=== PATIENT | male | born 1945 | race Caucasian/White ===

== ENCOUNTER 2018-11-05 23:05 | Inpatient (IN) | payer MEDICARE, OTHER ==
[~2018-11-05] VITALS: Ht 180.3 cm; Wt 89.4 kg
[2018-11-06] VITALS (14 sets, daily range): BP systolic 103–175; BP diastolic 38–91
[2018-11-06] MEDS ORDERED: ASPIRIN CHEWABLE 81 MG TABLET. PO ONE (03:30)
[2018-11-06] MEDS: IV NORMAL SALINE 1000ML BAG 1,000 ML IV SCH ×3 (04:13→21:59)
[2018-11-06] MEDS ORDERED: CRESTOR5 MG PO (04:55)
[2018-11-06] MEDS ORDERED: PANT40TA77 PO (04:55)
[2018-11-06] MEDS ORDERED: GABA-585 PO (04:55)
[2018-11-06] MEDS ORDERED: HYDR25SU18 RC (04:55)
[2018-11-06] MEDS ORDERED: CHOL100013 PO (04:55)
[2018-11-06] MEDS ORDERED: DOCU100C28 PO (04:55)
[2018-11-06] MEDS ORDERED: POLY17PO29 PO (04:55)
[2018-11-06] MEDS ORDERED: LOSA100T14 PO (04:55)
--- NOTE | 2018-11-06 05:28 | NUR ---
Pt. admitted to ICU room 112 from [place] ED, arrived to unit on [place] via EMS. Upon arrival pt. is alert to self only. NIH stroke scale completed, score increased from most recent assessment at [place], with changes due to weakness in all four extremities. Dr. Olvera paged and returned call, updated on pt. condition, orders received. Dr. Paul consulted tonight per orders, updated on ED course and current pt. condition including weakness, expressive aphasia, and general confusion order for ASA, and MRI in AM received. Noted that pt's Na was 125, informed Dr. Olvera, orders received. ~0200 pt. became impulsive, attempting to get up from bed multiple times requiring frequent reorientation while awake. Pt. sleeping, within sight of RN at this time, will re-evaluate need for sitter during day shift.
[2018-11-06 07:53] LABS: CALCIUM 8.6 mg/dL (8.5-10.1); CREATININE 1.3 mg/dL (0.7-1.3); GFR 53.8; POTASSIUM 4.1 mmol/L (3.5-5.1)
--- NOTE | 2018-11-06 09:36 | PDOC1 ---
History and Physical Date of Admission Date of Admission DATE: 11/06/18 TIME: 09:35 Identification/Chief Complaint Chief Complaint mental status change Source Source: Chart review, Patient History of Present Illness History of Present Illness Mr. Morales, 73-year-old male went to the ER at [facility] via EMS with concern for stroke. The patient was feeling and acting normally earlier in the day, sudden change at 7:30pm last night, blank stare, not talking for a time, then vonfused. unable to to move well, and that has imrpoved markedly, but he is still not oriented to baseline. His is here and assists with history, she reprots he is much improved this AM. he could not walk last night, and would like to try to do so this AM Patient has a history of TIAs and possibly a previous CVA. No recent surgery. Past Medical History Cardiovascular: HTN, Valve insufficiency Pulmonary: No pertinent hx CENTRAL NERVOUS SYSTEM: CVA GI: Other (GI bleed) Past Surgical History Past Surgical History: No pertinent history Social History Smoke: No ALCOHOL: none Current Medications Current Medications Current Medications Aspirin (Children'S Aspirin) 81 mg 1X ONCE PO Last administered on 11/06/18at 04:12; Start 11/06/18 at 03:30; Stop 11/06/18 at 03:32; Status DC Sodium Chloride 1,000 ml @ 100 mls/hr Q10H IV Last administered on 11/06/18at 04:13; Start 11/06/18 at 04:30 Active Scripts Active Reported Losartan Potassium 100 Mg Tablet 100 Mg PO DAILY Crestor (Rosuvastatin Calcium) 5 Mg Tablet 1 Tab PO QODAY Miralax (Polyethylene Glycol 3350) 17 Gm Powd.pack 1 Packet PO DAILY PRN Pantoprazole Sodium (Pantoprazole Sodium) 40 Mg Tablet.dr 40 Mg PO DAILYAC Anusol-Hc (Hydrocortisone Acetate) 25 Mg Supp.rect 1 Supp RC DAILY PRN Gabapentin (Gabapentin) 100 Mg Capsule 100 Mg PO TID Docusate Sodium 100 Mg Capsule 1 Cap PO DAILY PRN Vitamin D (Cholecalciferol (Vitamin D3)) 1,000 Unit Capsule 1 Cap PO BID Allergies Allergies: Coded Allergies: lisinopril (Verified Allergy, Severe, 11/06/18) Angioedema Penicillins (Verified Allergy, Intermediate, Rash, 11/06/18) atorvastatin (Verified Allergy, Intermediate, 11/06/18) Muscle pain rosuvastatin (Verified Allergy, Intermediate, 11/06/18) Muscle pain - tolerates three times weekly dosing ROS General: YES: Appetite; No: Chills, Night Sweats, Fatigue, Malaise, Other PSYCHOLOGICAL ROS: YES: Sleep disturbances; No: Anxiety, Behavioral Disorder, Concentration difficultie, Decreased libido, Depression, Disorientation, Hallucinations, Hostility, Irritablity, Memory difficulties, Mood Swings, Obsessive thoughts, Other Eyes: No Blurry vision, No Decreased vision, No Double vision, No Dry eyes, No Excessive tearing, No Eye Pain, No Itchy Eyes, No Loss of vision, No Photophobia, No Scotomata, No Uses contacts, No Uses glasses, No Other HEENT: No: Heacaches, Visual Changes, Hearing change, Nasal congestion, Nasal discharge, Oral lesions, Sinus pain, Sore Throat, Epistaxis, Sneezing, Snoring, Tinnitus, Vertigo, Vocal changes, Other Respiratory: No: Cough, Hemoptysis, Orthopnea, Pleuritic Pain, Shortness of breath, SOB with excertion, Sputum Changes, Stridor, Tachypnea, Wheezing, Other Cardiovascular: No Chest Pain, No Palpitations, No Orthopnea, No Paroxysmal Noc. Dyspnea, No Edema, No Lt Headedness, No Other Gastrointestinal: Yes Other (weight loss); No Nausea, No Vomiting, No Abdominal Pain, No Diarrhea, No Constipation, No Melena, No Hematochezia Genitourinary: No Dysuria, No Frequency, No Incontinence, No Hematuria, No Retention, No Discharge, No Urgency, No Pain, No Flank Pain, No Other, No , No , No , No , No , No , No Musculoskeletal: Yes Joint Stiffness; No Gait Disturbance, No Joint Pain, No Joint Swelling, No Muscle Pain, No Muscular Weakness, No Pain In:, No Swelling In:, No Other Neurological: No Behavorial Changes, No Bowel/Bladder ControlChng, No Confusion, No Dizziness, No Gait Disturbance, No Headaches, No Impaired Coord/balance, No Memory Loss, No Numbness/Tingling, No Seizures, No Speech Problems, No Tremors, No Visual Changes, No Weakness, No Other Skin: No Dry Skin, No Eczema, No Hair Changes, No Lumps, No Mole Changes, No Mottling, No Nail Changes, No Pruritus, No Rash, No Skin Lesion Changes, No Other, No Acne Physical Exam Physical Exam NIH 4 General: Alert, Cooperative, No acute distress, Other (oriented 3/4) HEENT: Atraumatic, PERRLA Lungs: Clear to auscultation Heart: murmurs (3/6 MAKENZIE) Abdomen: Normal bowel sounds, Soft Extremities: No edema Skin: No rashes, No breakdown, No significant lesion Neuro: Normal tone, Sensation intact Vitals Vitals Vital Signs Date Time Temp Pulse Resp B/P (MAP) Pulse Ox O2 Delivery O2 Flow Rate FiO2 11/06/18 08:00 Room Air 11/06/18 07:00 98.3 54 159/91 (113) 98 98.3 11/06/18 06:00 22 Labs Labs Laboratory Tests Test 11/06/18 07:20 Sodium Level 133 mmol/L (136-145) Potassium Level 4.1 mmol/L (3.5-5.1) Chloride Level 99 mmol/L (98-107) Carbon Dioxide Level 24 mmol/L (21-32) Anion Gap 10 (6-14) Blood Urea Nitrogen 17 mg/dL (8-26) Creatinine 1.3 mg/dL (0.7-1.3) Estimated GFR (Cockcroft-Gault) 53.8 Glucose Level 114 mg/dL (70-99) Calcium Level 8.6 mg/dL (8.5-10.1) Laboratory Tests Test 11/06/18 07:20 Sodium Level 133 mmol/L (136-145) Potassium Level 4.1 mmol/L (3.5-5.1) Chloride Level 99 mmol/L (98-107) Carbon Dioxide Level 24 mmol/L (21-32) Anion Gap 10 (6-14) Blood Urea Nitrogen 17 mg/dL (8-26) Creatinine 1.3 mg/dL (0.7-1.3) Estimated GFR (Cockcroft-Gault) 53.8 Glucose Level 114 mg/dL (70-99) Calcium Level 8.6 mg/dL (8.5-10.1) VTE Prophylaxis Ordered VTE Prophylaxis Devices: Yes VTE Pharmacological Prophylaxi: No Assessment/Plan Assessment/Plan acute CVA symptoms on prior CVA CVA syndrome, confusion, acute encephalopathy hx of recent GI bleed, admitted at carotid stenosis Known mitral valve insufficiency, repair planned at [facility], [facility] weakness and debility DIANE CABELLO MD Nov 06, 2018 09:36
[2018-11-06] MEDS ORDERED: HYDROCORTISONE ACETATE 25 MG SUPP.RECT PR PRN (10:30)
--- NOTE | 2018-11-06 10:44 | NUR ---
Patient downgraded this am. report called and NIHSS discussed with 6S RN. Patient has MRI ordered for later today. Dr. Felton consulted for car. stenosis. RN to review NIHSS at bedside with change of report.
--- NOTE | 2018-11-06 10:58 | NUR ---
Patient transferred to [address] [place] [address] at 1045 via bed accompanied by family members, report received from Abbe SMITH of ICU at 1009. Patient is alert, oriented x2, denies pain; call light placed within reach.
--- NOTE | 2018-11-06 11:42 | PDOC ---
Provider Note Provider Note Vascular Surgery Consult dictated 73 year old male with severe left internal carotid artery stenosis >75% per CTA of the neck at [facility] (I reviewed images and agree with scan finding s). He has a long history of memory issues however had a new episode of aphasia and weakness in the legs. CT of the head was negative for a stroke. With the severe stenosis of the left ICA he will benefit from left carotid endarterectomy to help prevent future strokes. Will consult cardiology for clearance since he is suppose to undergo upcoming heart valve surgery. He has been started on daily aspirin, was not taking at home because of recent GI bleed. Neurology has been consulted. AMBERLY ZAPIEN MD Nov 06, 2018 11:42
[2018-11-06] MEDS ORDERED: MELA3TAB2 PO (12:40)
--- NOTE | 2018-11-06 12:42 | RAD ---
Indication: CVA. Altered mental status TECHNIQUE: Noncontrast MRI of the brain. COMPARISON: None FINDINGS: Significant motion artifact on some sequences limiting optimal evaluation. No pathologic extra-axial or intra-axial fluid collection. Mild diffuse atrophy with ex vacuo dilation of the ventricles. There is no abnormal restricted diffusion to suggest acute ischemic process. Mild high intensity T2/flair signal is seen adjacent to the ventricles. No large paranasal sinus or mastoid effusions. The ventricles are within normal limits. The expected major flow voids are maintained. IMPRESSION: Significant motion artifact on multiple sequences limiting optimal evaluation. 1. No imaging evidence of acute ischemic infarct. 2. High intensity T2/vascular in the periventricular white matter, nonspecific and may be secondary to chronic microvascular ischemic disease. 3. Mild to moderate atrophy. Electronically signed by: Domingo Cole DO (11/06/2018 12:39 PM) [facility]
--- NOTE | 2018-11-06 13:01 | CONS ---
DATE OF CONSULTATION: 11/06/2018 CHIEF COMPLAINT: Carotid arterial disease. HISTORY OF PRESENT ILLNESS: The patient is a 73-year-old male who presented to the Emergency Department at [facility] after having stroke-like symptoms. His family reports that at approximately 7:30 p.m. yesterday evening, he suddenly had a blank stare and was not able to speak or communicate. His asked him multiple questions and was not able to get him to speak. She reports that at least one of his arms had good strength. She cannot remember if it was both of his arms that were moving. She did try to get him up into the car, but he had weakness in his legs. She then called the ambulance and they went to the hospital. At the outside facility, he underwent a CT scan of the head, which showed no acute stroke. CT angiogram of the head and neck at the outside facility showed severe greater than 75% stenosis of the left internal carotid artery and less than 50% stenosis of the right internal carotid artery. I was able to pull these films with the radiologist here and we reviewed the CT angiogram and we did confirm that the left internal carotid artery is greater than 75% stenotic. He has been here in the hospital and started on a baby aspirin. He does report a history of heart valve disease and is supposed to undergo upcoming heart valve surgery. This has not yet been done because he was recently hospitalized at [facility] with a GI bleed. At home, he was not taking any form of anticoagulation including no aspirin because of the recent GI bleed. Prior to the GI bleed, he did take an aspirin daily. The patient is able to answer a few simple questions; however, he does get confused with his answers. Most of his history is from his who is at the bedside. REVIEW OF SYSTEMS: A 10-point review of systems was performed, which was otherwise negative besides what is mentioned in the history of present illness. PAST MEDICAL HISTORY: Includes: 1. Hypertension. 2. Coronary artery disease. 3. Heart valve disease. 4. History of recent gastrointestinal bleed. 5. Hyperlipidemia. 6. Carotid arterial disease. PAST SURGICAL HISTORY: Includes coronary artery bypass graft. ALLERGIES: INCLUDE PENICILLIN, ATORVASTATIN, LISINOPRIL AND OTHER STATIN MEDICATIONS. SOCIAL HISTORY: He does not smoke or drink alcohol. FAMILY HISTORY: Significant for high blood pressure. MEDICATIONS: Please see his full MAR. He has been started on a baby aspirin here in the hospital daily. PHYSICAL EXAMINATION: GENERAL: The patient is awake and alert, currently in no apparent distress. VITAL SIGNS: He has a blood pressure of 159/91, pulse of 54. He is 98% on room air and he is afebrile. NECK: Supple with no surgical scars or swelling. His bilateral upper extremities are warm without edema. HEART: Regular rate and rhythm with a murmur. LUNGS: Have bilateral breath sounds to auscultation. ABDOMEN: Soft, nondistended and nontender. EXTREMITIES: His bilateral lower extremities are warm without edema. NEUROLOGIC: He is awake and alert. He has difficulty answering questions appropriately, but is able to speak. He is moving all 4 extremities with good strength. IMPRESSION: 1. Severe greater than 75% stenosis of the left internal carotid artery by CT angiogram done at [facility], which I reviewed the images from, this may be symptomatic with a transient ischemic attack with his recent symptoms of aphasia. 2. Mitral valve disease, which he is supposed to undergo heart surgery for in the near future. 3. Recent gastrointestinal bleed. PLAN: The patient has severe greater than 75% stenosis of the left internal carotid artery. His right internal carotid artery has less than 50% stenosis. His left internal carotid artery does have severe stenosis and he would benefit from carotid endarterectomy to help prevent future strokes. This left carotid also may be symptomatic with his recent episode of aphasia. He does have a long history of memory issues and confusion; however, this episode was unique and different from previous episodes of confusion. Neurology will evaluate him here in the hospital. CT scan of the head showed no acute stroke. I did discuss performing a left carotid endarterectomy, the risks and benefits of the surgery with the family and the patient. He has been started on a baby aspirin daily. We will consult Cardiology to evaluate his heart and clear him for carotid surgery prior to proceeding. AMBERLY ZAPIEN MD DR: ELISA/gordon JOB#: [id number] / [id number]
[2018-11-06] MEDS ORDERED: HALOPERIDOL LACTATE 5 MG/ML VIAL. IVP ONE (13:30)
[2018-11-06] MEDS: GABAPENTIN 100 MG CAPSULE. PO SCH ×3 (14:00→21:59)
--- NOTE | 2018-11-06 14:34 | NUR ---
At 1315, patient became agitated and more confused. Tried to reorient the patient, however he still wanted to leave his room. When asked why he was getting up, he replied that he's going home. The patient started yelling, called Dr. Ibarra, order received to have one to one observation, and one dose of Haldol. Neurology also came to the bedside to assess the patient. We'll continue to monitor.
[2018-11-06] MEDS: QUEtiapine 25 MG TABLET. PO SCH ×2 (15:00→21:59)
[2018-11-06] MEDS: PANTOPRAZOLE 40 MG TABLET.DR. PO SCH (15:00)
[2018-11-06] MEDS: LOSARTAN POTASSIUM 25 MG TABLET. PO SCH (15:00)
--- NOTE | 2018-11-06 17:55 | PDOC2 ---
NEUROLOGY CONSULT Date of Admission Date of Admission DATE: 11/06/18 TIME: 17:36 Reason for Consult Reason for Consult: IMPRESSION: Psychosis. Metabolic encephalopathy. Agitation. Restless. Confusion. Aggressiveness. Hyponatremia, Na 125. Left ICA stenosis, > 75%. GI bleeding x 2, 1 month within 6 months. Valvular insufficiency. Ventriculomegaly. Dementia features. No evidence of acute CVA this time. RECOMMENDATIONS/PLAN: ASA 81 mg daily or higher dose. Seroquel 12.5 mg to 25 mg bid. Treat medical diseases. Lab: see orders. EEG. Consulted VS. Brain MRI on was negative for acute CVA. HISTORY OF THE PRESENT ILLNESS: This is a 73-year-old male patient with above medical diseases was brought to the ER of [place] via EMS with concerns of a possible stroke. The patient was feeling and acting normally earlier in the day, but suddenly changed mentation at 7:30pm on 11/05/18. His stated noted some blank stares. He was said not able to move well, and his motor function improved markedly and shortly afterwar ds, but he is still not oriented to baseline. He was eventually transferred to [facility] for further evaluation and treatment. He had valvular problem but ASA was discontinued due to 2 GI bleedings within 6 months and latest on was about1 month ago. Past Medical History Cardiovascular: HTN, Valve insufficiency Pulmonary: No pertinent hx CENTRAL NERVOUS SYSTEM: CVA GI: Other (GI bleed) Past Surgical History No pertinent history Allergies Coded Allergies: lisinopril (Verified Allergy, Severe, 11/06/18) Angioedema Penicillins (Verified Allergy, Intermediate, Rash, 11/06/18) atorvastatin (Verified Allergy, Intermediate, 11/06/18) Muscle pain rosuvastatin (Verified Allergy, Intermediate, 11/06/18) Muscle pain - tolerates three times weekly dosing MEDICATIONS: Refer to MAR FAMILY HISTORY: Non contributory. SOCIAL HISTORY: Lives with his at home. Denies current smoking, drinking, and illicit drug use. REVIEW OF SYSTEMS: Constitutional: No malnutrition, weight loss, cachexia. Head: No traumatic brain or head injury. Skin: No edema, or rash. Ear: No infection. Eyes: No vision loss or color blindness. Nose: No bleeding or purulent discharges. Hearing: Hearing decrease. Neck: No injury. Cardiac: Valvular disease. HTN, HLD. Pulmonary: No COPD. GI: GI bleeding. Urinary/genital: UTI. Endocrinologic: No cousin face, craniofacial dysmorphism, polydactyly. Skeletomuscular: No muscular atrophy, deformity. Neurological: see HP. Psychiatric: Denies drug use/abuse. Otherwise, not [id number] review of systems. PHYSICAL EXAMINATION: General appearance is in subacute distress. HEENT: Normocephalic and nontraumatic. Eyes, nose, ears, and throat are unremarkable. Neck is supple. No lymphadenopathy. No crepitus. Cardiovascular: S1, S2, regular rate and rhythm. Pulmonary: Clear to auscultation bilaterally. Abdomen: Bowel sounds are positive. Extremities: No rash, lesions, or edema. No restriction of range of motion NEUROLOGICAL EXAMINATION: Awake. Agitated. Not oriented to time, place and person. PERRL. EOMI. CN: no focal findings. Muscle tone: within normal. Muscle strength: 5 DTR: 2 Plantar reflex: Flexor response bilaterally Gait: At baseline normal. Sensory exam: no abnormal findings. No cerebellar signs elicited. F-T-N test fine. Current Medications Current Medications Current Medications Aspirin (Children'S Aspirin) 81 mg 1X ONCE PO Last administered on 11/06/18at 04:12; Start 11/06/18 at 03:30; Stop 11/06/18 at 03:32; Status DC Sodium Chloride 1,000 ml @ 100 mls/hr Q10H IV Last administered on 11/06/18at 12:50; Start 11/06/18 at 04:30 Docusate Sodium (Colace) 100 mg DAILY PRN PO CONSTIPATION; Start 11/06/18 at 10:00 Gabapentin (Neurontin) 100 mg TID PO Last administered on 11/06/18at 15:00; Start 11/06/18 at 10:30 Pantoprazole Sodium (Protonix) 40 mg DAILYAC PO Last administered on 11/06/18at 15:00; Start 11/06/18 at 10:30 Hydrocortisone Acetate (Anucort-Hc) 25 mg PRN DAILY PRN VT RECTAL PAIN; Start 11/06/18 at 10:30 Polyethylene Glycol (miraLAX PACKET) 17 gm PRN DAILY PRN PO CONSTIPATION; Start 11/06/18 at 09:00 Non-Formulary Medication (Rosuvastatin Calcium (Crestor)) 1 tab QODAY PO ; Start 11/08/18 at 09:00; Status UNV Losartan Potassium (Cozaar) 25 mg DAILY PO Last administered on 11/06/18at 15:00; Start 11/06/18 at 10:30 Haloperidol Lactate (Haldol Inj) 2 mg 1X ONCE IVP Last administered on 11/06/18at 13:30; Start 11/06/18 at 13:30; Stop 11/06/18 at 13:31; Status DC Quetiapine Fumarate (SEROquel) 12.5 mg BID PO Last administered on 11/06/18at 15:00; Start 11/06/18 at 14:00 Lorazepam (Ativan Inj) 1 mg PRN Q4HRS PRN IV ANXIETY / AGITATION; Start 11/06/18 at 14:30 Active Scripts Active Reported Melatonin 3 Mg Tablet 1 Tab PO QHS Losartan Potassium 100 Mg Tablet 100 Mg PO DAILY Crestor (Rosuvastatin Calcium) 5 Mg Tablet 1 Tab PO QODAY Miralax (Polyethylene Glycol 3350) 17 Gm Powd.pack 1 Packet PO DAILY PRN Pantoprazole Sodium (Pantoprazole Sodium) 40 Mg Tablet.dr 40 Mg PO DAILYAC Anusol-Hc (Hydrocortisone Acetate) 25 Mg Supp.rect 1 Supp RC DAILY PRN Gabapentin (Gabapentin) 100 Mg Capsule 100 Mg PO TID Docusate Sodium 100 Mg Capsule 1 Cap PO DAILY PRN Vitamin D (Cholecalciferol (Vitamin D3)) 1,000 Unit Capsule 1 Cap PO BID Allergies Allergies: Allergies Coded Allergies Type Severity Reaction Last Updated Verified lisinopril Allergy Severe 11/06/18 Yes Penicillins Allergy Intermediate Rash 11/06/18 Yes atorvastatin Allergy Intermediate 11/06/18 Yes rosuvastatin Allergy Intermediate 11/06/18 Yes ROS Review of System The patient denies any associated fevers, chills, headache, ear pain, rhinorr hea, sore throat, stiff neck, productive cough, chest pain, shortness of breath, back or flank pain, abdominal pain, nausea, vomiting, diarrhea, constipation, dysuria, rash, numbness, weakness, tingling, incontinence, difficulty ambulating, or diaphoresis. Physical Exam Physical Exam General: Well developed, well nourished, no acute distress, well appearing HEENT: Pupils equally round and reactive to light, EOMI, no discharge, normal conjunctiva Neck: Supple, no nuchal rigidity, no JVD, trachea midline, no tenderness Cardiac: RRR, no murmurs, no gallops, no rubs Chest/Lungs: CTAB, no wheeze, no rhonchi, no crackles Abdomen: soft, non-distended, no guarding, no peritoneal signs, non-tender Back: No tenderness Extremities: no edema, pulses intact, non-tender,capillary refill <3 sec bilateral upper and lower extremities, Neuro: Alert and oriented x 4, no focal deficits, normal speech Vitals Vitals: Vital Signs Date Time Temp Pulse Resp B/P (MAP) Pulse Ox O2 Delivery O2 Flow Rate FiO2 11/06/18 15:10 97.9 71 18 173/55 (94) 94 Room Air 97.9 Labs Labs Laboratory Tests Test 11/06/18 07:20 Sodium Level 133 mmol/L (136-145) Potassium Level 4.1 mmol/L (3.5-5.1) Chloride Level 99 mmol/L (98-107) Carbon Dioxide Level 24 mmol/L (21-32) Anion Gap 10 (6-14) Blood Urea Nitrogen 17 mg/dL (8-26) Creatinine 1.3 mg/dL (0.7-1.3) Estimated GFR (Cockcroft-Gault) 53.8 Glucose Level 114 mg/dL (70-99) Calcium Level 8.6 mg/dL (8.5-10.1) Laboratory Tests Test 11/06/18 07:20 Sodium Level 133 mmol/L (136-145) Potassium Level 4.1 mmol/L (3.5-5.1) Chloride Level 99 mmol/L (98-107) Carbon Dioxide Level 24 mmol/L (21-32) Anion Gap 10 (6-14) Blood Urea Nitrogen 17 mg/dL (8-26) Creatinine 1.3 mg/dL (0.7-1.3) Estimated GFR (Cockcroft-Gault) 53.8 Glucose Level 114 mg/dL (70-99) Calcium Level 8.6 mg/dL (8.5-10.1) BECKY DESAI MD Nov 06, 2018 17:55
[2018-11-07] VITALS (7 sets, daily range): BP systolic 127–171; BP diastolic 39–58
[2018-11-07 04:27] LABS: BASO # 0.1 x10^3/uL (0.0-0.2); BASO % 1 % (0-3); EOS # 0.3 x10^3/uL (0.0-0.7); EOS % 4 % (0-3); HEMATOCRIT 29.8 % (39.0-53.0); LYMPH # 0.9 x10^3/uL (1.0-4.8); LYMPH % 14 % (24-48); MEAN CORPUSCULAR HEMOGLOBIN 31 pg (25-35); MEAN CORPUSCULAR HGB CONC 34 g/dL (31-37); MEAN CORPUSCULAR VOLUME 90 fL (79-100); MONO # 0.4 x10^3/uL (0.0-1.1); MONO % 7 % (0-9); NEUT # 4.5 x10^3/uL (1.8-7.7); NEUT % 74 % (31-73); PLATELET COUNT 110 x10^3/uL (140-400); WHITE BLOOD COUNT 6.1 x10^3/uL (4.0-11.0)
[2018-11-07 04:36] LABS: PROTHROMBIN TIME PATIENT 12.7 SEC (11.7-14.0)
[2018-11-07 04:47] LABS: CALCIUM 8.4 mg/dL (8.5-10.1); CREATININE 1.2 mg/dL (0.7-1.3); POTASSIUM 3.8 mmol/L (3.5-5.1)
[2018-11-07 04:49] LABS: CHOLESTEROL/HDL RATIO 3.5
[2018-11-07] MEDS: IV NORMAL SALINE 1000ML BAG 1,000 ML IV SCH (06:20)
[2018-11-07] MEDS: GABAPENTIN 100 MG CAPSULE. PO SCH ×3 (08:12→20:50)
[2018-11-07] MEDS: QUEtiapine 25 MG TABLET. PO SCH ×2 (08:12→20:50)
[2018-11-07] MEDS: PANTOPRAZOLE 40 MG TABLET.DR. PO SCH (08:12)
[2018-11-07] MEDS: LOSARTAN POTASSIUM 25 MG TABLET. PO SCH (08:14)
[2018-11-07] MEDS ORDERED: ONDANSETRON PF 4 MG/2 ML VIAL. IV PRN (09:45)
[2018-11-07] MEDS ORDERED: ACETAMINOPHEN 500 MG TABLET PO PRN (09:45)
--- NOTE | 2018-11-07 10:23 | PDOC ---
Provider Note Provider Note AF VSS awake and alert normal strength in the upper extremities, normal speech with some confusion neck supple A/P 73 year old male with severe left internal carotid artery stenosis >75% per CTA of the neck at [facility] (I reviewed images and agree with scan findings). - Recommend left carotid endarterectomy, will plan Thursday or Thursday this week if cleared by cardiology - consult cardiology for clearance since he is suppose to undergo upcoming heart valve surgery. - on daily aspirin, was not taking at home because of recent GI bleed. - neurology following MRI negative for stroke AMBERLY ZAPIEN MD Nov 07, 2018 10:23
[2018-11-07] MEDS: CHOLECALCIFEROL (VITAMIN D3) 1,000 UNIT TABLET PO SCH ×2 (12:33→20:50)
--- NOTE | 2018-11-07 13:05 | PDOC ---
PROGRESS NOTES Chief Complaint Chief Complaint 1. Severe greater than 75% stenosis of the left internal carotid artery by CT angiogram done at [facility], which I reviewed the images from, this may be symptomatic with a transient ischemic attack with his recent symptoms of aphasia. 2. Mitral valve disease, which he is supposed to undergo heart surgery for in the near future. 3. Recent gastrointestinal bleed 4. Psychosis. 5. Metabolic encephalopathy. 6. Dementia features. 7. No evidence of acute CVA this brittney History of Present Illness History of Present Illness transferred out of ICU 11/06/18 Vascular surgery planning in pt endarterectomy but needing cardiac clearance Lots of cardiac history including quadruple bypass, mitral valve issues planned for replacement in outside facility Patient seems calm, multiple family murmurs at bedside-seen on the sixth floor Getting records cardiac records from other places where he has been Plan: planNED for inpatient endarterectomy once cardiac cleared Getting records heart history from other facilities Called by RN, some swallow issues-we'll keep nothing by mouth [employer] eval tomorrow PT OT tomorrow Thursday Other notes reviewed including neuro and vascular surgery note SOME PROCALAMINE, low dose, while npo Vitals Vitals Vital Signs Date Time Temp Pulse Resp B/P (MAP) Pulse Ox O2 Delivery O2 Flow Rate FiO2 11/07/18 10:41 98.7 68 20 140/47 (78) 98 Room Air 98.7 Physical Exam General: Alert, Cooperative, No acute distress, Other (oriented 3/4) Heart: Regular rate Lungs: Other (diminished on the bases, ) Abdomen: Normal bowel sounds, Soft Extremities: No edema Skin: No rashes, No breakdown, No significant lesion Labs LABS Laboratory Tests Test 11/07/18 03:35 White Blood Count 6.1 x10^3/uL (4.0-11.0) Red Blood Count 3.30 x10^6/uL (4.30-5.70) Hemoglobin 10.0 g/dL (13.0-17.5) Hematocrit 29.8 % (39.0-53.0) Mean Corpuscular Volume 90 fL (79-100) Mean Corpuscular Hemoglobin 31 pg (25-35) Mean Corpuscular Hemoglobin Concent 34 g/dL (31-37) Red Cell Distribution Width 16.0 % (11.5-14.5) Platelet Count 110 x10^3/uL (140-400) Neutrophils (%) (Auto) 74 % (31-73) Lymphocytes (%) (Auto) 14 % (24-48) Monocytes (%) (Auto) 7 % (0-9) Eosinophils (%) (Auto) 4 % (0-3) Basophils (%) (Auto) 1 % (0-3) Neutrophils # (Auto) 4.5 x10^3/uL (1.8-7.7) Lymphocytes # (Auto) 0.9 x10^3/uL (1.0-4.8) Monocytes # (Auto) 0.4 x10^3/uL (0.0-1.1) Eosinophils # (Auto) 0.3 x10^3/uL (0.0-0.7) Basophils # (Auto) 0.1 x10^3/uL (0.0-0.2) Prothrombin Time 12.7 SEC (11.7-14.0) Prothromb Time International Ratio 1.0 (0.8-1.1) Sodium Level 135 mmol/L (136-145) Potassium Level 3.8 mmol/L (3.5-5.1) Chloride Level 103 mmol/L (98-107) Carbon Dioxide Level 24 mmol/L (21-32) Anion Gap 8 (6-14) Blood Urea Nitrogen 13 mg/dL (8-26) Creatinine 1.2 mg/dL (0.7-1.3) Estimated GFR (Cockcroft-Gault) 59.0 Glucose Level 96 mg/dL (70-99) Calcium Level 8.4 mg/dL (8.5-10.1) Triglycerides Level 181 mg/dL (0-150) Cholesterol Level 170 mg/dL (0-200) LDL Cholesterol, Calculated 85 mg/dL (0-100) VLDL Cholesterol, Calculated 36 mg/dL (0-40) Non-HDL Cholesterol Calculated 121 mg/dL (0-129) HDL Cholesterol 49 mg/dL (40-60) Cholesterol/HDL Ratio 3.5 Review of Systems Review of Systems A 14 point ROS was completed with the following noted as positive: Other systems reviewed and negative. \CONSTITUTIONAL: No fever or chills EYES: No recent changes SKIN: No rash or itching CARDIOVASCULAR: No chest pain, syncope, palpitations, or edema RESPIRATORY: No SOB or cough GASTROINTESTINAL: No nausea, vomiting or abdominal pain NEUROLOGICAL: No headaches or weakness ENDOCRINE: No cold or heat intolerance GENITOURINARY: No urgency or frequency of urination MUSCULOSKELETAL: No back pain or joint pain LYMPHATICS: No enlarged lymph nodes PSYCHIATRIC: No anxiety or depression Comment Review of Relevant I have reviewed the following items hamzah (where applicable) has been applied. Labs Laboratory Tests Test 11/06/18 01:00 11/06/18 07:20 11/07/18 03:35 Nasal Screen MRSA (PCR) Negative (Negative) Sodium Level 133 mmol/L (136-145) 135 mmol/L (136-145) Potassium Level 4.1 mmol/L (3.5-5.1) 3.8 mmol/L (3.5-5.1) Chloride Level 99 mmol/L (98-107) 103 mmol/L (98-107) Carbon Dioxide Level 24 mmol/L (21-32) 24 mmol/L (21-32) Anion Gap 10 (6-14) 8 (6-14) Blood Urea Nitrogen 17 mg/dL (8-26) 13 mg/dL (8-26) Creatinine 1.3 mg/dL (0.7-1.3) 1.2 mg/dL (0.7-1.3) Estimated GFR (Cockcroft-Gault) 53.8 59.0 Glucose Level 114 mg/dL (70-99) 96 mg/dL (70-99) Calcium Level 8.6 mg/dL (8.5-10.1) 8.4 mg/dL (8.5-10.1) White Blood Count 6.1 x10^3/uL (4.0-11.0) Red Blood Count 3.30 x10^6/uL (4.30-5.70) Hemoglobin 10.0 g/dL (13.0-17.5) Hematocrit 29.8 % (39.0-53.0) Mean Corpuscular Volume 90 fL (79-100) Mean Corpuscular Hemoglobin 31 pg (25-35) Mean Corpuscular Hemoglobin Concent 34 g/dL (31-37) Red Cell Distribution Width 16.0 % (11.5-14.5) Platelet Count 110 x10^3/uL (140-400) Neutrophils (%) (Auto) 74 % (31-73) Lymphocytes (%) (Auto) 14 % (24-48) Monocytes (%) (Auto) 7 % (0-9) Eosinophils (%) (Auto) 4 % (0-3) Basophils (%) (Auto) 1 % (0-3) Neutrophils # (Auto) 4.5 x10^3/uL (1.8-7.7) Lymphocytes # (Auto) 0.9 x10^3/uL (1.0-4.8) Monocytes # (Auto) 0.4 x10^3/uL (0.0-1.1) Eosinophils # (Auto) 0.3 x10^3/uL (0.0-0.7) Basophils # (Auto) 0.1 x10^3/uL (0.0-0.2) Prothrombin Time 12.7 SEC (11.7-14.0) Prothromb Time International Ratio 1.0 (0.8-1.1) Triglycerides Level 181 mg/dL (0-150) Cholesterol Level 170 mg/dL (0-200) LDL Cholesterol, Calculated 85 mg/dL (0-100) VLDL Cholesterol, Calculated 36 mg/dL (0-40) Non-HDL Cholesterol Calculated 121 mg/dL (0-129) HDL Cholesterol 49 mg/dL (40-60) Cholesterol/HDL Ratio 3.5 Laboratory Tests Test 11/07/18 03:35 White Blood Count 6.1 x10^3/uL (4.0-11.0) Red Blood Count 3.30 x10^6/uL (4.30-5.70) Hemoglobin 10.0 g/dL (13.0-17.5) Hematocrit 29.8 % (39.0-53.0) Mean Corpuscular Volume 90 fL (79-100) Mean Corpuscular Hemoglobin 31 pg (25-35) Mean Corpuscular Hemoglobin Concent 34 g/dL (31-37) Red Cell Distribution Width 16.0 % (11.5-14.5) Platelet Count 110 x10^3/uL (140-400) Neutrophils (%) (Auto) 74 % (31-73) Lymphocytes (%) (Auto) 14 % (24-48) Monocytes (%) (Auto) 7 % (0-9) Eosinophils (%) (Auto) 4 % (0-3) Basophils (%) (Auto) 1 % (0-3) Neutrophils # (Auto) 4.5 x10^3/uL (1.8-7.7) Lymphocytes # (Auto) 0.9 x10^3/uL (1.0-4.8) Monocytes # (Auto) 0.4 x10^3/uL (0.0-1.1) Eosinophils # (Auto) 0.3 x10^3/uL (0.0-0.7) Basophils # (Auto) 0.1 x10^3/uL (0.0-0.2) Prothrombin Time 12.7 SEC (11.7-14.0) Prothromb Time International Ratio 1.0 (0.8-1.1) Sodium Level 135 mmol/L (136-145) Potassium Level 3.8 mmol/L (3.5-5.1) Chloride Level 103 mmol/L (98-107) Carbon Dioxide Level 24 mmol/L (21-32) Anion Gap 8 (6-14) Blood Urea Nitrogen 13 mg/dL (8-26) Creatinine 1.2 mg/dL (0.7-1.3) Estimated GFR (Cockcroft-Gault) 59.0 Glucose Level 96 mg/dL (70-99) Calcium Level 8.4 mg/dL (8.5-10.1) Triglycerides Level 181 mg/dL (0-150) Cholesterol Level 170 mg/dL (0-200) LDL Cholesterol, Calculated 85 mg/dL (0-100) VLDL Cholesterol, Calculated 36 mg/dL (0-40) Non-HDL Cholesterol Calculated 121 mg/dL (0-129) HDL Cholesterol 49 mg/dL (40-60) Cholesterol/HDL Ratio 3.5 Medications Current Medications Aspirin (Children'S Aspirin) 81 mg 1X ONCE PO Last administered on 11/06/18at 04:12; Start 11/06/18 at 03:30; Stop 11/06/18 at 03:32; Status DC Sodium Chloride 1,000 ml @ 100 mls/hr Q10H IV Last administered on 11/07/18at 06:20; Start 11/06/18 at 04:30; Stop 11/07/18 at 09:35; Status DC Docusate Sodium (Colace) 100 mg DAILY PRN PO CONSTIPATION; Start 11/06/18 at 10:00 Gabapentin (Neurontin) 100 mg TID PO Last administered on 11/07/18 08:12; Start 11/06/18 at 10:30 Pantoprazole Sodium (Protonix) 40 mg DAILYAC PO Last administered on 11/07/18at 08:12; Start 11/06/18 at 10:30 Hydrocortisone Acetate (Anucort-Hc) 25 mg PRN DAILY PRN [place] RECTAL PAIN; Start 11/06/18 at 10:30 Polyethylene Glycol (miraLAX PACKET) 17 gm PRN DAILY PRN PO CONSTIPATION; Start 11/06/18 at 09:00 Non-Formulary Medication (Rosuvastatin Calcium (Crestor)) 1 tab QODAY PO ; Start 11/08/18 at 09:00; Status UNV Losartan Potassium (Cozaar) 25 mg DAILY PO Last administered on 11/07/18at 08:14; Start 11/06/18 at 10:30 Haloperidol Lactate (Haldol Inj) 2 mg 1X ONCE IVP Last administered on 11/06/18at 13:30; Start 11/06/18 at 13:30; Stop 11/06/18 at 13:31; Status DC Quetiapine Fumarate (SEROquel) 12.5 mg BID PO Last administered on 11/07/18 08:12; Start 11/06/18 at 14:00 Lorazepam (Ativan Inj) 1 mg PRN Q4HRS PRN IV ANXIETY / AGITATION, 1st CHOIC Last administered on 11/07/18at 03:44; Start 11/06/18 at 14:30 Haloperidol Lactate (Haldol Inj) 2.5 mg PRN Q6HRS PRN IVP AGITATION, 2nd CHOICE; Start 11/07/18 at 09:45 Acetaminophen (Tylenol) 500 mg PRN Q6HRS PRN PO HEADACHE / TEMP; Start 11/07/18 at 09:45 Hydralazine HCl (Apresoline Inj) 10 mg PRN Q4HRS PRN IVP ELEVATED BP, SEE COMMENTS; Start 11/07/18 at 09:45 Ondansetron HCl (Zofran) 4 mg PRN Q6HRS PRN IV NAUSEA/VOMITING; Start 11/07/18 at 09:45 Vitamin D (Vitamin D3) 1,000 unit BID PO Last administered on 11/07/18at 12:33; Start 11/07/18 at 10:00 Non-Formulary Medication (Melatonin ) 1 tab QHS PO ; Start 11/07/18 at 21:00; Status UNV Active Scripts Active Reported Melatonin 3 Mg Tablet 1 Tab PO QHS Losartan Potassium 100 Mg Tablet 100 Mg PO DAILY Crestor (Rosuvastatin Calcium) 5 Mg Tablet 1 Tab PO QODAY Miralax (Polyethylene Glycol 3350) 17 Gm Powd.pack 1 Packet PO DAILY PRN Pantoprazole Sodium (Pantoprazole Sodium) 40 Mg Tablet.dr 40 Mg PO DAILYAC Anusol-Hc (Hydrocortisone Acetate) 25 Mg Supp.rect 1 Supp RC DAILY PRN Gabapentin (Gabapentin) 100 Mg Capsule 100 Mg PO TID Docusate Sodium 100 Mg Capsule 1 Cap PO DAILY PRN Vitamin D (Cholecalciferol (Vitamin D3)) 1,000 Unit Capsule 1 Cap PO BID Vitals/I & O Vital Sign - Last 24 Hours 11/06/18 11/06/18 11/06/18 11/06/18 15:00 15:10 19:10 20:10 Temp 97.9 98.2 97.9 98.2 Pulse 56 71 59 Resp 18 18 B/P (MAP) 143/38 173/55 (94) 103/38 (59) Pulse Ox 94 98 O2 Delivery Room Air Room Air Room Air 11/06/18 11/07/18 11/07/18 11/07/18 23:08 03:27 07:45 08:00 Temp 98.1 97.7 98.7 98.1 97.7 98.7 Pulse 57 68 80 Resp 18 16 17 B/P (MAP) 111/43 (65) 171/52 (91) 144/49 (80) Pulse Ox 98 97 97 O2 Delivery Room Air Room Air Room Air Room Air 11/07/18 11/07/18 08:14 10:41 Temp 98.7 98.7 Pulse 80 68 Resp 20 B/P (MAP) 144/49 140/47 (78) Pulse Ox 98 O2 Delivery Room Air Intake and Output 11/06/18 11/06/18 11/07/18 14:59 22:59 06:59 Intake Total 0 ml Output Total 850 ml Balance -850 ml JOSE OCHOA MD Nov 07, 2018 13:05
[2018-11-07] MEDS ORDERED: AMINO AC 3%/ELECTROLYTE/GLYCER 1,000 ML IV SCH (14:00)
--- NOTE | 2018-11-07 16:09 | NUR ---
Patient is awake, no agitation noted, still on 1:1 observation. The patient's family are at the bedside. No new concerns at present.
--- NOTE | 2018-11-07 17:42 | PDOC2 ---
CONSULT Date of Consult Date of Consult DATE: 11/07/18 TIME: 17:32 Reason for Consult Reason for Consult: Preop evaluation with history of a bypass operation and mitral valve replacement Referring Physician Referring Physician: Dr. Ibarra Identification/Chief Complaint Chief Complaint Dizziness and lightheadedness. Source Source: Chart review, Patient History of Present Illness Reason for Visit: The patient is a pleasant 73-year-old male who was admitted initially to the [facility] emergency room and then transferred to [place] for a possible CVA s yndrome. Neurological evaluation is pending but the patient's symptoms have improved. He was seen by vascular surgery and has been found to have a significant left internal carotid stenosis. They are considering a left carotid endarterectomy. From a cardiac viewpoint the patient has a history of bypass surgery and a probable mitral valve replacement approximately 10 years ago. More recently he had a heart catheterization at approximately one month ago and no intervention was performed. He is also scheduled to undergo an evaluation for a possible repair of his mitral valve at the [facility] in the next several weeks. He is not scheduled at this time for any upcoming heart surgery. He has a history of hypertension as well as previous TIAs. At the present time he is resting comfortably in bed and denies any pain. Also of note he has had apparent recurrent GI bleeds and has been taken off aspirin and is on no anticoagulation. Past Medical History Cardiovascular: CAD, CHF, HTN, Valve insufficiency Pulmonary: No pertinent hx CENTRAL NERVOUS SYSTEM: CVA GI: Other (GI bleed) Past Surgical History Past Surgical History: CABG, Other (Probable mitral valve replacement) Family History Family History: Hypertension Social History No ALCOHOL: none Current Medications Current Medications Current Medications Aspirin (Children'S Aspirin) 81 mg 1X ONCE PO Last administered on 11/06/18at 04:12; Start 11/06/18 at 03:30; Stop 11/06/18 at 03:32; Status DC Sodium Chloride 1,000 ml @ 100 mls/hr Q10H IV Last administered on 11/07/18at 06:20; Start 11/06/18 at 04:30; Stop 11/07/18 at 09:35; Status DC Docusate Sodium (Colace) 100 mg DAILY PRN PO CONSTIPATION; Start 11/06/18 at 10:00 Gabapentin (Neurontin) 100 mg TID PO Last administered on 11/07/18at 14:24; S tart 11/06/18 at 10:30 Pantoprazole Sodium (Protonix) 40 mg DAILYAC PO Last administered on 11/07/18at 08:12; Start 11/06/18 at 10:30 Hydrocortisone Acetate (Anucort-Hc) 25 mg PRN DAILY PRN [place] RECTAL PAIN; Start 11/06/18 at 10:30 Polyethylene Glycol (miraLAX PACKET) 17 gm PRN DAILY PRN PO CONSTIPATION; Start 11/06/18 at 09:00 Non-Formulary Medication (Rosuvastatin Calcium (Crestor)) 0.5 tab TuThSa@2100 PO ; Start 11/09/18 at 21:00 Losartan Potassium (Cozaar) 25 mg DAILY PO Last administered on 11/07/18at 0 8:14; Start 11/06/18 at 10:30 Haloperidol Lactate (Haldol Inj) 2 mg 1X ONCE IVP Last administered on 11/06/18at 13:30; Start 11/06/18 at 13:30; Stop 11/06/18 at 13:31; Status DC Quetiapine Fumarate (SEROquel) 12.5 mg BID PO Last administered on 11/07/18at 08:12; Start 11/06/18 at 14:00 Lorazepam (Ativan Inj) 1 mg PRN Q4HRS PRN IV ANXIETY / AGITATION, 1st CHOIC Last administered on 11/07/18at 03:44; Start 11/06/18 at 14:30 Haloperidol Lactate (Haldol Inj) 2.5 mg PRN Q6HRS PRN IVP AGITATION, 2nd CHOICE; Start 11/07/18 at 09:45 Acetaminophen (Tylenol) 500 mg PRN Q6HRS PRN PO HEADACHE / TEMP; Start 11/07/18 at 09:45 Hydralazine HCl (Apresoline Inj) 10 mg PRN Q4HRS PRN IVP ELEVATED BP, SEE COMMENTS; Start 11/07/18 at 09:45 Ondansetron HCl (Zofran) 4 mg PRN Q6HRS PRN IV NAUSEA/VOMITING; Start 11/07/18 at 09:45 Vitamin D (Vitamin D3) 1,000 unit BID PO Last administered on 11/07/18at 12:33; Start 11/07/18 at 10:00 Non-Formulary Medication (Melatonin ) 1 tab QHS PO ; Start 11/07/18 at 21:00; Status UNV Amino Acids/ Glycerin/ Electrolytes 1,000 ml @ 80 mls/hr [id number] IV ; Start 11/07/18 at 14:00; Stop 11/07/18 at 14:00; Status DC Active Scripts Active Reported Melatonin 3 Mg Tablet 1 Tab PO QHS Losartan Potassium 100 Mg Tablet 100 Mg PO DAILY Crestor (Rosuvastatin Calcium) 5 Mg Tablet 1 Tab PO QODAY Miralax (Polyethylene Glycol 3350) 17 Gm Powd.pack 1 Packet PO DAILY PRN Pantoprazole Sodium (Pantoprazole Sodium) 40 Mg Tablet.dr 40 Mg PO DAILYAC Anusol-Hc (Hydrocortisone Acetate) 25 Mg Supp.rect 1 Supp RC DAILY PRN Gabapentin (Gabapentin) 100 Mg Capsule 100 Mg PO TID Docusate Sodium 100 Mg Capsule 1 Cap PO DAILY PRN Vitamin D (Cholecalciferol (Vitamin D3)) 1,000 Unit Capsule 1 Cap PO BID Allergies Allergies: Coded Allergies: lisinopril (Verified Allergy, Severe, 11/06/18) Angioedema Penicillins (Verified Allergy, Intermediate, Rash, 11/06/18) atorvastatin (Verified Allergy, Intermediate, 11/06/18) Muscle pain rosuvastatin (Verified Allergy, Intermediate, 11/06/18) Muscle pain - tolerates three times weekly dosing ROS General: YES: Fatigue Respiratory: YES: SOB with excertion Neurological: Yes Dizziness, Yes Weakness Physical Exam General: mild distress HEENT: Atraumatic Lungs: Other (mildly decreased breath sounds) Heart: Other (regular rhythm with a 2/6 systolic ejection murmur) Abdomen: Normal bowel sounds Vitals VITALS Vital Signs Date Time Temp Pulse Resp B/P (MAP) Pulse Ox O2 Delivery O2 Flow Rate FiO2 11/07/18 15:00 98.7 65 18 127/39 (68) 98 Room Air 98.7 Labs Labs Laboratory Tests Test 11/06/18 01:00 11/06/18 07:20 11/07/18 03:35 Nasal Screen MRSA (PCR) Negative (Negative) Sodium Level 133 mmol/L (136-145) 135 mmol/L (136-145) Potassium Level 4.1 mmol/L (3.5-5.1) 3.8 mmol/L (3.5-5.1) Chloride Level 99 mmol/L (98-107) 103 mmol/L (98-107) Carbon Dioxide Level 24 mmol/L (21-32) 24 mmol/L (21-32) Anion Gap 10 (6-14) 8 (6-14) Blood Urea Nitrogen 17 mg/dL (8-26) 13 mg/dL (8-26) Creatinine 1.3 mg/dL (0.7-1.3) 1.2 mg/dL (0.7-1.3) Estimated GFR (Cockcroft-Gault) 53.8 59.0 Glucose Level 114 mg/dL (70-99) 96 mg/dL (70-99) Calcium Level 8.6 mg/dL (8.5-10.1) 8.4 mg/dL (8.5-10.1) White Blood Count 6.1 x10^3/uL (4.0-11.0) Red Blood Count 3.30 x10^6/uL (4.30-5.70) Hemoglobin 10.0 g/dL (13.0-17.5) Hematocrit 29.8 % (39.0-53.0) Mean Corpuscular Volume 90 fL (79-100) Mean Corpuscular Hemoglobin 31 pg (25-35) Mean Corpuscular Hemoglobin Concent 34 g/dL (31-37) Red Cell Distribution Width 16.0 % (11.5-14.5) Platelet Count 110 x10^3/uL (140-400) Neutrophils (%) (Auto) 74 % (31-73) Lymphocytes (%) (Auto) 14 % (24-48) Monocytes (%) (Auto) 7 % (0-9) Eosinophils (%) (Auto) 4 % (0-3) Basophils (%) (Auto) 1 % (0-3) Neutrophils # (Auto) 4.5 x10^3/uL (1.8-7.7) Lymphocytes # (Auto) 0.9 x10^3/uL (1.0-4.8) Monocytes # (Auto) 0.4 x10^3/uL (0.0-1.1) Eosinophils # (Auto) 0.3 x10^3/uL (0.0-0.7) Basophils # (Auto) 0.1 x10^3/uL (0.0-0.2) Prothrombin Time 12.7 SEC (11.7-14.0) Prothromb Time International Ratio 1.0 (0.8-1.1) Triglycerides Level 181 mg/dL (0-150) Cholesterol Level 170 mg/dL (0-200) LDL Cholesterol, Calculated 85 mg/dL (0-100) VLDL Cholesterol, Calculated 36 mg/dL (0-40) Non-HDL Cholesterol Calculated 121 mg/dL (0-129) HDL Cholesterol 49 mg/dL (40-60) Cholesterol/HDL Ratio 3.5 Laboratory Tests Test 11/07/18 03:35 White Blood Count 6.1 x10^3/uL (4.0-11.0) Red Blood Count 3.30 x10^6/uL (4.30-5.70) Hemoglobin 10.0 g/dL (13.0-17.5) Hematocrit 29.8 % (39.0-53.0) Mean Corpuscular Volume 90 fL (79-100) Mean Corpuscular Hemoglobin 31 pg (25-35) Mean Corpuscular Hemoglobin Concent 34 g/dL (31-37) Red Cell Distribution Width 16.0 % (11.5-14.5) Platelet Count 110 x10^3/uL (140-400) Neutrophils (%) (Auto) 74 % (31-73) Lymphocytes (%) (Auto) 14 % (24-48) Monocytes (%) (Auto) 7 % (0-9) Eosinophils (%) (Auto) 4 % (0-3) Basophils (%) (Auto) 1 % (0-3) Neutrophils # (Auto) 4.5 x10^3/uL (1.8-7.7) Lymphocytes # (Auto) 0.9 x10^3/uL (1.0-4.8) Monocytes # (Auto) 0.4 x10^3/uL (0.0-1.1) Eosinophils # (Auto) 0.3 x10^3/uL (0.0-0.7) Basophils # (Auto) 0.1 x10^3/uL (0.0-0.2) Prothrombin Time 12.7 SEC (11.7-14.0) Prothromb Time International Ratio 1.0 (0.8-1.1) Sodium Level 135 mmol/L (136-145) Potassium Level 3.8 mmol/L (3.5-5.1) Chloride Level 103 mmol/L (98-107) Carbon Dioxide Level 24 mmol/L (21-32) Anion Gap 8 (6-14) Blood Urea Nitrogen 13 mg/dL (8-26) Creatinine 1.2 mg/dL (0.7-1.3) Estimated GFR (Cockcroft-Gault) 59.0 Glucose Level 96 mg/dL (70-99) Calcium Level 8.4 mg/dL (8.5-10.1) Triglycerides Level 181 mg/dL (0-150) Cholesterol Level 170 mg/dL (0-200) LDL Cholesterol, Calculated 85 mg/dL (0-100) VLDL Cholesterol, Calculated 36 mg/dL (0-40) Non-HDL Cholesterol Calculated 121 mg/dL (0-129) HDL Cholesterol 49 mg/dL (40-60) Cholesterol/HDL Ratio 3.5 Assessment/Plan Assessment/Plan 1. Significant left internal carotid artery stenosis in the setting of neurological symptoms. Patient is being evaluated by the vascular surgery for possible left carotid endarterectomy. There workup is continuing. Cardiac evaluation as below. 2. History of bypass surgery approximately 10 years ago. No reported chest pain. Heart catheterization at [facility] at approximately one month ago. We'll continue present medications and obtain old records. 3. History of probable mitral valve replacement 10 years ago. Patient has been of is being evaluated for possible procedure in his mitral valve again at the [facility] but this has not been scheduled. He is only in the evaluation process. Reports significant shortness of breath 3-5 months ago but his shortness of breath has largely resolved. At this time will attempt to obtain old records and check an echocardiogram here. 4. Hypertension. Patient's blood pressures under reasonable control. Will continue to monitor. 5. The patient has family reports episodes of recent GI bleeds. We'll monitor lab. We'll attempt to obtain old records. Thank you for allowing us to participate in the care of your patient. THANH CRUZ MD Nov 07, 2018 17:42
--- NOTE | 2018-11-07 18:28 | PDOC ---
PROGRESS NOTES Assessment Assessment Psychosis. Metabolic encephalopathy. Agitation. Restless. Confusion. Aggressiveness. Hyponatremia, Na 125. Left ICA stenosis, > 75%. GI bleeding x 2, 1 month within 6 months. Valvular insufficiency. Ventriculomegaly. Dementia features. No evidence of acute CVA this time. RECOMMENDATIONS/PLAN: Continue ASA 81 mg daily, plan to increase if OK with VS. Seroquel 12.5 mg to 25 mg bid. Treat medical diseases. EEG cancelled. Consulted VS. Discussed in detail with his and daughter at bedside on 11/07/18. Brain MRI on was negative for acute CVA. HISTORY OF THE PRESENT ILLNESS: This is a 73-year-old male patient with above medical diseases was brought to the ER of [facility] via EMS with concerns of a possible stroke. The patient was feeling and acting normally earlier in the day, but suddenly changed mentation at 7:30pm on 11/05/18. His stated noted some blank stares. He was said not able to move well, and his motor function improved markedly and shortly afterwards, but he is still not oriented to baseline. He was eventually transferred to [facility] for further evaluation and treatment. He had valvular problem but ASA was discontinued due to 2 GI bleedings within 6 months and latest on was about1 month ago. Past Medical History Cardiovascular: HTN, Valve insufficiency Pulmonary: No pertinent hx CENTRAL NERVOUS SYSTEM: CVA GI: Other (GI bleed) Past Surgical History No pertinent history Allergies Coded Allergies: lisinopril (Verified Allergy, Severe, 11/06/18) Angioedema Penicillins (Verified Allergy, Intermediate, Rash, 11/06/18) atorvastatin (Verified Allergy, Intermediate, 11/06/18) Muscle pain rosuvastatin (Verified Allergy, Intermediate, 11/06/18) Muscle pain - tolerates three times weekly dosing MEDICATIONS: Refer to [facility] FAMILY HISTORY: Non contributory. SOCIAL HISTORY: Lives with his at home. Denies current smoking, drinking, and illicit drug use. REVIEW OF SYSTEMS: Constitutional: No malnutrition, weight loss, cachexia. Head: No traumatic brain or head injury. Skin: No edema, or rash. Ear: No infection. Eyes: No vision loss or color blindness. Nose: No bleeding or purulent discharges. Hearing: Hearing decrease. Neck: No injury. Cardiac: Valvular disease. HTN, HLD. Pulmonary: No COPD. GI: GI bleeding. Urinary/genital: UTI. Endocrinologic: No cousin face, craniofacial dysmorphism, polydactyly. Skeletomuscular: No muscular atrophy, deformity. Neurological: see HP. Psychiatric: Denies drug use/abuse. Otherwise, not [id number] review of systems. PHYSICAL EXAMINATION: General appearance is in subacute distress. HEENT: Normocephalic and nontraumatic. Eyes, nose, ears, and throat are unremarkable. Neck is supple. No lymphadenopathy. No crepitus. Cardiovascular: S1, S2, regular rate and rhythm. Pulmonary: Clear to auscultation bilaterally. Abdomen: Bowel sounds are positive. Extremities: No rash, lesions, or edema. No restriction of range of motion NEUROLOGICAL EXAMINATION: Awake. Agitation improved on 11/07/18. Not oriented to time, place but knew his and daughter. PERRL. EOMI. CN: no focal findings. Muscle tone: within normal. Muscle strength: 5 DTR: 2 Plantar reflex: Flexor response bilaterally Gait: able to walk. Sensory exam: no abnormal findings. No cerebellar signs elicited. F-T-N test fine. Objective Objective Vital Signs Date Time Temp Pulse Resp B/P (MAP) Pulse Ox O2 Delivery O2 Flow Rate FiO2 11/07/18 15:00 98.7 65 18 127/39 (68) 98 Room Air 98.7 Intake and Output 11/07/18 07:00 Intake Total 0 ml Output Total 850 ml Balance -850 ml Intake Oral 0 ml Output Urine Total 850 ml # Voids 1 # Bowel Movements 1 Vitals Signs Vitals VS - Last 72 Hours, by Label Date Time Temp Pulse Resp B/P (MAP) Pulse Ox O2 Delivery O2 Flow Rate FiO2 11/07/18 15:00 98.7 65 18 127/39 (68) 98 Room Air 98.7 11/07/18 10:41 98.7 68 20 140/47 (78) 98 Room Air 98.7 11/07/18 08:14 80 144/49 11/07/18 08:00 Room Air 11/07/18 07:45 98.7 80 17 144/49 (80) 97 Room Air 98.7 11/07/18 03:27 97.7 68 16 171/52 (91) 97 Room Air 97.7 11/06/18 23:08 98.1 57 18 111/43 (65) 98 Room Air 98.1 11/06/18 20:10 Room Air 11/06/18 19:10 98.2 59 18 103/38 (59) 98 Room Air 98.2 11/06/18 15:10 97.9 71 18 173/55 (94) 94 Room Air 97.9 11/06/18 15:00 56 143/38 11/06/18 10:55 98.3 56 18 143/38 (73) 96 Room Air 98.3 11/06/18 08:00 Room Air 11/06/18 07:00 98.3 54 159/91 (113) 98 Room Air 98.3 Laboratory Laboratory Laboratory Tests Test 11/07/18 03:35 White Blood Count 6.1 x10^3/uL (4.0-11.0) Red Blood Count 3.30 x10^6/uL (4.30-5.70) Hemoglobin 10.0 g/dL (13.0-17.5) Hematocrit 29.8 % (39.0-53.0) Mean Corpuscular Volume 90 fL (79-100) Mean Corpuscular Hemoglobin 31 pg (25-35) Mean Corpuscular Hemoglobin Concent 34 g/dL (31-37) Red Cell Distribution Width 16.0 % (11.5-14.5) Platelet Count 110 x10^3/uL (140-400) Neutrophils (%) (Auto) 74 % (31-73) Lymphocytes (%) (Auto) 14 % (24-48) Monocytes (%) (Auto) 7 % (0-9) Eosinophils (%) (Auto) 4 % (0-3) Basophils (%) (Auto) 1 % (0-3) Neutrophils # (Auto) 4.5 x10^3/uL (1.8-7.7) Lymphocytes # (Auto) 0.9 x10^3/uL (1.0-4.8) Monocytes # (Auto) 0.4 x10^3/uL (0.0-1.1) Eosinophils # (Auto) 0.3 x10^3/uL (0.0-0.7) Basophils # (Auto) 0.1 x10^3/uL (0.0-0.2) Prothrombin Time 12.7 SEC (11.7-14.0) Prothromb Time International Ratio 1.0 (0.8-1.1) Sodium Level 135 mmol/L (136-145) Potassium Level 3.8 mmol/L (3.5-5.1) Chloride Level 103 mmol/L (98-107) Carbon Dioxide Level 24 mmol/L (21-32) Anion Gap 8 (6-14) Blood Urea Nitrogen 13 mg/dL (8-26) Creatinine 1.2 mg/dL (0.7-1.3) Estimated GFR (Cockcroft-Gault) 59.0 Glucose Level 96 mg/dL (70-99) Calcium Level 8.4 mg/dL (8.5-10.1) Triglycerides Level 181 mg/dL (0-150) Cholesterol Level 170 mg/dL (0-200) LDL Cholesterol, Calculated 85 mg/dL (0-100) VLDL Cholesterol, Calculated 36 mg/dL (0-40) Non-HDL Cholesterol Calculated 121 mg/dL (0-129) HDL Cholesterol 49 mg/dL (40-60) Cholesterol/HDL Ratio 3.5 Medication Medications Current Medications Acetaminophen (Tylenol) 500 mg PRN Q6HRS PRN PO HEADACHE / TEMP; Start 11/07/18 at 09:45 Amino Acids/ Glycerin/ Electrolytes 1,000 ml @ 80 mls/hr [id number] IV ; Start 11/07/18 at 14:00; Stop 11/07/18 at 14:00; Status DC Haloperidol Lactate (Haldol Inj) 2.5 mg PRN Q6HRS PRN IVP AGITATION, 2nd CHOICE; Start 11/07/18 at 09:45 Hydralazine HCl (Apresoline Inj) 10 mg PRN Q4HRS PRN IVP ELEVATED BP, SEE COMMENTS; Start 11/07/18 at 09:45 Non-Formulary Medication (Melatonin ) 1 tab QHS PO ; Start 11/07/18 at 21:00; Status UNV Non-Formulary Medication (Rosuvastatin Calcium (Crestor)) 0.5 tab TuThSa@2100 PO ; Start 11/09/18 at 21:00 Ondansetron HCl (Zofran) 4 mg PRN Q6HRS PRN IV NAUSEA/VOMITING; Start 11/07/18 at 09:45 Vitamin D (Vitamin D3) 1,000 unit BID PO Last administered on 11/07/18at 12:33; Start 11/07/18 at 10:00 Comment Review of Relevant I have reviewed the following items hamzah (where applicable) has been applied. BECKY DESAI MD Nov 07, 2018 18:28
[2018-11-07] MEDS ORDERED: NON FORMULARY ITEM (Melatonin 1 TAB) PO SCH (21:00)
[2018-11-08 03:00] VITALS: BP 158/48
[2018-11-08] MEDS: HALOPERIDOL LACTATE 5 MG/ML VIAL. IVP PRN (04:34)
[2018-11-08 07:00] VITALS: BP 184/59
--- NOTE | 2018-11-08 09:08 | PDOC ---
Provider Note Provider Note Vascular S: Patient without complaints. at bedside, feels patient is at his baseline, no new stroke or TIA like symptoms Awaiting Cardiac Clearance S: awake and alert VSS, afebrile HRR Non-labored respirations normal strength in the upper extremities, normal speech with some confusion neck supple A/P: 73 year old male with severe left internal carotid artery stenosis >75% per CTA of the neck at [facility] - Recommend left carotid endarterectomy, plan is for Tomorrow 11/09/[address] Felton. Discussed plan procedure with and patient. They agree to proceed. May need to obtain consent from . Orders placed. - Will need cardiac clearance prior to surgery tomorrow - Continue daily aspirin, monitor for GI bleed. UNA CRUM HEAD OF DIGITAL Nov 08, 2018 09:08
[2018-11-08] MEDS: PANTOPRAZOLE 40 MG TABLET.DR. PO SCH (09:33)
[2018-11-08] MEDS: CHOLECALCIFEROL (VITAMIN D3) 1,000 UNIT TABLET PO SCH ×2 (09:33→21:05)
[2018-11-08] MEDS: GABAPENTIN 100 MG CAPSULE. PO SCH ×3 (09:34→21:05)
[2018-11-08] MEDS: QUEtiapine 25 MG TABLET. PO SCH ×2 (09:34→21:05)
[2018-11-08] MEDS: LOSARTAN POTASSIUM 50 MG TABLET. PO SCH (09:37)
[2018-11-08 11:00] VITALS: BP 174/70
--- NOTE | 2018-11-08 11:30 | PDOC ---
PROGRESS NOTES Chief Complaint Chief Complaint 1. Severe greater than 75% stenosis of the left internal carotid artery by CT angiogram done at [facility], which I reviewed the images from, this may be symptomatic with a transient ischemic attack with his recent symptoms of aphasia. 2. Mitral valve disease, which he is supposed to undergo heart surgery for in the near future. 3. Recent gastrointestinal bleed 4. Psychosis. 5. Metabolic encephalopathy. 6. Dementia features. 7. No evidence of acute CVA this brittney 8. LABILE BP History of Present Illness History of Present Illness transferred out of ICU 11/06/18 Vascular surgery planning in pt endarterectomy but needing cardiac clearance Lots of cardiac history including quadruple bypass, mitral valve issues planned for replacement in outside facility Patient seems calm, multiple family murmurs at bedside-seen on the sixth floor Getting records cardiac records from other places where he has been Out having EEG Blood pressure 180s 170 systolic-looking at home meds he supposedly losartan 100 mg but only getting 25 mg here When I told the about my plans, she was worrisome as sounds like he was hypotensive in the ICU, Mentions of 40s diastolic Plan resume losartan 100 with withholding parameters Follow-up EEG Waiting for records from other hospitals for cardiac clearance prior to planned inpatient endarterectomy by vascular surgery Discussed with at bedside Vitals Vitals Vital Signs Date Time Temp Pulse Resp B/P (MAP) Pulse Ox O2 Delivery O2 Flow Rate FiO2 11/08/18 09:37 65 184/59 11/08/18 07:00 97.9 16 98 Room Air 97.9 Physical Exam General: Alert, Oriented X3, Cooperative, mild distress Heart: Regular rate, Other (regular rhythm with a 2/6 systolic ejection murmur) Lungs: Other (diminished on the bases, ) Abdomen: Normal bowel sounds Extremities: No edema Skin: No rashes, No breakdown, No significant lesion Review of Systems Review of Systems Out having EEG Assessment and Plan Assessmemt and Plan Problems Medical Problems: (1) Acute CVA (cerebrovascular accident) Status: Acute (2) Acute encephalopathy Status: Acute (3) Gastrointestinal bleed Status: Acute (4) Hypertension Status: Chronic (5) Mitral valve insufficiency Status: Acute Comment Review of Relevant I have reviewed the following items hamzah (where applicable) has been applied. Labs Laboratory Tests Test 11/07/18 03:35 White Blood Count 6.1 x10^3/uL (4.0-11.0) Red Blood Count 3.30 x10^6/uL (4.30-5.70) Hemoglobin 10.0 g/dL (13.0-17.5) Hematocrit 29.8 % (39.0-53.0) Mean Corpuscular Volume 90 fL (79-100) Mean Corpuscular Hemoglobin 31 pg (25-35) Mean Corpuscular Hemoglobin Concent 34 g/dL (31-37) Red Cell Distribution Width 16.0 % (11.5-14.5) Platelet Count 110 x10^3/uL (140-400) Neutrophils (%) (Auto) 74 % (31-73) Lymphocytes (%) (Auto) 14 % (24-48) Monocytes (%) (Auto) 7 % (0-9) Eosinophils (%) (Auto) 4 % (0-3) Basophils (%) (Auto) 1 % (0-3) Neutrophils # (Auto) 4.5 x10^3/uL (1.8-7.7) Lymphocytes # (Auto) 0.9 x10^3/uL (1.0-4.8) Monocytes # (Auto) 0.4 x10^3/uL (0.0-1.1) Eosinophils # (Auto) 0.3 x10^3/uL (0.0-0.7) Basophils # (Auto) 0.1 x10^3/uL (0.0-0.2) Prothrombin Time 12.7 SEC (11.7-14.0) Prothromb Time International Ratio 1.0 (0.8-1.1) Sodium Level 135 mmol/L (136-145) Potassium Level 3.8 mmol/L (3.5-5.1) Chloride Level 103 mmol/L (98-107) Carbon Dioxide Level 24 mmol/L (21-32) Anion Gap 8 (6-14) Blood Urea Nitrogen 13 mg/dL (8-26) Creatinine 1.2 mg/dL (0.7-1.3) Estimated GFR (Cockcroft-Gault) 59.0 Glucose Level 96 mg/dL (70-99) Calcium Level 8.4 mg/dL (8.5-10.1) Triglycerides Level 181 mg/dL (0-150) Cholesterol Level 170 mg/dL (0-200) LDL Cholesterol, Calculated 85 mg/dL (0-100) VLDL Cholesterol, Calculated 36 mg/dL (0-40) Non-HDL Cholesterol Calculated 121 mg/dL (0-129) HDL Cholesterol 49 mg/dL (40-60) Cholesterol/HDL Ratio 3.5 Medications Current Medications Aspirin (Children'S Aspirin) 81 mg 1X ONCE PO Last administered on 11/06/18at 04:12; Start 11/06/18 at 03:30; Stop 11/06/18 at 03:32; Status DC Sodium Chloride 1,000 ml @ 100 mls/hr Q10H IV Last administered on 11/07/18at 06:20; Start 11/06/18 at 04:30; Stop 11/07/18 at 09:35; Status DC Docusate Sodium (Colace) 100 mg DAILY PRN PO CONSTIPATION; Start 11/06/18 at 10:00 Gabapentin (Neurontin) 100 mg TID PO Last administered on 11/08/18at 09:34; Start 11/06/18 at 10:30 Pantoprazole Sodium (Protonix) 40 mg DAILYAC PO Last administered on 11/08/18at 09:33; Start 11/06/18 at 10:30 Hydrocortisone Acetate (Anucort-Hc) 25 mg PRN DAILY PRN RI RECTAL PAIN; Start 11/06/18 at 10:30 Polyethylene Glycol (miraLAX PACKET) 17 gm PRN DAILY PRN PO CONSTIPATION; Start 11/06/18 at 09:00 Non-Formulary Medication (Rosuvastatin Calcium (Crestor)) 0.5 tab TuThSa@2100 PO ; Start 11/09/18 at 21:00 Losartan Potassium (Cozaar) 25 mg DAILY PO Last administered on 11/07/18at 08:14; Start 11/06/18 at 10:30; Stop 11/08/18 at 07:58; Status DC Haloperidol Lactate (Haldol Inj) 2 mg 1X ONCE IVP Last administered on 11/06/18at 13:30; Start 11/06/18 at 13:30; Stop 11/06/18 at 13:31; Status DC Quetiapine Fumarate (SEROquel) 12.5 mg BID PO Last administered on 11/08/18at 09:34; Start 11/06/18 at 14:00 Lorazepam (Ativan Inj) 1 mg PRN Q4HRS PRN IV ANXIETY / AGITATION, 1st CHOIC Last administered on 11/08/18at 03:21; Start 11/06/18 at 14:30 Haloperidol Lactate (Haldol Inj) 2.5 mg PRN Q6HRS PRN IVP AGITATION, 2nd CHOICE Last administered on 11/08/18at 04:34; Start 11/07/18 at 09:45 Acetaminophen (Tylenol) 500 mg PRN Q6HRS PRN PO HEADACHE / TEMP; Start 11/07/18 at 09:45 Hydralazine HCl (Apresoline Inj) 10 mg PRN Q4HRS PRN IVP ELEVATED BP, SEE COMMENTS; Start 11/07/18 at 09:45 Ondansetron HCl (Zofran) 4 mg PRN Q6HRS PRN IV NAUSEA/VOMITING; Start 11/07/18 at 09:45 Vitamin D (Vitamin D3) 1,000 unit BID PO Last administered on 11/08/18at 09:33; Start 11/07/18 at 10:00 Non-Formulary Medication (Melatonin ) 1 tab QHS PO ; Start 11/07/18 at 21:00; Status UNV Amino Acids/ Glycerin/ Electrolytes 1,000 ml @ 80 mls/hr [id number] IV ; Start 11/07/18 at 14:00; Stop 11/07/18 at 14:00; Status DC Losartan Potassium (Cozaar) 100 mg DAILY PO Last administered on 11/08/18at 09:37; Start 11/08/18 at 09:00 Fentanyl Citrate (Fentanyl 2ml Vial) 25 mcg PRN Q5MIN PRN IV MILD PAIN 1-3; Start 11/09/18 at 07:00; Stop 11/10/18 at 06:59 Fentanyl Citrate (Fentanyl 2ml Vial) 50 mcg PRN Q5MIN PRN IV MODERATE TO SEVERE PAIN; Start 11/09/18 at 07:00; Stop 11/10/18 at 06:59 Morphine Sulfate (Morphine Sulfate) 1 mg PRN Q10MIN PRN IV SEVERE PAIN 7-10; Start 11/09/18 at 07:00; Stop 11/10/18 at 06:59 Ringer's Solution 1,000 ml @ 30 mls/hr Q24H IV ; Start 11/09/18 at 07:00; Stop 11/09/18 at 18:59 Lidocaine HCl (Xylocaine-Mpf 1% 2ml Vial) 2 ml PRN 1X PRN ID IV START; Start 11/09/18 at 07:00; Stop 11/10/18 at 06:59 Hydromorphone HCl (Dilaudid) 0.5 mg PRN Q10MIN PRN IV SEV PAIN, Second choice; Start 11/09/18 at 07:00; Stop 11/10/18 at 06:59 Prochlorperazine Edisylate (Compazine) 5 mg PACU PRN PRN IV NAUSEA, MRX1; Start 11/09/18 at 07:00; Stop 11/10/18 at 06:59 Vancomycin HCl 1 gm/Sodium Chloride 250 ml @ 250 mls/hr 1X ONCE IV ; Start 11/09/18 at 06:00; Stop 11/09/18 at 06:59 Heparin Sodium (Porcine) 5000 unit/Ringer's Solution 505 ml @ 505 mls/hr 1X ONCE IRR ; Start 11/09/18 at 06:00; Stop 11/09/18 at 06:59 Active Scripts Active Reported Melatonin 3 Mg Tablet 1 Tab PO QHS Losartan Potassium 100 Mg Tablet 100 Mg PO DAILY Crestor (Rosuvastatin Calcium) 5 Mg Tablet 1 Tab PO QODAY Miralax (Polyethylene Glycol 3350) 17 Gm Powd.pack 1 Packet PO DAILY PRN Pantoprazole Sodium (Pantoprazole Sodium) 40 Mg Tablet.dr 40 Mg PO DAILYAC Anusol-Hc (Hydrocortisone Acetate) 25 Mg Supp.rect 1 Supp RC DAILY PRN Gabapentin (Gabapentin) 100 Mg Capsule 100 Mg PO TID Docusate Sodium 100 Mg Capsule 1 Cap PO DAILY PRN Vitamin D (Cholecalciferol (Vitamin D3)) 1,000 Unit Capsule 1 Cap PO BID Vitals/I & O Vital Sign - Last 24 Hours 11/07/18 11/07/18 11/07/18 11/07/18 15:00 18:31 19:00 20:10 Temp 98.7 97.9 98.7 97.9 Pulse 65 70 67 Resp 18 18 B/P (MAP) 127/39 (68) 133/44 (73) 146/55 (85) Pulse Ox 98 99 O2 Delivery Room Air Room Air Room Air 11/07/18 11/08/18 11/08/18 11/08/18 23:00 03:00 07:00 09:37 Temp 98.2 97.6 97.9 98.2 97.6 97.9 Pulse 78 76 65 65 Resp 18 18 16 B/P (MAP) 171/58 (95) 158/48 (84) 184/59 (100) 184/59 Pulse Ox 98 96 98 O2 Delivery Room Air Room Air Room Air Intake and Output 11/07/18 11/07/18 11/08/18 15:00 23:00 07:00 Intake Total 200 ml 700 ml 400 ml Output Total 800 ml Balance 200 ml 700 ml -400 ml OJSE OCHOA MD Nov 08, 2018 11:30
--- NOTE | 2018-11-08 12:18 | NUR ---
SW reviewed pt's medical chart and evaluated for potential dc needs. Pt is a [facility] transfer and was admitted for cerebral infraction. Pt is on room air and PT/OT is recommending snf unit placement. Pt is currently ambulating 250' and has [employer] insurance. Due to ambulation distance and type of insurance. SNU placement/approval will be difficult. PT/OT's notes indicated their recommendations may change if pt continues to improve. SW will continue to follow and determine dc services.
--- NOTE | 2018-11-08 12:55 | PDOC ---
PROGRESS NOTES Assessment Problems Medical Problems: (1) Acute CVA (cerebrovascular accident) Status: Acute (2) Acute encephalopathy Status: Acute (3) Gastrointestinal bleed Status: Acute (4) Hypertension Status: Chronic (5) Mitral valve insufficiency Status: Acute Psychosis. Metabolic encephalopathy. Hyponatremia, Na 125. Left ICA stenosis, > 75%. Dementia No evidence of acute CVA Plan Continue ASA 81 mg daily, plan to increase Seroquel 12.5 mg to 25 mg bid. Treat medical diseases. EEG cancelled. Note vascular surgery plans for endarterectomy tomorrow Subjective No complaints Objective Vital Signs Date Time Temp Pulse Resp B/P (MAP) Pulse Ox O2 Delivery O2 Flow Rate FiO2 11/08/18 11:00 97.8 68 16 174/70 (104) 99 Room Air 97.8 Intake and Output 11/08/18 06:59 Intake Total 1300 ml Output Total 800 ml Balance 500 ml Intake Oral 1300 ml Output Urine Total 800 ml # Voids 4 PHYSICAL EXAM Sedated, knows his name PERRL. EOMI. CN: no focal findings. Muscle tone: normal. Muscle strength: 5/5 DTR: 2+ Plantar reflex: flexor Gait: not examined in bed. Sensory exam: no abnormal findings. No cerebellar signs elicited. Review of Relevant I have reviewed the following items hamzah (where applicable) has been applied. Labs Laboratory Tests Test 11/07/18 03:35 White Blood Count 6.1 x10^3/uL (4.0-11.0) Red Blood Count 3.30 x10^6/uL (4.30-5.70) Hemoglobin 10.0 g/dL (13.0-17.5) Hematocrit 29.8 % (39.0-53.0) Mean Corpuscular Volume 90 fL (79-100) Mean Corpuscular Hemoglobin 31 pg (25-35) Mean Corpuscular Hemoglobin Concent 34 g/dL (31-37) Red Cell Distribution Width 16.0 % (11.5-14.5) Platelet Count 110 x10^3/uL (140-400) Neutrophils (%) (Auto) 74 % (31-73) Lymphocytes (%) (Auto) 14 % (24-48) Monocytes (%) (Auto) 7 % (0-9) Eosinophils (%) (Auto) 4 % (0-3) Basophils (%) (Auto) 1 % (0-3) Neutrophils # (Auto) 4.5 x10^3/uL (1.8-7.7) Lymphocytes # (Auto) 0.9 x10^3/uL (1.0-4.8) Monocytes # (Auto) 0.4 x10^3/uL (0.0-1.1) Eosinophils # (Auto) 0.3 x10^3/uL (0.0-0.7) Basophils # (Auto) 0.1 x10^3/uL (0.0-0.2) Prothrombin Time 12.7 SEC (11.7-14.0) Prothromb Time International Ratio 1.0 (0.8-1.1) Sodium Level 135 mmol/L (136-145) Potassium Level 3.8 mmol/L (3.5-5.1) Chloride Level 103 mmol/L (98-107) Carbon Dioxide Level 24 mmol/L (21-32) Anion Gap 8 (6-14) Blood Urea Nitrogen 13 mg/dL (8-26) Creatinine 1.2 mg/dL (0.7-1.3) Estimated GFR (Cockcroft-Gault) 59.0 Glucose Level 96 mg/dL (70-99) Calcium Level 8.4 mg/dL (8.5-10.1) Triglycerides Level 181 mg/dL (0-150) Cholesterol Level 170 mg/dL (0-200) LDL Cholesterol, Calculated 85 mg/dL (0-100) VLDL Cholesterol, Calculated 36 mg/dL (0-40) Non-HDL Cholesterol Calculated 121 mg/dL (0-129) HDL Cholesterol 49 mg/dL (40-60) Cholesterol/HDL Ratio 3.5 Medications Current Medications Aspirin (Children'S Aspirin) 81 mg 1X ONCE PO Last administered on 11/06/18at 0 4:12; Start 11/06/18 at 03:30; Stop 11/06/18 at 03:32; Status DC Sodium Chloride 1,000 ml @ 100 mls/hr Q10H IV Last administered on 11/07/18at 06:20; Start 11/06/18 at 04:30; Stop 11/07/18 at 09:35; Status DC Docusate Sodium (Colace) 100 mg DAILY PRN PO CONSTIPATION; Start 11/06/18 at 10:00 Gabapentin (Neurontin) 100 mg TID PO Last administered on 11/08/18at 09:34; Start 11/06/18 at 10:30 Pantoprazole Sodium (Protonix) 40 mg DAILYAC PO Last administered on 11/08/18at 09:33; Start 11/06/18 at 10:30 Hydrocortisone Acetate (Anucort-Hc) 25 mg PRN DAILY PRN [place] RECTAL PAIN; Start 11/06/18 at 10:30 Polyethylene Glycol (miraLAX PACKET) 17 gm PRN DAILY PRN PO CONSTIPATION; Start 11/06/18 at 09:00 Non-Formulary Medication (Rosuvastatin Calcium (Crestor)) 0.5 tab TuThSa@2100 PO ; Start 11/09/18 at 21:00 Losartan Potassium (Cozaar) 25 mg DAILY PO Last administered on 11/07/18at 08:14; Start 11/06/18 at 10:30; Stop 11/08/18 at 07:58; Status DC Haloperidol Lactate (Haldol Inj) 2 mg 1X ONCE IVP Last administered on 11/06/18at 13:30; Start 11/06/18 at 13:30; Stop 11/06/18 at 13:31; Status DC Quetiapine Fumarate (SEROquel) 12.5 mg BID PO Last administered on 11/08/18at 09:34; Start 11/06/18 at 14:00 Lorazepam (Ativan Inj) 1 mg PRN Q4HRS PRN IV ANXIETY / AGITATION, 1st CHOIC Last administered on 11/08/18at 03:21; Start 11/06/18 at 14:30 Haloperidol Lactate (Haldol Inj) 2.5 mg PRN Q6HRS PRN IVP AGITATION, 2nd CHOICE Last administered on 11/08/18at 04:34; Start 11/07/18 at 09:45 Acetaminophen (Tylenol) 500 mg PRN Q6HRS PRN PO HEADACHE / TEMP; Start 11/07/18 at 09:45 Hydralazine HCl (Apresoline Inj) 10 mg PRN Q4HRS PRN IVP ELEVATED BP, SEE COMMENTS; Start 11/07/18 at 09:45 Ondansetron HCl (Zofran) 4 mg PRN Q6HRS PRN IV NAUSEA/VOMITING; Start 11/07/18 at 09:45 Vitamin D (Vitamin D3) 1,000 unit BID PO Last administered on 11/08/18at 09:33; Start 11/07/18 at 10:00 Non-Formulary Medication (Melatonin ) 1 tab QHS PO ; Start 11/07/18 at 21:00; Status UNV Amino Acids/ Glycerin/ Electrolytes 1,000 ml @ 80 mls/hr [id number] IV ; Start 11/07/18 at 14:00; Stop 11/07/18 at 14:00; Status DC Losartan Potassium (Cozaar) 100 mg DAILY PO Last administered on 11/08/18at 09:37; Start 11/08/18 at 09:00 Fentanyl Citrate (Fentanyl 2ml Vial) 25 mcg PRN Q5MIN PRN IV MILD PAIN 1-3; Start 11/09/18 at 07:00; Stop 11/10/18 at 06:59 Fentanyl Citrate (Fentanyl 2ml Vial) 50 mcg PRN Q5MIN PRN IV MODERATE TO SEVERE PAIN; Start 11/09/18 at 07:00; Stop 11/10/18 at 06:59 Morphine Sulfate (Morphine Sulfate) 1 mg PRN Q10MIN PRN IV SEVERE PAIN 7-10; Start 11/09/18 at 07:00; Stop 11/10/18 at 06:59 Ringer's Solution 1,000 ml @ 30 mls/hr Q24H IV ; Start 11/09/18 at 07:00; Stop 11/09/18 at 18:59 Lidocaine HCl (Xylocaine-Mpf 1% 2ml Vial) 2 ml PRN 1X PRN ID IV START; Start 11/09/18 at 07:00; Stop 11/10/18 at 06:59 Hydromorphone HCl (Dilaudid) 0.5 mg PRN Q10MIN PRN IV SEV PAIN, Second choice; Start 11/09/18 at 07:00; Stop 11/10/18 at 06:59 Prochlorperazine Edisylate (Compazine) 5 mg PACU PRN PRN IV NAUSEA, MRX1; Start 11/09/18 at 07:00; Stop 11/10/18 at 06:59 Vancomycin HCl 1 gm/Sodium Chloride 250 ml @ 250 mls/hr 1X ONCE IV ; Start 11/09/18 at 06:00; Stop 11/09/18 at 06:59 Heparin Sodium (Porcine) 5000 unit/Ringer's Solution 505 ml @ 505 mls/hr 1X ONCE IRR ; Start 11/09/18 at 06:00; Stop 11/09/18 at 06:59 Active Scripts Active Reported Melatonin 3 Mg Tablet 1 Tab PO QHS Losartan Potassium 100 Mg Tablet 100 Mg PO DAILY Crestor (Rosuvastatin Calcium) 5 Mg Tablet 1 Tab PO QODAY Miralax (Polyethylene Glycol 3350) 17 Gm Powd.pack 1 Packet PO DAILY PRN Pantoprazole Sodium (Pantoprazole Sodium) 40 Mg Tablet.dr 40 Mg PO DAILYAC Anusol-Hc (Hydrocortisone Acetate) 25 Mg Supp.rect 1 Supp RC DAILY PRN Gabapentin (Gabapentin) 100 Mg Capsule 100 Mg PO TID Docusate Sodium 100 Mg Capsule 1 Cap PO DAILY PRN Vitamin D (Cholecalciferol (Vitamin D3)) 1,000 Unit Capsule 1 Cap PO BID Vitals/I & O Vital Sign - Last 24 Hours 11/07/18 11/07/18 11/07/18 11/07/18 15:00 18:31 19:00 20:10 Temp 98.7 97.9 98.7 97.9 Pulse 65 70 67 Resp 18 18 B/P (MAP) 127/39 (68) 133/44 (73) 146/55 (85) Pulse Ox 98 99 O2 Delivery Room Air Room Air Room Air 11/07/18 11/08/18 11/08/18 11/08/18 23:00 03:00 07:00 08:00 Temp 98.2 97.6 97.9 98.2 97.6 97.9 Pulse 78 76 65 Resp 18 18 16 B/P (MAP) 171/58 (95) 158/48 (84) 184/59 (100) Pulse Ox 98 96 98 O2 Delivery Room Air Room Air Room Air Room Air 11/08/18 11/08/18 09:37 11:00 Temp 97.8 97.8 Pulse 65 68 Resp 16 B/P (MAP) 184/59 174/70 (104) Pulse Ox 99 O2 Delivery Room Air Intake and Output 11/07/18 11/07/18 11/08/18 14:59 22:59 06:59 Intake Total 200 ml 700 ml 400 ml Output Total 800 ml Balance 200 ml 700 ml -400 ml Images MRI of the brain. COMPARISON: None FINDINGS: Significant motion artifact on some sequences limiting optimal evaluation. No pathologic extra-axial or intra-axial fluid collection. Mild diffuse atrophy with ex vacuo dilation of the ventricles. There is no abnormal restricted diffusion to suggest acute ischemic process. Mild high intensity T2/flair signal is seen adjacent to the ventricles. No large paranasal sinus or mastoid effusions. The ventricles are within normal limits. The expected major flow voids are maintained. IMPRESSION: Significant motion artifact on multiple sequences limiting optimal evaluation. 1. No imaging evidence of acute ischemic infarct. 2. High intensity T2/vascular in the periventricular white matter, nonspecific and may be secondary to chronic microvascular ischemic disease. 3. Mild to moderate atrophy. CTA at [facility] 11/05: CTA head and CTA neck with contrast History: Change in mental status Technique: Axial images were obtained of the head without contrast and axial helical images were obtained of the head and neck after the intravenous administration of 75 mL of Isovue-370 IV contrast. Multiplanar reconstruction was performed on an independent work station including MIP imaging and 3D angiographic imaging. Comparison: none CTA head with and without contrast. Findings: Brain: There is moderate ventriculomegaly. There is no mass effect, extra-axial fluid collections or hydrocephalus. There is no gross bleed. Distal carotid arteries: There is calcified lesion khan of the intercavernous portion of the internal carotid arteries without significant stenosis. Vertebral basilar system normal Major cerebral arteries: normal Impression: No evidence of hemodynamically significant stenosis. end impression CTA neck with contrast: Findings: Aortic arch and origin of great vessels: normal Common carotid arteries: Right: normal Left: normal Carotid arteries: There is significant calcification the level of bulb bilaterally. There is greater than 75 percent stenosis of the origin of the left internal carotid artery. There is less than 50 percent stenosis of the origin the right internal carotid artery. Vertebral basilar system there is greater than 75 percent stenosis of the origin of the left vertebral artery. Impression: 1. Greater than 50 percent stenosis of the origin of the left internal carotid artery. 2. Greater than 75 percent stenosis of the origin of the left vertebral artery. DWIGHT SAENZ MD Nov 08, 2018 12:55
[2018-11-08] MEDS: hydrALAZINE 20 MG/ML VIAL. IVP PRN (13:49)
--- NOTE | 2018-11-08 14:59 | PDOC ---
CARDIO Progress Notes Date and Time Date of Service 11/08/18 Time of Evaluation 1410 Subjective Subjective: No Chest Pain, No shortness of breath, No Palpitations Vitals Vitals Vital Signs Date Time Temp Pulse Resp B/P (MAP) Pulse Ox O2 Delivery O2 Flow Rate FiO2 11/08/18 13:49 68 174/70 11/08/18 11:00 97.8 16 99 Room Air 97.8 Weight Weight [ ] Input and Output Intake and Output Intake and Output 11/08/18 06:59 Intake Total 1300 ml Output Total 800 ml Balance 500 ml Intake Oral 1300 ml Output Urine Total 800 ml # Voids 4 Physical Exam HEENT: Neck Supple W Full Motion Chest: Symmetric LUNGS: Clear to Auscultation Heart: S1S2, RRR, murmurs (3/6 MAKENZIE) Abdomen: Soft N/T Extremities: No Edema Neurology: confused Assessment Assessment 1. Significant left ICA stenosis; left CEA planned tomorrow 2. H/o CAD s/p CABG. Cath last month at [facility] without intervention. Echo pending to assess LV systolic function 3. Valvular disease; s/p possible mitral valve replacement 10 years ago. workup for possible intervention being conducted currently at the [facility] in [place]. Echo pending as above 4. Hypertension; controlled 5. H/o GI bleed 6. Dementia Recommendations Obtain cardiac records from the [facility] Further recs pending echo KATHERINE OLSEN APRN Nov 08, 2018 14:59
[2018-11-08 15:00] VITALS: BP 159/65
[2018-11-08] MEDS: ASPIRIN CHEWABLE 81 MG TABLET. PO SCH (15:37)
[2018-11-08] MEDS: DOCUSATE SODIUM 100 MG CAPSULE. PO PRN (15:38)
[2018-11-08] MEDS: POLYETHYLENE GLYCOL 3350 17 GM PACKET. PO PRN (15:38)
--- NOTE | 2018-11-08 16:02 | CARD ---
MR#: [id number] Date of Study: 11/08/2018 Ordering Physician: THANH SOMMER, Referring Physician: DANIEL GOMEZ, Tech: Ashley Allen APPROVED REPORT EXAM: Two-dimensional and M-mode echocardiogram with Doppler and color Doppler. Other Information Quality : GoodHR: 92bpm INDICATION Mitral Valve Disease 2D DIMENSIONS RVDd2.5 (2.9-3.5cm)Left Atrium(2D)3.7 (1.6-4.0cm) IVSd1.1 (0.7-1.1cm)Aortic Root(2D)3.1 (2.0-3.7cm) LVDd5.2 (3.9-5.9cm)LVOT Diameter2.0 (1.8-2.4cm) PWd1.1 (0.7-1.1cm)LVDs3.6 (2.5-4.0cm) FS (%) 30.6 %SV75.7 ml LVEF(%)57.6 (>50%) Aortic Valve AoV Peak Cuate.462.0cm/sAoV VTI91.2cm AO Peak GR.85.4mmHgLVOT Peak Cuate.150.1cm/s LVOT VTI 28.03cmAO Mean GR.46mmHg FRANCESCO (VMAX)0.19nn4GXL (VTI)0.94cm2 AI P 1/2 Ftkv000tc Mitral Valve MV E Zffdeuvm053.2cm/sMV DECEL [id number] MV A Tcersvmj993.9cm/sMV MWY70dt E/A Ratio0.9MVA (PHT)3.59cm2 TDI E/Lateral E'10.4E/Medial E'15.5 Pulmonary Valve PV Peak Xongbrez095.7cm/sPV Peak Grad.6mmHg Tricuspid Valve TR P. Qzwbfzsg643da/sRAP [id number] TR Peak Gr.10xwOiDPLS76icXo Pulmonary Vein S1 Svjtvgnn80.7cm/sD2 Pyagvxln74.9cm/s PVa [id number] LEFT VENTRICLE The left ventricle is normal size. There is borderline to mild concentric left ventricular hypertroph y. The left ventricular systolic function is normal and the ejection fraction is within normal range. The Ejection Fraction is 55-60%. There is normal LV segmental wall motion. Transmitral Doppler flow pattern is Grade I-abnormal relaxation pattern. RIGHT VENTRICLE The right ventricle is normal size. There is normal right ventricular wall thickness. The right ventr icular systolic function is normal. ATRIA The left atrium is borderline dilated. The right atrium size is normal. The interatrial septum is int act with no evidence for an atrial septal defect or patent foramen ovale as noted on 2-D or Doppler i maging. AORTIC VALVE The aortic valve is calcified and displays decreased opening. Doppler and Color Flow revealed moderat e aortic regurgitation. Calculated aortic valve maximum pressure gradient > 60 mmHg and mean pressure gradient >34 mmHg. Doppler and color-flow analysis and imaging reveals probable moderate aortic sten osis. MITRAL VALVE The anterior mitral valve leaflet appears redundant. There is no evidence of mitral valve prolapse. T here is no mitral valve stenosis. Doppler and Color-flow revealed mild mitral regurgitation. TRICUSPID VALVE The tricuspid valve is normal in structure and function. Doppler and Color Flow revealed trace tricus pid regurgitation with an estimated PAP of 34 mmHg. There is no tricuspid valve stenosis. PULMONIC VALVE The pulmonary valve is normal in structure and function. Doppler and Color Flow revealed trace pulmon ic valvular regurgitation. GREAT VESSELS The aortic root is normal in size. The IVC is normal in size and collapses >50% with inspiration. PERICARDIAL EFFUSION There is no evidence of significant pericardial effusion. Critical Notification Critical Value: No <Conclusion> The left ventricle is normal size. The left ventricular systolic function is normal and the ejection fraction is within normal range. The Ejection Fraction is 55-60%. There is borderline to mild concentric left ventricular hypertrophy. Calculated aortic valve maximum pressure gradient > 60 mmHg and mean pressure gradient >34 mmHg. Doppler and color-flow analysis and imaging reveals probable moderate aortic stenosis. Doppler and Color Flow revealed moderate aortic regurgitation. Doppler and Color-flow revealed mild mitral regurgitation. Doppler and Color Flow revealed trace tricuspid regurgitation with an estimated PAP of 34 mmHg. Difficult to image aortic valve. May consider JIGAR if clinically indicated. Signed by : Thanh Sommer MD Electronically Approved : 11/08/2018 16:02:29
--- NOTE | 2018-11-08 17:12 | EEG ---
DATE OF SERVICE: 11/08/2018 EEG NUMBER: [id number]. OBJECTIVE: The patient is a 73-year-old male with altered mental status. DESCRIPTION: This is a digital study. Electrodes are placed according to international 10-20 system. Bipolar and referential montages are available. Activation procedures typically include hyperventilation and intermittent photic stimulation. INTERPRETATION: The waking background consists of 8-9 Hz, 50-100 microvolt activity, symmetrically distributed over parietooccipital regions and reactive to eye opening. Hyperventilation and intermittent photic stimulation are noncontributory. Stage 1 sleep is achieved with normal electroencephalogram patterns. IMPRESSION: This electroencephalogram with the patient awake and asleep is within normal limits. There is no focal, paroxysmal, or epileptiform activity. Thank you for letting us help with the patient's care. DWIGHT SAENZ MD DR: AKIRA/gordon JOB#: [id number] / [id number] [facility] DANIEL HOLLINS MD
[2018-11-08 19:00] VITALS: BP 162/57
--- NOTE | 2018-11-08 19:39 | NUR ---
Received phone call from , vascular surgeon at [phone]. This nurse was instructed to cancel NPO order, the patient will not undergo surgery tomorrow; still awaiting cardio clearance.
[2018-11-08 23:00] VITALS: BP 154/60
[2018-11-09] VITALS (14 sets, daily range): BP systolic 126–175; BP diastolic 46–90
[2018-11-09 04:40] LABS: BASO % 1 % (0-3); EOS # 0.3 x10^3/uL (0.0-0.7); EOS % 6 % (0-3); HEMATOCRIT 29.8 % (39.0-53.0); HEMOGLOBIN 10.1 g/dL (13.0-17.5); LYMPH # 0.9 x10^3/uL (1.0-4.8); LYMPH % 15 % (24-48); MEAN CORPUSCULAR HEMOGLOBIN 30 pg (25-35); MEAN CORPUSCULAR HGB CONC 34 g/dL (31-37); MEAN CORPUSCULAR VOLUME 90 fL (79-100); MONO # 0.4 x10^3/uL (0.0-1.1); MONO % 7 % (0-9); NEUT % 71 % (31-73); PLATELET COUNT 115 x10^3/uL (140-400); RED BLOOD COUNT 3.32 x10^6/uL (4.30-5.70); RED CELL DISTRIBUTION WIDTH 15.6 % (11.5-14.5); WHITE BLOOD COUNT 5.6 x10^3/uL (4.0-11.0)
[2018-11-09 04:59] LABS: CALCIUM 8.6 mg/dL (8.5-10.1); CREATININE 1.3 mg/dL (0.7-1.3); GFR 53.8; POTASSIUM 3.7 mmol/L (3.5-5.1)
[2018-11-09] MEDS ORDERED: HEPARIN SODIUM 5,000 UNIT in IV RINGERS,LACTATED 500ML 500 ML IRR ONE (06:00)
[2018-11-09] MEDS ORDERED: VANCOMYCIN 1 GM in IV NORMAL SALINE 250ML 250 ML IV ONE (06:00)
[2018-11-09] MEDS ORDERED: PROCHLORPERAZINE 10 MG/2 ML VIAL. IV PRN ×2 (07:00→11:30)
[2018-11-09] MEDS ORDERED: HYDROmorphone 2 MG/ML VIAL IV PRN ×2 (07:00→11:30)
[2018-11-09] MEDS ORDERED: LIDOCAINE 1% PF 2 ML VIAL. ID PRN (07:00)
[2018-11-09] MEDS: IV RINGERS,LACTATED 1000ML 1,000 ML IV SCH ×2 (07:00→14:30)
[2018-11-09] MEDS ORDERED: fentaNYL PF VIAL 100 MCG/2 ML VIAL IV PRN ×4 (07:00→11:30)
[2018-11-09] MEDS ORDERED: MORPHINE SULFATE 2 MG/ML VIAL. IV PRN ×2 (07:00→11:30)
[2018-11-09] MEDS: CHOLECALCIFEROL (VITAMIN D3) 1,000 UNIT TABLET PO SCH ×2 (09:02→20:51)
[2018-11-09] MEDS: QUEtiapine 25 MG TABLET. PO SCH ×2 (09:03→20:51)
[2018-11-09] MEDS: PANTOPRAZOLE 40 MG TABLET.DR. PO SCH (09:03)
[2018-11-09] MEDS: GABAPENTIN 100 MG CAPSULE. PO SCH ×3 (09:03→20:51)
[2018-11-09] MEDS: ASPIRIN CHEWABLE 81 MG TABLET. PO SCH (09:04)
[2018-11-09] MEDS: LOSARTAN POTASSIUM 50 MG TABLET. PO SCH (09:04)
[2018-11-09] MEDS ORDERED: IV RINGERS,LACTATED 1000ML 1,000 ML IV SCH (11:19)
--- NOTE | 2018-11-09 12:28 | PDOC ---
PROGRESS NOTES Chief Complaint Chief Complaint 1. Severe greater than 75% stenosis of the left internal carotid artery by CT angiogram done at [facility], which I reviewed the images from, this may be symptomatic with a transient ischemic attack with his recent symptoms of aphasia. 2. Mitral valve disease, which he is supposed to undergo heart surgery for in the near future. 3. Recent gastrointestinal bleed 4. Psychosis. 5. Metabolic encephalopathy. 6. Dementia features. 7. No evidence of acute CVA this brittney 8. LABILE BP History of Present Illness History of Present Illness transferred out of ICU 11/06/18 Vascular surgery planning on in- pt endarterectomy but needing cardiac clearance Some cardiac Records available to us from other hosps, for JIGAR later as recommended by cardiology and has been nothing by mouth aware Did receive vancomycin �1 by [facility] surgery as initial thoughts of CEA but that is on hold because of JIGAR today Plan Social work on board-'s Recommended SNU But as per social work note might be a challenge, walks pretty good? and veterans insurance - will have PT re eval Family is agreeable to SNU JIGAR today Once cleared - CEA as in-house Has been nothing by mouth Full code ff up EEG - if done - MS is at baseline now Vitals Vitals Vital Signs Date Time Temp Pulse Resp B/P (MAP) Pulse Ox O2 Delivery O2 Flow Rate FiO2 11/09/18 11:00 97.6 62 18 126/51 (76) 97 Room Air 97.6 Physical Exam General: Alert, Oriented X3, Cooperative, mild distress Heart: Regular rate, Other (regular rhythm with a 2/6 systolic ejection murmur) Lungs: Other (diminished on the bases, ) Abdomen: Normal bowel sounds Extremities: No edema Skin: No rashes, No breakdown, No significant lesion Labs LABS Laboratory Tests Test 11/09/18 03:35 11/09/18 11:11 White Blood Count 5.6 x10^3/uL (4.0-11.0) Red Blood Count 3.32 x10^6/uL (4.30-5.70) Hemoglobin 10.1 g/dL (13.0-17.5) Hematocrit 29.8 % (39.0-53.0) Mean Corpuscular Volume 90 fL (79-100) Mean Corpuscular Hemoglobin 30 pg (25-35) Mean Corpuscular Hemoglobin Concent 34 g/dL (31-37) Red Cell Distribution Width 15.6 % (11.5-14.5) Platelet Count 115 x10^3/uL (140-400) Neutrophils (%) (Auto) 71 % (31-73) Lymphocytes (%) (Auto) 15 % (24-48) Monocytes (%) (Auto) 7 % (0-9) Eosinophils (%) (Auto) 6 % (0-3) Basophils (%) (Auto) 1 % (0-3) Neutrophils # (Auto) 4.0 x10^3/uL (1.8-7.7) Lymphocytes # (Auto) 0.9 x10^3/uL (1.0-4.8) Monocytes # (Auto) 0.4 x10^3/uL (0.0-1.1) Eosinophils # (Auto) 0.3 x10^3/uL (0.0-0.7) Basophils # (Auto) 0.0 x10^3/uL (0.0-0.2) Sodium Level 139 mmol/L (136-145) Potassium Level 3.7 mmol/L (3.5-5.1) Chloride Level 104 mmol/L (98-107) Carbon Dioxide Level 26 mmol/L (21-32) Anion Gap 9 (6-14) Blood Urea Nitrogen 15 mg/dL (8-26) Creatinine 1.3 mg/dL (0.7-1.3) Estimated GFR (Cockcroft-Gault) 53.8 Glucose Level 105 mg/dL (70-99) Calcium Level 8.6 mg/dL (8.5-10.1) Erythrocyte Sedimentation Rate 49 (0-15) Review of Systems Review of Systems A 14 point ROS was completed with the following noted as positive: Other systems reviewed and negative. \CONSTITUTIONAL: No fever or chills EYES: No recent changes SKIN: No rash or itching CARDIOVASCULAR: No chest pain, syncope, palpitations, or edema RESPIRATORY: No SOB or cough GASTROINTESTINAL: No nausea, vomiting or abdominal pain NEUROLOGICAL: No headaches or weakness ENDOCRINE: No cold or heat intolerance GENITOURINARY: No urgency or frequency of urination MUSCULOSKELETAL: No back pain or joint pain LYMPHATICS: No enlarged lymph nodes PSYCHIATRIC: No anxiety or depression Assessment and Plan Assessmemt and Plan Problems Medical Problems: (1) Acute CVA (cerebrovascular accident) Status: Acute (2) Acute encephalopathy Status: Acute (3) Gastrointestinal bleed Status: Acute (4) Hypertension Status: Chronic (5) Mitral valve insufficiency Status: Acute Comment Review of Relevant I have reviewed the following items hamzah (where applicable) has been applied. Labs Laboratory Tests Test 11/09/18 03:35 11/09/18 11:11 White Blood Count 5.6 x10^3/uL (4.0-11.0) Red Blood Count 3.32 x10^6/uL (4.30-5.70) Hemoglobin 10.1 g/dL (13.0-17.5) Hematocrit 29.8 % (39.0-53.0) Mean Corpuscular Volume 90 fL (79-100) Mean Corpuscular Hemoglobin 30 pg (25-35) Mean Corpuscular Hemoglobin Concent 34 g/dL (31-37) Red Cell Distribution Width 15.6 % (11.5-14.5) Platelet Count 115 x10^3/uL (140-400) Neutrophils (%) (Auto) 71 % (31-73) Lymphocytes (%) (Auto) 15 % (24-48) Monocytes (%) (Auto) 7 % (0-9) Eosinophils (%) (Auto) 6 % (0-3) Basophils (%) (Auto) 1 % (0-3) Neutrophils # (Auto) 4.0 x10^3/uL (1.8-7.7) Lymphocytes # (Auto) 0.9 x10^3/uL (1.0-4.8) Monocytes # (Auto) 0.4 x10^3/uL (0.0-1.1) Eosinophils # (Auto) 0.3 x10^3/uL (0.0-0.7) Basophils # (Auto) 0.0 x10^3/uL (0.0-0.2) Sodium Level 139 mmol/L (136-145) Potassium Level 3.7 mmol/L (3.5-5.1) Chloride Level 104 mmol/L (98-107) Carbon Dioxide Level 26 mmol/L (21-32) Anion Gap 9 (6-14) Blood Urea Nitrogen 15 mg/dL (8-26) Creatinine 1.3 mg/dL (0.7-1.3) Estimated GFR (Cockcroft-Gault) 53.8 Glucose Level 105 mg/dL (70-99) Calcium Level 8.6 mg/dL (8.5-10.1) Erythrocyte Sedimentation Rate 49 (0-15) Laboratory Tests Test 11/09/18 03:35 11/09/18 11:11 White Blood Count 5.6 x10^3/uL (4.0-11.0) Red Blood Count 3.32 x10^6/uL (4.30-5.70) Hemoglobin 10.1 g/dL (13.0-17.5) Hematocrit 29.8 % (39.0-53.0) Mean Corpuscular Volume 90 fL (79-100) Mean Corpuscular Hemoglobin 30 pg (25-35) Mean Corpuscular Hemoglobin Concent 34 g/dL (31-37) Red Cell Distribution Width 15.6 % (11.5-14.5) Platelet Count 115 x10^3/uL (140-400) Neutrophils (%) (Auto) 71 % (31-73) Lymphocytes (%) (Auto) 15 % (24-48) Monocytes (%) (Auto) 7 % (0-9) Eosinophils (%) (Auto) 6 % (0-3) Basophils (%) (Auto) 1 % (0-3) Neutrophils # (Auto) 4.0 x10^3/uL (1.8-7.7) Lymphocytes # (Auto) 0.9 x10^3/uL (1.0-4.8) Monocytes # (Auto) 0.4 x10^3/uL (0.0-1.1) Eosinophils # (Auto) 0.3 x10^3/uL (0.0-0.7) Basophils # (Auto) 0.0 x10^3/uL (0.0-0.2) Sodium Level 139 mmol/L (136-145) Potassium Level 3.7 mmol/L (3.5-5.1) Chloride Level 104 mmol/L (98-107) Carbon Dioxide Level 26 mmol/L (21-32) Anion Gap 9 (6-14) Blood Urea Nitrogen 15 mg/dL (8-26) Creatinine 1.3 mg/dL (0.7-1.3) Estimated GFR (Cockcroft-Gault) 53.8 Glucose Level 105 mg/dL (70-99) Calcium Level 8.6 mg/dL (8.5-10.1) Erythrocyte Sedimentation Rate 49 (0-15) Medications Current Medications Aspirin (Children'S Aspirin) 81 mg 1X ONCE PO Last administered on 11/06/18 04:12; Start 11/06/18 at 03:30; Stop 11/06/18 at 03:32; Status DC Sodium Chloride 1,000 ml @ 100 mls/hr Q10H IV Last administered on 11/07/18 06:20; Start 11/06/18 at 04:30; Stop 11/07/18 at 09:35; Status DC Docusate Sodium (Colace) 100 mg DAILY PRN PO CONSTIPATION Last administered on 11/08/18 15:38; Start 11/06/18 at 10:00 Gabapentin (Neurontin) 100 mg TID PO Last administered on 11/09/18 09:03; Start 11/06/18 at 10:30 Pantoprazole Sodium (Protonix) 40 mg DAILYAC PO Last administered on 11/09/18 09:03; Start 11/06/18 at 10:30 Hydrocortisone Acetate (Anucort-Hc) 25 mg PRN DAILY PRN AL RECTAL PAIN; Start 11/06/18 at 10:30 Polyethylene Glycol (miraLAX PACKET) 17 gm PRN DAILY PRN PO CONSTIPATION Last administered on 11/08/18 15:38; Start 11/06/18 at 09:00 Non-Formulary Medication (Rosuvastatin Calcium (Crestor)) 0.5 tab TuThSa@2100 PO ; Start 11/09/18 at 21:00 Losartan Potassium (Cozaar) 25 mg DAILY PO Last administered on 11/07/18 08:14; Start 11/06/18 at 10:30; Stop 11/08/18 at 07:58; Status DC Haloperidol Lactate (Haldol Inj) 2 mg 1X ONCE IVP Last administered on 11/06/18 13:30; Start 11/06/18 at 13:30; Stop 11/06/18 at 13:31; Status DC Quetiapine Fumarate (SEROquel) 12.5 mg BID PO Last administered on 11/09/18 09:03; Start 11/06/18 at 14:00 Lorazepam (Ativan Inj) 1 mg PRN Q4HRS PRN IV ANXIETY / AGITATION, 1st CHOIC Last administered on 11/09/18at 04:02; Start 11/06/18 at 14:30 Haloperidol Lactate (Haldol Inj) 2.5 mg PRN Q6HRS PRN IVP AGITATION, 2nd CHOICE Last administered on 11/08/18at 04:34; Start 11/07/18 at 09:45 Acetaminophen (Tylenol) 500 mg PRN Q6HRS PRN PO HEADACHE / TEMP; Start 11/07/18 at 09:45 Hydralazine HCl (Apresoline Inj) 10 mg PRN Q4HRS PRN IVP ELEVATED BP, SEE COMMENTS Last administered on 11/08/18at 13:49; Start 11/07/18 at 09:45 Ondansetron HCl (Zofran) 4 mg PRN Q6HRS PRN IV NAUSEA/VOMITING; Start 11/07/18 at 09:45 Vitamin D (Vitamin D3) 1,000 unit BID PO Last administered on 11/09/18at 09:02; Start 11/07/18 at 10:00 Non-Formulary Medication (Melatonin ) 1 tab QHS PO ; Start 11/07/18 at 21:00; Status UNV Amino Acids/ Glycerin/ Electrolytes 1,000 ml @ 80 mls/hr [id number] IV ; Start 11/07/18 at 14:00; Stop 11/07/18 at 14:00; Status DC Losartan Potassium (Cozaar) 100 mg DAILY PO Last administered on 11/09/18at 09:04; Start 11/08/18 at 09:00 Fentanyl Citrate (Fentanyl 2ml Vial) 25 mcg PRN Q5MIN PRN IV MILD PAIN 1-3; Start 11/09/18 at 07:00; Stop 11/10/18 at 06:59 Fentanyl Citrate (Fentanyl 2ml Vial) 50 mcg PRN Q5MIN PRN IV MODERATE TO SEVERE PAIN; Start 11/09/18 at 07:00; Stop 11/10/18 at 06:59 Morphine Sulfate (Morphine Sulfate) 1 mg PRN Q10MIN PRN IV SEVERE PAIN 7-10; Start 11/09/18 at 07:00; Stop 11/10/18 at 06:59 Ringer's Solution 1,000 ml @ 30 mls/hr Q24H IV ; Start 11/09/18 at 07:00; Stop 11/09/18 at 18:59 Lidocaine HCl (Xylocaine-Mpf 1% 2ml Vial) 2 ml PRN 1X PRN ID IV START; Start 11/09/18 at 07:00; Stop 11/10/18 at 06:59 Hydromorphone HCl (Dilaudid) 0.5 mg PRN Q10MIN PRN IV SEV PAIN, Second choice; Start 11/09/18 at 07:00; Stop 11/10/18 at 06:59 Prochlorperazine Edisylate (Compazine) 5 mg PACU PRN PRN IV NAUSEA, MRX1; Start 11/09/18 at 07:00; Stop 11/10/18 at 06:59 Vancomycin HCl 1 gm/Sodium Chloride 250 ml @ 250 mls/hr 1X ONCE IV Last administered on 11/09/18at 06:07; Start 11/09/18 at 06:00; Stop 11/09/18 at 06:59; Status DC Heparin Sodium (Porcine) 5000 unit/Ringer's Solution 505 ml @ 505 mls/hr 1X ONCE IRR ; Start 11/09/18 at 06:00; Stop 11/09/18 at 06:59; Status DC Aspirin (Children'S Aspirin) 81 mg DAILYWBKFT PO Last administered on 11/09/18at 09:04; Start 11/08/18 at 14:00 Fentanyl Citrate (Fentanyl 2ml Vial) 25 mcg PRN Q5MIN PRN IV MILD PAIN 1-3; Start 11/09/18 at 11:30; Stop 11/10/18 at 11:29; Status Cancel Fentanyl Citrate (Fentanyl 2ml Vial) 50 mcg PRN Q5MIN PRN IV MODERATE TO SEVERE PAIN; Start 11/09/18 at 11:30; Stop 11/09/18 at 11:30; Status DC Morphine Sulfate (Morphine Sulfate) 1 mg PRN Q10MIN PRN IV SEVERE PAIN 7-10; Start 11/09/18 at 11:30; Stop 11/10/18 at 11:29 Ringer's Solution 1,000 ml @ 30 mls/hr Q24H IV ; Start 11/09/18 at 11:19; Stop 11/09/18 at 23:18 Hydromorphone HCl (Dilaudid) 0.5 mg PRN Q10MIN PRN IV SEV PAIN, Second choice; Start 11/09/18 at 11:30; Stop 11/10/18 at 11:29 Prochlorperazine Edisylate (Compazine) 5 mg PACU PRN PRN IV NAUSEA, MRX1; Start 11/09/18 at 11:30; Stop 11/10/18 at 11:29 Active Scripts Active Reported Melatonin 3 Mg Tablet 1 Tab PO QHS Losartan Potassium 100 Mg Tablet 100 Mg PO DAILY Crestor (Rosuvastatin Calcium) 5 Mg Tablet 1 Tab PO QODAY Miralax (Polyethylene Glycol 3350) 17 Gm Powd.pack 1 Packet PO DAILY PRN Pantoprazole Sodium (Pantoprazole Sodium) 40 Mg Tablet.dr 40 Mg PO DAILYAC Anusol-Hc (Hydrocortisone Acetate) 25 Mg Supp.rect 1 Supp RC DAILY PRN Gabapentin (Gabapentin) 100 Mg Capsule 100 Mg PO TID Docusate Sodium 100 Mg Capsule 1 Cap PO DAILY PRN Vitamin D (Cholecalciferol (Vitamin D3)) 1,000 Unit Capsule 1 Cap PO BID Vitals/I & O Vital Sign - Last 24 Hours 11/08/18 11/08/18 11/08/18 11/08/18 13:49 15:00 19:00 20:00 Temp 98.0 98.2 98.0 98.2 Pulse 68 91 72 Resp 14 18 B/P (MAP) 174/70 159/65 (96) 162/57 (92) Pulse Ox 98 99 O2 Delivery Room Air Room Air Room Air 11/08/18 11/09/18 11/09/18 11/09/18 23:00 07:00 08:30 09:04 Temp 97.5 97.5 Pulse 88 65 65 Resp 16 22 B/P (MAP) 154/60 (91) 157/60 (92) 157/60 Pulse Ox 98 95 O2 Delivery Room Air Room Air Room Air 11/09/18 11:00 Temp 97.6 97.6 Pulse 62 Resp 18 B/P (MAP) 126/51 (76) Pulse Ox 97 O2 Delivery Room Air Intake and Output 11/08/18 11/08/18 11/09/18 15:00 23:00 07:00 Intake Total 311 ml 625 ml Output Total 425 ml 325 ml Balance -114 ml 300 ml TERMULO,JOSE Y MD Nov 09, 2018 12:28
--- NOTE | 2018-11-09 12:32 | PDOC ---
PROGRESS NOTES Assessment Problems Medical Problems: (1) Acute CVA (cerebrovascular accident) Status: Acute (2) Acute encephalopathy Status: Acute (3) Gastrointestinal bleed Status: Acute (4) Hypertension Status: Chronic (5) Mitral valve insufficiency Status: Acute Metabolic encephalopathy, normal EEG on 11/08/18. Hyponatremia, Na 125. Left ICA stenosis, > 75%. Dementia No evidence of acute CVA History of headaches, migraine phenomena Plan Check ESR Continue ASA 81 mg daily, plan to increase Seroquel 12.5 mg to 25 mg bid. Treat medical diseases. Note vascular surgery plans for endarterectomy, but awaiting cardiac evaluation, echocardiogram today Discussed with Subjective No complaints. adds that he has history of migraines, still has episodes of migraine phenomenon without headache Objective Vital Signs Date Time Temp Pulse Resp B/P (MAP) Pulse Ox O2 Delivery O2 Flow Rate FiO2 11/09/18 11:00 97.6 62 18 126/51 (76) 97 Room Air 97.6 Intake and Output 11/09/18 07:00 Intake Total 936 ml Output Total 750 ml Balance 186 ml Intake Oral 936 ml Output Urine Total 750 ml # Voids 3 PHYSICAL EXAM Alert, knows his name PERRL. EOMI. CN: no focal findings. Muscle tone: normal. Muscle strength: 5/5 DTR: 2+ Plantar reflex: flexor Gait: not examined in bed. Sensory exam: no abnormal findings. No cerebellar signs elicited. Review of Relevant I have reviewed the following items hamzah (where applicable) has been applied. Labs Laboratory Tests Test 11/09/18 03:35 11/09/18 11:11 White Blood Count 5.6 x10^3/uL (4.0-11.0) Red Blood Count 3.32 x10^6/uL (4.30-5.70) Hemoglobin 10.1 g/dL (13.0-17.5) Hematocrit 29.8 % (39.0-53.0) Mean Corpuscular Volume 90 fL (79-100) Mean Corpuscular Hemoglobin 30 pg (25-35) Mean Corpuscular Hemoglobin Concent 34 g/dL (31-37) Red Cell Distribution Width 15.6 % (11.5-14.5) Platelet Count 115 x10^3/uL (140-400) Neutrophils (%) (Auto) 71 % (31-73) Lymphocytes (%) (Auto) 15 % (24-48) Monocytes (%) (Auto) 7 % (0-9) Eosinophils (%) (Auto) 6 % (0-3) Basophils (%) (Auto) 1 % (0-3) Neutrophils # (Auto) 4.0 x10^3/uL (1.8-7.7) Lymphocytes # (Auto) 0.9 x10^3/uL (1.0-4.8) Monocytes # (Auto) 0.4 x10^3/uL (0.0-1.1) Eosinophils # (Auto) 0.3 x10^3/uL (0.0-0.7) Basophils # (Auto) 0.0 x10^3/uL (0.0-0.2) Sodium Level 139 mmol/L (136-145) Potassium Level 3.7 mmol/L (3.5-5.1) Chloride Level 104 mmol/L (98-107) Carbon Dioxide Level 26 mmol/L (21-32) Anion Gap 9 (6-14) Blood Urea Nitrogen 15 mg/dL (8-26) Creatinine 1.3 mg/dL (0.7-1.3) Estimated GFR (Cockcroft-Gault) 53.8 Glucose Level 105 mg/dL (70-99) Calcium Level 8.6 mg/dL (8.5-10.1) Erythrocyte Sedimentation Rate 49 (0-15) Laboratory Tests Test 11/09/18 03:35 11/09/18 11:11 White Blood Count 5.6 x10^3/uL (4.0-11.0) Red Blood Count 3.32 x10^6/uL (4.30-5.70) Hemoglobin 10.1 g/dL (13.0-17.5) Hematocrit 29.8 % (39.0-53.0) Mean Corpuscular Volume 90 fL (79-100) Mean Corpuscular Hemoglobin 30 pg (25-35) Mean Corpuscular Hemoglobin Concent 34 g/dL (31-37) Red Cell Distribution Width 15.6 % (11.5-14.5) Platelet Count 115 x10^3/uL (140-400) Neutrophils (%) (Auto) 71 % (31-73) Lymphocytes (%) (Auto) 15 % (24-48) Monocytes (%) (Auto) 7 % (0-9) Eosinophils (%) (Auto) 6 % (0-3) Basophils (%) (Auto) 1 % (0-3) Neutrophils # (Auto) 4.0 x10^3/uL (1.8-7.7) Lymphocytes # (Auto) 0.9 x10^3/uL (1.0-4.8) Monocytes # (Auto) 0.4 x10^3/uL (0.0-1.1) Eosinophils # (Auto) 0.3 x10^3/uL (0.0-0.7) Basophils # (Auto) 0.0 x10^3/uL (0.0-0.2) Sodium Level 139 mmol/L (136-145) Potassium Level 3.7 mmol/L (3.5-5.1) Chloride Level 104 mmol/L (98-107) Carbon Dioxide Level 26 mmol/L (21-32) Anion Gap 9 (6-14) Blood Urea Nitrogen 15 mg/dL (8-26) Creatinine 1.3 mg/dL (0.7-1.3) Estimated GFR (Cockcroft-Gault) 53.8 Glucose Level 105 mg/dL (70-99) Calcium Level 8.6 mg/dL (8.5-10.1) Erythrocyte Sedimentation Rate 49 (0-15) Medications Current Medications Aspirin (Children'S Aspirin) 81 mg 1X ONCE PO Last administered on 11/06/18 04:12; Start 11/06/18 at 03:30; Stop 11/06/18 at 03:32; Status DC Sodium Chloride 1,000 ml @ 100 mls/hr Q10H IV Last administered on 11/07/18at 06:20; Start 11/06/18 at 04:30; Stop 11/07/18 at 09:35; Status DC Docusate Sodium (Colace) 100 mg DAILY PRN PO CONSTIPATION Last administered on 11/08/18at 15:38; Start 11/06/18 at 10:00 Gabapentin (Neurontin) 100 mg TID PO Last administered on 11/09/18 09:03; Start 11/06/18 at 10:30 Pantoprazole Sodium (Protonix) 40 mg DAILYAC PO Last administered on 7/23/19at 09:03; Start 11/06/18 at 10:30 Hydrocortisone Acetate (Anucort-Hc) 25 mg PRN DAILY PRN NM RECTAL PAIN; Start 11/06/18 at 10:30 Polyethylene Glycol (miraLAX PACKET) 17 gm PRN DAILY PRN PO CONSTIPATION Last administered on 11/08/18at 15:38; Start 11/06/18 at 09:00 Non-Formulary Medication (Rosuvastatin Calcium (Crestor)) 0.5 tab TuThSa@2100 PO ; Start 11/09/18 at 21:00 Losartan Potassium (Cozaar) 25 mg DAILY PO Last administered on 11/07/18 08:14; Start 11/06/18 at 10:30; Stop 11/08/18 at 07:58; Status DC Haloperidol Lactate (Haldol Inj) 2 mg 1X ONCE IVP Last administered on 11/06/18 13:30; Start 11/06/18 at 13:30; Stop 11/06/18 at 13:31; Status DC Quetiapine Fumarate (SEROquel) 12.5 mg BID PO Last administered on 11/09/18 09:03; Start 11/06/18 at 14:00 Lorazepam (Ativan Inj) 1 mg PRN Q4HRS PRN IV ANXIETY / AGITATION, 1st CHOIC Last administered on 11/09/18 04:02; Start 11/06/18 at 14:30 Haloperidol Lactate (Haldol Inj) 2.5 mg PRN Q6HRS PRN IVP AGITATION, 2nd CHOICE Last administered on 11/08/18 04:34; Start 11/07/18 at 09:45 Acetaminophen (Tylenol) 500 mg PRN Q6HRS PRN PO HEADACHE / TEMP; Start 11/07/18 at 09:45 Hydralazine HCl (Apresoline Inj) 10 mg PRN Q4HRS PRN IVP ELEVATED BP, SEE COMMENTS Last administered on 11/08/18 13:49; Start 11/07/18 at 09:45 Ondansetron HCl (Zofran) 4 mg PRN Q6HRS PRN IV NAUSEA/VOMITING; Start 11/07/18 at 09:45 Vitamin D (Vitamin D3) 1,000 unit BID PO Last administered on 11/09/18 09:02; Start 11/07/18 at 10:00 Non-Formulary Medication (Melatonin ) 1 tab QHS PO ; Start 11/07/18 at 21:00; Status UNV Amino Acids/ Glycerin/ Electrolytes 1,000 ml @ 80 mls/hr [id number] IV ; Start 11/07/18 at 14:00; Stop 11/07/18 at 14:00; Status DC Losartan Potassium (Cozaar) 100 mg DAILY PO Last administered on 11/09/18at 09:04; Start 11/08/18 at 09:00 Fentanyl Citrate (Fentanyl 2ml Vial) 25 mcg PRN Q5MIN PRN IV MILD PAIN 1-3; Start 11/09/18 at 07:00; Stop 11/10/18 at 06:59 Fentanyl Citrate (Fentanyl 2ml Vial) 50 mcg PRN Q5MIN PRN IV MODERATE TO SEVERE PAIN; Start 11/09/18 at 07:00; Stop 11/10/18 at 06:59 Morphine Sulfate (Morphine Sulfate) 1 mg PRN Q10MIN PRN IV SEVERE PAIN 7-10; Start 11/09/18 at 07:00; Stop 11/10/18 at 06:59 Ringer's Solution 1,000 ml @ 30 mls/hr Q24H IV ; Start 11/09/18 at 07:00; Stop 11/09/18 at 18:59 Lidocaine HCl (Xylocaine-Mpf 1% 2ml Vial) 2 ml PRN 1X PRN ID IV START; Start 11/09/18 at 07:00; Stop 11/10/18 at 06:59 Hydromorphone HCl (Dilaudid) 0.5 mg PRN Q10MIN PRN IV SEV PAIN, Second choice; Start 11/09/18 at 07:00; Stop 11/10/18 at 06:59 Prochlorperazine Edisylate (Compazine) 5 mg PACU PRN PRN IV NAUSEA, MRX1; Start 11/09/18 at 07:00; Stop 11/10/18 at 06:59 Vancomycin HCl 1 gm/Sodium Chloride 250 ml @ 250 mls/hr 1X ONCE IV Last administered on 11/09/18at 06:07; Start 11/09/18 at 06:00; Stop 11/09/18 at 06:59; Status DC Heparin Sodium (Porcine) 5000 unit/Ringer's Solution 505 ml @ 505 mls/hr 1X ONCE IRR ; Start 11/09/18 at 06:00; Stop 11/09/18 at 06:59; Status DC Aspirin (Children'S Aspirin) 81 mg DAILYWBKFT PO Last administered on 11/09/18at 09:04; Start 11/08/18 at 14:00 Fentanyl Citrate (Fentanyl 2ml Vial) 25 mcg PRN Q5MIN PRN IV MILD PAIN 1-3; Start 11/09/18 at 11:30; Stop 11/10/18 at 11:29; Status Cancel Fentanyl Citrate (Fentanyl 2ml Vial) 50 mcg PRN Q5MIN PRN IV MODERATE TO SEVERE PAIN; Start 11/09/18 at 11:30; Stop 11/09/18 at 11:30; Status DC Morphine Sulfate (Morphine Sulfate) 1 mg PRN Q10MIN PRN IV SEVERE PAIN 7-10; Start 11/09/18 at 11:30; Stop 11/10/18 at 11:29 Ringer's Solution 1,000 ml @ 30 mls/hr Q24H IV ; Start 11/09/18 at 11:19; Stop 11/09/18 at 23:18 Hydromorphone HCl (Dilaudid) 0.5 mg PRN Q10MIN PRN IV SEV PAIN, Second choice; Start 11/09/18 at 11:30; Stop 11/10/18 at 11:29 Prochlorperazine Edisylate (Compazine) 5 mg PACU PRN PRN IV NAUSEA, MRX1; Start 11/09/18 at 11:30; Stop 11/10/18 at 11:29 Active Scripts Active Reported Melatonin 3 Mg Tablet 1 Tab PO QHS Losartan Potassium 100 Mg Tablet 100 Mg PO DAILY Crestor (Rosuvastatin Calcium) 5 Mg Tablet 1 Tab PO QODAY Miralax (Polyethylene Glycol 3350) 17 Gm Powd.pack 1 Packet PO DAILY PRN Pantoprazole Sodium (Pantoprazole Sodium) 40 Mg Tablet.dr 40 Mg PO DAILYAC Anusol-Hc (Hydrocortisone Acetate) 25 Mg Supp.rect 1 Supp RC DAILY PRN Gabapentin (Gabapentin) 100 Mg Capsule 100 Mg PO TID Docusate Sodium 100 Mg Capsule 1 Cap PO DAILY PRN Vitamin D (Cholecalciferol (Vitamin D3)) 1,000 Unit Capsule 1 Cap PO BID Vitals/I & O Vital Sign - Last 24 Hours 11/08/18 11/08/18 11/08/18 11/08/18 13:49 15:00 19:00 20:00 Temp 98.0 98.2 98.0 98.2 Pulse 68 91 72 Resp 14 18 B/P (MAP) 174/70 159/65 (96) 162/57 (92) Pulse Ox 98 99 O2 Delivery Room Air Room Air Room Air 11/08/18 11/09/18 11/09/18 11/09/18 23:00 07:00 08:30 09:04 Temp 97.5 97.5 Pulse 88 65 65 Resp 16 22 B/P (MAP) 154/60 (91) 157/60 (92) 157/60 Pulse Ox 98 95 O2 Delivery Room Air Room Air Room Air 11/09/18 11:00 Temp 97.6 97.6 Pulse 62 Resp 18 B/P (MAP) 126/51 (76) Pulse Ox 97 O2 Delivery Room Air Intake and Output 11/08/18 11/08/18 11/09/18 15:00 23:00 07:00 Intake Total 311 ml 625 ml Output Total 425 ml 325 ml Balance -114 ml 300 ml DWIGHT SAENZ MD Nov 09, 2018 12:32
[2018-11-09] MEDS ORDERED: BENZOCAINE ONE 20% MUCOSAL SPRAY. (12:33)
[2018-11-09] MEDS ORDERED: LIDOCAINE 2% VISCOUS 15 ML SOLUTION. ONE (12:34)
[2018-11-09] MEDS ORDERED: LIDOCAINE 2% TOPICAL JELLY 30GM TUBE. TP ONE ×2 (12:34→13:45)
[2018-11-09] MEDS ORDERED: BENZOCAINE ONE 20% MUCOSAL SPRAY. MM (13:45)
[2018-11-09] MEDS ORDERED: LIDOCAINE 2% VISCOUS 15 ML SOLUTION. SWSW ONE (13:45)
[2018-11-09] MEDS ORDERED: PROPOFOL 20 ML IV ONE (14:29)
--- NOTE | 2018-11-09 16:30 | PDOC ---
Provider Note Provider Note Echo revealed preserved LV systolic function along with moderate aortic stenosis with calculated aortic valve maximum pressure gradient > 60 mmHg and mean pressure gradient >34 mmHg. and [place] records reviewed JIGAR 09/09/18 at Interpretation Summary 1. There is a well seated bioprosthetic valve in the aortic position (unknown Type/Size). There is severe transvalvular aortic regurgitation without obvious paravalvular regurgitation. On 3D images there appears to be lack of coaptation of the prosthetic valve leaflets. Visually the valve does not appear to be significantly stenotic. No valvular thrombus or vegetation is identified. 2. Mild dilation of the ascending aorta, 4.1 cm at the widest margin. 3. There was no thrombus visualized in the left atrial appendage utilizing multiple views and color flow doppler. 4. No obvious valvular vegetations seen. 5. Mildly dilated left ventricle with normal systolic function. Estimated EF 60%. 6. Normal right ventricular systolic function 7. Normal size left and right atria 8. Grade II calcific atherosclerosis of the descending aorta Comparison is made with a prior transthoracic echocardiogram performed 09/07/2018. There have been no significant interval changes. Severe bioprosthetic transvalvular regurgitation secondary to poor leaflet coaptation is confirmed. Heart cath 09/2018 at [place] LM; normal Proximal LAD; 30% lesion, mid LAD; 20% and distal LAD 20% stenosis 1st Diagonal; 20% lesion. small caliber vessel 2nd Diagonal: 20% lesion. small caliber vessel Ramus intermedius; 70% stenosis. Diffusely diseased in proximal portion. Fills distally via FAIR graft with normal distal runoff Proximal Circ; 20% lesion Mid Circ: 30 lesion Distal Circ; luminal irregularities OM1; normal OM2; Normal 3rd OM; fills via SVG graft with normal distal runoff. There is a jump segment to the rPDA Proximal RCA; 70% tubular lesion Mid RCA 100% CLOUD PHYSICIST Distal RCA; CLOUD PHYSICIST Right PDA; fills via jump segment from SVG to OMB graft with normal distal runoff Bypass angiography: FAIR to Ramus intermedius; widely patent SVG to 3rd OM; widely patent with patent jump graft segment to rPDA Radial artery to 2nd OM; widely patent Recommendations TTE with moderate aortic stenosis, which was not noted in previous echo. Recommend JIGAR for further evaluation of the aortic valve. R/b/a discusses with patient and and they are agreeable to proceed. KATHERINE OLSEN APRN 23, 2019 16:30
--- NOTE | 2018-11-09 17:12 | CARD ---
MR#: [id number] Date of Study: 11/09/2018 Ordering Physician: DEBBIE JOSEPH, Referring Physician: DANIEL GOMEZ, Tech: Janet Gustafson [facility] APPROVED REPORT EXAM: Transesophageal echocardiogram with color flow Doppler. INDICATION Aortic Valve Disease Reason For Test : Pre Op PROCEDURE After obtaining informed consent, patient underwent transesophageal echo in the PACU. Type of Sedation : General Anesthesia Sedation was administered by Dr. Lackey. Sedation was achieved with Propofol 60mg intravenously. Throughout the procedure, the blood pressure, pulse oximetry, cardiac rhythm, and rate were monitored . LEFT VENTRICLE The left ventricle is normal size. There is normal left ventricular wall thickness. Left ventricle sy stolic function is low normal. The Ejection Fraction is 50%. Septal motion suggestive of prior CABG. Mild global hypokinesis. Tissue Doppler imaging reveals moderate left ventricular diastolic dysfuncti on. No left ventricle thrombus noted on this study. RIGHT VENTRICLE The right ventricle is normal size. There is normal right ventricular wall thickness. The right ventr icular systolic function is normal. ATRIA The left atrium is moderately dilated. The right atrium size is normal. The interatrial septum is int act with no evidence for an atrial septal defect or patent foramen ovale as noted on 2-D or Doppler i maging. AORTIC VALVE There is a bioprosthetic aortic valve prosthesis. Doppler and Color Flow revealed severe aortic regur gitation. There is moderate to severe valvular aortic stenosis. MG 40 mm Hg There is a bioprosthetic aortic valve prosthesis. MITRAL VALVE The mitral valve is normal in structure and function. There is no evidence of mitral valve prolapse. There is no mitral valve stenosis. Doppler and Color-flow revealed mild mitral regurgitation. TRICUSPID VALVE The tricuspid valve is normal in structure and function. Doppler and Color Flow revealed mild tricusp id regurgitation. There is no tricuspid valve prolapse or vegetation. There is no tricuspid valve deyvi nosis. PULMONIC VALVE The pulmonary valve is normal in structure and function. Doppler and Color Flow revealed no pulmonic valvular regurgitation. There is no pulmonic valvular stenosis. GREAT VESSELS The aortic root is normal in size. The ascending aorta is normal in size. The IVC is normal in size a nd collapses >50% with inspiration. Critical Notification Critical Value: No <Conclusion> Left ventricle systolic function is low normal. The Ejection Fraction is 50%. Septal motion suggestive of prior CABG. Mild global hypokinesis. Doppler and Color Flow revealed severe aortic regurgitation that is mostly central w/o paravalvular r egurgitation. There is moderate to severe valvular aortic stenosis. MG 40 mm Hg Signed by : Debbie Joseph, Electronically Approved : 11/09/2018 17:11:21
[2018-11-09] MEDS: hydrALAZINE 20 MG/ML VIAL. IVP PRN (18:40)
[2018-11-09] MEDS: POLYETHYLENE GLYCOL 3350 17 GM PACKET. PO PRN (18:40)
[2018-11-09] MEDS: DOCUSATE SODIUM 100 MG CAPSULE. PO PRN (18:40)
[2018-11-09] MEDS: ROSUVASTATIN CALCIUM PO SCH (20:51)
[2018-11-09] MEDS: HALOPERIDOL LACTATE 5 MG/ML VIAL. IVP PRN (23:03)
[2018-11-10] VITALS (7 sets, daily range): BP systolic 127–164; BP diastolic 39–84
[2018-11-10] MEDS: PANTOPRAZOLE 40 MG TABLET.DR. PO SCH (07:45)
[2018-11-10] MEDS: ASPIRIN CHEWABLE 81 MG TABLET. PO SCH (07:46)
[2018-11-10] MEDS: QUEtiapine 25 MG TABLET. PO SCH ×2 (07:46→20:09)
[2018-11-10] MEDS: CHOLECALCIFEROL (VITAMIN D3) 1,000 UNIT TABLET PO SCH ×2 (07:46→20:09)
[2018-11-10] MEDS: LOSARTAN POTASSIUM 50 MG TABLET. PO SCH (07:47)
[2018-11-10] MEDS: GABAPENTIN 100 MG CAPSULE. PO SCH ×3 (07:48→20:09)
--- NOTE | 2018-11-10 08:19 | NUR ---
Tyree has been to the bathroom with assist of 1 walker and gait belt. he gait is unsteady and shuffling. He passed a large amount of flatus but no BM. he remains on 1:1 related to impulsiveness and confusion. he is waiting for his mother and thinks he is at home. attempt to reorient. He asked why he is in the hospital and doesn't remember coming or any tests. up in recliner atr this time. he is cooperative and took am pills without problem
--- NOTE | 2018-11-10 10:23 | PDOC ---
PROGRESS NOTES Assessment Problems Medical Problems: (1) Acute CVA (cerebrovascular accident) Status: Acute (2) Acute encephalopathy Status: Acute (3) Gastrointestinal bleed Status: Acute (4) Hypertension Status: Chronic (5) Mitral valve insufficiency Status: Acute Metabolic encephalopathy, normal EEG on 11/08/18. Hyponatremia, Na 125. Left ICA stenosis, > 75%. Dementia No evidence of acute CVA History of headaches, migraine phenomena ESR 49 Plan Recheck ESR in 2-3 weeks Continue ASA 81 mg daily Seroquel 12.5 mg to 25 mg bid. Treat medical diseases. Note vascular surgery plans for endarterectomy on 11/12 Subjective No complaints Objective Vital Signs Date Time Temp Pulse Resp B/P (MAP) Pulse Ox O2 Delivery O2 Flow Rate FiO2 11/10/18 07:47 82 164/64 11/10/18 07:07 Room Air 11/10/18 06:58 98.2 16 98 98.2 11/09/18 14:48 6 Intake and Output 11/10/18 06:59 Intake Total 120 ml Output Total 700 ml Balance -580 ml Intake Oral 120 ml Output Urine Total 700 ml PHYSICAL EXAM Alert, knows his name PERRL. EOMI. CN: no focal findings. Muscle tone: normal. Muscle strength: 5/5 DTR: 2+ Plantar reflex: flexor Gait: not examined in bed. Sensory exam: no abnormal findings. No cerebellar signs elicited. Review of Relevant I have reviewed the following items hamzah (where applicable) has been applied. Labs Laboratory Tests Test 11/09/18 03:35 11/09/18 11:11 White Blood Count 5.6 x10^3/uL (4.0-11.0) Red Blood Count 3.32 x10^6/uL (4.30-5.70) Hemoglobin 10.1 g/dL (13.0-17.5) Hematocrit 29.8 % (39.0-53.0) Mean Corpuscular Volume 90 fL (79-100) Mean Corpuscular Hemoglobin 30 pg (25-35) Mean Corpuscular Hemoglobin Concent 34 g/dL (31-37) Red Cell Distribution Width 15.6 % (11.5-14.5) Platelet Count 115 x10^3/uL (140-400) Neutrophils (%) (Auto) 71 % (31-73) Lymphocytes (%) (Auto) 15 % (24-48) Monocytes (%) (Auto) 7 % (0-9) Eosinophils (%) (Auto) 6 % (0-3) Basophils (%) (Auto) 1 % (0-3) Neutrophils # (Auto) 4.0 x10^3/uL (1.8-7.7) Lymphocytes # (Auto) 0.9 x10^3/uL (1.0-4.8) Monocytes # (Auto) 0.4 x10^3/uL (0.0-1.1) Eosinophils # (Auto) 0.3 x10^3/uL (0.0-0.7) Basophils # (Auto) 0.0 x10^3/uL (0.0-0.2) Sodium Level 139 mmol/L (136-145) Potassium Level 3.7 mmol/L (3.5-5.1) Chloride Level 104 mmol/L (98-107) Carbon Dioxide Level 26 mmol/L (21-32) Anion Gap 9 (6-14) Blood Urea Nitrogen 15 mg/dL (8-26) Creatinine 1.3 mg/dL (0.7-1.3) Estimated GFR (Cockcroft-Gault) 53.8 Glucose Level 105 mg/dL (70-99) Calcium Level 8.6 mg/dL (8.5-10.1) Erythrocyte Sedimentation Rate 49 (0-15) Laboratory Tests Test 11/09/18 11:11 Erythrocyte Sedimentation Rate 49 (0-15) Medications Current Medications Aspirin (Children'S Aspirin) 81 mg 1X ONCE PO Last administered on 11/06/18at 04:12; Start 11/06/18 at 03:30; Stop 11/06/18 at 03:32; Status DC Sodium Chloride 1,000 ml @ 100 mls/hr Q10H IV Last administered on 11/07/18at 06:20; Start 11/06/18 at 04:30; Stop 11/07/18 at 09:35; Status DC Docusate Sodium (Colace) 100 mg DAILY PRN PO CONSTIPATION Last administered on 11/09/18at 18:40; Start 11/06/18 at 10:00 Gabapentin (Neurontin) 100 mg TID PO Last administered on 11/10/18at 07:48; Start 11/06/18 at 10:30 Pantoprazole Sodium (Protonix) 40 mg DAILYAC PO Last administered on 11/10/18 07:45; Start 11/06/18 at 10:30 Hydrocortisone Acetate (Anucort-Hc) 25 mg PRN DAILY PRN FL RECTAL PAIN; Start 11/06/18 at 10:30 Polyethylene Glycol (miraLAX PACKET) 17 gm PRN DAILY PRN PO CONSTIPATION Last administered on 11/09/18 18:40; Start 11/06/18 at 09:00 Non-Formulary Medication (Rosuvastatin Calcium (Crestor)) 0.5 tab TuThSa@2100 PO Last administered on 11/09/18 20:51; Start 11/09/18 at 21:00 Losartan Potassium (Cozaar) 25 mg DAILY PO Last administered on 11/07/18 08:14; Start 11/06/18 at 10:30; Stop 11/08/18 at 07:58; Status DC Haloperidol Lactate (Haldol Inj) 2 mg 1X ONCE IVP Last administered on 11/06/18 13:30; Start 11/06/18 at 13:30; Stop 11/06/18 at 13:31; Status DC Quetiapine Fumarate (SEROquel) 12.5 mg BID PO Last administered on 11/10/18 07:46; Start 11/06/18 at 14:00 Lorazepam (Ativan Inj) 1 mg PRN Q4HRS PRN IV ANXIETY / AGITATION, 1st CHOIC Last administered on 11/09/18 04:02; Start 11/06/18 at 14:30 Haloperidol Lactate (Haldol Inj) 2.5 mg PRN Q6HRS PRN IVP AGITATION, 2nd CHOICE Last administered on 11/09/18 23:03; Start 11/07/18 at 09:45 Acetaminophen (Tylenol) 500 mg PRN Q6HRS PRN PO HEADACHE / TEMP; Start 11/07/18 at 09:45 Hydralazine HCl (Apresoline Inj) 10 mg PRN Q4HRS PRN IVP ELEVATED BP, SEE COMMENTS Last administered on 11/09/18 18:40; Start 11/07/18 at 09:45 Ondansetron HCl (Zofran) 4 mg PRN Q6HRS PRN IV NAUSEA/VOMITING; Start 11/07/18 at 09:45 Vitamin D (Vitamin D3) 1,000 unit BID PO Last administered on 11/10/18at 07:46; Start 11/07/18 at 10:00 Non-Formulary Medication (Melatonin ) 1 tab QHS PO ; Start 11/07/18 at 21:00; Status UNV Amino Acids/ Glycerin/ Electrolytes 1,000 ml @ 80 mls/hr [id number] IV ; Start 11/07/18 at 14:00; Stop 11/07/18 at 14:00; Status DC Losartan Potassium (Cozaar) 100 mg DAILY PO Last administered on 11/10/18at 07:47; Start 11/08/18 at 09:00 Fentanyl Citrate (Fentanyl 2ml Vial) 25 mcg PRN Q5MIN PRN IV MILD PAIN 1-3; Start 11/09/18 at 07:00; Stop 11/10/18 at 06:59; Status DC Fentanyl Citrate (Fentanyl 2ml Vial) 50 mcg PRN Q5MIN PRN IV MODERATE TO SEVERE PAIN; Start 11/09/18 at 07:00; Stop 11/10/18 at 06:59; Status DC Morphine Sulfate (Morphine Sulfate) 1 mg PRN Q10MIN PRN IV SEVERE PAIN 7-10; Start 11/09/18 at 07:00; Stop 11/10/18 at 06:59; Status DC Ringer's Solution 1,000 ml @ 30 mls/hr Q24H IV Last administered on 11/09/18at 14:30; Start 11/09/18 at 07:00; Stop 11/09/18 at 18:59; Status DC Lidocaine HCl (Xylocaine-Mpf 1% 2ml Vial) 2 ml PRN 1X PRN ID IV START; Start 11/09/18 at 07:00; Stop 11/10/18 at 06:59; Status DC Hydromorphone HCl (Dilaudid) 0.5 mg PRN Q10MIN PRN IV SEV PAIN, Second choice; Start 11/09/18 at 07:00; Stop 11/10/18 at 06:59; Status DC Prochlorperazine Edisylate (Compazine) 5 mg PACU PRN PRN IV NAUSEA, MRX1; Start 11/09/18 at 07:00; Stop 11/10/18 at 06:59; Status DC Vancomycin HCl 1 gm/Sodium Chloride 250 ml @ 250 mls/hr 1X ONCE IV Last admin istered on 11/09/18at 06:07; Start 11/09/18 at 06:00; Stop 11/09/18 at 06:59; Status DC Heparin Sodium (Porcine) 5000 unit/Ringer's Solution 505 ml @ 505 mls/hr 1X ONCE IRR ; Start 11/09/18 at 06:00; Stop 11/09/18 at 06:59; Status DC Aspirin (Children'S Aspirin) 81 mg [id number] PO Last administered on 11/10/18at 07:46; Start 11/08/18 at 14:00 Fentanyl Citrate (Fentanyl 2ml Vial) 25 mcg PRN Q5MIN PRN IV MILD PAIN 1-3; Start 11/09/18 at 11:30; Stop 11/10/18 at 11:29; Status Cancel Fentanyl Citrate (Fentanyl 2ml Vial) 50 mcg PRN Q5MIN PRN IV MODERATE TO SEVERE PAIN; Start 11/09/18 at 11:30; Stop 11/09/18 at 11:30; Status DC Morphine Sulfate (Morphine Sulfate) 1 mg PRN Q10MIN PRN IV SEVERE PAIN 7-10; Start 11/09/18 at 11:30; Stop 11/10/18 at 10:05; Status DC Ringer's Solution 1,000 ml @ 30 mls/hr Q24H IV ; Start 11/09/18 at 11:19; Stop 11/09/18 at 23:18; Status DC Hydromorphone HCl (Dilaudid) 0.5 mg PRN Q10MIN PRN IV SEV PAIN, Second choice; Start 11/09/18 at 11:30; Stop 11/10/18 at 11:29 Prochlorperazine Edisylate (Compazine) 5 mg PACU PRN PRN IV NAUSEA, MRX1; Start 11/09/18 at 11:30; Stop 11/10/18 at 11:29 Benzocaine (Hurricaine One) 1 spray STK-MED ONCE .ROUTE ; Start 11/09/18 at 12:33; Stop 11/09/18 at 12:34; Status DC Lidocaine HCl (Xylocaine 2% Topical 30gm Tube) 30 ian STK-MED ONCE TP ; Start 11/09/18 at 12:34; Stop 11/09/18 at 12:35; Status DC Lidocaine HCl (Viscous Lidocaine) 15 ml STK-MED ONCE .ROUTE ; Start 11/09/18 at 12:34; Stop 11/09/18 at 12:35; Status DC Benzocaine (Hurricaine One) 2 spray 1X ONCE MM Last administered on 11/09/18at 14:30; Start 11/09/18 at 13:45; Stop 11/09/18 at 13:46; Status DC Lidocaine HCl (Xylocaine 2% Topical 30gm Tube) 1 ian 1X ONCE TP Last administered on 11/09/18at 14:30; Start 11/09/18 at 13:45; Stop 11/09/18 at 13:46; Status DC Lidocaine HCl (Viscous Lidocaine) 15 ml 1X ONCE SWSW Last administered on 11/09/18at 14:30; Start 11/09/18 at 13:45; Stop 11/09/18 at 13:46; Status DC Active Scripts Active Reported Melatonin 3 Mg Tablet 1 Tab PO QHS Losartan Potassium 100 Mg Tablet 100 Mg PO DAILY Crestor (Rosuvastatin Calcium) 5 Mg Tablet 1 Tab PO QODAY Miralax (Polyethylene Glycol 3350) 17 Gm Powd.pack 1 Packet PO DAILY PRN Pantoprazole Sodium (Pantoprazole Sodium) 40 Mg Tablet.dr 40 Mg PO DAILYAC Anusol-Hc (Hydrocortisone Acetate) 25 Mg Supp.rect 1 Supp RC DAILY PRN Gabapentin (Gabapentin) 100 Mg Capsule 100 Mg PO TID Docusate Sodium 100 Mg Capsule 1 Cap PO DAILY PRN Vitamin D (Cholecalciferol (Vitamin D3)) 1,000 Unit Capsule 1 Cap PO BID Vitals/I & O Vital Sign - Last 24 Hours 11/09/18 11/09/18 11/09/18 11/09/18 11:00 14:05 14:48 14:48 Temp 97.6 97.6 98.6 97.6 97.6 98.6 Pulse 62 58 70 Resp 18 15 16 B/P (MAP) 126/51 (76) 180/56 149/48 Pulse Ox 97 98 100 O2 Delivery Room Air Room Air Nasal Cannula Nasal Cannula O2 Flow Rate 6 6 11/09/18 11/09/18 11/09/18 11/09/18 15:00 15:03 16:32 16:46 Temp 97.4 97.4 Pulse 68 65 61 60 Resp 18 16 B/P (MAP) 168/46 (86) 161/55 175/48 (90) 168/46 (86) Pulse Ox 96 99 97 96 O2 Delivery Room Air Room Air Room Air Room Air 11/09/18 11/09/18 11/09/18 11/09/18 17:02 17:18 17:31 18:01 Pulse 66 84 69 69 B/P (MAP) 174/47 (89) 157/57 (90) 169/49 (89) 172/61 (98) Pulse Ox 100 O2 Delivery Room Air Room Air 11/09/18 11/09/18 11/09/18 11/09/18 18:31 18:40 19:03 20:00 Temp 97.6 97.6 Pulse 66 66 79 Resp 18 B/P (MAP) 172/48 (89) 172/48 166/52 (90) Pulse Ox 100 O2 Delivery Room Air 11/09/18 11/10/18 11/10/18 11/10/18 22:31 03:00 06:58 07:07 Temp 98.5 98.2 98.2 98.5 98.2 98.2 Pulse 88 82 82 Resp 17 17 16 B/P (MAP) 154/54 (87) 152/47 (82) 164/64 (97) Pulse Ox 100 98 O2 Delivery Room Air Room Air Room Air Room Air 11/10/18 07:47 Pulse 82 B/P (MAP) 164/64 Intake and Output 11/09/18 11/09/18 11/10/18 14:59 22:59 06:59 Intake Total 120 ml Output Total 500 ml 200 ml Balance -500 ml -80 ml DWIGHT SAENZ MD Nov 10, 2018 10:23
--- NOTE | 2018-11-10 10:24 | PDOC ---
PROGRESS NOTES Chief Complaint Chief Complaint IMPRESSION 1. 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 Mitral valve disease, BY ECHO Calculated aortic valve maximum pressure gradient > 60 mmHg and mean pressure gradient >34 mmHg. Doppler and color-flow analysis and imaging reveals probable moderate aortic stenosis. Doppler and Color Flow revealed moderate aortic regurgitation. Doppler and Color-flow revealed mild mitral regurgitation. Doppler and Color Flow revealed trace tricuspid regurgitation with an estimated PAP of 34 mmHg. Difficult to image aortic valve. JIGAR Septal motion suggestive of prior CABG. Mild global hypokinesis. Doppler and Color Flow revealed severe aortic regurgitation that is mostly central w/o paravalvular regurgitation. There is moderate to severe valvular aortic stenosis. MG 40 mm Hg 3. Recent gastrointestinal bleed 4. Psychosis. 5. Metabolic encephalopathy. 6. Dementia features. 7. No evidence of acute CVA chronic microvascular ischemic CEREBROVASCULAR disease. Mild to moderate CEREBRAL atrophy. 8. LABILE BP History of Present Illness History of Present Illness transferred out of ICU 11/06/18 vascular surgery plans for endarterectomy on 11/12 Some cardiac Records available to us from other hosps, for JIGAR later as recommended by cardiology and has been nothing by mouth aware JIGAR today Plan Social work CONSULT Recommended SNF veterans insurance - will have PT re eval Family is agreeable to [facility] JIGAR today vascular surgery plans for endarterectomy on 11/12 Full code MS at baseline 39 MIN PT EXAM, CHART REVIEW, > 50% OF TIME SPENT WITH EXAM, CHART REVIEW, PT CARE COORDINATION Vitals Vitals Vital Signs Date Time Temp Pulse Resp B/P (MAP) Pulse Ox O2 Delivery O2 Flow Rate FiO2 11/10/18 07:47 82 164/64 11/10/18 07:07 Room Air 11/10/18 06:58 98.2 16 98 98.2 11/09/18 14:48 6 Physical Exam General: Alert, Oriented X3, Cooperative, mild distress Heart: Regular rate, Other (regular rhythm with a 2/6 systolic ejection murmur) Lungs: Other (diminished on the bases, ) Abdomen: Normal bowel sounds Extremities: No edema Skin: No rashes, No breakdown, No significant lesion Labs LABS RIGHT VENTRICLE The right ventricle is normal size. There is normal right ventricular wall thickness. The right ventricular systolic function is normal. ATRIA The left atrium is moderately dilated. The right atrium size is normal. The interatrial septum is intact with no evidence for an atrial septal defect or patent foramen ovale as noted on 2-D or Doppler imaging. AORTIC VALVE There is a bioprosthetic aortic valve prosthesis. Doppler and Color Flow revealed severe aortic regurgitation. There is moderate to severe valvular aortic stenosis. MG 40 mm Hg There is a bioprosthetic aortic valve prosthesis. MITRAL VALVE The mitral valve is normal in structure and function. There is no evidence of mitral valve prolapse. There is no mitral valve stenosis. Doppler and Color-flow revealed mild mitral regurgitation. TRICUSPID VALVE The tricuspid valve is normal in structure and function. Doppler and Color Flow revealed mild tricuspid regurgitation. There is no tricuspid valve prolapse or vegetation. There is no tricuspid valve stenosis. PULMONIC VALVE The pulmonary valve is normal in structure and function. Doppler and Color Flow revealed no pulmonic valvular regurgitation. There is no pulmonic valvular stenosis. GREAT VESSELS The aortic root is normal in size. The ascending aorta is normal in size. The IVC is normal in size and collapses >50% with inspiration. Critical Notification Critical Value: No <Conclusion> Left ventricle systolic function is low normal. The Ejection Fraction is 50%. Septal motion suggestive of prior CABG. Mild global hypokinesis. Doppler and Color Flow revealed severe aortic regurgitation that is mostly central w/o paravalvular regurgitation. There is moderate to severe valvular aortic stenosis. MG 40 mm Hg Date of Study: 11/08/2018 Ordering Physician: THANH SOMMER, Referring Physician: DANIEL GOMEZ, Tech: Ashley Allen APPROVED REPORT EXAM: Two-dimensional and M-mode echocardiogram with Doppler and color Doppler. Other Information Quality : Good HR: 92bpm INDICATION Mitral Valve Disease 2D DIMENSIONS RVDd 2.5 (2.9-3.5cm) Left Atrium(2D) 3.7 (1.6-4.0cm) IVSd 1.1 (0.7-1.1cm) Aortic Root(2D) 3.1 (2.0-3.7cm) LVDd 5.2 (3.9-5.9cm) LVOT Diameter 2.0 (1.8-2.4cm) PWd 1.1 (0.7-1.1cm) LVDs 3.6 (2.5-4.0cm) FS (%) 30.6 % SV 75.7 ml LVEF(%) 57.6 (>50%) Aortic Valve AoV Peak Cuate. 462.0cm/s AoV VTI 91.2cm AO Peak GR. 85.4mmHg LVOT Peak Cuate. 150.1cm/s LVOT VTI 28.03cm AO Mean GR. 46mmHg FRANCESCO (VMAX) 0.74cm2 FRANCESCO (VTI) 0.94cm2 AI P 1/2 Time 216ms Mitral Valve MV E Velocity 102.2cm/s MV DECEL TIME 211ms MV A Velocity 113.9cm/s MV PHT 61ms E/A Ratio 0.9 MVA (PHT) 3.59cm2 TDI E/Lateral E' 10.4 E/Medial E' 15.5 Pulmonary Valve PV Peak Velocity 124.7cm/s PV Peak Grad. 6mmHg Tricuspid Valve TR P. Velocity 271cm/s RAP ESTIMATE 3mmHg TR Peak Gr. 31mmHg RVSP 34mmHg Pulmonary Vein S1 Velocity 73.7cm/s D2 Velocity 60.9cm/s PVa duration 99msec LEFT VENTRICLE The left ventricle is normal size. There is borderline to mild concentric left ventricular hypertrophy. The left ventricular systolic function is normal and the ejection fraction is within normal range. The Ejection Fraction is 55-60%. There is normal LV segmental wall motion. Transmitral Doppler flow pattern is Grade I-abnormal relaxation pattern. RIGHT VENTRICLE The right ventricle is normal size. There is normal right ventricular wall thickness. The right ventricular systolic function is normal. ATRIA The left atrium is borderline dilated. The right atrium size is normal. The interatrial septum is intact with no evidence for an atrial septal defect or patent foramen ovale as noted on 2-D or Doppler imaging. AORTIC VALVE The aortic valve is calcified and displays decreased opening. Doppler and Color Flow revealed moderate aortic regurgitation. Calculated aortic valve maximum pressure gradient > 60 mmHg and mean pressure gradient >34 mmHg. Doppler and color-flow analysis and imaging reveals probable moderate aortic stenosis. MITRAL VALVE The anterior mitral valve leaflet appears redundant. There is no evidence of mitral valve prolapse. There is no mitral valve stenosis. Doppler and Color-flow revealed mild mitral regurgitation. TRICUSPID VALVE The tricuspid valve is normal in structure and function. Doppler and Color Flow revealed trace tricuspid regurgitation with an estimated PAP of 34 mmHg. There is no tricuspid valve stenosis. PULMONIC VALVE The pulmonary valve is normal in structure and function. Doppler and Color Flow revealed trace pulmonic valvular regurgitation. GREAT VESSELS The aortic root is normal in size. The IVC is normal in size and collapses >50% with inspiration. PERICARDIAL EFFUSION There is no evidence of significant pericardial effusion. Critical Notification Critical Value: No <Conclusion> The left ventricle is normal size. The left ventricular systolic function is normal and the ejection fraction is within normal range. The Ejection Fraction is 55-60%. There is borderline to mild concentric left ventricular hypertrophy. Calculated aortic valve maximum pressure gradient > 60 mmHg and mean pressure gradient >34 mmHg. Doppler and color-flow analysis and imaging reveals probable moderate aortic stenosis. Doppler and Color Flow revealed moderate aortic regurgitation. Doppler and Color-flow revealed mild mitral regurgitation. Doppler and Color Flow revealed trace tricuspid regurgitation with an estimated PAP of 34 mmHg. Difficult to image aortic valve. May consider JIGAR if clinically indicated. Signed by : Thanh Sommer MD Electronically Approved : 11/08/2018 16:02:29 DICTATED and SIGNED BY: THANH SOMMER MD DATE: 11/08/18 1602 MTH0 0 MTF0 100 CC: THANH SOMMER MD; DANIEL HOLLINS MD; YOGI CLARKE ~ Page of Indication: CVA. Altered mental status TECHNIQUE: Noncontrast MRI of the brain. COMPARISON: None FINDINGS: Significant motion artifact on some sequences limiting optimal evaluation. No pathologic extra-axial or intra-axial fluid collection. Mild diffuse atrophy with ex vacuo dilation of the ventricles. There is no abnormal restricted diffusion to suggest acute ischemic process. Mild high intensity T2/flair signal is seen adjacent to the ventricles. No large paranasal sinus or mastoid effusions. The ventricles are within normal limits. The expected major flow voids are maintained. IMPRESSION: Significant motion artifact on multiple sequences limiting optimal evaluation. 1. No imaging evidence of acute ischemic infarct. 2. High intensity T2/vascular in the periventricular white matter, nonspecific and may be secondary to chronic microvascular ischemic disease. 3. Mild to moderate atrophy. Electronically signed by: Domingo Cole DO (11/06/2018 12:39 PM) [facility] Laboratory Tests Test 11/09/18 11:11 Erythrocyte Sedimentation Rate 49 (0-15) Assessment and Plan Assessmemt and Plan Problems Medical Problems: (1) Acute CVA (cerebrovascular accident) Status: Acute (2) Acute encephalopathy Status: Acute (3) Gastrointestinal bleed Status: Acute (4) Hypertension Status: Chronic (5) Mitral valve insufficiency Status: Acute Comment Review of Relevant I have reviewed the following items hamzah (where applicable) has been applied. Labs Laboratory Tests Test 11/09/18 03:35 11/09/18 11:11 White Blood Count 5.6 x10^3/uL (4.0-11.0) Red Blood Count 3.32 x10^6/uL (4.30-5.70) Hemoglobin 10.1 g/dL (13.0-17.5) Hematocrit 29.8 % (39.0-53.0) Mean Corpuscular Volume 90 fL (79-100) Mean Corpuscular Hemoglobin 30 pg (25-35) Mean Corpuscular Hemoglobin Concent 34 g/dL (31-37) Red Cell Distribution Width 15.6 % (11.5-14.5) Platelet Count 115 x10^3/uL (140-400) Neutrophils (%) (Auto) 71 % (31-73) Lymphocytes (%) (Auto) 15 % (24-48) Monocytes (%) (Auto) 7 % (0-9) Eosinophils (%) (Auto) 6 % (0-3) Basophils (%) (Auto) 1 % (0-3) Neutrophils # (Auto) 4.0 x10^3/uL (1.8-7.7) Lymphocytes # (Auto) 0.9 x10^3/uL (1.0-4.8) Monocytes # (Auto) 0.4 x10^3/uL (0.0-1.1) Eosinophils # (Auto) 0.3 x10^3/uL (0.0-0.7) Basophils # (Auto) 0.0 x10^3/uL (0.0-0.2) Sodium Level 139 mmol/L (136-145) Potassium Level 3.7 mmol/L (3.5-5.1) Chloride Level 104 mmol/L (98-107) Carbon Dioxide Level 26 mmol/L (21-32) Anion Gap 9 (6-14) Blood Urea Nitrogen 15 mg/dL (8-26) Creatinine 1.3 mg/dL (0.7-1.3) Estimated GFR (Cockcroft-Gault) 53.8 Glucose Level 105 mg/dL (70-99) Calcium Level 8.6 mg/dL (8.5-10.1) Erythrocyte Sedimentation Rate 49 (0-15) Laboratory Tests Test 11/09/18 11:11 Erythrocyte Sedimentation Rate 49 (0-15) Medications Current Medications Aspirin (Children'S Aspirin) 81 mg 1X ONCE PO Last administered on 11/06/18 04:12; Start 11/06/18 at 03:30; Stop 11/06/18 at 03:32; Status DC Sodium Chloride 1,000 ml @ 100 mls/hr Q10H IV Last administered on 11/07/18 06:20; Start 11/06/18 at 04:30; Stop 11/07/18 at 09:35; Status DC Docusate Sodium (Colace) 100 mg DAILY PRN PO CONSTIPATION Last administered on 11/09/18 18:40; Start 11/06/18 at 10:00 Gabapentin (Neurontin) 100 mg TID PO Last administered on 11/10/18 07:48; Start 11/06/18 at 10:30 Pantoprazole Sodium (Protonix) 40 mg DAILYAC PO Last administered on 11/10/18 07:45; Start 11/06/18 at 10:30 Hydrocortisone Acetate (Anucort-Hc) 25 mg PRN DAILY PRN SD RECTAL PAIN; Start 11/06/18 at 10:30 Polyethylene Glycol (miraLAX PACKET) 17 gm PRN DAILY PRN PO CONSTIPATION Last administered on 11/09/18 18:40; Start 11/06/18 at 09:00 Non-Formulary Medication (Rosuvastatin Calcium (Crestor)) 0.5 tab TuThSa@2100 PO Last administered on 11/09/18 20:51; Start 11/09/18 at 21:00 Losartan Potassium (Cozaar) 25 mg DAILY PO Last administered on 11/07/18 08:14; Start 11/06/18 at 10:30; Stop 11/08/18 at 07:58; Status DC Haloperidol Lactate (Haldol Inj) 2 mg 1X ONCE IVP Last administered on 11/06/18at 13:30; Start 11/06/18 at 13:30; Stop 11/06/18 at 13:31; Status DC Quetiapine Fumarate (SEROquel) 12.5 mg BID PO Last administered on 11/10/18at 07:46; Start 11/06/18 at 14:00 Lorazepam (Ativan Inj) 1 mg PRN Q4HRS PRN IV ANXIETY / AGITATION, 1st CHOIC Last administered on 11/09/18at 04:02; Start 11/06/18 at 14:30 Haloperidol Lactate (Haldol Inj) 2.5 mg PRN Q6HRS PRN IVP AGITATION, 2nd CHOICE Last administered on 11/09/18at 23:03; Start 11/07/18 at 09:45 Acetaminophen (Tylenol) 500 mg PRN Q6HRS PRN PO HEADACHE / TEMP; Start 11/07/18 at 09:45 Hydralazine HCl (Apresoline Inj) 10 mg PRN Q4HRS PRN IVP ELEVATED BP, SEE COMMENTS Last administered on 11/09/18at 18:40; Start 11/07/18 at 09:45 Ondansetron HCl (Zofran) 4 mg PRN Q6HRS PRN IV NAUSEA/VOMITING; Start 11/07/18 at 09:45 Vitamin D (Vitamin D3) 1,000 unit BID PO Last administered on 11/10/18at 07:46; Start 11/07/18 at 10:00 Non-Formulary Medication (Melatonin ) 1 tab QHS PO ; Start 11/07/18 at 21:00; Status UNV Amino Acids/ Glycerin/ Electrolytes 1,000 ml @ 80 mls/hr [id number] IV ; Start 11/07/18 at 14:00; Stop 11/07/18 at 14:00; Status DC Losartan Potassium (Cozaar) 100 mg DAILY PO Last administered on 11/10/18at 07:47; Start 11/08/18 at 09:00 Fentanyl Citrate (Fentanyl 2ml Vial) 25 mcg PRN Q5MIN PRN IV MILD PAIN 1-3; Start 11/09/18 at 07:00; Stop 11/10/18 at 06:59; Status DC Fentanyl Citrate (Fentanyl 2ml Vial) 50 mcg PRN Q5MIN PRN IV MODERATE TO SEVERE PAIN; Start 11/09/18 at 07:00; Stop 11/10/18 at 06:59; Status DC Morphine Sulfate (Morphine Sulfate) 1 mg PRN Q10MIN PRN IV SEVERE PAIN 7-10; Start 11/09/18 at 07:00; Stop 11/10/18 at 06:59; Status DC Ringer's Solution 1,000 ml @ 30 mls/hr Q24H IV Last administered on 11/09/18at 14:30; Start 11/09/18 at 07:00; Stop 11/09/18 at 18:59; Status DC Lidocaine HCl (Xylocaine-Mpf 1% 2ml Vial) 2 ml PRN 1X PRN ID IV START; Start 11/09/18 at 07:00; Stop 11/10/18 at 06:59; Status DC Hydromorphone HCl (Dilaudid) 0.5 mg PRN Q10MIN PRN IV SEV PAIN, Second choice; Start 11/09/18 at 07:00; Stop 11/10/18 at 06:59; Status DC Prochlorperazine Edisylate (Compazine) 5 mg PACU PRN PRN IV NAUSEA, MRX1; Start 11/09/18 at 07:00; Stop 11/10/18 at 06:59; Status DC Vancomycin HCl 1 gm/Sodium Chloride 250 ml @ 250 mls/hr 1X ONCE IV Last administered on 11/09/18at 06:07; Start 11/09/18 at 06:00; Stop 11/09/18 at 06:59; Status DC Heparin Sodium (Porcine) 5000 unit/Ringer's Solution 505 ml @ 505 mls/hr 1X ONCE IRR ; Start 11/09/18 at 06:00; Stop 11/09/18 at 06:59; Status DC Aspirin (Children'S Aspirin) 81 mg [id number] PO Last administered on 11/10/18at 07:46; Start 11/08/18 at 14:00 Fentanyl Citrate (Fentanyl 2ml Vial) 25 mcg PRN Q5MIN PRN IV MILD PAIN 1-3; Start 11/09/18 at 11:30; Stop 11/10/18 at 11:29; Status Cancel Fentanyl Citrate (Fentanyl 2ml Vial) 50 mcg PRN Q5MIN PRN IV MODERATE TO SEVERE PAIN; Start 11/09/18 at 11:30; Stop 11/09/18 at 11:30; Status DC Morphine Sulfate (Morphine Sulfate) 1 mg PRN Q10MIN PRN IV SEVERE PAIN 7-10; Start 11/09/18 at 11:30; Stop 11/10/18 at 10:05; Status DC Ringer's Solution 1,000 ml @ 30 mls/hr Q24H IV ; Start 11/09/18 at 11:19; Stop 11/09/18 at 23:18; Status DC Hydromorphone HCl (Dilaudid) 0.5 mg PRN Q10MIN PRN IV SEV PAIN, Second choice; Start 11/09/18 at 11:30; Stop 11/10/18 at 11:29 Prochlorperazine Edisylate (Compazine) 5 mg PACU PRN PRN IV NAUSEA, MRX1; Start 11/09/18 at 11:30; Stop 11/10/18 at 11:29 Benzocaine (Hurricaine One) 1 spray STK-MED ONCE .ROUTE ; Start 11/09/18 at 12:33; Stop 11/09/18 at 12:34; Status DC Lidocaine HCl (Xylocaine 2% Topical 30gm Tube) 30 ian STK-MED ONCE TP ; Start 11/09/18 at 12:34; Stop 11/09/18 at 12:35; Status DC Lidocaine HCl (Viscous Lidocaine) 15 ml STK-MED ONCE .ROUTE ; Start 11/09/18 at 12:34; Stop 11/09/18 at 12:35; Status DC Benzocaine (Hurricaine One) 2 spray 1X ONCE MM Last administered on 11/09/18at 14:30; Start 11/09/18 at 13:45; Stop 11/09/18 at 13:46; Status DC Lidocaine HCl (Xylocaine 2% Topical 30gm Tube) 1 ian 1X ONCE TP Last administered on 11/09/18at 14:30; Start 11/09/18 at 13:45; Stop 11/09/18 at 13:46; Status DC Lidocaine HCl (Viscous Lidocaine) 15 ml 1X ONCE SWSW Last administered on 11/09at 14:30; Start 11/09/18 at 13:45; Stop 11/09/18 at 13:46; Status DC Active Scripts Active Reported Melatonin 3 Mg Tablet 1 Tab PO QHS Losartan Potassium 100 Mg Tablet 100 Mg PO DAILY Crestor (Rosuvastatin Calcium) 5 Mg Tablet 1 Tab PO QODAY Miralax (Polyethylene Glycol 3350) 17 Gm Powd.pack 1 Packet PO DAILY PRN Pantoprazole Sodium (Pantoprazole Sodium) 40 Mg Tablet.dr 40 Mg PO DAILYAC Anusol-Hc (Hydrocortisone Acetate) 25 Mg Supp.rect 1 Supp RC DAILY PRN Gabapentin (Gabapentin) 100 Mg Capsule 100 Mg PO TID Docusate Sodium 100 Mg Capsule 1 Cap PO DAILY PRN Vitamin D (Cholecalciferol (Vitamin D3)) 1,000 Unit Capsule 1 Cap PO BID Vitals/I & O Vital Sign - Last 24 Hours 11/09/18 11/09/18 11/09/18 11/09/18 11:00 14:05 14:48 14:48 Temp 97.6 97.6 98.6 97.6 97.6 98.6 Pulse 62 58 70 Resp 18 15 16 B/P (MAP) 126/51 (76) 180/56 149/48 Pulse Ox 97 98 100 O2 Delivery Room Air Room Air Nasal Cannula Nasal Cannula O2 Flow Rate 6 6 11/09/18 11/09/18 11/09/18 11/09/18 15:00 15:03 16:32 16:46 Temp 97.4 97.4 Pulse 68 65 61 60 Resp 18 16 B/P (MAP) 168/46 (86) 161/55 175/48 (90) 168/46 (86) Pulse Ox 96 99 97 96 O2 Delivery Room Air Room Air Room Air Room Air 11/09/18 11/09/18 11/09/18 11/09/18 17:02 17:18 17:31 18:01 Pulse 66 84 69 69 B/P (MAP) 174/47 (89) 157/57 (90) 169/49 (89) 172/61 (98) Pulse Ox 100 O2 Delivery Room Air Room Air 11/09/18 11/09/18 11/09/18 11/09/18 18:31 18:40 19:03 20:00 Temp 97.6 97.6 Pulse 66 66 79 Resp 18 B/P (MAP) 172/48 (89) 172/48 166/52 (90) Pulse Ox 100 O2 Delivery Room Air 711/10/18 11/10/18 11/10/18 22:31 03:00 06:58 07:07 Temp 98.5 98.2 98.2 98.5 98.2 98.2 Pulse 88 82 82 Resp 17 17 16 B/P (MAP) 154/54 (87) 152/47 (82) 164/64 (97) Pulse Ox 100 98 O2 Delivery Room Air Room Air Room Air Room Air 11/10/18 07:47 Pulse 82 B/P (MAP) 164/64 Intake and Output 11/09/18 11/09/18 11/10/18 14:59 22:59 06:59 Intake Total 120 ml Output Total 500 ml 200 ml Balance -500 ml -80 ml JOHN SCHULZ MD Nov 10, 2018 10:24
--- NOTE | 2018-11-10 11:40 | NUR ---
Tyree has dozed off and on. arouses easily to name. daughter and remain at bedside. awaitng cardiac doctor. therapy dog visited. am care completed; t-shirt and sweater changed; brushed teeth.
--- NOTE | 2018-11-10 16:26 | NUR ---
SS following up with discharge planning. PT/OT recommending prison unit. SS met with pt and pt's spouse in room to discuss discharge planning and prison unit. Pt's spouse agreeable to prison unit and requested referral be phoned and faxed to [facility], ; fax [phone]. SS phoned and faxed referral to [facility]. SS will await acceptance decision and insurance determination and will proceed accordingly with discharge planning.
--- NOTE | 2018-11-10 16:59 | PDOC ---
PROGRESS NOTES Subjective Subjective Patient seen and examined He is more comfortable today. Objective Objective Vital Signs Date Time Temp Pulse Resp B/P (MAP) Pulse Ox O2 Delivery O2 Flow Rate FiO2 11/10/18 14:08 97.7 74 16 127/39 (68) 99 Room Air 97.7 11/09/18 14:48 6 Intake and Output 11/10/18 07:00 Intake Total 120 ml Output Total 700 ml Balance -580 ml Intake Oral 120 ml Output Urine Total 700 ml Physical Exam Abdomen: Normal bowel sounds Heart: Regular rate, Other (2/6 murmur) General: No acute distress Lungs: Clear to auscultation Assessment Assessment Problems Medical Problems: (1) Acute CVA (cerebrovascular accident) Status: Acute (2) Acute encephalopathy Status: Acute (3) Gastrointestinal bleed Status: Acute (4) Hypertension Status: Chronic (5) Mitral valve insufficiency Status: Acute History of bypass surgery and prosthetic aortic valve. Abnormal aortic valve on transthoracic echo. Patient has had a workup both at and at the [facility] Catheterization at the [facility] approximately a month ago showed patent grafts. JIGAR yesterday showed significant disease of the prosthetic aortic valve including stenosis and regurgitation. Patient is being evaluated at the [facility] in [place] for possible valvular procedures. At this time would continue present treatments. Patient would be at moderate cardiovascular risk for carotid endarterectomy using a regional block. Carotid artery stenosis. Discussion as above. Vascular surgery following. Hypertension. Controlled. Comment Review of Relevant I have reviewed the following items hamzah (where applicable) has been applied. Labs Laboratory Tests Test 11/09/18 03:35 11/09/18 11:11 White Blood Count 5.6 x10^3/uL (4.0-11.0) Red Blood Count 3.32 x10^6/uL (4.30-5.70) Hemoglobin 10.1 g/dL (13.0-17.5) Hematocrit 29.8 % (39.0-53.0) Mean Corpuscular Volume 90 fL (79-100) Mean Corpuscular Hemoglobin 30 pg (25-35) Mean Corpuscular Hemoglobin Concent 34 g/dL (31-37) Red Cell Distribution Width 15.6 % (11.5-14.5) Platelet Count 115 x10^3/uL (140-400) Neutrophils (%) (Auto) 71 % (31-73) Lymphocytes (%) (Auto) 15 % (24-48) Monocytes (%) (Auto) 7 % (0-9) Eosinophils (%) (Auto) 6 % (0-3) Basophils (%) (Auto) 1 % (0-3) Neutrophils # (Auto) 4.0 x10^3/uL (1.8-7.7) Lymphocytes # (Auto) 0.9 x10^3/uL (1.0-4.8) Monocytes # (Auto) 0.4 x10^3/uL (0.0-1.1) Eosinophils # (Auto) 0.3 x10^3/uL (0.0-0.7) Basophils # (Auto) 0.0 x10^3/uL (0.0-0.2) Sodium Level 139 mmol/L (136-145) Potassium Level 3.7 mmol/L (3.5-5.1) Chloride Level 104 mmol/L (98-107) Carbon Dioxide Level 26 mmol/L (21-32) Anion Gap 9 (6-14) Blood Urea Nitrogen 15 mg/dL (8-26) Creatinine 1.3 mg/dL (0.7-1.3) Estimated GFR (Cockcroft-Gault) 53.8 Glucose Level 105 mg/dL (70-99) Calcium Level 8.6 mg/dL (8.5-10.1) Erythrocyte Sedimentation Rate 49 (0-15) Medications Current Medications Aspirin (Children'S Aspirin) 81 mg 1X ONCE PO Last administered on 11/06/18 04:12; Start 11/06/18 at 03:30; Stop 11/06/18 at 03:32; Status DC Sodium Chloride 1,000 ml @ 100 mls/hr Q10H IV Last administered on 11/07/18at 06:20; Start 11/06/18 at 04:30; Stop 11/07/18 at 09:35; Status DC Docusate Sodium (Colace) 100 mg DAILY PRN PO CONSTIPATION Last administered on 11/09/18at 18:40; Start 11/06/18 at 10:00 Gabapentin (Neurontin) 100 mg TID PO Last administered on 11/10/18at 13:25; Start 11/06/18 at 10:30 Pantoprazole Sodium (Protonix) 40 mg DAILYAC PO Last administered on 11/10/18 07:45; Start 11/06/18 at 10:30 Hydrocortisone Acetate (Anucort-Hc) 25 mg PRN DAILY PRN UT RECTAL PAIN; Start 11/06/18 at 10:30 Polyethylene Glycol (miraLAX PACKET) 17 gm PRN DAILY PRN PO CONSTIPATION Last administered on 11/09/18 18:40; Start 11/06/18 at 09:00 Non-Formulary Medication (Rosuvastatin Calcium (Crestor)) 0.5 tab TuThSa@2100 PO Last administered on 11/09/18 20:51; Start 11/09/18 at 21:00 Losartan Potassium (Cozaar) 25 mg DAILY PO Last administered on 11/07/18 08:14; Start 11/06/18 at 10:30; Stop 11/08/18 at 07:58; Status DC Haloperidol Lactate (Haldol Inj) 2 mg 1X ONCE IVP Last administered on 11/06/18 13:30; Start 11/06/18 at 13:30; Stop 11/06/18 at 13:31; Status DC Quetiapine Fumarate (SEROquel) 12.5 mg BID PO Last administered on 11/10/18 07:46; Start 11/06/18 at 14:00 Lorazepam (Ativan Inj) 1 mg PRN Q4HRS PRN IV ANXIETY / AGITATION, 1st CHOIC Last administered on 11/09/18 04:02; Start 11/06/18 at 14:30 Haloperidol Lactate (Haldol Inj) 2.5 mg PRN Q6HRS PRN IVP AGITATION, 2nd CHOICE Last administered on 11/09/18 23:03; Start 11/07/18 at 09:45 Acetaminophen (Tylenol) 500 mg PRN Q6HRS PRN PO HEADACHE / TEMP; Start 11/07/18 at 09:45 Hydralazine HCl (Apresoline Inj) 10 mg PRN Q4HRS PRN IVP ELEVATED BP, SEE COMMENTS Last administered on 11/09/18 18:40; Start 11/07/18 at 09:45 Ondansetron HCl (Zofran) 4 mg PRN Q6HRS PRN IV NAUSEA/VOMITING; Start 11/07/18 at 09:45 Vitamin D (Vitamin D3) 1,000 unit BID PO Last administered on 11/10/18at 07:46; Start 11/07/18 at 10:00 Non-Formulary Medication (Melatonin ) 1 tab QHS PO ; Start 11/07/18 at 21:00; Status UNV Amino Acids/ Glycerin/ Electrolytes 1,000 ml @ 80 mls/hr [id number] IV ; Start 11/07/18 at 14:00; Stop 11/07/18 at 14:00; Status DC Losartan Potassium (Cozaar) 100 mg DAILY PO Last administered on 11/10/18at 07:47; Start 11/08/18 at 09:00 Fentanyl Citrate (Fentanyl 2ml Vial) 25 mcg PRN Q5MIN PRN IV MILD PAIN 1-3; Start 11/09/18 at 07:00; Stop 11/10/18 at 06:59; Status DC Fentanyl Citrate (Fentanyl 2ml Vial) 50 mcg PRN Q5MIN PRN IV MODERATE TO SEVERE PAIN; Start 11/09/18 at 07:00; Stop 11/10/18 at 06:59; Status DC Morphine Sulfate (Morphine Sulfate) 1 mg PRN Q10MIN PRN IV SEVERE PAIN 7-10; Start 11/09/18 at 07:00; Stop 11/10/18 at 06:59; Status DC Ringer's Solution 1,000 ml @ 30 mls/hr Q24H IV Last administered on 11/09/18at 14:30; Start 11/09/18 at 07:00; Stop 11/09/18 at 18:59; Status DC Lidocaine HCl (Xylocaine-Mpf 1% 2ml Vial) 2 ml PRN 1X PRN ID IV START; Start 11/09/18 at 07:00; Stop 11/10/18 at 06:59; Status DC Hydromorphone HCl (Dilaudid) 0.5 mg PRN Q10MIN PRN IV SEV PAIN, Second choice; Start 11/09/18 at 07:00; Stop 11/10/18 at 06:59; Status DC Prochlorperazine Edisylate (Compazine) 5 mg PACU PRN PRN IV NAUSEA, MRX1; Start 11/09/18 at 07:00; Stop 11/10/18 at 06:59; Status DC Vancomycin HCl 1 gm/Sodium Chloride 250 ml @ 250 mls/hr 1X ONCE IV Last administered on 11/09/18at 06:07; Start 11/09/18 at 06:00; Stop 11/09/18 at 06:59; Status DC Heparin Sodium (Porcine) 5000 unit/Ringer's Solution 505 ml @ 505 mls/hr 1X ONCE IRR ; Start 11/09/18 at 06:00; Stop 11/09/18 at 06:59; Status DC Aspirin (Children'S Aspirin) 81 mg [id number] PO Last administered on 11/10/18at 07:46; Start 11/08/18 at 14:00 Fentanyl Citrate (Fentanyl 2ml Vial) 25 mcg PRN Q5MIN PRN IV MILD PAIN 1-3; Start 11/09/18 at 11:30; Stop 11/10/18 at 11:29; Status Cancel Fentanyl Citrate (Fentanyl 2ml Vial) 50 mcg PRN Q5MIN PRN IV MODERATE TO SEVERE PAIN; Start 11/09/18 at 11:30; Stop 11/09/18 at 11:30; Status DC Morphine Sulfate (Morphine Sulfate) 1 mg PRN Q10MIN PRN IV SEVERE PAIN 7-10; Start 11/09/18 at 11:30; Stop 11/10/18 at 10:05; Status DC Ringer's Solution 1,000 ml @ 30 mls/hr Q24H IV ; Start 11/09/18 at 11:19; Stop 11/09/18 at 23:18; Status DC Hydromorphone HCl (Dilaudid) 0.5 mg PRN Q10MIN PRN IV SEV PAIN, Second choice; Start 11/09/18 at 11:30; Stop 11/10/18 at 11:29; Status DC Prochlorperazine Edisylate (Compazine) 5 mg PACU PRN PRN IV NAUSEA, MRX1; Start 11/09/18 at 11:30; Stop 11/10/18 at 11:29; Status DC Benzocaine (Hurricaine One) 1 spray STK-MED ONCE .ROUTE ; Start 11/09/18 at 12:33; Stop 11/09/18 at 12:34; Status DC Lidocaine HCl (Xylocaine 2% Topical 30gm Tube) 30 ian STK-MED ONCE TP ; Start 11/09/18 at 12:34; Stop 11/09/18 at 12:35; Status DC Lidocaine HCl (Viscous Lidocaine) 15 ml STK-MED ONCE .ROUTE ; Start 11/09/18 at 12:34; Stop 11/09/18 at 12:35; Status DC Benzocaine (Hurricaine One) 2 spray 1X ONCE MM Last administered on 11/09/18at 14:30; Start 11/09/18 at 13:45; Stop 11/09/18 at 13:46; Status DC Lidocaine HCl (Xylocaine 2% Topical 30gm Tube) 1 ian 1X ONCE TP Last administered on 11/09/18at 14:30; Start 11/09/18 at 13:45; Stop 11/09/18 at 13:46; Status DC Lidocaine HCl (Viscous Lidocaine) 15 ml 1X ONCE SWSW Last administered on 11/09/18at 14:30; Start 11/09/18 at 13:45; Stop 11/09/18 at 13:46; Status DC Active Scripts Active Reported Melatonin 3 Mg Tablet 1 Tab PO QHS Losartan Potassium 100 Mg Tablet 100 Mg PO DAILY Crestor (Rosuvastatin Calcium) 5 Mg Tablet 1 Tab PO QODAY Miralax (Polyethylene Glycol 3350) 17 Gm Powd.pack 1 Packet PO DAILY PRN Pantoprazole Sodium (Pantoprazole Sodium) 40 Mg Tablet.dr 40 Mg PO DAILYAC Anusol-Hc (Hydrocortisone Acetate) 25 Mg Supp.rect 1 Supp RC DAILY PRN Gabapentin (Gabapentin) 100 Mg Capsule 100 Mg PO TID Docusate Sodium 100 Mg Capsule 1 Cap PO DAILY PRN Vitamin D (Cholecalciferol (Vitamin D3)) 1,000 Unit Capsule 1 Cap PO BID Vitals/I & O Vital Sign - Last 24 Hours 11/09/18 11/09/18 11/09/18 11/09/18 17:02 17:18 17:31 18:01 Pulse 66 84 69 69 B/P (MAP) 174/47 (89) 157/57 (90) 169/49 (89) 172/61 (98) Pulse Ox 100 O2 Delivery Room Air Room Air 11/09/18 11/09/18 11/09/18 11/09/18 18:31 18:40 19:03 20:00 Temp 97.6 97.6 Pulse 66 66 79 Resp 18 B/P (MAP) 172/48 (89) 172/48 166/52 (90) Pulse Ox 100 O2 Delivery Room Air 11/09/18 11/10/18 11/10/18 11/10/18 22:31 03:00 06:58 07:07 Temp 98.5 98.2 98.2 98.5 98.2 98.2 Pulse 88 82 82 Resp 17 17 16 B/P (MAP) 154/54 (87) 152/47 (82) 164/64 (97) Pulse Ox 100 98 O2 Delivery Room Air Room Air Room Air Room Air 11/10/18 11/10/18 11/10/18 07:47 11:03 14:08 Temp 97.6 97.7 97.6 97.7 Pulse 82 87 74 Resp 20 16 B/P (MAP) 164/64 142/49 (80) 127/39 (68) Pulse Ox 97 99 O2 Delivery Room Air Room Air Intake and Output 11/09/18 11/09/18 11/10/18 15:00 23:00 07:00 Intake Total 120 ml Output Total 500 ml 200 ml Balance -500 ml -80 ml THANH CRUZ MD Nov 10, 2018 16:59
--- NOTE | 2018-11-10 17:36 | NUR ---
Trish and friend have departed for the night. Tyree is oriented to place but not situation. did engage in conversation. he is up in recliner for supper. had smear of brown BM. continues to have a shuffling unsteady gait. needs verbal reminders on the use of walker. denies pain this shift. he has been cooperative.
--- NOTE | 2018-11-10 18:40 | NUR ---
urine specimen obtained and down to lab.
[2018-11-10 18:54] LABS: BILIRUBIN,URINE NEGATIVE (NEG); CLARITY,URINE CLEAR; COLOR,URINE YELLOW; NITRITE,URINE NEGATIVE (NEG); PROTEIN,URINE 100 mg/dL (NEG-TRACE)
[2018-11-10 19:02] LABS: BACTERIA,URINE 0 /HPF (0-FEW); RBC,URINE 0 /HPF (0-2); SQUAMOUS EPITHELIAL CELL,UR OCC /LPF; WBC,URINE RARE /HPF (0-4)
[2018-11-10] MEDS: DOCUSATE SODIUM 100 MG CAPSULE. PO PRN (20:08)
[2018-11-10] MEDS: POLYETHYLENE GLYCOL 3350 17 GM PACKET. PO PRN (20:08)
[2018-11-10] MEDS ORDERED: diphenhydrAMINE HCL 25 MG CAPSULE PO PRN (23:15)
[2018-11-11] MEDS: HALOPERIDOL LACTATE 5 MG/ML VIAL. IVP PRN (00:47)
--- NOTE | 2018-11-11 00:56 | NUR ---
Patient A/O x 3 at being of shift with forgetfulness periods noted, able to state his name, date his of , aware that he is in the hospital due to having GI bleeding, and he is having surgery on Thursday and that he was no fond of J[facility] Head being the current Present of the [facility], Asked to get up to use the urinal multiple times and then started to become confused, restless, anxious, non-compliant as the night goes by attempting to get out of bed without help saying that he is looking for his parents and that his mother is in her 70 mikael and she is looking for him, when asked him how old he was he stated that he was 73 years old but then change his mind and said then his mother is probably then in her 80's, He attempts to hit this Nurse and this nurse advised him that if he dose then security will be called and there would be procedures that will be placed, Patient then did calmed down enough for staff to call for help and was able to administered PRN medication with helpful result noted.
[2018-11-11 03:08] VITALS: BP 147/53
[2018-11-11 03:57] LABS: BASO % 1 % (0-3); EOS # 0.3 x10^3/uL (0.0-0.7); EOS % 6 % (0-3); HEMATOCRIT 30.1 % (39.0-53.0); HEMOGLOBIN 10.2 g/dL (13.0-17.5); LYMPH # 0.9 x10^3/uL (1.0-4.8); LYMPH % 17 % (24-48); MEAN CORPUSCULAR HEMOGLOBIN 31 pg (25-35); MEAN CORPUSCULAR HGB CONC 34 g/dL (31-37); MEAN CORPUSCULAR VOLUME 90 fL (79-100); MONO # 0.5 x10^3/uL (0.0-1.1); MONO % 9 % (0-9); NEUT # 3.6 x10^3/uL (1.8-7.7); NEUT % 67 % (31-73); PLATELET COUNT 109 x10^3/uL (140-400); RED BLOOD COUNT 3.35 x10^6/uL (4.30-5.70); WHITE BLOOD COUNT 5.3 x10^3/uL (4.0-11.0)
[2018-11-11 04:38] LABS: ALBUMIN 2.7 g/dL (3.4-5.0); ALBUMIN/GLOBULIN RATIO 0.8 (1.0-1.7); CALCIUM 8.6 mg/dL (8.5-10.1); CREATININE 1.3 mg/dL (0.7-1.3); GFR 53.8; TOTAL BILIRUBIN 0.6 mg/dL (0.2-1.0); TOTAL PROTEIN 6.1 g/dL (6.4-8.2)
[2018-11-11 06:48] VITALS: BP 138/41
[2018-11-11] MEDS: PANTOPRAZOLE 40 MG TABLET.DR. PO SCH (07:49)
[2018-11-11] MEDS: GABAPENTIN 100 MG CAPSULE. PO SCH ×3 (07:49→20:13)
[2018-11-11] MEDS: LOSARTAN POTASSIUM 50 MG TABLET. PO SCH (07:49)
[2018-11-11] MEDS: CHOLECALCIFEROL (VITAMIN D3) 1,000 UNIT TABLET PO SCH ×2 (07:49→20:12)
[2018-11-11] MEDS: ASPIRIN CHEWABLE 81 MG TABLET. PO SCH (07:49)
[2018-11-11] MEDS: QUEtiapine 25 MG TABLET. PO SCH ×2 (07:50→20:13)
--- NOTE | 2018-11-11 07:59 | PDOC ---
PROGRESS NOTES Chief Complaint Chief Complaint IMPRESSION 1. Severe IE , greater than 75% stenosis of the left internal carotid artery by CT angiogram done at [facility], 2. Mitral valve disease, BY ECHO Calculated aortic valve maximum pressure gradient > 60 mmHg and mean pressure gradient >34 mmHg. Doppler and color-flow analysis and imaging reveals probable moderate aortic stenosis. Doppler and Color Flow revealed moderate aortic regurgitation. Doppler and Color-flow revealed mild mitral regurgitation. Doppler and Color Flow revealed trace tricuspid regurgitation with an estimated PAP of 34 mmHg. Difficult to image aortic valve. JIGAR Septal motion suggestive of prior CABG. Mild global hypokinesis. Doppler and Color Flow revealed severe aortic regurgitation that is mostly central w/o paravalvular regurgitation. There is moderate to severe valvular aortic stenosis. MG 40 mm Hg 3. Recent gastrointestinal bleed 4. Psychosis. 5. Metabolic encephalopathy. 6. Dementia features. 7. No evidence of acute CVA chronic microvascular ischemic CEREBROVASCULAR disease. Mild to moderate CEREBRAL atrophy. 8. LABILE BP History of Present Illness History of Present Illness transferred out of ICU 11/06/18 vascular surgery plans for endarterectomy on 11/12 Some cardiac Records available to us from other hosps, REVIEWED aware JIGAR Plan Social work CONSULT Recommended SNF veterans insurance - will have PT re eval Family is agreeable to SNF JIGAR REVIEWED vascular surgery plans for endarterectomy on 11/12 Full code MS at baseline 36 MIN PT EXAM, CHART REVIEW, > 50% OF TIME SPENT WITH EXAM, CHART REVIEW, PT CARE COORDINATION Vitals Vitals Vital Signs Date Time Temp Pulse Resp B/P (MAP) Pulse Ox O2 Delivery O2 Flow Rate FiO2 11/11/18 07:49 63 138/41 11/11/18 06:48 97.0 16 98 Room Air 97.0 Physical Exam General: Cooperative, No acute distress Heart: Regular rate, Other (2/6 murmur) Lungs: Clear, Other (diminished on the bases, ) Abdomen: Normal bowel sounds Extremities: No edema Skin: No rashes, No breakdown, No significant lesion Labs LABS Laboratory Tests Test 11/10/18 18:40 11/11/18 03:25 Urine Collection Type Unknown Urine Color Yellow Urine Clarity Clear Urine pH 6.0 Urine Specific [place] 1.020 Urine Protein 100 mg/dL (NEG-TRACE) Urine Glucose (UA) Negative mg/dL (NEG) Urine Ketones (Stick) Negative mg/dL (NEG) Urine Blood Negative (NEG) Urine Nitrite Negative (NEG) Urine Bilirubin Negative (NEG) Urine Urobilinogen Dipstick 1.0 mg/dL (0.2 mg/dL) Urine Leukocyte Esterase Negative (NEG) Urine RBC 0 /HPF (0-2) Urine WBC Rare /HPF (0-4) Urine Squamous Epithelial Cells Occ /LPF Urine Bacteria 0 /HPF (0-FEW) Urine Mucus Slight /LPF White Blood Count 5.3 x10^3/uL (4.0-11.0) Red Blood Count 3.35 x10^6/uL (4.30-5.70) Hemoglobin 10.2 g/dL (13.0-17.5) Hematocrit 30.1 % (39.0-53.0) Mean Corpuscular Volume 90 fL (79-100) Mean Corpuscular Hemoglobin 31 pg (25-35) Mean Corpuscular Hemoglobin Concent 34 g/dL (31-37) Red Cell Distribution Width 16.0 % (11.5-14.5) Platelet Count 109 x10^3/uL (140-400) Neutrophils (%) (Auto) 67 % (31-73) Lymphocytes (%) (Auto) 17 % (24-48) Monocytes (%) (Auto) 9 % (0-9) Eosinophils (%) (Auto) 6 % (0-3) Basophils (%) (Auto) 1 % (0-3) Neutrophils # (Auto) 3.6 x10^3/uL (1.8-7.7) Lymphocytes # (Auto) 0.9 x10^3/uL (1.0-4.8) Monocytes # (Auto) 0.5 x10^3/uL (0.0-1.1) Eosinophils # (Auto) 0.3 x10^3/uL (0.0-0.7) Basophils # (Auto) 0.0 x10^3/uL (0.0-0.2) Sodium Level 139 mmol/L (136-145) Potassium Level 4.0 mmol/L (3.5-5.1) Chloride Level 104 mmol/L (98-107) Carbon Dioxide Level 27 mmol/L (21-32) Anion Gap 8 (6-14) Blood Urea Nitrogen 19 mg/dL (8-26) Creatinine 1.3 mg/dL (0.7-1.3) Estimated GFR (Cockcroft-Gault) 53.8 BUN/Creatinine Ratio 15 (6-20) Glucose Level 110 mg/dL (70-99) Calcium Level 8.6 mg/dL (8.5-10.1) Total Bilirubin 0.6 mg/dL (0.2-1.0) Aspartate Amino Transf (AST/SGOT) 17 U/L (15-37) Alanine Aminotransferase (ALT/SGPT) 16 U/L (16-63) Alkaline Phosphatase 88 U/L (46-116) Total Protein 6.1 g/dL (6.4-8.2) Albumin 2.7 g/dL (3.4-5.0) Albumin/Globulin Ratio 0.8 (1.0-1.7) Assessment and Plan Assessmemt and Plan Problems Medical Problems: (1) Acute CVA (cerebrovascular accident) Status: Acute (2) Acute encephalopathy Status: Acute (3) Gastrointestinal bleed Status: Acute (4) Hypertension Status: Chronic (5) Mitral valve insufficiency Status: Acute Comment Review of Relevant I have reviewed the following items hamzah (where applicable) has been applied. Labs Laboratory Tests Test 11/09/18 11:11 11/10/18 18:40 11/11/18 03:25 Erythrocyte Sedimentation Rate 49 (0-15) Urine Collection Type Unknown Urine Color Yellow Urine Clarity Clear Urine pH 6.0 Urine Specific [place] 1.020 Urine Protein 100 mg/dL (NEG-TRACE) Urine Glucose (UA) Negative mg/dL (NEG) Urine Ketones (Stick) Negative mg/dL (NEG) Urine Blood Negative (NEG) Urine Nitrite Negative (NEG) Urine Bilirubin Negative (NEG) Urine Urobilinogen Dipstick 1.0 mg/dL (0.2 mg/dL) Urine Leukocyte Esterase Negative (NEG) Urine RBC 0 /HPF (0-2) Urine WBC Rare /HPF (0-4) Urine Squamous Epithelial Cells Occ /LPF Urine Bacteria 0 /HPF (0-FEW) Urine Mucus Slight /LPF White Blood Count 5.3 x10^3/uL (4.0-11.0) Red Blood Count 3.35 x10^6/uL (4.30-5.70) Hemoglobin 10.2 g/dL (13.0-17.5) Hematocrit 30.1 % (39.0-53.0) Mean Corpuscular Volume 90 fL (79-100) Mean Corpuscular Hemoglobin 31 pg (25-35) Mean Corpuscular Hemoglobin Concent 34 g/dL (31-37) Red Cell Distribution Width 16.0 % (11.5-14.5) Platelet Count 109 x10^3/uL (140-400) Neutrophils (%) (Auto) 67 % (31-73) Lymphocytes (%) (Auto) 17 % (24-48) Monocytes (%) (Auto) 9 % (0-9) Eosinophils (%) (Auto) 6 % (0-3) Basophils (%) (Auto) 1 % (0-3) Neutrophils # (Auto) 3.6 x10^3/uL (1.8-7.7) Lymphocytes # (Auto) 0.9 x10^3/uL (1.0-4.8) Monocytes # (Auto) 0.5 x10^3/uL (0.0-1.1) Eosinophils # (Auto) 0.3 x10^3/uL (0.0-0.7) Basophils # (Auto) 0.0 x10^3/uL (0.0-0.2) Sodium Level 139 mmol/L (136-145) Potassium Level 4.0 mmol/L (3.5-5.1) Chloride Level 104 mmol/L (98-107) Carbon Dioxide Level 27 mmol/L (21-32) Anion Gap 8 (6-14) Blood Urea Nitrogen 19 mg/dL (8-26) Creatinine 1.3 mg/dL (0.7-1.3) Estimated GFR (Cockcroft-Gault) 53.8 BUN/Creatinine Ratio 15 (6-20) Glucose Level 110 mg/dL (70-99) Calcium Level 8.6 mg/dL (8.5-10.1) Total Bilirubin 0.6 mg/dL (0.2-1.0) Aspartate Amino Transf (AST/SGOT) 17 U/L (15-37) Alanine Aminotransferase (ALT/SGPT) 16 U/L (16-63) Alkaline Phosphatase 88 U/L (46-116) Total Protein 6.1 g/dL (6.4-8.2) Albumin 2.7 g/dL (3.4-5.0) Albumin/Globulin Ratio 0.8 (1.0-1.7) Laboratory Tests Test 11/10/18 18:40 11/11/18 03:25 Urine Collection Type Unknown Urine Color Yellow Urine Clarity Clear Urine pH 6.0 Urine Specific [place] 1.020 Urine Protein 100 mg/dL (NEG-TRACE) Urine Glucose (UA) Negative mg/dL (NEG) Urine Ketones (Stick) Negative mg/dL (NEG) Urine Blood Negative (NEG) Urine Nitrite Negative (NEG) Urine Bilirubin Negative (NEG) Urine Urobilinogen Dipstick 1.0 mg/dL (0.2 mg/dL) Urine Leukocyte Esterase Negative (NEG) Urine RBC 0 /HPF (0-2) Urine WBC Rare /HPF (0-4) Urine Squamous Epithelial Cells Occ /LPF Urine Bacteria 0 /HPF (0-FEW) Urine Mucus Slight /LPF White Blood Count 5.3 x10^3/uL (4.0-11.0) Red Blood Count 3.35 x10^6/uL (4.30-5.70) Hemoglobin 10.2 g/dL (13.0-17.5) Hematocrit 30.1 % (39.0-53.0) Mean Corpuscular Volume 90 fL (79-100) Mean Corpuscular Hemoglobin 31 pg (25-35) Mean Corpuscular Hemoglobin Concent 34 g/dL (31-37) Red Cell Distribution Width 16.0 % (11.5-14.5) Platelet Count 109 x10^3/uL (140-400) Neutrophils (%) (Auto) 67 % (31-73) Lymphocytes (%) (Auto) 17 % (24-48) Monocytes (%) (Auto) 9 % (0-9) Eosinophils (%) (Auto) 6 % (0-3) Basophils (%) (Auto) 1 % (0-3) Neutrophils # (Auto) 3.6 x10^3/uL (1.8-7.7) Lymphocytes # (Auto) 0.9 x10^3/uL (1.0-4.8) Monocytes # (Auto) 0.5 x10^3/uL (0.0-1.1) Eosinophils # (Auto) 0.3 x10^3/uL (0.0-0.7) Basophils # (Auto) 0.0 x10^3/uL (0.0-0.2) Sodium Level 139 mmol/L (136-145) Potassium Level 4.0 mmol/L (3.5-5.1) Chloride Level 104 mmol/L (98-107) Carbon Dioxide Level 27 mmol/L (21-32) Anion Gap 8 (6-14) Blood Urea Nitrogen 19 mg/dL (8-26) Creatinine 1.3 mg/dL (0.7-1.3) Estimated GFR (Cockcroft-Gault) 53.8 BUN/Creatinine Ratio 15 (6-20) Glucose Level 110 mg/dL (70-99) Calcium Level 8.6 mg/dL (8.5-10.1) Total Bilirubin 0.6 mg/dL (0.2-1.0) Aspartate Amino Transf (AST/SGOT) 17 U/L (15-37) Alanine Aminotransferase (ALT/SGPT) 16 U/L (16-63) Alkaline Phosphatase 88 U/L (46-116) Total Protein 6.1 g/dL (6.4-8.2) Albumin 2.7 g/dL (3.4-5.0) Albumin/Globulin Ratio 0.8 (1.0-1.7) Medications Current Medications Aspirin (Children'S Aspirin) 81 mg 1X ONCE PO Last administered on 11/06/18at 04:12; Start 11/06/18 at 03:30; Stop 11/06/18 at 03:32; Status DC Sodium Chloride 1,000 ml @ 100 mls/hr Q10H IV Last administered on 11/07/18at 06:20; Start 11/06/18 at 04:30; Stop 11/07/18 at 09:35; Status DC Docusate Sodium (Colace) 100 mg DAILY PRN PO CONSTIPATION Last administered on 11/10/18 20:08; Start 11/06/18 at 10:00 Gabapentin (Neurontin) 100 mg TID PO Last administered on 11/11/18 07:49; Start 11/06/18 at 10:30 Pantoprazole Sodium (Protonix) 40 mg DAILYAC PO Last administered on 11/11/18at 07:49; Start 11/06/18 at 10:30 Hydrocortisone Acetate (Anucort-Hc) 25 mg PRN DAILY PRN CO RECTAL PAIN; Start 11/06/18 at 10:30 Polyethylene Glycol (miraLAX PACKET) 17 gm PRN DAILY PRN PO CONSTIPATION Last administered on 11/10/18 20:08; Start 11/06/18 at 09:00 Non-Formulary Medication (Rosuvastatin Calcium (Crestor)) 0.5 tab TuThSa@2100 PO Last administered on 11/09/18 20:51; Start 11/09/18 at 21:00 Losartan Potassium (Cozaar) 25 mg DAILY PO Last administered on 11/07/18 08:14; Start 11/06/18 at 10:30; Stop 11/08/18 at 07:58; Status DC Haloperidol Lactate (Haldol Inj) 2 mg 1X ONCE IVP Last administered on 11/06/18 13:30; Start 11/06/18 at 13:30; Stop 11/06/18 at 13:31; Status DC Quetiapine Fumarate (SEROquel) 12.5 mg BID PO Last administered on 11/11/18 07:50; Start 11/06/18 at 14:00 Lorazepam (Ativan Inj) 1 mg PRN Q4HRS PRN IV ANXIETY / AGITATION, 1st CHOIC Last administered on 11/11/18 04:37; Start 11/06/18 at 14:30 Haloperidol Lactate (Haldol Inj) 2.5 mg PRN Q6HRS PRN IVP AGITATION, 2nd CHOICE Last administered on 11/09/18 23:03; Start 11/07/18 at 09:45; Stop 11/10/18 at 17:12; Status DC Acetaminophen (Tylenol) 500 mg PRN Q6HRS PRN PO HEADACHE / TEMP; Start 11/07/18 at 09:45 Hydralazine HCl (Apresoline Inj) 10 mg PRN Q4HRS PRN IVP ELEVATED BP, SEE COMMENTS Last administered on 11/09/18 18:40; Start 11/07/18 at 09:45 Ondansetron HCl (Zofran) 4 mg PRN Q6HRS PRN IV NAUSEA/VOMITING; Start 11/07/18 at 09:45 Vitamin D (Vitamin D3) 1,000 unit BID PO Last administered on 11/11/18 07:49; Start 11/07/18 at 10:00 Non-Formulary Medication (Melatonin ) 1 tab QHS PO ; Start 11/07/18 at 21:00; Status UNV Amino Acids/ Glycerin/ Electrolytes 1,000 ml @ 80 mls/hr [id number] IV ; Start 11/07/18 at 14:00; Stop 11/07/18 at 14:00; Status DC Losartan Potassium (Cozaar) 100 mg DAILY PO Last administered on 11/11/18at 07:49; Start 11/08/18 at 09:00 Fentanyl Citrate (Fentanyl 2ml Vial) 25 mcg PRN Q5MIN PRN IV MILD PAIN 1-3; Start 11/09/18 at 07:00; Stop 11/10/18 at 06:59; Status DC Fentanyl Citrate (Fentanyl 2ml Vial) 50 mcg PRN Q5MIN PRN IV MODERATE TO SEVERE PAIN; Start 11/09/18 at 07:00; Stop 11/10/18 at 06:59; Status DC Morphine Sulfate (Morphine Sulfate) 1 mg PRN Q10MIN PRN IV SEVERE PAIN 7-10; Start 11/09/18 at 07:00; Stop 11/10/18 at 06:59; Status DC Ringer's Solution 1,000 ml @ 30 mls/hr Q24H IV Last administered on 11/09/18at 14:30; Start 11/09/18 at 07:00; Stop 11/09/18 at 18:59; Status DC Lidocaine HCl (Xylocaine-Mpf 1% 2ml Vial) 2 ml PRN 1X PRN ID IV START; Start 11/09/18 at 07:00; Stop 11/10/18 at 06:59; Status DC Hydromorphone HCl (Dilaudid) 0.5 mg PRN Q10MIN PRN IV SEV PAIN, Second choice; Start 11/09/18 at 07:00; Stop 11/10/18 at 06:59; Status DC Prochlorperazine Edisylate (Compazine) 5 mg PACU PRN PRN IV NAUSEA, MRX1; Start 11/09/18 at 07:00; Stop 11/10/18 at 06:59; Status DC Vancomycin HCl 1 gm/Sodium Chloride 250 ml @ 250 mls/hr 1X ONCE IV Last administered on 11/09/18at 06:07; Start 11/09/18 at 06:00; Stop 11/09/18 at 06:59; Status DC Heparin Sodium (Porcine) 5000 unit/Ringer's Solution 505 ml @ 505 mls/hr 1X ONCE IRR ; Start 11/09/18 at 06:00; Stop 11/09/18 at 06:59; Status DC Aspirin (Children'S Aspirin) 81 mg [id number] PO Last administered on 11/11/18at 07:49; Start 11/08/18 at 14:00 Fentanyl Citrate (Fentanyl 2ml Vial) 25 mcg PRN Q5MIN PRN IV MILD PAIN 1-3; Start 11/09/18 at 11:30; Stop 11/10/18 at 11:29; Status Cancel Fentanyl Citrate (Fentanyl 2ml Vial) 50 mcg PRN Q5MIN PRN IV MODERATE TO SEVERE PAIN; Start 11/09/18 at 11:30; Stop 11/09/18 at 11:30; Status DC Morphine Sulfate (Morphine Sulfate) 1 mg PRN Q10MIN PRN IV SEVERE PAIN 7-10; Start 11/09/18 at 11:30; Stop 11/10/18 at 10:05; Status DC Ringer's Solution 1,000 ml @ 30 mls/hr Q24H IV ; Start 11/09/18 at 11:19; Stop 11/09/18 at 23:18; Status DC Hydromorphone HCl (Dilaudid) 0.5 mg PRN Q10MIN PRN IV SEV PAIN, Second choice; Start 11/09/18 at 11:30; Stop 11/10/18 at 11:29; Status DC Prochlorperazine Edisylate (Compazine) 5 mg PACU PRN PRN IV NAUSEA, MRX1; Start 11/09/18 at 11:30; Stop 11/10/18 at 11:29; Status DC Benzocaine (Hurricaine One) 1 spray STK-MED ONCE .ROUTE ; Start 11/09/18 at 12:33; Stop 11/09/18 at 12:34; Status DC Lidocaine HCl (Xylocaine 2% Topical 30gm Tube) 30 ian STK-MED ONCE TP ; Start 11/09/18 at 12:34; Stop 11/09/18 at 12:35; Status DC Lidocaine HCl (Viscous Lidocaine) 15 ml STK-MED ONCE .ROUTE ; Start 11/09/18 at 12:34; Stop 11/09/18 at 12:35; Status DC Benzocaine (Hurricaine One) 2 spray 1X ONCE MM Last administered on 11/09/18at 14:30; Start 11/09/18 at 13:45; Stop 11/09/18 at 13:46; Status DC Lidocaine HCl (Xylocaine 2% Topical 30gm Tube) 1 ian 1X ONCE TP Last administered on 11/09/18at 14:30; Start 11/09/18 at 13:45; Stop 11/09/18 at 13:46; Status DC Lidocaine HCl (Viscous Lidocaine) 15 ml 1X ONCE SWSW Last administered on 11/09/18at 14:30; Start 11/09/18 at 13:45; Stop 11/09/18 at 13:46; Status DC Magnesium Hydroxide (Milk Of Magnesia) 2,400 mg 1X ONCE PO Last administered on 11/11/18at 07:48; Start 11/11/18 at 09:00; Stop 11/11/18 at 09:01 Haloperidol Lactate (Haldol Inj) 1.25 mg PRN Q6HRS PRN IVP AGITATION Last administered on 11/11/18at 00:47; Start 11/10/18 at 17:15 Propofol 20 ml @ As Directed STK-MED ONCE IV ; Start 11/09/18 at 14:29; Stop 11/10/18 at 19:36; Status DC Diphenhydramine HCl (Benadryl) 50 mg PRN QHS PRN PO INSOMNIA; Start 11/10/18 at 23:15 Active Scripts Active Reported Melatonin 3 Mg Tablet 1 Tab PO QHS Losartan Potassium 100 Mg Tablet 100 Mg PO DAILY Crestor (Rosuvastatin Calcium) 5 Mg Tablet 1 Tab PO QODAY Miralax (Polyethylene Glycol 3350) 17 Gm Powd.pack 1 Packet PO DAILY PRN Pantoprazole Sodium (Pantoprazole Sodium) 40 Mg Tablet.dr 40 Mg PO DAILYAC Anusol-Hc (Hydrocortisone Acetate) 25 Mg Supp.rect 1 Supp RC DAILY PRN Gabapentin (Gabapentin) 100 Mg Capsule 100 Mg PO TID Docusate Sodium 100 Mg Capsule 1 Cap PO DAILY PRN Vitamin D (Cholecalciferol (Vitamin D3)) 1,000 Unit Capsule 1 Cap PO BID Vitals/I & O Vital Sign - Last 24 Hours 711/10/18 11/10/18 11/10/18 11:03 14:08 18:42 19:15 Temp 97.6 97.7 98.4 98.0 97.6 97.7 98.4 98.0 Pulse 87 74 87 69 Resp 20 16 16 18 B/P (MAP) 142/49 (80) 127/39 (68) 150/84 (106) 151/55 (87) Pulse Ox 97 99 97 97 O2 Delivery Room Air Room Air Room Air Room Air 11/10/18 11/10/18 11/11/18 11/11/18 19:20 22:59 03:08 06:48 Temp 98.0 97.8 97.0 98.0 97.8 97.0 Pulse 70 67 63 Resp 18 18 16 B/P (MAP) 156/50 (85) 147/53 (84) 138/41 (73) Pulse Ox 97 98 98 O2 Delivery Room Air Room Air Room Air Room Air 11/11/18 07:49 Pulse 63 B/P (MAP) 138/41 Intake and Output 0 11/10/18 11/10/18 11/11/18 14:59 22:59 06:59 Intake Total 1860 ml 720 ml Output Total 500 ml 600 ml Balance 1360 ml 120 ml JOHN SCHULZ MD Nov 11, 2018 07:59
--- NOTE | 2018-11-11 08:57 | PDOC ---
PROGRESS NOTES Subjective Subjective Patient seen and examined in room. Denies any new TIA or stroke like symptoms. Objective Objective Vital Signs Date Time Temp Pulse Resp B/P (MAP) Pulse Ox O2 Delivery O2 Flow Rate FiO2 11/11/18 08:00 Room Air 11/11/18 07:49 63 138/41 11/11/18 06:48 97.0 16 98 97.0 11/09/18 14:48 6 Intake and Output 11/11/18 07:00 Intake Total 2580 ml Output Total 1100 ml Balance 1480 ml Intake Oral 2580 ml Output Urine Total 1100 ml # Voids 6 Physical Exam Physical Exam Awake and alert, follows commands HRR Non-labored respirations No facial asymmetry, symmetric palatal deviation, tongue midline, speech clear. Motor and sensation intact and symmetrical Assessment Assessment Problems Medical Problems: (1) Acute CVA (cerebrovascular accident) Status: Acute (2) Acute encephalopathy Status: Acute (3) Gastrointestinal bleed Status: Acute (4) Hypertension Status: Chronic (5) Mitral valve insufficiency Status: Acute Plan Plan of Care Left carotid endarterectomy scheduled for 11/12/2018, cleared by Cardiology as moderate risk with regional block. Continue antiplatelet therapy and statin therapy. NPO after MN. Obtain consent. Discussed plan of care with Nurse, she will contact to obtain consent for surgery. Comment Review of Relevant I have reviewed the following items hamzah (where applicable) has been applied. Labs Laboratory Tests Test 11/09/18 11:11 11/10/18 18:40 11/11/18 03:25 Erythrocyte Sedimentation Rate 49 (0-15) Urine Collection Type Unknown Urine Color Yellow Urine Clarity Clear Urine pH 6.0 Urine Specific [place] 1.020 Urine Protein 100 mg/dL (NEG-TRACE) Urine Glucose (UA) Negative mg/dL (NEG) Urine Ketones (Stick) Negative mg/dL (NEG) Urine Blood Negative (NEG) Urine Nitrite Negative (NEG) Urine Bilirubin Negative (NEG) Urine Urobilinogen Dipstick 1.0 mg/dL (0.2 mg/dL) Urine Leukocyte Esterase Negative (NEG) Urine RBC 0 /HPF (0-2) Urine WBC Rare /HPF (0-4) Urine Squamous Epithelial Cells Occ /LPF Urine Bacteria 0 /HPF (0-FEW) Urine Mucus Slight /LPF White Blood Count 5.3 x10^3/uL (4.0-11.0) Red Blood Count 3.35 x10^6/uL (4.30-5.70) Hemoglobin 10.2 g/dL (13.0-17.5) Hematocrit 30.1 % (39.0-53.0) Mean Corpuscular Volume 90 fL (79-100) Mean Corpuscular Hemoglobin 31 pg (25-35) Mean Corpuscular Hemoglobin Concent 34 g/dL (31-37) Red Cell Distribution Width 16.0 % (11.5-14.5) Platelet Count 109 x10^3/uL (140-400) Neutrophils (%) (Auto) 67 % (31-73) Lymphocytes (%) (Auto) 17 % (24-48) Monocytes (%) (Auto) 9 % (0-9) Eosinophils (%) (Auto) 6 % (0-3) Basophils (%) (Auto) 1 % (0-3) Neutrophils # (Auto) 3.6 x10^3/uL (1.8-7.7) Lymphocytes # (Auto) 0.9 x10^3/uL (1.0-4.8) Monocytes # (Auto) 0.5 x10^3/uL (0.0-1.1) Eosinophils # (Auto) 0.3 x10^3/uL (0.0-0.7) Basophils # (Auto) 0.0 x10^3/uL (0.0-0.2) Sodium Level 139 mmol/L (136-145) Potassium Level 4.0 mmol/L (3.5-5.1) Chloride Level 104 mmol/L (98-107) Carbon Dioxide Level 27 mmol/L (21-32) Anion Gap 8 (6-14) Blood Urea Nitrogen 19 mg/dL (8-26) Creatinine 1.3 mg/dL (0.7-1.3) Estimated GFR (Cockcroft-Gault) 53.8 BUN/Creatinine Ratio 15 (6-20) Glucose Level 110 mg/dL (70-99) Calcium Level 8.6 mg/dL (8.5-10.1) Total Bilirubin 0.6 mg/dL (0.2-1.0) Aspartate Amino Transf (AST/SGOT) 17 U/L (15-37) Alanine Aminotransferase (ALT/SGPT) 16 U/L (16-63) Alkaline Phosphatase 88 U/L (46-116) Total Protein 6.1 g/dL (6.4-8.2) Albumin 2.7 g/dL (3.4-5.0) Albumin/Globulin Ratio 0.8 (1.0-1.7) Laboratory Tests UNA CRUM APRN Nov 11, 2018 08:57
[2018-11-11] MEDS ORDERED: MAGNESIUM HYDROXIDE 2,400 MG/30 ML ORAL.SUSP. PO ONE (09:00)
[2018-11-11 11:15] VITALS: BP 137/44
[2018-11-11 15:00] VITALS: BP 167/53
--- NOTE | 2018-11-11 15:01 | PDOC ---
PROGRESS NOTES Assessment Problems Medical Problems: (1) Acute CVA (cerebrovascular accident) Status: Acute (2) Acute encephalopathy Status: Acute (3) Gastrointestinal bleed Status: Acute (4) Hypertension Status: Chronic (5) Mitral valve insufficiency Status: Acute Metabolic encephalopathy, normal EEG on 11/08/18. Hyponatremia, Na 125. Left ICA stenosis, > 75%. Dementia No evidence of acute CVA History of headaches, migraine phenomena ESR 49 On 1:1 nursing Plan Recheck ESR in 2-3 weeks Continue ASA 81 mg daily Seroquel 12.5 mg to 25 mg bid. Treat medical diseases. Note vascular surgery plans for endarterectomy on 11/12 Subjective no complaints Objective Vital Signs Date Time Temp Pulse Resp B/P (MAP) Pulse Ox O2 Delivery O2 Flow Rate FiO2 11/11/18 11:15 98.1 64 16 137/44 (75) 99 Room Air 98.1 Intake and Output 11/11/18 07:00 Intake Total 2580 ml Output Total 1100 ml Balance 1480 ml Intake Oral 2580 ml Output Urine Total 1100 ml # Voids 6 PHYSICAL EXAM Alert, knows his name PERRL. EOMI. CN: no focal findings. Muscle tone: normal. Muscle strength: 5/5 DTR: 2+ Plantar reflex: flexor Gait: not examined in bed. Sensory exam: no abnormal findings. No cerebellar signs elicited. Review of Relevant I have reviewed the following items hamzah (where applicable) has been applied. Labs Laboratory Tests Test 11/10/18 18:40 11/11/18 03:25 Urine Collection Type Unknown Urine Color Yellow Urine Clarity Clear Urine pH 6.0 Urine Specific [place] 1.020 Urine Protein 100 mg/dL (NEG-TRACE) Urine Glucose (UA) Negative mg/dL (NEG) Urine Ketones (Stick) Negative mg/dL (NEG) Urine Blood Negative (NEG) Urine Nitrite Negative (NEG) Urine Bilirubin Negative (NEG) Urine Urobilinogen Dipstick 1.0 mg/dL (0.2 mg/dL) Urine Leukocyte Esterase Negative (NEG) Urine RBC 0 /HPF (0-2) Urine WBC Rare /HPF (0-4) Urine Squamous Epithelial Cells Occ /LPF Urine Bacteria 0 /HPF (0-FEW) Urine Mucus Slight /LPF White Blood Count 5.3 x10^3/uL (4.0-11.0) Red Blood Count 3.35 x10^6/uL (4.30-5.70) Hemoglobin 10.2 g/dL (13.0-17.5) Hematocrit 30.1 % (39.0-53.0) Mean Corpuscular Volume 90 fL (79-100) Mean Corpuscular Hemoglobin 31 pg (25-35) Mean Corpuscular Hemoglobin Concent 34 g/dL (31-37) Red Cell Distribution Width 16.0 % (11.5-14.5) Platelet Count 109 x10^3/uL (140-400) Neutrophils (%) (Auto) 67 % (31-73) Lymphocytes (%) (Auto) 17 % (24-48) Monocytes (%) (Auto) 9 % (0-9) Eosinophils (%) (Auto) 6 % (0-3) Basophils (%) (Auto) 1 % (0-3) Neutrophils # (Auto) 3.6 x10^3/uL (1.8-7.7) Lymphocytes # (Auto) 0.9 x10^3/uL (1.0-4.8) Monocytes # (Auto) 0.5 x10^3/uL (0.0-1.1) Eosinophils # (Auto) 0.3 x10^3/uL (0.0-0.7) Basophils # (Auto) 0.0 x10^3/uL (0.0-0.2) Sodium Level 139 mmol/L (136-145) Potassium Level 4.0 mmol/L (3.5-5.1) Chloride Level 104 mmol/L (98-107) Carbon Dioxide Level 27 mmol/L (21-32) Anion Gap 8 (6-14) Blood Urea Nitrogen 19 mg/dL (8-26) Creatinine 1.3 mg/dL (0.7-1.3) Estimated GFR (Cockcroft-Gault) 53.8 BUN/Creatinine Ratio 15 (6-20) Glucose Level 110 mg/dL (70-99) Calcium Level 8.6 mg/dL (8.5-10.1) Total Bilirubin 0.6 mg/dL (0.2-1.0) Aspartate Amino Transf (AST/SGOT) 17 U/L (15-37) Alanine Aminotransferase (ALT/SGPT) 16 U/L (16-63) Alkaline Phosphatase 88 U/L (46-116) Total Protein 6.1 g/dL (6.4-8.2) Albumin 2.7 g/dL (3.4-5.0) Albumin/Globulin Ratio 0.8 (1.0-1.7) Laboratory Tests Test 11/10/18 18:40 11/11/18 03:25 Urine Collection Type Unknown Urine Color Yellow Urine Clarity Clear Urine pH 6.0 Urine Specific [place] 1.020 Urine Protein 100 mg/dL (NEG-TRACE) Urine Glucose (UA) Negative mg/dL (NEG) Urine Ketones (Stick) Negative mg/dL (NEG) Urine Blood Negative (NEG) Urine Nitrite Negative (NEG) Urine Bilirubin Negative (NEG) Urine Urobilinogen Dipstick 1.0 mg/dL (0.2 mg/dL) Urine Leukocyte Esterase Negative (NEG) Urine RBC 0 /HPF (0-2) Urine WBC Rare /HPF (0-4) Urine Squamous Epithelial Cells Occ /LPF Urine Bacteria 0 /HPF (0-FEW) Urine Mucus Slight /LPF White Blood Count 5.3 x10^3/uL (4.0-11.0) Red Blood Count 3.35 x10^6/uL (4.30-5.70) Hemoglobin 10.2 g/dL (13.0-17.5) Hematocrit 30.1 % (39.0-53.0) Mean Corpuscular Volume 90 fL (79-100) Mean Corpuscular Hemoglobin 31 pg (25-35) Mean Corpuscular Hemoglobin Concent 34 g/dL (31-37) Red Cell Distribution Width 16.0 % (11.5-14.5) Platelet Count 109 x10^3/uL (140-400) Neutrophils (%) (Auto) 67 % (31-73) Lymphocytes (%) (Auto) 17 % (24-48) Monocytes (%) (Auto) 9 % (0-9) Eosinophils (%) (Auto) 6 % (0-3) Basophils (%) (Auto) 1 % (0-3) Neutrophils # (Auto) 3.6 x10^3/uL (1.8-7.7) Lymphocytes # (Auto) 0.9 x10^3/uL (1.0-4.8) Monocytes # (Auto) 0.5 x10^3/uL (0.0-1.1) Eosinophils # (Auto) 0.3 x10^3/uL (0.0-0.7) Basophils # (Auto) 0.0 x10^3/uL (0.0-0.2) Sodium Level 139 mmol/L (136-145) Potassium Level 4.0 mmol/L (3.5-5.1) Chloride Level 104 mmol/L (98-107) Carbon Dioxide Level 27 mmol/L (21-32) Anion Gap 8 (6-14) Blood Urea Nitrogen 19 mg/dL (8-26) Creatinine 1.3 mg/dL (0.7-1.3) Estimated GFR (Cockcroft-Gault) 53.8 BUN/Creatinine Ratio 15 (6-20) Glucose Level 110 mg/dL (70-99) Calcium Level 8.6 mg/dL (8.5-10.1) Total Bilirubin 0.6 mg/dL (0.2-1.0) Aspartate Amino Transf (AST/SGOT) 17 U/L (15-37) Alanine Aminotransferase (ALT/SGPT) 16 U/L (16-63) Alkaline Phosphatase 88 U/L (46-116) Total Protein 6.1 g/dL (6.4-8.2) Albumin 2.7 g/dL (3.4-5.0) Albumin/Globulin Ratio 0.8 (1.0-1.7) Medications Current Medications Aspirin (Children'S Aspirin) 81 mg 1X ONCE PO Last administered on 11/06/18at 04:12; Start 11/06/18 at 03:30; Stop 11/06/18 at 03:32; Status DC Sodium Chloride 1,000 ml @ 100 mls/hr Q10H IV Last administered on 11/07/18at 06:20; Start 11/06/18 at 04:30; Stop 11/07/18 at 09:35; Status DC Docusate Sodium (Colace) 100 mg DAILY PRN PO CONSTIPATION Last administered on 11/10/18at 20:08; Start 11/06/18 at 10:00 Gabapentin (Neurontin) 100 mg TID PO Last administered on 11/11/18at 13:26; Start 11/06/18 at 10:30 Pantoprazole Sodium (Protonix) 40 mg DAILYAC PO Last administered on 11/11/18 07:49; Start 11/06/18 at 10:30 Hydrocortisone Acetate (Anucort-Hc) 25 mg PRN DAILY PRN [place] RECTAL PAIN; Start 11/06/18 at 10:30 Polyethylene Glycol (miraLAX PACKET) 17 gm PRN DAILY PRN PO CONSTIPATION Last administered on 11/10/18 20:08; Start 11/06/18 at 09:00 Non-Formulary Medication (Rosuvastatin Calcium (Crestor)) 0.5 tab TuThSa@2100 PO Last administered on 11/09/18 20:51; Start 11/09/18 at 21:00 Losartan Potassium (Cozaar) 25 mg DAILY PO Last administered on 11/07/18 08:14; Start 11/06/18 at 10:30; Stop 11/08/18 at 07:58; Status DC Haloperidol Lactate (Haldol Inj) 2 mg 1X ONCE IVP Last administered on 11/06/18 13:30; Start 11/06/18 at 13:30; Stop 11/06/18 at 13:31; Status DC Quetiapine Fumarate (SEROquel) 12.5 mg BID PO Last administered on 11/11/18 07:50; Start 11/06/18 at 14:00 Lorazepam (Ativan Inj) 1 mg PRN Q4HRS PRN IV ANXIETY / AGITATION, 1st CHOIC Last administered on 11/11/18 04:37; Start 11/06/18 at 14:30 Haloperidol Lactate (Haldol Inj) 2.5 mg PRN Q6HRS PRN IVP AGITATION, 2nd CHOICE Last administered on 11/09/18 23:03; Start 11/07/18 at 09:45; Stop 11/10/18 at 17:12; Status DC Acetaminophen (Tylenol) 500 mg PRN Q6HRS PRN PO HEADACHE / TEMP; Start 11/07/18 at 09:45 Hydralazine HCl (Apresoline Inj) 10 mg PRN Q4HRS PRN IVP ELEVATED BP, SEE COMMENTS Last administered on 11/09/18 18:40; Start 11/07/18 at 09:45 Ondansetron HCl (Zofran) 4 mg PRN Q6HRS PRN IV NAUSEA/VOMITING; Start 11/07/18 at 09:45 Vitamin D (Vitamin D3) 1,000 unit BID PO Last administered on 11/11/18at 07:49; Start 11/07/18 at 10:00 Non-Formulary Medication (Melatonin ) 1 tab QHS PO ; Start 11/07/18 at 21:00; Status UNV Amino Acids/ Glycerin/ Electrolytes 1,000 ml @ 80 mls/hr [id number] IV ; Start 11/07/18 at 14:00; Stop 11/07/18 at 14:00; Status DC Losartan Potassium (Cozaar) 100 mg DAILY PO Last administered on 11/11/18at 07:49; Start 11/08/18 at 09:00 Fentanyl Citrate (Fentanyl 2ml Vial) 25 mcg PRN Q5MIN PRN IV MILD PAIN 1-3; Start 11/09/18 at 07:00; Stop 11/10/18 at 06:59; Status DC Fentanyl Citrate (Fentanyl 2ml Vial) 50 mcg PRN Q5MIN PRN IV MODERATE TO SEVERE PAIN; Start 11/09/18 at 07:00; Stop 11/10/18 at 06:59; Status DC Morphine Sulfate (Morphine Sulfate) 1 mg PRN Q10MIN PRN IV SEVERE PAIN 7-10; Start 11/09/18 at 07:00; Stop 11/10/18 at 06:59; Status DC Ringer's Solution 1,000 ml @ 30 mls/hr Q24H IV Last administered on 11/09/18at 14:30; Start 11/09/18 at 07:00; Stop 11/09/18 at 18:59; Status DC Lidocaine HCl (Xylocaine-Mpf 1% 2ml Vial) 2 ml PRN 1X PRN ID IV START; Start 11/09/18 at 07:00; Stop 11/10/18 at 06:59; Status DC Hydromorphone HCl (Dilaudid) 0.5 mg PRN Q10MIN PRN IV SEV PAIN, Second choice; Start 11/09/18 at 07:00; Stop 11/10/18 at 06:59; Status DC Prochlorperazine Edisylate (Compazine) 5 mg PACU PRN PRN IV NAUSEA, MRX1; Start 11/09/18 at 07:00; Stop 11/10/18 at 06:59; Status DC Vancomycin HCl 1 gm/Sodium Chloride 250 ml @ 250 mls/hr 1X ONCE IV Last administered on 11/09/18at 06:07; Start 11/09/18 at 06:00; Stop 11/09/18 at 06:59; Status DC Heparin Sodium (Porcine) 5000 unit/Ringer's Solution 505 ml @ 505 mls/hr 1X ONCE IRR ; Start 11/09/18 at 06:00; Stop 11/09/18 at 06:59; Status DC Aspirin (Children'S Aspirin) 81 mg [id number] PO Last administered on 11/11/18at 07:49; Start 11/08/18 at 14:00 Fentanyl Citrate (Fentanyl 2ml Vial) 25 mcg PRN Q5MIN PRN IV MILD PAIN 1-3; Start 11/09/18 at 11:30; Stop 11/10/18 at 11:29; Status Cancel Fentanyl Citrate (Fentanyl 2ml Vial) 50 mcg PRN Q5MIN PRN IV MODERATE TO SEVERE PAIN; Start 11/09/18 at 11:30; Stop 11/09/18 at 11:30; Status DC Morphine Sulfate (Morphine Sulfate) 1 mg PRN Q10MIN PRN IV SEVERE PAIN 7-10; Start 11/09/18 at 11:30; Stop 11/10/18 at 10:05; Status DC Ringer's Solution 1,000 ml @ 30 mls/hr Q24H IV ; Start 11/09/18 at 11:19; Stop 11/09/18 at 23:18; Status DC Hydromorphone HCl (Dilaudid) 0.5 mg PRN Q10MIN PRN IV SEV PAIN, Second choice; Start 11/09/18 at 11:30; Stop 11/10/18 at 11:29; Status DC Prochlorperazine Edisylate (Compazine) 5 mg PACU PRN PRN IV NAUSEA, MRX1; Start 11/09/18 at 11:30; Stop 11/10/18 at 11:29; Status DC Benzocaine (Hurricaine One) 1 spray STK-MED ONCE .ROUTE ; Start 11/09/18 at 12:33; Stop 11/09/18 at 12:34; Status DC Lidocaine HCl (Xylocaine 2% Topical 30gm Tube) 30 ian STK-MED ONCE TP ; Start 11/09/18 at 12:34; Stop 11/09/18 at 12:35; Status DC Lidocaine HCl (Viscous Lidocaine) 15 ml STK-MED ONCE .ROUTE ; Start 11/09/18 at 12:34; Stop 11/09/18 at 12:35; Status DC Benzocaine (Hurricaine One) 2 spray 1X ONCE MM Last administered on 11/09/18at 14:30; Start 11/09/18 at 13:45; Stop 11/09/18 at 13:46; Status DC Lidocaine HCl (Xylocaine 2% Topical 30gm Tube) 1 ian 1X ONCE TP Last administered on 11/09/18at 14:30; Start 11/09/18 at 13:45; Stop 11/09/18 at 13:46; Status DC Lidocaine HCl (Viscous Lidocaine) 15 ml 1X ONCE SWSW Last administered on 11/09/18at 14:30; Start 11/09/18 at 13:45; Stop 11/09/18 at 13:46; Status DC Magnesium Hydroxide (Milk Of Magnesia) 2,400 mg 1X ONCE PO Last administered on 11/11/18at 07:48; Start 11/11/18 at 09:00; Stop 11/11/18 at 09:01; Status DC Haloperidol Lactate (Haldol Inj) 1.25 mg PRN Q6HRS PRN IVP AGITATION Last administered on 11/11/18at 00:47; Start 11/10/18 at 17:15 Propofol 20 ml @ As Directed STK-MED ONCE IV ; Start 11/09/18 at 14:29; Stop 11/10/18 at 19:36; Status DC Diphenhydramine HCl (Benadryl) 50 mg PRN QHS PRN PO INSOMNIA; Start 11/10/18 at 23:15 Heparin Sodium (Porcine) 5000 unit/Sodium Chloride 505 ml @ 505 mls/hr 1X ONCE IRR ; Start 11/12/18 at 06:00; Stop 11/12/18 at 06:59 Cefazolin Sodium 1 gm/Sodium Chloride 500 ml @ 500 mls/hr 1X ONCE IRR ; Start 11/12/18 at 06:00; Stop 11/12/18 at 06:59 Active Scripts Active Reported Melatonin 3 Mg Tablet 1 Tab PO QHS Losartan Potassium 100 Mg Tablet 100 Mg PO DAILY Crestor (Rosuvastatin Calcium) 5 Mg Tablet 1 Tab PO QODAY Miralax (Polyethylene Glycol 3350) 17 Gm Powd.pack 1 Packet PO DAILY PRN Pantoprazole Sodium (Pantoprazole Sodium) 40 Mg Tablet.dr 40 Mg PO DAILYAC Anusol-Hc (Hydrocortisone Acetate) 25 Mg Supp.rect 1 Supp RC DAILY PRN Gabapentin (Gabapentin) 100 Mg Capsule 100 Mg PO TID Docusate Sodium 100 Mg Capsule 1 Cap PO DAILY PRN Vitamin D (Cholecalciferol (Vitamin D3)) 1,000 Unit Capsule 1 Cap PO BID Vitals/I & O Vital Sign - Last 24 Hours 11/10/18 11/10/18 11/10/18 11/10/18 18:42 19:15 19:20 22:59 Temp 98.4 98.0 98.0 98.4 98.0 98.0 Pulse 87 69 70 Resp 16 18 18 B/P (MAP) 150/84 (106) 151/55 (87) 156/50 (85) Pulse Ox 97 97 97 O2 Delivery Room Air Room Air Room Air Room Air 11/11/18 11/11/18 11/11/18 11/11/18 03:08 06:48 07:49 08:00 Temp 97.8 97.0 97.8 97.0 Pulse 67 63 63 Resp 18 16 B/P (MAP) 147/53 (84) 138/41 (73) 138/41 Pulse Ox 98 98 O2 Delivery Room Air Room Air Room Air 11/11/18 11:15 Temp 98.1 98.1 Pulse 64 Resp 16 B/P (MAP) 137/44 (75) Pulse Ox 99 O2 Delivery Room Air Intake and Output 11/10/18 11/10/18 11/11/18 15:00 23:00 07:00 Intake Total 1860 ml 720 ml Output Total 500 ml 600 ml Balance 1360 ml 120 ml DWIGHT SAENZ MD Nov 11, 2018 15:01
--- NOTE | 2018-11-11 18:19 | PDOC ---
PROGRESS NOTES Subjective Subjective Patient seen and examined The patient is comfortable this afternoon. Objective Objective Vital Signs Date Time Temp Pulse Resp B/P (MAP) Pulse Ox O2 Delivery O2 Flow Rate FiO2 11/11/18 15:00 98.0 64 16 167/53 (91) 100 Room Air 98.0 11/09/18 14:48 6 Intake and Output 11/11/18 07:00 Intake Total 2580 ml Output Total 1100 ml Balance 1480 ml Intake Oral 2580 ml Output Urine Total 1100 ml # Voids 6 Physical Exam Abdomen: Normal bowel sounds Heart: Other (2/6 systolic murmur.) General: No acute distress Lungs: Clear to auscultation Assessment Assessment Problems Medical Problems: (1) Acute CVA (cerebrovascular accident) Status: Acute (2) Acute encephalopathy Status: Acute (3) Gastrointestinal bleed Status: Acute (4) Hypertension Status: Chronic (5) Mitral valve insufficiency Status: Acute History of bypass surgery and prosthetic aortic valve. Abnormal aortic valve on transthoracic echo. Patient has had a workup both [facility] and at the [facility] Catheterization at the [facility] approximately a month ago showed patent grafts. JIGAR here showed significant disease of the prosthetic aortic valve including stenosis and regurgitation. At this time would continue present treatments. Patient would be at moderate cardiovascular risk for carotid endarterectomy using a regional block. Surgery is scheduled for tomorrow. Carotid artery stenosis. Discussion as above. Hypertension. Controlled. AVR with and AI. Being worked up by the [facility] with future appointment at the [facility]. Comment Review of Relevant I have reviewed the following items hamzah (where applicable) has been applied. Labs Laboratory Tests Test 11/10/18 18:40 11/11/18 03:25 Urine Collection Type Unknown Urine Color Yellow Urine Clarity Clear Urine pH 6.0 Urine Specific [place] 1.020 Urine Protein 100 mg/dL (NEG-TRACE) Urine Glucose (UA) Negative mg/dL (NEG) Urine Ketones (Stick) Negative mg/dL (NEG) Urine Blood Negative (NEG) Urine Nitrite Negative (NEG) Urine Bilirubin Negative (NEG) Urine Urobilinogen Dipstick 1.0 mg/dL (0.2 mg/dL) Urine Leukocyte Esterase Negative (NEG) Urine RBC 0 /HPF (0-2) Urine WBC Rare /HPF (0-4) Urine Squamous Epithelial Cells Occ /LPF Urine Bacteria 0 /HPF (0-FEW) Urine Mucus Slight /LPF White Blood Count 5.3 x10^3/uL (4.0-11.0) Red Blood Count 3.35 x10^6/uL (4.30-5.70) Hemoglobin 10.2 g/dL (13.0-17.5) Hematocrit 30.1 % (39.0-53.0) Mean Corpuscular Volume 90 fL (79-100) Mean Corpuscular Hemoglobin 31 pg (25-35) Mean Corpuscular Hemoglobin Concent 34 g/dL (31-37) Red Cell Distribution Width 16.0 % (11.5-14.5) Platelet Count 109 x10^3/uL (140-400) Neutrophils (%) (Auto) 67 % (31-73) Lymphocytes (%) (Auto) 17 % (24-48) Monocytes (%) (Auto) 9 % (0-9) Eosinophils (%) (Auto) 6 % (0-3) Basophils (%) (Auto) 1 % (0-3) Neutrophils # (Auto) 3.6 x10^3/uL (1.8-7.7) Lymphocytes # (Auto) 0.9 x10^3/uL (1.0-4.8) Monocytes # (Auto) 0.5 x10^3/uL (0.0-1.1) Eosinophils # (Auto) 0.3 x10^3/uL (0.0-0.7) Basophils # (Auto) 0.0 x10^3/uL (0.0-0.2) Sodium Level 139 mmol/L (136-145) Potassium Level 4.0 mmol/L (3.5-5.1) Chloride Level 104 mmol/L (98-107) Carbon Dioxide Level 27 mmol/L (21-32) Anion Gap 8 (6-14) Blood Urea Nitrogen 19 mg/dL (8-26) Creatinine 1.3 mg/dL (0.7-1.3) Estimated GFR (Cockcroft-Gault) 53.8 BUN/Creatinine Ratio 15 (6-20) Glucose Level 110 mg/dL (70-99) Calcium Level 8.6 mg/dL (8.5-10.1) Total Bilirubin 0.6 mg/dL (0.2-1.0) Aspartate Amino Transf (AST/SGOT) 17 U/L (15-37) Alanine Aminotransferase (ALT/SGPT) 16 U/L (16-63) Alkaline Phosphatase 88 U/L (46-116) Total Protein 6.1 g/dL (6.4-8.2) Albumin 2.7 g/dL (3.4-5.0) Albumin/Globulin Ratio 0.8 (1.0-1.7) Laboratory Tests Test 11/10/18 18:40 11/11/18 03:25 Urine Collection Type Unknown Urine Color Yellow Urine Clarity Clear Urine pH 6.0 Urine Specific [place] 1.020 Urine Protein 100 mg/dL (NEG-TRACE) Urine Glucose (UA) Negative mg/dL (NEG) Urine Ketones (Stick) Negative mg/dL (NEG) Urine Blood Negative (NEG) Urine Nitrite Negative (NEG) Urine Bilirubin Negative (NEG) Urine Urobilinogen Dipstick 1.0 mg/dL (0.2 mg/dL) Urine Leukocyte Esterase Negative (NEG) Urine RBC 0 /HPF (0-2) Urine WBC Rare /HPF (0-4) Urine Squamous Epithelial Cells Occ /LPF Urine Bacteria 0 /HPF (0-FEW) Urine Mucus Slight /LPF White Blood Count 5.3 x10^3/uL (4.0-11.0) Red Blood Count 3.35 x10^6/uL (4.30-5.70) Hemoglobin 10.2 g/dL (13.0-17.5) Hematocrit 30.1 % (39.0-53.0) Mean Corpuscular Volume 90 fL (79-100) Mean Corpuscular Hemoglobin 31 pg (25-35) Mean Corpuscular Hemoglobin Concent 34 g/dL (31-37) Red Cell Distribution Width 16.0 % (11.5-14.5) Platelet Count 109 x10^3/uL (140-400) Neutrophils (%) (Auto) 67 % (31-73) Lymphocytes (%) (Auto) 17 % (24-48) Monocytes (%) (Auto) 9 % (0-9) Eosinophils (%) (Auto) 6 % (0-3) Basophils (%) (Auto) 1 % (0-3) Neutrophils # (Auto) 3.6 x10^3/uL (1.8-7.7) Lymphocytes # (Auto) 0.9 x10^3/uL (1.0-4.8) Monocytes # (Auto) 0.5 x10^3/uL (0.0-1.1) Eosinophils # (Auto) 0.3 x10^3/uL (0.0-0.7) Basophils # (Auto) 0.0 x10^3/uL (0.0-0.2) Sodium Level 139 mmol/L (136-145) Potassium Level 4.0 mmol/L (3.5-5.1) Chloride Level 104 mmol/L (98-107) Carbon Dioxide Level 27 mmol/L (21-32) Anion Gap 8 (6-14) Blood Urea Nitrogen 19 mg/dL (8-26) Creatinine 1.3 mg/dL (0.7-1.3) Estimated GFR (Cockcroft-Gault) 53.8 BUN/Creatinine Ratio 15 (6-20) Glucose Level 110 mg/dL (70-99) Calcium Level 8.6 mg/dL (8.5-10.1) Total Bilirubin 0.6 mg/dL (0.2-1.0) Aspartate Amino Transf (AST/SGOT) 17 U/L (15-37) Alanine Aminotransferase (ALT/SGPT) 16 U/L (16-63) Alkaline Phosphatase 88 U/L (46-116) Total Protein 6.1 g/dL (6.4-8.2) Albumin 2.7 g/dL (3.4-5.0) Albumin/Globulin Ratio 0.8 (1.0-1.7) Medications Current Medications Aspirin (Children'S Aspirin) 81 mg 1X ONCE PO Last administered on 11/06/18at 04:12; Start 11/06/18 at 03:30; Stop 11/06/18 at 03:32; Status DC Sodium Chloride 1,000 ml @ 100 mls/hr Q10H IV Last administered on 11/07/18at 06:20; Start 11/06/18 at 04:30; Stop 11/07/18 at 09:35; Status DC Docusate Sodium (Colace) 100 mg DAILY PRN PO CONSTIPATION Last administered on 11/10/18at 20:08; Start 11/06/18 at 10:00 Gabapentin (Neurontin) 100 mg TID PO Last administered on 11/11/18at 13:26; Start 11/06/18 at 10:30 Pantoprazole Sodium (Protonix) 40 mg DAILYAC PO Last administered on 11/11/18 07:49; Start 11/06/18 at 10:30 Hydrocortisone Acetate (Anucort-Hc) 25 mg PRN DAILY PRN LA RECTAL PAIN; Start 11/06/18 at 10:30 Polyethylene Glycol (miraLAX PACKET) 17 gm PRN DAILY PRN PO CONSTIPATION Last administered on 11/10/18at 20:08; Start 11/06/18 at 09:00 Non-Formulary Medication (Rosuvastatin Calcium (Crestor)) 0.5 tab TuThSa@2100 PO Last administered on 11/09/18 20:51; Start 11/09/18 at 21:00 Losartan Potassium (Cozaar) 25 mg DAILY PO Last administered on 11/07/18 08:14; Start 11/06/18 at 10:30; Stop 11/08/18 at 07:58; Status DC Haloperidol Lactate (Haldol Inj) 2 mg 1X ONCE IVP Last administered on 11/06/18at 13:30; Start 11/06/18 at 13:30; Stop 11/06/18 at 13:31; Status DC Quetiapine Fumarate (SEROquel) 12.5 mg BID PO Last administered on 11/11/18 07:50; Start 11/06/18 at 14:00 Lorazepam (Ativan Inj) 1 mg PRN Q4HRS PRN IV ANXIETY / AGITATION, 1st CHOIC Last administered on 11/11/18 04:37; Start 11/06/18 at 14:30 Haloperidol Lactate (Haldol Inj) 2.5 mg PRN Q6HRS PRN IVP AGITATION, 2nd CHOICE Last administered on 11/09/18 23:03; Start 11/07/18 at 09:45; Stop 11/10/18 at 17:12; Status DC Acetaminophen (Tylenol) 500 mg PRN Q6HRS PRN PO HEADACHE / TEMP; Start 11/07/18 at 09:45 Hydralazine HCl (Apresoline Inj) 10 mg PRN Q4HRS PRN IVP ELEVATED BP, SEE COMMENTS Last administered on 11/09/18at 18:40; Start 11/07/18 at 09:45 Ondansetron HCl (Zofran) 4 mg PRN Q6HRS PRN IV NAUSEA/VOMITING; Start 11/07/18 at 09:45 Vitamin D (Vitamin D3) 1,000 unit BID PO Last administered on 11/11/18at 07:49; Start 11/07/18 at 10:00 Non-Formulary Medication (Melatonin ) 1 tab QHS PO ; Start 11/07/18 at 21:00; Status UNV Amino Acids/ Glycerin/ Electrolytes 1,000 ml @ 80 mls/hr [id number] IV ; Start 11/07/18 at 14:00; Stop 11/07/18 at 14:00; Status DC Losartan Potassium (Cozaar) 100 mg DAILY PO Last administered on 11/11/18at 07:49; Start 11/08/18 at 09:00 Fentanyl Citrate (Fentanyl 2ml Vial) 25 mcg PRN Q5MIN PRN IV MILD PAIN 1-3; Start 11/09/18 at 07:00; Stop 11/10/18 at 06:59; Status DC Fentanyl Citrate (Fentanyl 2ml Vial) 50 mcg PRN Q5MIN PRN IV MODERATE TO SEVERE PAIN; Start 11/09/18 at 07:00; Stop 11/10/18 at 06:59; Status DC Morphine Sulfate (Morphine Sulfate) 1 mg PRN Q10MIN PRN IV SEVERE PAIN 7-10; Start 11/09/18 at 07:00; Stop 11/10/18 at 06:59; Status DC Ringer's Solution 1,000 ml @ 30 mls/hr Q24H IV Last administered on 11/09/18at 14:30; Start 11/09/18 at 07:00; Stop 11/09/18 at 18:59; Status DC Lidocaine HCl (Xylocaine-Mpf 1% 2ml Vial) 2 ml PRN 1X PRN ID IV START; Start 11/09/18 at 07:00; Stop 11/10/18 at 06:59; Status DC Hydromorphone HCl (Dilaudid) 0.5 mg PRN Q10MIN PRN IV SEV PAIN, Second choice; Start 11/09/18 at 07:00; Stop 11/10/18 at 06:59; Status DC Prochlorperazine Edisylate (Compazine) 5 mg PACU PRN PRN IV NAUSEA, MRX1; Start 11/09/18 at 07:00; Stop 11/10/18 at 06:59; Status DC Vancomycin HCl 1 gm/Sodium Chloride 250 ml @ 250 mls/hr 1X ONCE IV Last administered on 11/09/18at 06:07; Start 11/09/18 at 06:00; Stop 11/09/18 at 06:59; Status DC Heparin Sodium (Porcine) 5000 unit/Ringer's Solution 505 ml @ 505 mls/hr 1X ONCE IRR ; Start 11/09/18 at 06:00; Stop 11/09/18 at 06:59; Status DC Aspirin (Children'S Aspirin) 81 mg [id number] PO Last administered on 11/11/18at 07:49; Start 11/08/18 at 14:00 Fentanyl Citrate (Fentanyl 2ml Vial) 25 mcg PRN Q5MIN PRN IV MILD PAIN 1-3; Start 11/09/18 at 11:30; Stop 11/10/18 at 11:29; Status Cancel Fentanyl Citrate (Fentanyl 2ml Vial) 50 mcg PRN Q5MIN PRN IV MODERATE TO SEVERE PAIN; Start 11/09/18 at 11:30; Stop 11/09/18 at 11:30; Status DC Morphine Sulfate (Morphine Sulfate) 1 mg PRN Q10MIN PRN IV SEVERE PAIN 7-10; Start 11/09/18 at 11:30; Stop 11/10/18 at 10:05; Status DC Ringer's Solution 1,000 ml @ 30 mls/hr Q24H IV ; Start 11/09/18 at 11:19; Stop 11/09/18 at 23:18; Status DC Hydromorphone HCl (Dilaudid) 0.5 mg PRN Q10MIN PRN IV SEV PAIN, Second choice; Start 11/09/18 at 11:30; Stop 11/10/18 at 11:29; Status DC Prochlorperazine Edisylate (Compazine) 5 mg PACU PRN PRN IV NAUSEA, MRX1; Start 11/09/18 at 11:30; Stop 11/10/18 at 11:29; Status DC Benzocaine (Hurricaine One) 1 spray STK-MED ONCE .ROUTE ; Start 11/09/18 at 12:33; Stop 11/09/18 at 12:34; Status DC Lidocaine HCl (Xylocaine 2% Topical 30gm Tube) 30 ian STK-MED ONCE TP ; Start 11/09/18 at 12:34; Stop 11/09/18 at 12:35; Status DC Lidocaine HCl (Viscous Lidocaine) 15 ml STK-MED ONCE .ROUTE ; Start 11/09/18 at 12:34; Stop 11/09/18 at 12:35; Status DC Benzocaine (Hurricaine One) 2 spray 1X ONCE MM Last administered on 11/09/18at 14:30; Start 11/09/18 at 13:45; Stop 11/09/18 at 13:46; Status DC Lidocaine HCl (Xylocaine 2% Topical 30gm Tube) 1 ian 1X ONCE TP Last administered on 11/09/18at 14:30; Start 11/09/18 at 13:45; Stop 11/09/18 at 13 :46; Status DC Lidocaine HCl (Viscous Lidocaine) 15 ml 1X ONCE SWSW Last administered on 11/09/18at 14:30; Start 11/09/18 at 13:45; Stop 11/09/18 at 13:46; Status DC Magnesium Hydroxide (Milk Of Magnesia) 2,400 mg 1X ONCE PO Last administered on 11/11/18at 07:48; Start 11/11/18 at 09:00; Stop 11/11/18 at 09:01; Status DC Haloperidol Lactate (Haldol Inj) 1.25 mg PRN Q6HRS PRN IVP AGITATION Last administered on 11/11/18at 00:47; Start 11/10/18 at 17:15 Propofol 20 ml @ As Directed STK-MED ONCE IV ; Start 11/09/18 at 14:29; Stop 11/10/18 at 19:36; Status DC Diphenhydramine HCl (Benadryl) 50 mg PRN QHS PRN PO INSOMNIA; Start 11/10/18 at 23:15 Heparin Sodium (Porcine) 5000 unit/Sodium Chloride 505 ml @ 505 mls/hr 1X ONCE IRR ; Start 11/12/18 at 06:00; Stop 11/12/18 at 06:59 Cefazolin Sodium 1 gm/Sodium Chloride 500 ml @ 500 mls/hr 1X ONCE IRR ; Start 11/12/18 at 06:00; Stop 11/12/18 at 06:59 Active Scripts Active Reported Melatonin 3 Mg Tablet 1 Tab PO QHS Losartan Potassium 100 Mg Tablet 100 Mg PO DAILY Crestor (Rosuvastatin Calcium) 5 Mg Tablet 1 Tab PO QODAY Miralax (Polyethylene Glycol 3350) 17 Gm Powd.pack 1 Packet PO DAILY PRN Pantoprazole Sodium (Pantoprazole Sodium) 40 Mg Tablet.dr 40 Mg PO DAILYAC Anusol-Hc (Hydrocortisone Acetate) 25 Mg Supp.rect 1 Supp RC DAILY PRN Gabapentin (Gabapentin) 100 Mg Capsule 100 Mg PO TID Docusate Sodium 100 Mg Capsule 1 Cap PO DAILY PRN Vitamin D (Cholecalciferol (Vitamin D3)) 1,000 Unit Capsule 1 Cap PO BID Vitals/I & O Vital Sign - Last 24 Hours 11/10/18 11/10/18 11/10/18 11/10/18 18:42 19:15 19:20 22:59 Temp 98.4 98.0 98.0 98.4 98.0 98.0 Pulse 87 69 70 Resp 16 18 18 B/P (MAP) 150/84 (106) 151/55 (87) 156/50 (85) Pulse Ox 97 97 97 O2 Delivery Room Air Room Air Room Air Room Air 11/11/18 11/11/18 11/11/18 11/11/18 03:08 06:48 07:49 08:00 Temp 97.8 97.0 97.8 97.0 Pulse 67 63 63 Resp 18 16 B/P (MAP) 147/53 (84) 138/41 (73) 138/41 Pulse Ox 98 98 O2 Delivery Room Air Room Air Room Air 11/11/18 11/11/18 11:15 15:00 Temp 98.1 98.0 98.1 98.0 Pulse 64 64 Resp 16 16 B/P (MAP) 137/44 (75) 167/53 (91) Pulse Ox 99 100 O2 Delivery Room Air Room Air Intake and Output 11/10/18 11/10/18 11/11/18 15:00 23:00 07:00 Intake Total 1860 ml 720 ml Output Total 500 ml 600 ml Balance 1360 ml 120 ml THANH CRUZ MD Nov 11, 2018 18:19
[2018-11-11 19:05] VITALS: BP 153/50
[2018-11-11] MEDS: ROSUVASTATIN CALCIUM PO SCH (20:13)
[2018-11-11 23:03] VITALS: BP 173/59
[2018-11-12] VITALS (11 sets, daily range): BP systolic 124–176; BP diastolic 48–72
[2018-11-12] MEDS ORDERED: HEPARIN SODIUM 5,000 UNIT in IV NORMAL SALINE 500ML BAG 500 ML IRR ONE (06:00)
[2018-11-12] MEDS ORDERED: PROTAMINE 50 MG/5 ML VIAL. IV ONE (06:35)
[2018-11-12] MEDS ORDERED: SURGICEL FIBRILLAR 1X2 EACH. ONE (06:35)
[2018-11-12] MEDS ORDERED: LIDOCAINE 1% PF 30 ML VIAL. ONE (06:35)
[2018-11-12] MEDS ORDERED: PROCHLORPERAZINE 10 MG/2 ML VIAL. IV PRN ×2 (06:45→11:45)
[2018-11-12] MEDS ORDERED: ONDANSETRON PF 4 MG/2 ML VIAL. IV PRN ×2 (06:45→11:45)
[2018-11-12] MEDS ORDERED: LIDOCAINE 1% PF 2 ML VIAL. ID PRN (06:45)
[2018-11-12] MEDS ORDERED: fentaNYL PF VIAL 100 MCG/2 ML VIAL IV PRN ×2 (06:45)
[2018-11-12] MEDS ORDERED: IV RINGERS,LACTATED 1000ML 1,000 ML IV SCH (06:45)
[2018-11-12] MEDS: PANTOPRAZOLE 40 MG TABLET.DR. PO SCH (07:30)
[2018-11-12] MEDS: ASPIRIN CHEWABLE 81 MG TABLET. PO SCH (08:00)
[2018-11-12] MEDS: GABAPENTIN 100 MG CAPSULE. PO SCH ×3 (09:00→21:09)
[2018-11-12] MEDS: QUEtiapine 25 MG TABLET. PO SCH ×2 (09:00→21:10)
[2018-11-12] MEDS: LOSARTAN POTASSIUM 50 MG TABLET. PO SCH (09:00)
[2018-11-12] MEDS: CHOLECALCIFEROL (VITAMIN D3) 1,000 UNIT TABLET PO SCH ×2 (09:00→21:09)
--- NOTE | 2018-11-12 09:49 | PDOC ---
PROGRESS NOTES Assessment Problems Medical Problems: (1) Acute CVA (cerebrovascular accident) Status: Acute (2) Acute encephalopathy Status: Acute (3) Carotid artery stenosis Status: Chronic (4) Gastrointestinal bleed Status: Acute (5) Hypertension Status: Chronic (6) Mitral valve insufficiency Status: Acute Metabolic encephalopathy, normal EEG on 11/08/18. Hyponatremia, Na 125. Left ICA stenosis, > 75%. Dementia No evidence of acute CVA History of headaches, migraine phenomena ESR 49 On 1:1 nursing Plan Recheck ESR in 2-3 weeks Continue ASA 81 mg daily Seroquel 12.5 mg to 25 mg bid. Treat medical diseases. Note vascular surgery plans for endarterectomy this afternoon Reevaluation for dementia in the neurology clinic in 4-6 weeks, inappropriate to diagnose dementia in the acute hospital state with multiple medical problems. I discussed with the patient's Subjective No complaints Objective Vital Signs Date Time Temp Pulse Resp B/P (MAP) Pulse Ox O2 Delivery O2 Flow Rate FiO2 11/12/18 07:00 97.6 73 22 176/60 (98) 96 Room Air 97.6 11/11/18 20:00 6.0 Intake and Output 11/12/18 06:59 Intake Total 400 ml Output Total 853 ml Balance -453 ml Intake Oral 400 ml Output Urine Total 850 ml Stool Total 3 ml # Voids 2 PHYSICAL EXAM Alert, knows his name, looks at the bulletin board for the date, knows the location, is working on a crossword puzzle PERRL. EOMI. CN: no focal findings. Muscle tone: normal. Muscle strength: 5/5 DTR: 2+ Plantar reflex: flexor Gait: not examined in bed. Sensory exam: no abnormal findings. No cerebellar signs elicited. Review of Relevant I have reviewed the following items hamzah (where applicable) has been applied. Labs Laboratory Tests Test 11/10/18 18:40 11/11/18 03:25 Urine Collection Type Unknown Urine Color Yellow Urine Clarity Clear Urine pH 6.0 Urine Specific [place] 1.020 Urine Protein 100 mg/dL (NEG-TRACE) Urine Glucose (UA) Negative mg/dL (NEG) Urine Ketones (Stick) Negative mg/dL (NEG) Urine Blood Negative (NEG) Urine Nitrite Negative (NEG) Urine Bilirubin Negative (NEG) Urine Urobilinogen Dipstick 1.0 mg/dL (0.2 mg/dL) Urine Leukocyte Esterase Negative (NEG) Urine RBC 0 /HPF (0-2) Urine WBC Rare /HPF (0-4) Urine Squamous Epithelial Cells Occ /LPF Urine Bacteria 0 /HPF (0-FEW) Urine Mucus Slight /LPF White Blood Count 5.3 x10^3/uL (4.0-11.0) Red Blood Count 3.35 x10^6/uL (4.30-5.70) Hemoglobin 10.2 g/dL (13.0-17.5) Hematocrit 30.1 % (39.0-53.0) Mean Corpuscular Volume 90 fL (79-100) Mean Corpuscular Hemoglobin 31 pg (25-35) Mean Corpuscular Hemoglobin Concent 34 g/dL (31-37) Red Cell Distribution Width 16.0 % (11.5-14.5) Platelet Count 109 x10^3/uL (140-400) Neutrophils (%) (Auto) 67 % (31-73) Lymphocytes (%) (Auto) 17 % (24-48) Monocytes (%) (Auto) 9 % (0-9) Eosinophils (%) (Auto) 6 % (0-3) Basophils (%) (Auto) 1 % (0-3) Neutrophils # (Auto) 3.6 x10^3/uL (1.8-7.7) Lymphocytes # (Auto) 0.9 x10^3/uL (1.0-4.8) Monocytes # (Auto) 0.5 x10^3/uL (0.0-1.1) Eosinophils # (Auto) 0.3 x10^3/uL (0.0-0.7) Basophils # (Auto) 0.0 x10^3/uL (0.0-0.2) Sodium Level 139 mmol/L (136-145) Potassium Level 4.0 mmol/L (3.5-5.1) Chloride Level 104 mmol/L (98-107) Carbon Dioxide Level 27 mmol/L (21-32) Anion Gap 8 (6-14) Blood Urea Nitrogen 19 mg/dL (8-26) Creatinine 1.3 mg/dL (0.7-1.3) Estimated GFR (Cockcroft-Gault) 53.8 BUN/Creatinine Ratio 15 (6-20) Glucose Level 110 mg/dL (70-99) Calcium Level 8.6 mg/dL (8.5-10.1) Total Bilirubin 0.6 mg/dL (0.2-1.0) Aspartate Amino Transf (AST/SGOT) 17 U/L (15-37) Alanine Aminotransferase (ALT/SGPT) 16 U/L (16-63) Alkaline Phosphatase 88 U/L (46-116) Total Protein 6.1 g/dL (6.4-8.2) Albumin 2.7 g/dL (3.4-5.0) Albumin/Globulin Ratio 0.8 (1.0-1.7) Medications Current Medications Aspirin (Children'S Aspirin) 81 mg 1X ONCE PO Last administered on 11/06/18 04:12; Start 11/06/18 at 03:30; Stop 11/06/18 at 03:32; Status DC Sodium Chloride 1,000 ml @ 100 mls/hr Q10H IV Last administered on 11/07/18 06:20; Start 11/06/18 at 04:30; Stop 11/07/18 at 09:35; Status DC Docusate Sodium (Colace) 100 mg DAILY PRN PO CONSTIPATION Last administered on 11/10/18 20:08; Start 11/06/18 at 10:00 Gabapentin (Neurontin) 100 mg TID PO Last administered on 11/11/18 20:13; Start 11/06/18 at 10:30 Pantoprazole Sodium (Protonix) 40 mg DAILYAC PO Last administered on 11/11/18 07:49; Start 11/06/18 at 10:30 Hydrocortisone Acetate (Anucort-Hc) 25 mg PRN DAILY PRN VA RECTAL PAIN; Start 11/06/18 at 10:30 Polyethylene Glycol (miraLAX PACKET) 17 gm PRN DAILY PRN PO CONSTIPATION Last administered on 11/10/18 20:08; Start 11/06/18 at 09:00 Non-Formulary Medication (Rosuvastatin Calcium (Crestor)) 0.5 tab TuThSa@2100 PO Last administered on 11/11/18 20:13; Start 11/09/18 at 21:00 Losartan Potassium (Cozaar) 25 mg DAILY PO Last administered on 11/07/18at 08:14; Start 11/06/18 at 10:30; Stop 11/08/18 at 07:58; Status DC Haloperidol Lactate (Haldol Inj) 2 mg 1X ONCE IVP Last administered on 11/06/18 13:30; Start 11/06/18 at 13:30; Stop 11/06/18 at 13:31; Status DC Quetiapine Fumarate (SEROquel) 12.5 mg BID PO Last administered on 11/11/18at 20:13; Start 11/06/18 at 14:00 Lorazepam (Ativan Inj) 1 mg PRN Q4HRS PRN IV ANXIETY / AGITATION, 1st CHOIC Last administered on 11/12/18at 00:20; Start 11/06/18 at 14:30 Haloperidol Lactate (Haldol Inj) 2.5 mg PRN Q6HRS PRN IVP AGITATION, 2nd CHOICE Last administered on 11/09/18 23:03; Start 11/07/18 at 09:45; Stop 11/10/18 at 17:12; Status DC Acetaminophen (Tylenol) 500 mg PRN Q6HRS PRN PO HEADACHE / TEMP; Start 11/07/18 at 09:45 Hydralazine HCl (Apresoline Inj) 10 mg PRN Q4HRS PRN IVP ELEVATED BP, SEE COMMENTS Last administered on 11/09/18at 18:40; Start 11/07/18 at 09:45 Ondansetron HCl (Zofran) 4 mg PRN Q6HRS PRN IV NAUSEA/VOMITING; Start 11/07/18 at 09:45 Vitamin D (Vitamin D3) 1,000 unit BID PO Last administered on 11/11/18at 20:12; Start 11/07/18 at 10:00 Non-Formulary Medication (Melatonin ) 1 tab QHS PO ; Start 11/07/18 at 21:00; Status UNV Amino Acids/ Glycerin/ Electrolytes 1,000 ml @ 80 mls/hr [id number] IV ; Start 11/07/18 at 14:00; Stop 11/07/18 at 14:00; Status DC Losartan Potassium (Cozaar) 100 mg DAILY PO Last administered on 11/11/18 07:49; Start 11/08/18 at 09:00 Fentanyl Citrate (Fentanyl 2ml Vial) 25 mcg PRN Q5MIN PRN IV MILD PAIN 1-3; Start 11/09/18 at 07:00; Stop 11/10/18 at 06:59; Status DC Fentanyl Citrate (Fentanyl 2ml Vial) 50 mcg PRN Q5MIN PRN IV MODERATE TO SEVERE PAIN; Start 11/09/18 at 07:00; Stop 11/10/18 at 06:59; Status DC Morphine Sulfate (Morphine Sulfate) 1 mg PRN Q10MIN PRN IV SEVERE PAIN 7-10; Start 11/09/18 at 07:00; Stop 11/10/18 at 06:59; Status DC Ringer's Solution 1,000 ml @ 30 mls/hr Q24H IV Last administered on 11/09/18at 14:30; Start 11/09/18 at 07:00; Stop 11/09/18 at 18:59; Status DC Lidocaine HCl (Xylocaine-Mpf 1% 2ml Vial) 2 ml PRN 1X PRN ID IV START; Start 11/09/18 at 07:00; Stop 11/10/18 at 06:59; Status DC Hydromorphone HCl (Dilaudid) 0.5 mg PRN Q10MIN PRN IV SEV PAIN, Second choice; Start 11/09/18 at 07:00; Stop 11/10/18 at 06:59; Status DC Prochlorperazine Edisylate (Compazine) 5 mg PACU PRN PRN IV NAUSEA, MRX1; Start 11/09/18 at 07:00; Stop 11/10/18 at 06:59; Status DC Vancomycin HCl 1 gm/Sodium Chloride 250 ml @ 250 mls/hr 1X ONCE IV Last administered on 11/09/18at 06:07; Start 11/09/18 at 06:00; Stop 11/09/18 at 06:59; Status DC Heparin Sodium (Porcine) 5000 unit/Ringer's Solution 505 ml @ 505 mls/hr 1X ONCE IRR ; Start 11/09/18 at 06:00; Stop 11/09/18 at 06:59; Status DC Aspirin (Children'S Aspirin) 81 mg [id number] PO Last administered on 11/11/18at 07:49; Start 11/08/18 at 14:00 Fentanyl Citrate (Fentanyl 2ml Vial) 25 mcg PRN Q5MIN PRN IV MILD PAIN 1-3; Start 11/09/18 at 11:30; Stop 11/10/18 at 11:29; Status Cancel Fentanyl Citrate (Fentanyl 2ml Vial) 50 mcg PRN Q5MIN PRN IV MODERATE TO SEVERE PAIN; Start 11/09/18 at 11:30; Stop 11/09/18 at 11:30; Status DC Morphine Sulfate (Morphine Sulfate) 1 mg PRN Q10MIN PRN IV SEVERE PAIN 7-10; Start 11/09/18 at 11:30; Stop 11/10/18 at 10:05; Status DC Ringer's Solution 1,000 ml @ 30 mls/hr Q24H IV ; Start 11/09/18 at 11:19; Stop 11/09/18 at 23:18; Status DC Hydromorphone HCl (Dilaudid) 0.5 mg PRN Q10MIN PRN IV SEV PAIN, Second choice; Start 11/09/18 at 11:30; Stop 11/10/18 at 11:29; Status DC Prochlorperazine Edisylate (Compazine) 5 mg PACU PRN PRN IV NAUSEA, MRX1; Start 11/09/18 at 11:30; Stop 11/10/18 at 11:29; Status DC Benzocaine (Hurricaine One) 1 spray STK-MED ONCE .ROUTE ; Start 11/09/18 at 12:33; Stop 11/09/18 at 12:34; Status DC Lidocaine HCl (Xylocaine 2% Topical 30gm Tube) 30 ian STK-MED ONCE TP ; Start 11/09/18 at 12:34; Stop 11/09/18 at 12:35; Status DC Lidocaine HCl (Viscous Lidocaine) 15 ml STK-MED ONCE .ROUTE ; Start 11/09/18 at 12:34; Stop 11/09/18 at 12:35; Status DC Benzocaine (Hurricaine One) 2 spray 1X ONCE MM Last administered on 11/09/18at 14:30; Start 11/09/18 at 13:45; Stop 11/09/18 at 13:46; Status DC Lidocaine HCl (Xylocaine 2% Topical 30gm Tube) 1 ian 1X ONCE TP Last administered on 11/09/18at 14:30; Start 11/09/18 at 13:45; Stop 11/09/18 at 13:46; Status DC Lidocaine HCl (Viscous Lidocaine) 15 ml 1X ONCE SWSW Last administered on 11/09/18at 14:30; Start 11/09/18 at 13:45; Stop 11/09/18 at 13:46; Status DC Magnesium Hydroxide (Milk Of Magnesia) 2,400 mg 1X ONCE PO Last administered on 11/11/18at 07:48; Start 11/11/18 at 09:00; Stop 11/11/18 at 09:01; Status DC Haloperidol Lactate (Haldol Inj) 1.25 mg PRN Q6HRS PRN IVP AGITATION Last administered on 11/11/18at 00:47; Start 11/10/18 at 17:15 Propofol 20 ml @ As Directed STK-MED ONCE IV ; Start 11/09/18 at 14:29; Stop 11/10/18 at 19:36; Status DC Diphenhydramine HCl (Benadryl) 50 mg PRN QHS PRN PO INSOMNIA; Start 11/10/18 at 23:15 Heparin Sodium (Porcine) 5000 unit/Sodium Chloride 505 ml @ 505 mls/hr 1X ONCE IRR ; Start 11/12/18 at 06:00; Stop 11/12/18 at 06:59; Status DC Cefazolin Sodium 1 gm/Sodium Chloride 500 ml @ 500 mls/hr 1X ONCE IRR ; Start 11/12/18 at 06:00; Stop 11/12/18 at 06:59; Status DC Ondansetron HCl (Zofran) 4 mg PRN Q6HRS PRN IV NAUSEA/VOMITING; Start 11/12/18 at 06:45; Stop 11/13/18 at 06:44 Fentanyl Citrate (Fentanyl 2ml Vial) 25 mcg PRN Q5MIN PRN IV MILD PAIN 1-3; St art 11/12/18 at 06:45; Stop 11/13/18 at 06:44 Fentanyl Citrate (Fentanyl 2ml Vial) 50 mcg PRN Q5MIN PRN IV MODERATE TO SEVERE PAIN; Start 11/12/18 at 06:45; Stop 11/13/18 at 06:44 Ringer's Solution 1,000 ml @ 30 mls/hr Q24H IV ; Start 11/12/18 at 06:45; Stop 11/12/18 at 06:58; Status DC Lidocaine HCl (Xylocaine-Mpf 1% 2ml Vial) 2 ml 1X PRN PRN ID IV START; Start 11/12/18 at 06:45; Stop 11/13/18 at 06:44 Prochlorperazine Edisylate (Compazine) 5 mg PACU PRN PRN IV NAUSEA, MRX1; Start 11/12/18 at 06:45; Stop 11/13/18 at 06:44 Cellulose (Surgicel Fibrillar 1x2) 1 each STK-MED ONCE .ROUTE ; Start 11/12/18 at 06:35; Stop 11/12/18 at 07:36; Status DC Lidocaine HCl (Xylocaine 1% Pf 30ml Vial) 30 ml STK-MED ONCE .ROUTE ; Start 11/12/18 at 06:35; Stop 11/12/18 at 07:36; Status DC Protamine Sulfate (Protamine) 50 mg STK-MED ONCE IV ; Start 11/12/18 at 06:35; Stop 11/12/18 at 07:36; Status DC Active Scripts Active Reported Melatonin 3 Mg Tablet 1 Tab PO QHS Losartan Potassium 100 Mg Tablet 100 Mg PO DAILY Crestor (Rosuvastatin Calcium) 5 Mg Tablet 1 Tab PO QODAY Miralax (Polyethylene Glycol 3350) 17 Gm Powd.pack 1 Packet PO DAILY PRN Pantoprazole Sodium (Pantoprazole Sodium) 40 Mg Tablet.dr 40 Mg PO DAILYAC Anusol-Hc (Hydrocortisone Acetate) 25 Mg Supp.rect 1 Supp RC DAILY PRN Gabapentin (Gabapentin) 100 Mg Capsule 100 Mg PO TID Docusate Sodium 100 Mg Capsule 1 Cap PO DAILY PRN Vitamin D (Cholecalciferol (Vitamin D3)) 1,000 Unit Capsule 1 Cap PO BID Vitals/I & O Vital Sign - Last 24 Hours 11/11/18 11/11/18 11/11/18 11/11/18 11:15 15:00 19:05 20:00 Temp 98.1 98.0 98.0 98.1 98.0 98.0 Pulse 64 64 81 Resp 16 16 18 B/P (MAP) 137/44 (75) 167/53 (91) 153/50 (84) Pulse Ox 99 100 97 O2 Delivery Room Air Room Air Room Air Room Air O2 Flow Rate 6.0 11/11/18 11/12/18 11/12/18 11/12/18 23:03 03:46 06:37 07:00 Temp 98.2 97.8 97.6 98.2 97.8 97.6 Pulse 85 68 73 Resp 16 20 16 22 B/P (MAP) 173/59 (97) 171/58 (95) 176/60 (98) Pulse Ox 94 96 96 O2 Delivery Room Air Room Air Room Air Room Air Intake and Output 11/11/18 11/11/18 11/12/18 14:59 22:59 06:59 Intake Total 400 ml Output Total 2 ml 851 ml Balance -2 ml -451 ml DWIGHT SAENZ MD Nov 12, 2018 09:49
--- NOTE | 2018-11-12 10:18 | NUR ---
SS following up with discharge planning. Pt remains on 1:1 status. Pt scheduled for endarterectomy today. PT/OT recommending senior living unit. Pt's family requested referrals be sent to [facility] or [facility] when ready. SS will continue to follow for discharge planning.
[2018-11-12] MEDS ORDERED: MIDAZOLAM HCL/PF 2 MG/2 ML VIAL. ONE (10:32)
[2018-11-12] MEDS ORDERED: HEPARIN for IV BOLUS 10,000 UNIT/10 ML VIAL. ONE (10:49)
[2018-11-12] MEDS ORDERED: BUPIVACAINE MPF 0.25% 30 ML VIAL. ONE (10:51)
--- NOTE | 2018-11-12 11:25 | PDOC ---
PROGRESS NOTES Chief Complaint Chief Complaint 1. Severe greater than 75% stenosis of the left internal carotid artery by CT angiogram done at [facility], which I reviewed the images from, this may be symptomatic with a transient ischemic attack with his recent symptoms of aphasia. 2. Mitral valve disease, which he is supposed to undergo heart surgery for in the near future. 3. Recent gastrointestinal bleed 4. Psychosis. 5. Metabolic encephalopathy. 6. Dementia features. 7. No evidence of acute CVA this brittney 8. LABILE BP History of Present Illness History of Present Illness transferred out of ICU 11/06/18 vascular surgery plans for endarterectomy on 11/12 JIGAR i have left in room HE is out having CEA by vasc sx - mod reisk per preop cards assessment Plan Social work CONSULT Recommended SNF veterans insurance - will have PT re eval Family is agreeable to SNF JIGAR REVIEWED vascular surgery plans for endarterectomy on 11/12 Full code MS at baseline Vitals Vitals Vital Signs Date Time Temp Pulse Resp B/P (MAP) Pulse Ox O2 Delivery O2 Flow Rate FiO2 11/12/18 10:00 97.7 68 26 168/48 (88) 97 Room Air 97.7 11/11/18 20:00 6.0 Physical Exam General: Alert, Oriented X3, Cooperative, No acute distress Heart: Regular rate, Normal S1, Normal S2, Other (2/6 systolic murmur.) Lungs: Clear, Other (diminished on the bases, ) Abdomen: Normal bowel sounds Extremities: No clubbing, No cyanosis, No edema Skin: No rashes, No breakdown, No significant lesion Review of Systems Review of Systems A 14 point ROS was completed with the following noted as positive: Other systems reviewed and negative. \CONSTITUTIONAL: No fever or chills EYES: No recent changes SKIN: No rash or itching CARDIOVASCULAR: No chest pain, syncope, palpitations, or edema RESPIRATORY: No SOB or cough GASTROINTESTINAL: No nausea, vomiting or abdominal pain NEUROLOGICAL: No headaches or weakness ENDOCRINE: No cold or heat intolerance GENITOURINARY: No urgency or frequency of urination MUSCULOSKELETAL: No back pain or joint pain LYMPHATICS: No enlarged lymph nodes PSYCHIATRIC: No anxiety or depression Assessment and Plan Assessmemt and Plan Problems Medical Problems: (1) Acute CVA (cerebrovascular accident) Status: Acute (2) Acute encephalopathy Status: Acute (3) Carotid artery stenosis Status: Chronic (4) Gastrointestinal bleed Status: Acute (5) Hypertension Status: Chronic (6) Mitral valve insufficiency Status: Acute Comment Review of Relevant I have reviewed the following items hamzah (where applicable) has been applied. Labs Laboratory Tests Test 11/10/18 18:40 11/11/18 03:25 Urine Collection Type Unknown Urine Color Yellow Urine Clarity Clear Urine pH 6.0 Urine Specific [place] 1.020 Urine Protein 100 mg/dL (NEG-TRACE) Urine Glucose (UA) Negative mg/dL (NEG) Urine Ketones (Stick) Negative mg/dL (NEG) Urine Blood Negative (NEG) Urine Nitrite Negative (NEG) Urine Bilirubin Negative (NEG) Urine Urobilinogen Dipstick 1.0 mg/dL (0.2 mg/dL) Urine Leukocyte Esterase Negative (NEG) Urine RBC 0 /HPF (0-2) Urine WBC Rare /HPF (0-4) Urine Squamous Epithelial Cells Occ /LPF Urine Bacteria 0 /HPF (0-FEW) Urine Mucus Slight /LPF White Blood Count 5.3 x10^3/uL (4.0-11.0) Red Blood Count 3.35 x10^6/uL (4.30-5.70) Hemoglobin 10.2 g/dL (13.0-17.5) Hematocrit 30.1 % (39.0-53.0) Mean Corpuscular Volume 90 fL (79-100) Mean Corpuscular Hemoglobin 31 pg (25-35) Mean Corpuscular Hemoglobin Concent 34 g/dL (31-37) Red Cell Distribution Width 16.0 % (11.5-14.5) Platelet Count 109 x10^3/uL (140-400) Neutrophils (%) (Auto) 67 % (31-73) Lymphocytes (%) (Auto) 17 % (24-48) Monocytes (%) (Auto) 9 % (0-9) Eosinophils (%) (Auto) 6 % (0-3) Basophils (%) (Auto) 1 % (0-3) Neutrophils # (Auto) 3.6 x10^3/uL (1.8-7.7) Lymphocytes # (Auto) 0.9 x10^3/uL (1.0-4.8) Monocytes # (Auto) 0.5 x10^3/uL (0.0-1.1) Eosinophils # (Auto) 0.3 x10^3/uL (0.0-0.7) Basophils # (Auto) 0.0 x10^3/uL (0.0-0.2) Sodium Level 139 mmol/L (136-145) Potassium Level 4.0 mmol/L (3.5-5.1) Chloride Level 104 mmol/L (98-107) Carbon Dioxide Level 27 mmol/L (21-32) Anion Gap 8 (6-14) Blood Urea Nitrogen 19 mg/dL (8-26) Creatinine 1.3 mg/dL (0.7-1.3) Estimated GFR (Cockcroft-Gault) 53.8 BUN/Creatinine Ratio 15 (6-20) Glucose Level 110 mg/dL (70-99) Calcium Level 8.6 mg/dL (8.5-10.1) Total Bilirubin 0.6 mg/dL (0.2-1.0) Aspartate Amino Transf (AST/SGOT) 17 U/L (15-37) Alanine Aminotransferase (ALT/SGPT) 16 U/L (16-63) Alkaline Phosphatase 88 U/L (46-116) Total Protein 6.1 g/dL (6.4-8.2) Albumin 2.7 g/dL (3.4-5.0) Albumin/Globulin Ratio 0.8 (1.0-1.7) Medications Current Medications Aspirin (Children'S Aspirin) 81 mg 1X ONCE PO Last administered on 11/06/18at 04:12; Start 11/06/18 at 03:30; Stop 11/06/18 at 03:32; Status DC Sodium Chloride 1,000 ml @ 100 mls/hr Q10H IV Last administered on 11/07/18at 06:20; Start 11/06/18 at 04:30; Stop 11/07/18 at 09:35; Status DC Docusate Sodium (Colace) 100 mg DAILY PRN PO CONSTIPATION Last administered on 11/10/18 20:08; Start 11/06/18 at 10:00 Gabapentin (Neurontin) 100 mg TID PO Last administered on 11/11/18at 20:13; Start 11/06/18 at 10:30 Pantoprazole Sodium (Protonix) 40 mg DAILYAC PO Last administered on 11/11/18at 07:49; Start 11/06/18 at 10:30 Hydrocortisone Acetate (Anucort-Hc) 25 mg PRN DAILY PRN RI RECTAL PAIN; Start 11/06/18 at 10:30 Polyethylene Glycol (miraLAX PACKET) 17 gm PRN DAILY PRN PO CONSTIPATION Last administered on 11/10/18at 20:08; Start 11/06/18 at 09:00 Non-Formulary Medication (Rosuvastatin Calcium (Crestor)) 0.5 tab TuThSa@2100 PO Last administered on 11/11/18 20:13; Start 11/09/18 at 21:00 Losartan Potassium (Cozaar) 25 mg DAILY PO Last administered on 11/07/18 08:14 ; Start 11/06/18 at 10:30; Stop 11/08/18 at 07:58; Status DC Haloperidol Lactate (Haldol Inj) 2 mg 1X ONCE IVP Last administered on 11/06/18 13:30; Start 11/06/18 at 13:30; Stop 11/06/18 at 13:31; Status DC Quetiapine Fumarate (SEROquel) 12.5 mg BID PO Last administered on 11/11/18 20:13; Start 11/06/18 at 14:00 Lorazepam (Ativan Inj) 1 mg PRN Q4HRS PRN IV ANXIETY / AGITATION, 1st CHOIC Last administered on 11/12/18at 00:20; Start 11/06/18 at 14:30 Haloperidol Lactate (Haldol Inj) 2.5 mg PRN Q6HRS PRN IVP AGITATION, 2nd CHOICE Last administered on 11/09/18 23:03; Start 11/07/18 at 09:45; Stop 11/10/18 at 17:12; Status DC Acetaminophen (Tylenol) 500 mg PRN Q6HRS PRN PO HEADACHE / TEMP; Start 11/07/18 at 09:45 Hydralazine HCl (Apresoline Inj) 10 mg PRN Q4HRS PRN IVP ELEVATED BP, SEE COMMENTS Last administered on 11/09/18at 18:40; Start 11/07/18 at 09:45 Ondansetron HCl (Zofran) 4 mg PRN Q6HRS PRN IV NAUSEA/VOMITING; Start 11/07/18 at 09:45 Vitamin D (Vitamin D3) 1,000 unit BID PO Last administered on 11/11/18at 20:12; Start 11/07/18 at 10:00 Non-Formulary Medication (Melatonin ) 1 tab QHS PO ; Start 11/07/18 at 21:00; Status UNV Amino Acids/ Glycerin/ Electrolytes 1,000 ml @ 80 mls/hr [id number] IV ; Start 11/07/18 at 14:00; Stop 11/07/18 at 14:00; Status DC Losartan Potassium (Cozaar) 100 mg DAILY PO Last administered on 11/11/18at 07:49; Start 11/08/18 at 09:00 Fentanyl Citrate (Fentanyl 2ml Vial) 25 mcg PRN Q5MIN PRN IV MILD PAIN 1-3; Start 11/09/18 at 07:00; Stop 11/10/18 at 06:59; Status DC Fentanyl Citrate (Fentanyl 2ml Vial) 50 mcg PRN Q5MIN PRN IV MODERATE TO SEVERE PAIN; Start 11/09/18 at 07:00; Stop 11/10/18 at 06:59; Status DC Morphine Sulfate (Morphine Sulfate) 1 mg PRN Q10MIN PRN IV SEVERE PAIN 7-10; Start 11/09/18 at 07:00; Stop 11/10/18 at 06:59; Status DC Ringer's Solution 1,000 ml @ 30 mls/hr Q24H IV Last administered on 11/09/18at 14:30; Start 11/09/18 at 07:00; Stop 11/09/18 at 18:59; Status DC Lidocaine HCl (Xylocaine-Mpf 1% 2ml Vial) 2 ml PRN 1X PRN ID IV START; Start 11/09/18 at 07:00; Stop 11/10/18 at 06:59; Status DC Hydromorphone HCl (Dilaudid) 0.5 mg PRN Q10MIN PRN IV SEV PAIN, Second choice; Start 11/09/18 at 07:00; Stop 11/10/18 at 06:59; Status DC Prochlorperazine Edisylate (Compazine) 5 mg PACU PRN PRN IV NAUSEA, MRX1; Start 11/09/18 at 07:00; Stop 11/10/18 at 06:59; Status DC Vancomycin HCl 1 gm/Sodium Chloride 250 ml @ 250 mls/hr 1X ONCE IV Last administered on 11/09/18at 06:07; Start 11/09/18 at 06:00; Stop 11/09/18 at 06:59; Status DC Heparin Sodium (Porcine) 5000 unit/Ringer's Solution 505 ml @ 505 mls/hr 1X ONCE IRR ; Start 11/09/18 at 06:00; Stop 11/09/18 at 06:59; Status DC Aspirin (Children'S Aspirin) 81 mg DAILYWBKFT PO Last administered on 11/11/18at 07:49; Start 11/08/18 at 14:00 Fentanyl Citrate (Fentanyl 2ml Vial) 25 mcg PRN Q5MIN PRN IV MILD PAIN 1-3; Start 11/09/18 at 11:30; Stop 11/10/18 at 11:29; Status Cancel Fentanyl Citrate (Fentanyl 2ml Vial) 50 mcg PRN Q5MIN PRN IV MODERATE TO SEVERE PAIN; Start 11/09/18 at 11:30; Stop 11/09/18 at 11:30; Status DC Morphine Sulfate (Morphine Sulfate) 1 mg PRN Q10MIN PRN IV SEVERE PAIN 7-10; Start 11/09/18 at 11:30; Stop 11/10/18 at 10:05; Status DC Ringer's Solution 1,000 ml @ 30 mls/hr Q24H IV ; Start 11/09/18 at 11:19; Stop 11/09/18 at 23:18; Status DC Hydromorphone HCl (Dilaudid) 0.5 mg PRN Q10MIN PRN IV SEV PAIN, Second choice; Start 11/09/18 at 11:30; Stop 11/10/18 at 11:29; Status DC Prochlorperazine Edisylate (Compazine) 5 mg PACU PRN PRN IV NAUSEA, MRX1; Start 11/09/18 at 11:30; Stop 11/10/18 at 11:29; Status DC Benzocaine (Hurricaine One) 1 spray STK-MED ONCE .ROUTE ; Start 11/09/18 at 12:33; Stop 11/09/18 at 12:34; Status DC Lidocaine HCl (Xylocaine 2% Topical 30gm Tube) 30 ian STK-MED ONCE TP ; Start 11/09/18 at 12:34; Stop 11/09/18 at 12:35; Status DC Lidocaine HCl (Viscous Lidocaine) 15 ml STK-MED ONCE .ROUTE ; Start 11/09/18 at 12:34; Stop 11/09/18 at 12:35; Status DC Benzocaine (Hurricaine One) 2 spray 1X ONCE MM Last administered on 11/09/18at 14:30; Start 11/09/18 at 13:45; Stop 11/09/18 at 13:46; Status DC Lidocaine HCl (Xylocaine 2% Topical 30gm Tube) 1 ian 1X ONCE TP Last administered on 11/09/18at 14:30; Start 11/09/18 at 13:45; Stop 11/09/18 at 13:46; Status DC Lidocaine HCl (Viscous Lidocaine) 15 ml 1X ONCE SWSW Last administered on 11/09/18at 14:30; Start 11/09/18 at 13:45; Stop 11/09/18 at 13:46; Status DC Magnesium Hydroxide (Milk Of Magnesia) 2,400 mg 1X ONCE PO Last administered on 11/11/18at 07:48; Start 11/11/18 at 09:00; Stop 11/11/18 at 09:01; Status DC Haloperidol Lactate (Haldol Inj) 1.25 mg PRN Q6HRS PRN IVP AGITATION Last administered on 11/11/18at 00:47; Start 11/10/18 at 17:15 Propofol 20 ml @ As Directed STK-MED ONCE IV ; Start 11/09/18 at 14:29; Stop 11/10/18 at 19:36; Status DC Diphenhydramine HCl (Benadryl) 50 mg PRN QHS PRN PO INSOMNIA; Start 11/10/18 at 23:15 Heparin Sodium (Porcine) 5000 unit/Sodium Chloride 505 ml @ 505 mls/hr 1X ONCE IRR ; Start 11/12/18 at 06:00; Stop 11/12/18 at 06:59; Status DC Cefazolin Sodium 1 gm/Sodium Chloride 500 ml @ 500 mls/hr 1X ONCE IRR ; Start 11/12/18 at 06:00; Stop 11/12/18 at 06:59; Status DC Ondansetron HCl (Zofran) 4 mg PRN Q6HRS PRN IV NAUSEA/VOMITING; Start 11/12/18 at 06:45; Stop 11/13/18 at 06:44 Fentanyl Citrate (Fentanyl 2ml Vial) 25 mcg PRN Q5MIN PRN IV MILD PAIN 1-3; Start 11/12/18 at 06:45; Stop 11/13/18 at 06:44 Fentanyl Citrate (Fentanyl 2ml Vial) 50 mcg PRN Q5MIN PRN IV MODERATE TO SEVERE PAIN; Start 11/12/18 at 06:45; Stop 11/13/18 at 06:44 Ringer's Solution 1,000 ml @ 30 mls/hr Q24H IV ; Start 11/12/18 at 06:45; Stop 11/12/18 at 06:58; Status DC Lidocaine HCl (Xylocaine-Mpf 1% 2ml Vial) 2 ml 1X PRN PRN ID IV START; Start 11/12/18 at 06:45; Stop 11/13/18 at 06:44 Prochlorperazine Edisylate (Compazine) 5 mg PACU PRN PRN IV NAUSEA, MRX1; Start 11/12/18 at 06:45; Stop 11/13/18 at 06:44 Cellulose (Surgicel Fibrillar 1x2) 1 each STK-MED ONCE .ROUTE ; Start 11/12/18 at 06:35; Stop 11/12/18 at 07:36; Status DC Lidocaine HCl (Xylocaine 1% Pf 30ml Vial) 30 ml STK-MED ONCE .ROUTE ; Start 10/19 10/06 at 06:35; Stop 11/12/18 at 07:36; Status DC Protamine Sulfate (Protamine) 50 mg STK-MED ONCE IV ; Start 11/12/18 at 06:35; Stop 11/12/18 at 07:36; Status DC Midazolam HCl (Versed) 2 mg STK-MED ONCE .ROUTE ; Start 11/12/18 at 10:32; Stop 11/12/18 at 10:33; Status DC Heparin Sodium (Porcine) (Heparin Sodium) 10,000 unit STK-MED ONCE .ROUTE ; Start 11/12/18 at 10:49; Stop 11/12/18 at 10:50; Status DC Bupivacaine HCl (Sensorcaine Mpf 0.25%) 30 ml STK-MED ONCE .ROUTE ; Start 11/12/18 at 10:51; Stop 11/12/18 at 10:52; Status DC Active Scripts Active Reported Melatonin 3 Mg Tablet 1 Tab PO QHS Losartan Potassium 100 Mg Tablet 100 Mg PO DAILY Crestor (Rosuvastatin Calcium) 5 Mg Tablet 1 Tab PO QODAY Miralax (Polyethylene Glycol 3350) 17 Gm Powd.pack 1 Packet PO DAILY PRN Pantoprazole Sodium (Pantoprazole Sodium) 40 Mg Tablet.dr 40 Mg PO DAILYAC Anusol-Hc (Hydrocortisone Acetate) 25 Mg Supp.rect 1 Supp RC DAILY PRN Gabapentin (Gabapentin) 100 Mg Capsule 100 Mg PO TID Docusate Sodium 100 Mg Capsule 1 Cap PO DAILY PRN Vitamin D (Cholecalciferol (Vitamin D3)) 1,000 Unit Capsule 1 Cap PO BID Vitals/I & O Vital Sign - Last 24 Hours 11/11/18 11/11/18 11/11/18 11/11/18 15:00 19:05 20:00 23:03 Temp 98.0 98.0 98.2 98.0 98.0 98.2 Pulse 64 81 85 Resp 16 18 16 B/P (MAP) 167/53 (91) 153/50 (84) 173/59 (97) Pulse Ox 100 97 94 O2 Delivery Room Air Room Air Room Air Room Air O2 Flow Rate 6.0 11/12/18 11/12/18 11/12/18 11/12/18 03:46 06:37 07:00 08:00 Temp 97.8 97.6 97.8 97.6 Pulse 68 73 Resp 20 16 22 B/P (MAP) 171/58 (95) 176/60 (98) Pulse Ox 96 96 O2 Delivery Room Air Room Air Room Air Room Air 11/12/18 10:00 Temp 97.7 97.7 Pulse 68 Resp 26 B/P (MAP) 168/48 (88) Pulse Ox 97 O2 Delivery Room Air Intake and Output 11/11/18 11/11/18 11/12/18 14:59 22:59 06:59 Intake Total 400 ml Output Total 2 ml 851 ml Balance -2 ml -451 ml JOSE OCHOA MD Nov 12, 2018 11:25
[2018-11-12] MEDS ORDERED: 0.9 % SODIUM CHLORIDE 10 ML DISP.SYRIN. IV PRN (11:45)
[2018-11-12] MEDS ORDERED: HYDROcodone/APAP 5/325MG 1 TAB TABLET PO PRN (11:45)
[2018-11-12] MEDS ORDERED: LABETALOL 20 MG/4 ML DISP.SYRIN. IVP PRN ×2 (11:45→14:00)
--- NOTE | 2018-11-12 12:00 | NUR ---
Patient left the unit at 1018 for scheduled carotid endarterectomy at 1100. He's awake, alert, oriented x 2;his at the bedside.
[2018-11-12] MEDS ORDERED: fentaNYL PF VIAL 100 MCG/2 ML VIAL ONE (12:04)
[2018-11-12] MEDS ORDERED: PROPOFOL 20 ML IV ONE (12:43)
--- NOTE | 2018-11-12 13:23 | PDOC ---
BRIEF OPERATIVE NOTE Date: Nov 12, 2018 Pre-Op Diagnosis Left carotid stenosis, symptomatic Post-Op Diagnosis same Procedure Performed Left carotid endarterectomy Surgeon Dr. Felton Banking Officer Una Crum NP Anesthesia Type: Regional Blood Loss 50cc Specimens Obtained discard Findings 70% stenosis Complications none Operative Note see dictated note UNA CRUM TIPPLE REPAIRER Nov 12, 2018 13:23
--- NOTE | 2018-11-12 15:12 | OP ---
DATE OF SURGERY: 11/12/2018 SURGEON: Elisha Felton MD SENIOR RADIATION PROTECTION TECHNICIAN: Anat Solis, nurse practitioner. PREOPERATIVE DIAGNOSES: Left internal carotid artery, severe greater than 75% stenosis, which is symptomatic with a transient ischemic attack. POSTOPERATIVE DIAGNOSES: Greater than 70% stenosis of the origin and proximal internal carotid artery and the bulb. OPERATION PERFORMED: Left carotid endarterectomy using the eversion endarterectomy technique. ANESTHESIA USED: Left neck cervical block and monitored sedation. BLOOD LOSS: 50 mL. INDICATIONS: The patient is a 73-year-old male who has a long history of mental issues with dementia, who at home had an episode of inability to speak with aphasia. This eventually resolved and he was back to his baseline. In his evaluation, he had a CT angiogram of the head and neck, which shows greater than 75% stenosis of the left proximal internal carotid artery. I recommended a left carotid endarterectomy to help prevent future strokes. Informed consent was obtained from the patient and his family including his , including the risk of bleeding, infection, intraoperative or postoperative stroke, nerve damage and possible recurrent carotid arterial disease in the future. DETAILS OF THE OPERATION: The patient was brought in to the operating room and placed on table in supine position. He received monitored sedation and a left neck cervical block by Anesthesia. We positioned his neck appropriately to expose the left neck and chest. We prepped the left neck and chest and draped the patient. A timeout was performed identifying the correct patient, procedure, and location. We then tested his neck. We pinched the skin along the neck and he had no pain. We then performed a longitudinal incision just anterior to the left sternocleidomastoid muscle. We dissected down to the subcutaneous tissue and the platysma with electrocautery. We identified the sternocleidomastoid muscle and dissected it out and mobilized it laterally to expose the jugular vein. The jugular vein was dissected out and mobilized laterally. Proximally, there were multiple branches of the jugular vein, which were ligated with silk sutures, clips and divided to be able to fully mobilize it laterally down to the carotid vessel. Proximally in the wound, we dissected out the common carotid artery. We heparinized with 8000 units of heparin. The common carotid artery was soft. We dissected it out and placed umbilical tape around it with a loose Rumel tourniquet. We continued dissection up to the bulb and dissected out the external carotid artery. We placed a vessel loop around the external carotid artery just below its branches. We then test clamped the patient. We clamped the proximal common carotid artery and external carotid artery. He was still able to speak and answer questions and squeeze his right hand with good strength. We then continued dissection of the internal carotid artery. We identified the hypoglossal nerve and preserved it throughout the dissection. The proximal internal carotid artery and bulb were heavily calcified, but the mid and distal segment were nice and soft. We dissected it out up to the distal internal carotid artery and placed a straight spring bulldog across the vessel. He continued to be neurologically intact. We then transected the internal carotid artery in an angled fashion at the bulb. We spatulated the medial wall of the vessel and we spatulated the anterior wall of the common carotid artery. There was dense plaque within the vessel of greater than 70%. We performed an eversion endarterectomy of the internal carotid artery up to healthy vessel at the mid segment. There is no residual plaque. All pieces of debris were removed off the endarterectomized plane and the end was very clean. We irrigated with heparinized saline. We then performed an eversion endarterectomy of the common carotid artery and external carotid artery, the external carotid artery was widely patent after removing the plaque and we endarterectomized down to healthy common carotid artery where there was no residual plaque. All pieces of debris were removed. We irrigated with heparinized saline. We performed anastomosis in an end-to-end fashion between the internal carotid artery and the open common carotid artery using running 6-0 Prolene suture. Prior to finishing this anastomosis, we removed the clamp off the common carotid artery. There was pulsatile inflow. We removed the clamp off the distal internal carotid artery and backbled the vessel and then we backbled the external carotid artery. We irrigated with heparinized saline and then finished the anastomosis. We first restored blood flow to the external carotid artery and then after several heartbeats, we restored to the internal carotid artery. There was some bleeding from the anastomosis just between the internal and external carotid arteries, which we oversewed with 6-0 Prolene suture. We irrigated the open wound with copious amounts of saline. We explored the wound meticulously, ensured that there was good hemostasis with clips and electrocautery. It was very dry at the end of the case. We left a #7 KENYA flat drain within the wound through a separate lower neck incision. Fibrillar was left over the vessels and anastomosis. We then closed the subcutaneous tissue and platysmal layer with running 2-0 Vicryl suture and closed the skin with running 4-0 Vicryl subcuticular suture. Dermabond was placed on the incision and a drain sponge. At the end of the case, the patient was speaking and answering questions and squeezing his right hand with no gross neurologic deficits. Anat Solis was scrubbed throughout the entire length of his carotid endarterectomy. ELISHA FELTON MD DR: ELISA/gordon JOB#: [id number] / [id number]
[2018-11-12] MEDS: IV NORMAL SALINE 1000ML BAG 1,000 ML IV SCH ×2 (15:52→23:53)
[2018-11-12] MEDS: ACETAMINOPHEN 325 MG TABLET. PO SCH (22:00)
--- NOTE | 2018-11-12 22:19 | NUR ---
KENYA drain accidental removal. Emptying KENYA drain, after closing KENYA drain, bulb re-inflated squeking nosie heard near incision site. Dr. Pineda notified- will follow up with patient tomorrow. Changed dressing per orders from Dr. Pineda. will continue to monitor patient.
[2018-11-13 01:00] VITALS: BP 156/67
[2018-11-13] MEDS: HALOPERIDOL LACTATE 5 MG/ML VIAL. IVP PRN (02:23)
[2018-11-13] MEDS ORDERED: OLANZapine IM 10 MG VIAL. IM ONE (03:30)
[2018-11-13] MEDS: ACETAMINOPHEN 325 MG TABLET. PO SCH ×3 (06:00→21:47)
[2018-11-13 07:00] VITALS: BP 167/68
[2018-11-13] MEDS: GABAPENTIN 100 MG CAPSULE. PO SCH ×4 (08:05→21:44)
[2018-11-13] MEDS: CHOLECALCIFEROL (VITAMIN D3) 1,000 UNIT TABLET PO SCH ×3 (08:05→21:44)
[2018-11-13] MEDS: ASPIRIN CHEWABLE 81 MG TABLET. PO SCH ×2 (08:05→08:59)
[2018-11-13] MEDS: LOSARTAN POTASSIUM 50 MG TABLET. PO SCH ×2 (08:06→09:00)
[2018-11-13] MEDS: PANTOPRAZOLE 40 MG TABLET.DR. PO SCH ×2 (08:06→08:59)
[2018-11-13] MEDS: QUEtiapine 25 MG TABLET. PO SCH ×3 (08:06→21:45)
[2018-11-13 09:54] LABS: BASO % 0 % (0-3); EOS # 0.1 x10^3/uL (0.0-0.7); EOS % 1 % (0-3); HEMATOCRIT 30.3 % (39.0-53.0); HEMOGLOBIN 10.2 g/dL (13.0-17.5); LYMPH # 0.5 x10^3/uL (1.0-4.8); LYMPH % 8 % (24-48); MEAN CORPUSCULAR HEMOGLOBIN 30 pg (25-35); MEAN CORPUSCULAR HGB CONC 34 g/dL (31-37); MEAN CORPUSCULAR VOLUME 91 fL (79-100); MONO # 0.5 x10^3/uL (0.0-1.1); MONO % 8 % (0-9); NEUT # 5.6 x10^3/uL (1.8-7.7); NEUT % 83 % (31-73); PLATELET COUNT 131 x10^3/uL (140-400); RED BLOOD COUNT 3.34 x10^6/uL (4.30-5.70); RED CELL DISTRIBUTION WIDTH 15.5 % (11.5-14.5); WHITE BLOOD COUNT 6.7 x10^3/uL (4.0-11.0)
[2018-11-13 10:12] LABS: CALCIUM 8.8 mg/dL (8.5-10.1); CREATININE 1.5 mg/dL (0.7-1.3); GFR 45.6; POTASSIUM 4.1 mmol/L (3.5-5.1)
[2018-11-13 11:00] VITALS: BP 127/64
--- NOTE | 2018-11-13 11:32 | PDOC ---
SURGICAL PROGRESS NOTE Subjective Patient seen and examined. Doing well. No acute events overnight. Vital Signs Vital Signs Date Time Temp Pulse Resp B/P (MAP) Pulse Ox O2 Delivery O2 Flow Rate FiO2 11/13/18 09:00 76 167/68 11/13/18 08:00 Room Air 11/13/18 07:00 98.0 16 95 98.0 11/12/18 18:41 2.0 I&O Intake and Output 11/13/18 07:00 Intake Total 975 ml Output Total 120 ml Balance 855 ml Intake Oral 75 ml IV Total 900 ml Drainage Total 70 ml Estimated Blood Loss 50 ml # Voids 3 # Bowel Movements 1 General: Alert, Oriented X3, Cooperative HEENT: Other (left carotid incision clean and dry) Neuro: Strength at 5/5 X4 ext, Sensation intact, Cranial nerves 3-12 NL Labs Laboratory Tests Test 11/13/18 09:25 11/13/18 09:35 Sodium Level 136 mmol/L (136-145) Potassium Level 4.1 mmol/L (3.5-5.1) Chloride Level 101 mmol/L (98-107) Carbon Dioxide Level 24 mmol/L (21-32) Anion Gap 11 (6-14) Blood Urea Nitrogen 24 mg/dL (8-26) Creatinine 1.5 mg/dL (0.7-1.3) Estimated GFR (Cockcroft-Gault) 45.6 Glucose Level 128 mg/dL (70-99) Calcium Level 8.8 mg/dL (8.5-10.1) White Blood Count 6.7 x10^3/uL (4.0-11.0) Red Blood Count 3.34 x10^6/uL (4.30-5.70) Hemoglobin 10.2 g/dL (13.0-17.5) Hematocrit 30.3 % (39.0-53.0) Mean Corpuscular Volume 91 fL (79-100) Mean Corpuscular Hemoglobin 30 pg (25-35) Mean Corpuscular Hemoglobin Concent 34 g/dL (31-37) Red Cell Distribution Width 15.5 % (11.5-14.5) Platelet Count 131 x10^3/uL (140-400) Neutrophils (%) (Auto) 83 % (31-73) Lymphocytes (%) (Auto) 8 % (24-48) Monocytes (%) (Auto) 8 % (0-9) Eosinophils (%) (Auto) 1 % (0-3) Basophils (%) (Auto) 0 % (0-3) Neutrophils # (Auto) 5.6 x10^3/uL (1.8-7.7) Lymphocytes # (Auto) 0.5 x10^3/uL (1.0-4.8) Monocytes # (Auto) 0.5 x10^3/uL (0.0-1.1) Eosinophils # (Auto) 0.1 x10^3/uL (0.0-0.7) Basophils # (Auto) 0.0 x10^3/uL (0.0-0.2) Laboratory Tests Test 11/13/18 09:25 11/13/18 09:35 Sodium Level 136 mmol/L (136-145) Potassium Level 4.1 mmol/L (3.5-5.1) Chloride Level 101 mmol/L (98-107) Carbon Dioxide Level 24 mmol/L (21-32) Anion Gap 11 (6-14) Blood Urea Nitrogen 24 mg/dL (8-26) Creatinine 1.5 mg/dL (0.7-1.3) Estimated GFR (Cockcroft-Gault) 45.6 Glucose Level 128 mg/dL (70-99) Calcium Level 8.8 mg/dL (8.5-10.1) White Blood Count 6.7 x10^3/uL (4.0-11.0) Red Blood Count 3.34 x10^6/uL (4.30-5.70) Hemoglobin 10.2 g/dL (13.0-17.5) Hematocrit 30.3 % (39.0-53.0) Mean Corpuscular Volume 91 fL (79-100) Mean Corpuscular Hemoglobin 30 pg (25-35) Mean Corpuscular Hemoglobin Concent 34 g/dL (31-37) Red Cell Distribution Width 15.5 % (11.5-14.5) Platelet Count 131 x10^3/uL (140-400) Neutrophils (%) (Auto) 83 % (31-73) Lymphocytes (%) (Auto) 8 % (24-48) Monocytes (%) (Auto) 8 % (0-9) Eosinophils (%) (Auto) 1 % (0-3) Basophils (%) (Auto) 0 % (0-3) Neutrophils # (Auto) 5.6 x10^3/uL (1.8-7.7) Lymphocytes # (Auto) 0.5 x10^3/uL (1.0-4.8) Monocytes # (Auto) 0.5 x10^3/uL (0.0-1.1) Eosinophils # (Auto) 0.1 x10^3/uL (0.0-0.7) Basophils # (Auto) 0.0 x10^3/uL (0.0-0.2) Problem List Problems Medical Problems: (1) Acute CVA (cerebrovascular accident) Status: Acute (2) Acute encephalopathy Status: Acute (3) Carotid artery stenosis Status: Chronic (4) Gastrointestinal bleed Status: Acute (5) Hypertension Status: Chronic (6) Mitral valve insufficiency Status: Acute Assessment/Plan Left Carotid Stenosis--doing well s/p Left CEA. Disposition planning to facility due to dementia and mobility issues. Discussed with patient, family and RN. Discussed with medical team. Will sign off. He will f/u with Dr Felton. Our office will contact. Anjum Pineda DO, ANJUM BRENNAN DO Nov 13, 2018 11:32
--- NOTE | 2018-11-13 11:39 | PDOC ---
PROGRESS NOTES Assessment Problems Medical Problems: (1) Acute CVA (cerebrovascular accident) Status: Acute (2) Acute encephalopathy Status: Acute (3) Carotid artery stenosis Status: Chronic (4) Gastrointestinal bleed Status: Acute (5) Hypertension Status: Chronic (6) Mitral valve insufficiency Status: Acute Metabolic encephalopathy, normal EEG on 11/08/18. Hyponatremia, Na 125. Left ICA stenosis, > 75%, status-post left carotid endarterectomy on 11/12. Dementia, had some sundowning last night No evidence of acute CVA History of headaches, migraine phenomena ESR 49 On 1:1 nursing Plan Recheck ESR in 2-3 weeks Continue ASA 81 mg daily Seroquel 12.5 mg to 25 mg bid. Treat medical diseases. Reevaluation for dementia in the neurology clinic in 4-6 weeks, inappropriate to diagnose dementia in the acute hospital state with multiple medical problems. SNU I discussed with the patient's Subjective No complaints Objective Vital Signs Date Time Temp Pulse Resp B/P (MAP) Pulse Ox O2 Delivery O2 Flow Rate FiO2 11/13/18 09:00 76 167/68 11/13/18 08:00 Room Air 11/13/18 07:00 98.0 16 95 98.0 11/12/18 18:41 2.0 Intake and Output 11/13/18 07:00 Intake Total 975 ml Output Total 120 ml Balance 855 ml Intake Oral 75 ml IV Total 900 ml Drainage Total 70 ml Estimated Blood Loss 50 ml # Voids 3 # Bowel Movements 1 PHYSICAL EXAM Alert, knows his name, does not know location or date PERRL. EOMI. CN: no focal findings. Muscle tone: normal. Muscle strength: 5/5 DTR: 2+ Plantar reflex: flexor Gait: not examined in bed. Sensory exam: no abnormal findings. No cerebellar signs elicited. Review of Relevant I have reviewed the following items hamzah (where applicable) has been applied. Labs Laboratory Tests Test 11/13/18 09:25 11/13/18 09:35 Sodium Level 136 mmol/L (136-145) Potassium Level 4.1 mmol/L (3.5-5.1) Chloride Level 101 mmol/L (98-107) Carbon Dioxide Level 24 mmol/L (21-32) Anion Gap 11 (6-14) Blood Urea Nitrogen 24 mg/dL (8-26) Creatinine 1.5 mg/dL (0.7-1.3) Estimated GFR (Cockcroft-Gault) 45.6 Glucose Level 128 mg/dL (70-99) Calcium Level 8.8 mg/dL (8.5-10.1) White Blood Count 6.7 x10^3/uL (4.0-11.0) Red Blood Count 3.34 x10^6/uL (4.30-5.70) Hemoglobin 10.2 g/dL (13.0-17.5) Hematocrit 30.3 % (39.0-53.0) Mean Corpuscular Volume 91 fL (79-100) Mean Corpuscular Hemoglobin 30 pg (25-35) Mean Corpuscular Hemoglobin Concent 34 g/dL (31-37) Red Cell Distribution Width 15.5 % (11.5-14.5) Platelet Count 131 x10^3/uL (140-400) Neutrophils (%) (Auto) 83 % (31-73) Lymphocytes (%) (Auto) 8 % (24-48) Monocytes (%) (Auto) 8 % (0-9) Eosinophils (%) (Auto) 1 % (0-3) Basophils (%) (Auto) 0 % (0-3) Neutrophils # (Auto) 5.6 x10^3/uL (1.8-7.7) Lymphocytes # (Auto) 0.5 x10^3/uL (1.0-4.8) Monocytes # (Auto) 0.5 x10^3/uL (0.0-1.1) Eosinophils # (Auto) 0.1 x10^3/uL (0.0-0.7) Basophils # (Auto) 0.0 x10^3/uL (0.0-0.2) Laboratory Tests Test 11/13/18 09:25 11/13/18 09:35 Sodium Level 136 mmol/L (136-145) Potassium Level 4.1 mmol/L (3.5-5.1) Chloride Level 101 mmol/L (98-107) Carbon Dioxide Level 24 mmol/L (21-32) Anion Gap 11 (6-14) Blood Urea Nitrogen 24 mg/dL (8-26) Creatinine 1.5 mg/dL (0.7-1.3) Estimated GFR (Cockcroft-Gault) 45.6 Glucose Level 128 mg/dL (70-99) Calcium Level 8.8 mg/dL (8.5-10.1) White Blood Count 6.7 x10^3/uL (4.0-11.0) Red Blood Count 3.34 x10^6/uL (4.30-5.70) Hemoglobin 10.2 g/dL (13.0-17.5) Hematocrit 30.3 % (39.0-53.0) Mean Corpuscular Volume 91 fL (79-100) Mean Corpuscular Hemoglobin 30 pg (25-35) Mean Corpuscular Hemoglobin Concent 34 g/dL (31-37) Red Cell Distribution Width 15.5 % (11.5-14.5) Platelet Count 131 x10^3/uL (140-400) Neutrophils (%) (Auto) 83 % (31-73) Lymphocytes (%) (Auto) 8 % (24-48) Monocytes (%) (Auto) 8 % (0-9) Eosinophils (%) (Auto) 1 % (0-3) Basophils (%) (Auto) 0 % (0-3) Neutrophils # (Auto) 5.6 x10^3/uL (1.8-7.7) Lymphocytes # (Auto) 0.5 x10^3/uL (1.0-4.8) Monocytes # (Auto) 0.5 x10^3/uL (0.0-1.1) Eosinophils # (Auto) 0.1 x10^3/uL (0.0-0.7) Basophils # (Auto) 0.0 x10^3/uL (0.0-0.2) Medications Current Medications Aspirin (Children'S Aspirin) 81 mg 1X ONCE PO Last administered on 11/06/18at 04:12; Start 11/06/18 at 03:30; Stop 11/06/18 at 03:32; Status DC Sodium Chloride 1,000 ml @ 100 mls/hr Q10H IV Last administered on 11/07/18at 06:20; Start 11/06/18 at 04:30; Stop 11/07/18 at 09:35; Status DC Docusate Sodium (Colace) 100 mg DAILY PRN PO HARD STOOLS Last administered on 11/10/18at 20:08; Start 11/06/18 at 10:00 Gabapentin (Neurontin) 100 mg TID PO Last administered on 11/13/18 08:59; Start 11/06/18 at 10:30 Pantoprazole Sodium (Protonix) 40 mg DAILYAC PO Last administered on 11/13/18 08:59; Start 11/06/18 at 10:30 Hydrocortisone Acetate (Anucort-Hc) 25 mg PRN DAILY PRN MO RECTAL PAIN; Start 11/06/18 at 10:30 Polyethylene Glycol (miraLAX PACKET) 17 gm PRN DAILY PRN PO CONSTIPATION Last administered on 11/10/18 20:08; Start 11/06/18 at 09:00 Non-Formulary Medication (Rosuvastatin Calcium (Crestor)) 0.5 tab TuThSa@2100 PO Last administered on 11/11/18 20:13; Start 11/09/18 at 21:00 Losartan Potassium (Cozaar) 25 mg DAILY PO Last administered on 11/07/18 08:14; Start 11/06/18 at 10:30; Stop 11/08/18 at 07:58; Status DC Haloperidol Lactate (Haldol Inj) 2 mg 1X ONCE IVP Last administered on 11/06/18at 13:30; Start 11/06/18 at 13:30; Stop 11/06/18 at 13:31; Status DC Quetiapine Fumarate (SEROquel) 12.5 mg BID PO Last administered on 11/13/18 08:59; Start 11/06/18 at 14:00 Lorazepam (Ativan Inj) 1 mg PRN Q4HRS PRN IV ANXIETY / AGITATION, 1st CHOIC Last administered on 11/13/18at 01:44; Start 11/06/18 at 14:30 Haloperidol Lactate (Haldol Inj) 2.5 mg PRN Q6HRS PRN IVP AGITATION, 2nd CHOICE Last administered on 11/09/18 23:03; Start 11/07/18 at 09:45; Stop 11/10/18 at 17:12; Status DC Acetaminophen (Tylenol) 500 mg PRN Q6HRS PRN PO HEADACHE / TEMP; Start 11/07/18 at 09:45 Hydralazine HCl (Apresoline Inj) 10 mg PRN Q4HRS PRN IVP ELEVATED BP, SEE COMMENTS Last administered on 11/09/18at 18:40; Start 11/07/18 at 09:45; Stop 11/12/18 at 11:55; Status DC Ondansetron HCl (Zofran) 4 mg PRN Q6HRS PRN IV NAUSEA/VOMITING; Start 11/07/18 at 09:45; Stop 11/13/18 at 09:50; Status DC Vitamin D (Vitamin D3) 1,000 unit BID PO Last administered on 11/13/18at 08:59; Start 11/07/18 at 10:00 Non-Formulary Medication (Melatonin ) 1 tab QHS PO ; Start 11/07/18 at 21:00; Status UNV Amino Acids/ Glycerin/ Electrolytes 1,000 ml @ 80 mls/hr [id number] IV ; Start 11/07/18 at 14:00; Stop 11/07/18 at 14:00; Status DC Losartan Potassium (Cozaar) 100 mg DAILY PO Last administered on 11/13/18at 09:00; Start 11/08/18 at 09:00 Fentanyl Citrate (Fentanyl 2ml Vial) 25 mcg PRN Q5MIN PRN IV MILD PAIN 1-3; Start 11/09/18 at 07:00; Stop 11/10/18 at 06:59; Status DC Fentanyl Citrate (Fentanyl 2ml Vial) 50 mcg PRN Q5MIN PRN IV MODERATE TO SEVERE PAIN; Start 11/09/18 at 07:00; Stop 11/10/18 at 06:59; Status DC Morphine Sulfate (Morphine Sulfate) 1 mg PRN Q10MIN PRN IV SEVERE PAIN 7-10; Start 11/09/18 at 07:00; Stop 11/10/18 at 06:59; Status DC Ringer's Solution 1,000 ml @ 30 mls/hr Q24H IV Last administered on 11/09/18at 14:30; Start 11/09/18 at 07:00; Stop 11/09/18 at 18:59; Status DC Lidocaine HCl (Xylocaine-Mpf 1% 2ml Vial) 2 ml PRN 1X PRN ID IV START; Start 11/09/18 at 07:00; Stop 11/10/18 at 06:59; Status DC Hydromorphone HCl (Dilaudid) 0.5 mg PRN Q10MIN PRN IV SEV PAIN, Second choice; Start 11/09/18 at 07:00; Stop 11/10/18 at 06:59; Status DC Prochlorperazine Edisylate (Compazine) 5 mg PACU PRN PRN IV NAUSEA, MRX1; Start 11/09/18 at 07:00; Stop 11/10/18 at 06:59; Status DC Vancomycin HCl 1 gm/Sodium Chloride 250 ml @ 250 mls/hr 1X ONCE IV Last administered on 11/09/18at 06:07; Start 11/09/18 at 06:00; Stop 11/09/18 at 06:59; Status DC Heparin Sodium (Porcine) 5000 unit/Ringer's Solution 505 ml @ 505 mls/hr 1X ONCE IRR ; Start 11/09/18 at 06:00; Stop 11/09/18 at 06:59; Status DC Aspirin (Children'S Aspirin) 81 mg DAILYWBKFT PO Last administered on 11/13/18at 08:59; Start 11/08/18 at 14:00 Fentanyl Citrate (Fentanyl 2ml Vial) 25 mcg PRN Q5MIN PRN IV MILD PAIN 1-3; Start 11/09/18 at 11:30; Stop 11/10/18 at 11:29; Status Cancel Fentanyl Citrate (Fentanyl 2ml Vial) 50 mcg PRN Q5MIN PRN IV MODERATE TO SEVERE PAIN; Start 11/09/18 at 11:30; Stop 11/09/18 at 11:30; Status DC Morphine Sulfate (Morphine Sulfate) 1 mg PRN Q10MIN PRN IV SEVERE PAIN 7-10; Start 11/09/18 at 11:30; Stop 11/10/18 at 10:05; Status DC Ringer's Solution 1,000 ml @ 30 mls/hr Q24H IV ; Start 11/09/18 at 11:19; Stop 11/09/18 at 23:18; Status DC Hydromorphone HCl (Dilaudid) 0.5 mg PRN Q10MIN PRN IV SEV PAIN, Second choice; Start 11/09/18 at 11:30; Stop 11/10/18 at 11:29; Status DC Prochlorperazine Edisylate (Compazine) 5 mg PACU PRN PRN IV NAUSEA, MRX1; Start 11/09/18 at 11:30; Stop 11/10/18 at 11:29; Status DC Benzocaine (Hurricaine One) 1 spray STK-MED ONCE .ROUTE ; Start 11/09/18 at 12:33; Stop 11/09/18 at 12:34; Status DC Lidocaine HCl (Xylocaine 2% Topical 30gm Tube) 30 ian STK-MED ONCE TP ; Start 11/09/18 at 12:34; Stop 11/09/18 at 12:35; Status DC Lidocaine HCl (Viscous Lidocaine) 15 ml STK-MED ONCE .ROUTE ; Start 11/09/18 at 12:34; Stop 11/09/18 at 12:35; Status DC Benzocaine (Hurricaine One) 2 spray 1X ONCE MM Last administered on 11/09/18at 14:30; Start 11/09/18 at 13:45; Stop 11/09/18 at 13:46; Status DC Lidocaine HCl (Xylocaine 2% Topical 30gm Tube) 1 ian 1X ONCE TP Last administered on 11/09/18at 14:30; Start 11/09/18 at 13:45; Stop 11/09/18 at 13:46; Status DC Lidocaine HCl (Viscous Lidocaine) 15 ml 1X ONCE SWSW Last administered on 11/09/18at 14:30; Start 11/09/18 at 13:45; Stop 11/09/18 at 13:46; Status DC Magnesium Hydroxide (Milk Of Magnesia) 2,400 mg 1X ONCE PO Last administered on 11/11/18at 07:48; Start 11/11/18 at 09:00; Stop 11/11/18 at 09:01; Status DC Haloperidol Lactate (Haldol Inj) 1.25 mg PRN Q6HRS PRN IVP AGITATION Last administered on 11/13/18at 02:23; Start 11/10/18 at 17:15 Propofol 20 ml @ As Directed STK-MED ONCE IV ; Start 11/09/18 at 14:29; Stop 11/10/18 at 19:36; Status DC Diphenhydramine HCl (Benadryl) 50 mg PRN QHS PRN PO INSOMNIA; Start 11/10/18 at 23:15 Heparin Sodium (Porcine) 5000 unit/Sodium Chloride 505 ml @ 505 mls/hr 1X ONCE IRR Last administered on 11/12/18at 12:22; Start 11/12/18 at 06:00; Stop 9 at 06:59; Status DC Cefazolin Sodium 1 gm/Sodium Chloride 500 ml @ 500 mls/hr 1X ONCE IRR Last administered on 11/12/18 12:21; Start 11/12/18 at 06:00; Stop 11/12/18 at 06:59; Status DC Ondansetron HCl (Zofran) 4 mg PRN Q6HRS PRN IV NAUSEA/VOMITING; Start 11/12/18 at 06:45; Stop 11/13/18 at 06:44; Status DC Fentanyl Citrate (Fentanyl 2ml Vial) 25 mcg PRN Q5MIN PRN IV MILD PAIN 1-3 Last administered on 11/12/18at 13:44; Start 11/12/18 at 06:45; Stop 11/13/18 at 06:44; Status DC Fentanyl Citrate (Fentanyl 2ml Vial) 50 mcg PRN Q5MIN PRN IV MODERATE TO SEVERE PAIN; Start 11/12/18 at 06:45; Stop 11/13/18 at 06:44; Status DC Ringer's Solution 1,000 ml @ 30 mls/hr Q24H IV Last administered on 11/12/18 11:20; Start 11/12/18 at 06:45; Stop 11/12/18 at 06:58; Status DC Lidocaine HCl (Xylocaine-Mpf 1% 2ml Vial) 2 ml 1X PRN PRN ID IV START Last administered on 11/12/18 11:00; Start 11/12/18 at 06:45; Stop 11/13/18 at 06:44; Status DC Prochlorperazine Edisylate (Compazine) 5 mg PACU PRN PRN IV NAUSEA, MRX1; Start 11/12/18 at 06:45; Stop 11/13/18 at 06:44; Status DC Cellulose (Surgicel Fibrillar 1x2) 1 each STK-MED ONCE .ROUTE Last administered on 11/12/18 13:20; Start 11/12/18 at 06:35; Stop 11/12/18 at 07:36; Status DC Lidocaine HCl (Xylocaine 1% Pf 30ml Vial) 30 ml STK-MED ONCE .ROUTE Last administered on 11/12/18 12:19; Start 11/12/18 at 06:35; Stop 11/12/18 at 07:36; Status DC Protamine Sulfate (Protamine) 50 mg STK-MED ONCE IV ; Start 11/12/18 at 06:35; Stop 11/12/18 at 07:36; Status DC Midazolam HCl (Versed) 2 mg STK-MED ONCE .ROUTE ; Start 11/12/18 at 10:32; Stop 11/12/18 at 10:33; Status DC Heparin Sodium (Porcine) (Heparin Sodium) 10,000 unit STK-MED ONCE .ROUTE ; Start 11/12/18 at 10:49; Stop 11/12/18 at 10:50; Status DC Bupivacaine HCl (Sensorcaine Mpf 0.25%) 30 ml STK-MED ONCE .ROUTE ; Start 11/12/18 at 10:51; Stop 11/12/18 at 10:52; Status DC Cefazolin Sodium/ Dextrose 50 ml @ 100 mls/hr 1X ONCE IV Last administered on 11/12/18at 11:37; Start 11/12/18 at 11:30; Stop 11/12/18 at 11:59; Status DC Sodium Chloride (Normal Saline Flush) 3 ml QSHIFT PRN IV AFTER MEDS AND BLOOD DRAWS; Start 11/12/18 at 11:45 Sodium Chloride 1,000 ml @ 100 mls/hr Q10H IV Last administered on 11/12/18at 23:53; Start 11/12/18 at 11:39; Stop 11/13/18 at 11:31; Status DC Acetaminophen/ Hydrocodone Bitart (Lortab 5/325) 1 tab PRN Q4HRS PRN PO MILD PAIN 1-3 Last administered on 11/12/18at 17:20; Start 11/12/18 at 11:45 Acetaminophen (Tylenol) 650 mg Q8HRS PO ; Start 11/12/18 at 22:00 Ondansetron HCl (Zofran) 4 mg PRN Q6HRS PRN IV NAUESA, 1ST CHOICE; Start 11/12/18 at 11:45 Prochlorperazine Edisylate (Compazine) 5 mg PRN Q6HRS PRN IV N/V, 2nd Choice, MR X1; Start 11/12/18 at 11:45 Hydralazine HCl (Apresoline Inj) 10 mg PRN Q4HRS PRN IVP ELEVATED BP, 1ST CHO ICE; Start 11/12/18 at 11:45 Labetalol HCl (Normodyne Iv Push) 10 mg PRN Q2HR PRN IVP HYPERTENSION 2ND CHOICE Last administered on 11/12/18at 13:41; Start 11/12/18 at 11:45 Nicardipine HCl (Cardene) 25 mg STK-MED ONCE IV ; Start 11/12/18 at 12:03; Stop 11/12/18 at 12:04; Status DC Fentanyl Citrate (Fentanyl 2ml Vial) 100 mcg STK-MED ONCE .ROUTE ; Start 11/12/18 at 12:04; Stop 11/12/18 at 12:05; Status DC Propofol 20 ml @ As Directed STK-MED ONCE IV ; Start 11/12/18 at 12:43; Stop 11/12/18 at 12:44; Status DC Labetalol HCl (Normodyne Iv Push) 10 mg PRN Q10MIN PRN IVP HYPERTENSION Last administered on 11/12/18at 14:00; Start 11/12/18 at 14:00; Stop 11/12/18 at 23:00; Status DC Olanzapine (ZyPREXA IM) 10 mg 1X ONCE IM ; Start 11/13/18 at 03:30; Stop at 03:32; Status DC Active Scripts Active Reported Melatonin 3 Mg Tablet 1 Tab PO QHS Losartan Potassium 100 Mg Tablet 100 Mg PO DAILY Crestor (Rosuvastatin Calcium) 5 Mg Tablet 1 Tab PO QODAY Miralax (Polyethylene Glycol 3350) 17 Gm Powd.pack 1 Packet PO DAILY PRN Pantoprazole Sodium (Pantoprazole Sodium) 40 Mg Tablet.dr 40 Mg PO DAILYAC Anusol-Hc (Hydrocortisone Acetate) 25 Mg Supp.rect 1 Supp RC DAILY PRN Gabapentin (Gabapentin) 100 Mg Capsule 100 Mg PO TID Docusate Sodium 100 Mg Capsule 1 Cap PO DAILY PRN Vitamin D (Cholecalciferol (Vitamin D3)) 1,000 Unit Capsule 1 Cap PO BID Vitals/I & O Vital Sign - Last 24 Hours 11/12/18 11/12/18 11/12/18 11/12/18 13:15 13:15 13:30 13:41 Temp 97.0 97.0 Pulse 101 70 98 Resp 20 20 20 B/P (MAP) 148/47 174/69 161/62 Pulse Ox 99 100 100 O2 Delivery Nasal Cannula Nasal Cannula Nasal Cannula Nasal Cannula O2 Flow Rate 2 2 2 2 11/12/18 11/12/18 11/12/18 11/12/18 13:41 13:44 13:56 14:00 Pulse 98 70 70 Resp 20 20 B/P (MAP) 161/62 146/60 146/60 Pulse Ox 100 100 O2 Delivery Room Air 11/12/18 11/12/18 11/12/18 11/12/18 14:14 14:29 14:44 14:59 Temp 97.0 97.0 97.0 97.0 Pulse 60 66 63 66 Resp 20 20 20 20 B/P (MAP) 140/56 148/57 151/62 166/62 Pulse Ox 96 97 97 97 O2 Delivery Room Air Room Air Room Air Room Air 11/12/18 11/12/18 11/12/18 11/12/18 15:00 15:15 15:15 16:51 Temp 97.5 97.5 Pulse 69 68 70 Resp 14 B/P (MAP) 155/69 (97) 155/69 (97) 168/72 (104) Pulse Ox 96 98 O2 Delivery Room Air Room Air 11/12/18 11/12/18 11/12/18 11/12/18 17:20 17:57 18:41 19:00 Temp 97.9 97.9 Pulse 69 69 Resp 16 B/P (MAP) 124/55 (78) 127/56 (79) Pulse Ox 98 98 98 96 O2 Delivery Nasal Cannula Nasal Cannula Room Air O2 Flow Rate 2.0 2.0 11/12/18 11/12/18 11/12/18 11/12/18 20:00 20:03 21:00 23:00 Temp 98.3 98.6 98.3 98.6 Pulse 72 77 85 Resp 12 16 12 B/P (MAP) 134/63 (86) 134/63 (86) 141/65 (90) Pulse Ox 95 96 95 O2 Delivery Room Air Room Air Room Air Room Air 11/13/18 11/13/18 11/13/18 11/13/18 01:00 03:00 07:00 08:00 Temp 98.0 98.0 Pulse 84 100 83 Resp 16 16 16 B/P (MAP) 156/67 (96) 167/68 (101) Pulse Ox 95 95 O2 Delivery Room Air Room Air Room Air Room Air 11/13/18 09:00 Pulse 76 B/P (MAP) 167/68 Intake and Output 11/12/18 11/12/18 11/13/18 15:00 23:00 07:00 Intake Total 75 ml 900 ml Output Total 50 ml 70 ml Balance -50 ml 5 ml 900 ml DWIGHT SAENZ MD Nov 13, 2018 11:39
--- NOTE | 2018-11-13 12:00 | PDOC ---
[facility] PROGRESS NOTE Chief Complaint Chief Complaint Severe greater than 75% stenosis of the left internal carotid artery Postop day 1 left carotid endarterectomy Mitral valve disease Recent gastrointestinal bleed Psychosis Metabolic encephalopathy Dementia features LABILE BP History of Present Illness History of Present Illness Patient seen and examined DW pt's family at length regarding the pt's care and possible PT/OT DW RN who stated the JV drain fell out Reviewed pt's chart Discussed with Vitals/I&O Vitals/I&O: Vital Signs Date Time Temp Pulse Resp B/P (MAP) Pulse Ox O2 Delivery O2 Flow Rate FiO2 11/13/18 09:00 76 167/68 11/13/18 08:00 Room Air 11/13/18 07:00 98.0 16 95 98.0 11/12/18 18:41 2.0 I & O 11/12/18 11/12/18 11/13/18 15:00 23:00 07:00 Intake Total 75 ml 900 ml Output Total 50 ml 70 ml Balance -50 ml 5 ml 900 ml Physical Exam Physical Exam: Neck has clean dry intact dressing General: Alert, Cooperative, No acute distress Heart: Regular rate, Normal S1, Normal S2, Other (2/6 systolic murmur.) Lungs: Clear, Other (diminished on the bases, ) Abdomen: Normal bowel sounds, Soft Extremities: No clubbing, No cyanosis, No edema, No tenderness/swelling Skin: No rashes, No breakdown, No significant lesion Labs Labs: Laboratory Tests Test 11/13/18 09:25 11/13/18 09:35 Sodium Level 136 mmol/L (136-145) Potassium Level 4.1 mmol/L (3.5-5.1) Chloride Level 101 mmol/L (98-107) Carbon Dioxide Level 24 mmol/L (21-32) Anion Gap 11 (6-14) Blood Urea Nitrogen 24 mg/dL (8-26) Creatinine 1.5 mg/dL (0.7-1.3) Estimated GFR (Cockcroft-Gault) 45.6 Glucose Level 128 mg/dL (70-99) Calcium Level 8.8 mg/dL (8.5-10.1) White Blood Count 6.7 x10^3/uL (4.0-11.0) Red Blood Count 3.34 x10^6/uL (4.30-5.70) Hemoglobin 10.2 g/dL (13.0-17.5) Hematocrit 30.3 % (39.0-53.0) Mean Corpuscular Volume 91 fL (79-100) Mean Corpuscular Hemoglobin 30 pg (25-35) Mean Corpuscular Hemoglobin Concent 34 g/dL (31-37) Red Cell Distribution Width 15.5 % (11.5-14.5) Platelet Count 131 x10^3/uL (140-400) Neutrophils (%) (Auto) 83 % (31-73) Lymphocytes (%) (Auto) 8 % (24-48) Monocytes (%) (Auto) 8 % (0-9) Eosinophils (%) (Auto) 1 % (0-3) Basophils (%) (Auto) 0 % (0-3) Neutrophils # (Auto) 5.6 x10^3/uL (1.8-7.7) Lymphocytes # (Auto) 0.5 x10^3/uL (1.0-4.8) Monocytes # (Auto) 0.5 x10^3/uL (0.0-1.1) Eosinophils # (Auto) 0.1 x10^3/uL (0.0-0.7) Basophils # (Auto) 0.0 x10^3/uL (0.0-0.2) Review of Systems Review of Systems: No c/o of headaches No c/o of swelling of the BLE Assessment and Plan Assessmemt and Plan Problems Medical Problems: (1) Acute CVA (cerebrovascular accident) Status: Acute (2) Acute encephalopathy Status: Acute (3) Carotid artery stenosis Status: Chronic (4) Gastrointestinal bleed Status: Acute (5) Hypertension Status: Chronic (6) Mitral valve insufficiency Status: Acute Assessment Postop day #1 carotid endarterectomy Severe greater than 75% stenosis of the left internal carotid artery Mitral valve disease Recent gastrointestinal bleed Psychosis Metabolic encephalopathy Dementia features Labile BP Plan Wound care Cardiac monitoring Serial enzymes Serial EKG Await further cardio input PT/OT Discharge disposition pending Comment Review of Relevant I have reviewed the following items hamzah (where applicable) has been applied. Medications: Current Medications Medications (Trade) Dose Ordered Sig/Jimbo Route PRN Reason Start Time Stop Time Status Last Admin Dose Admin Labetalol HCl (Normodyne Iv Push) 10 mg PRN Q10MIN PRN IVP HYPERTENSION 11/12/18 14:00 11/12/18 23:00 DC 11/12/18 14:00 ROBERT GUTIERREZ III DO Nov 13, 2018 12:00
[2018-11-13 15:30] VITALS: BP 164/82
[2018-11-13 19:00] VITALS: BP 154/67
[2018-11-13] MEDS: ROSUVASTATIN CALCIUM PO SCH (21:00)
[2018-11-13 23:00] VITALS: BP 156/64
[2018-11-14] MEDS: hydrALAZINE 20 MG/ML VIAL. IVP PRN ×2 (02:45→20:22)
[2018-11-14 03:00] VITALS: BP 175/74
[2018-11-14 05:23] LABS: BASO % 1 % (0-3); EOS # 0.3 x10^3/uL (0.0-0.7); EOS % 4 % (0-3); HEMATOCRIT 29.5 % (39.0-53.0); HEMOGLOBIN 10.1 g/dL (13.0-17.5); LYMPH # 0.9 x10^3/uL (1.0-4.8); LYMPH % 13 % (24-48); MEAN CORPUSCULAR HEMOGLOBIN 31 pg (25-35); MEAN CORPUSCULAR HGB CONC 34 g/dL (31-37); MEAN CORPUSCULAR VOLUME 89 fL (79-100); MONO # 0.5 x10^3/uL (0.0-1.1); MONO % 7 % (0-9); NEUT # 5.3 x10^3/uL (1.8-7.7); NEUT % 75 % (31-73); PLATELET COUNT 125 x10^3/uL (140-400); RED CELL DISTRIBUTION WIDTH 15.6 % (11.5-14.5)
[2018-11-14 05:40] LABS: CALCIUM 8.9 mg/dL (8.5-10.1); CREATININE 1.4 mg/dL (0.7-1.3); GFR 49.4; POTASSIUM 3.9 mmol/L (3.5-5.1)
[2018-11-14 07:33] VITALS: BP 168/60
[2018-11-14] MEDS: GABAPENTIN 100 MG CAPSULE. PO SCH ×3 (08:51→20:16)
[2018-11-14] MEDS: CHOLECALCIFEROL (VITAMIN D3) 1,000 UNIT TABLET PO SCH ×2 (08:52→20:19)
[2018-11-14] MEDS: ASPIRIN CHEWABLE 81 MG TABLET. PO SCH (08:52)
[2018-11-14] MEDS: PANTOPRAZOLE 40 MG TABLET.DR. PO SCH (08:52)
[2018-11-14] MEDS: LOSARTAN POTASSIUM 50 MG TABLET. PO SCH (08:52)
[2018-11-14] MEDS: QUEtiapine 25 MG TABLET. PO SCH ×2 (08:53→20:18)
[2018-11-14] MEDS: ACETAMINOPHEN 325 MG TABLET. PO SCH ×3 (08:53→20:19)
[2018-11-14 10:47] VITALS: BP 126/54
--- NOTE | 2018-11-14 13:07 | PDOC ---
PROGRESS NOTES Assessment Problems Medical Problems: (1) Acute CVA (cerebrovascular accident) Status: Acute (2) Acute encephalopathy Status: Acute (3) Carotid artery stenosis Status: Chronic (4) Gastrointestinal bleed Status: Acute (5) Hypertension Status: Chronic (6) Mitral valve insufficiency Status: Acute Metabolic encephalopathy, normal EEG on 11/08/18. Hyponatremia, Na 125. Left ICA stenosis, > 75%, status-post left carotid endarterectomy on 11/12. Dementia, had some sundowning last night No evidence of acute CVA History of headaches, migraine phenomena ESR 49 On 1:1 nursing says that he had a better night last night Plan Recheck ESR in 2-3 weeks Continue ASA 81 mg daily Seroquel 12.5 mg to 25 mg bid. Treat medical diseases. Reevaluation for dementia in the neurology clinic in 4-6 weeks, inappropriate to diagnose dementia in the acute hospital state with multiple medical problems. SNU I discussed with the patient's Subjective No complaints Objective Vital Signs Date Time Temp Pulse Resp B/P (MAP) Pulse Ox O2 Delivery O2 Flow Rate FiO2 11/14/18 10:47 98.4 103 20 126/54 (78) 98 Room Air 98.4 Intake and Output 11/14/18 06:59 Intake Total 1200 ml Balance 1200 ml Intake Oral 1200 ml # Voids 7 # Bowel Movements 1 PHYSICAL EXAM Alert, knows his name, does not know location (says that he is in [place]) or date (does know the year) PERRL. EOMI. CN: no focal findings. Muscle tone: normal. Muscle strength: 5/5 DTR: 2+ Plantar reflex: flexor Gait: not examined in bed. Sensory exam: no abnormal findings. No cerebellar signs elicited. Review of Relevant I have reviewed the following items hamzah (where applicable) has been applied. Labs Laboratory Tests Test 11/13/18 09:25 11/13/18 09:35 11/14/18 04:30 Sodium Level 136 mmol/L (136-145) 141 mmol/L (136-145) Potassium Level 4.1 mmol/L (3.5-5.1) 3.9 mmol/L (3.5-5.1) Chloride Level 101 mmol/L (98-107) 105 mmol/L (98-107) Carbon Dioxide Level 24 mmol/L (21-32) 23 mmol/L (21-32) Anion Gap 11 (6-14) 13 (6-14) Blood Urea Nitrogen 24 mg/dL (8-26) 21 mg/dL (8-26) Creatinine 1.5 mg/dL (0.7-1.3) 1.4 mg/dL (0.7-1.3) Estimated GFR (Cockcroft-Gault) 45.6 49.4 Glucose Level 128 mg/dL (70-99) 102 mg/dL (70-99) Calcium Level 8.8 mg/dL (8.5-10.1) 8.9 mg/dL (8.5-10.1) White Blood Count 6.7 x10^3/uL (4.0-11.0) 7.0 x10^3/uL (4.0-11.0) Red Blood Count 3.34 x10^6/uL (4.30-5.70) 3.30 x10^6/uL (4.30-5.70) Hemoglobin 10.2 g/dL (13.0-17.5) 10.1 g/dL (13.0-17.5) Hematocrit 30.3 % (39.0-53.0) 29.5 % (39.0-53.0) Mean Corpuscular Volume 91 fL (79-100) 89 fL (79-100) Mean Corpuscular Hemoglobin 30 pg (25-35) 31 pg (25-35) Mean Corpuscular Hemoglobin Concent 34 g/dL (31-37) 34 g/dL (31-37) Red Cell Distribution Width 15.5 % (11.5-14.5) 15.6 % (11.5-14.5) Platelet Count 131 x10^3/uL (140-400) 125 x10^3/uL (140-400) Neutrophils (%) (Auto) 83 % (31-73) 75 % (31-73) Lymphocytes (%) (Auto) 8 % (24-48) 13 % (24-48) Monocytes (%) (Auto) 8 % (0-9) 7 % (0-9) Eosinophils (%) (Auto) 1 % (0-3) 4 % (0-3) Basophils (%) (Auto) 0 % (0-3) 1 % (0-3) Neutrophils # (Auto) 5.6 x10^3/uL (1.8-7.7) 5.3 x10^3/uL (1.8-7.7) Lymphocytes # (Auto) 0.5 x10^3/uL (1.0-4.8) 0.9 x10^3/uL (1.0-4.8) Monocytes # (Auto) 0.5 x10^3/uL (0.0-1.1) 0.5 x10^3/uL (0.0-1.1) Eosinophils # (Auto) 0.1 x10^3/uL (0.0-0.7) 0.3 x10^3/uL (0.0-0.7) Basophils # (Auto) 0.0 x10^3/uL (0.0-0.2) 0.0 x10^3/uL (0.0-0.2) Laboratory Tests Test 11/14/18 04:30 White Blood Count 7.0 x10^3/uL (4.0-11.0) Red Blood Count 3.30 x10^6/uL (4.30-5.70) Hemoglobin 10.1 g/dL (13.0-17.5) Hematocrit 29.5 % (39.0-53.0) Mean Corpuscular Volume 89 fL (79-100) Mean Corpuscular Hemoglobin 31 pg (25-35) Mean Corpuscular Hemoglobin Concent 34 g/dL (31-37) Red Cell Distribution Width 15.6 % (11.5-14.5) Platelet Count 125 x10^3/uL (140-400) Neutrophils (%) (Auto) 75 % (31-73) Lymphocytes (%) (Auto) 13 % (24-48) Monocytes (%) (Auto) 7 % (0-9) Eosinophils (%) (Auto) 4 % (0-3) Basophils (%) (Auto) 1 % (0-3) Neutrophils # (Auto) 5.3 x10^3/uL (1.8-7.7) Lymphocytes # (Auto) 0.9 x10^3/uL (1.0-4.8) Monocytes # (Auto) 0.5 x10^3/uL (0.0-1.1) Eosinophils # (Auto) 0.3 x10^3/uL (0.0-0.7) Basophils # (Auto) 0.0 x10^3/uL (0.0-0.2) Sodium Level 141 mmol/L (136-145) Potassium Level 3.9 mmol/L (3.5-5.1) Chloride Level 105 mmol/L (98-107) Carbon Dioxide Level 23 mmol/L (21-32) Anion Gap 13 (6-14) Blood Urea Nitrogen 21 mg/dL (8-26) Creatinine 1.4 mg/dL (0.7-1.3) Estimated GFR (Cockcroft-Gault) 49.4 Glucose Level 102 mg/dL (70-99) Calcium Level 8.9 mg/dL (8.5-10.1) Medications Current Medications Aspirin (Children'S Aspirin) 81 mg 1X ONCE PO Last administered on 11/06/18 04:12; Start 11/06/18 at 03:30; Stop 11/06/18 at 03:32; Status DC Sodium Chloride 1,000 ml @ 100 mls/hr Q10H IV Last administered on 11/07/18at 06:20; Start 11/06/18 at 04:30; Stop 11/07/18 at 09:35; Status DC Docusate Sodium (Colace) 100 mg DAILY PRN PO HARD STOOLS Last administered on 11/10/18 20:08; Start 11/06/18 at 10:00 Gabapentin (Neurontin) 100 mg TID PO Last administered on 11/14/18 08:51; Start 11/06/18 at 10:30 Pantoprazole Sodium (Protonix) 40 mg DAILYAC PO Last administered on 11/14/18 08:52; Start 11/06/18 at 10:30 Hydrocortisone Acetate (Anucort-Hc) 25 mg PRN DAILY PRN [place] RECTAL PAIN; Start 11/06/18 at 10:30 Polyethylene Glycol (miraLAX PACKET) 17 gm PRN DAILY PRN PO CONSTIPATION Last administered on 11/10/18 20:08; Start 11/06/18 at 09:00 Non-Formulary Medication (Rosuvastatin Calcium (Crestor)) 0.5 tab TuThSa@2100 PO Last administered on 7/25/19at 20:13; Start 11/09/18 at 21:00 Losartan Potassium (Cozaar) 25 mg DAILY PO Last administered on 11/07/18at 08:14; Start 11/06/18 at 10:30; Stop 11/08/18 at 07:58; Status DC Haloperidol Lactate (Haldol Inj) 2 mg 1X ONCE IVP Last administered on 11/06/18 13:30; Start 11/06/18 at 13:30; Stop 11/06/18 at 13:31; Status DC Quetiapine Fumarate (SEROquel) 12.5 mg BID PO Last administered on 11/14/18 08:53; Start 11/06/18 at 14:00 Lorazepam (Ativan Inj) 1 mg PRN Q4HRS PRN IV ANXIETY / AGITATION, 1st CHOIC Last administered on 11/13/18at 01:44; Start 11/06/18 at 14:30 Haloperidol Lactate (Haldol Inj) 2.5 mg PRN Q6HRS PRN IVP AGITATION, 2nd CHOICE Last administered on 11/09/18at 23:03; Start 11/07/18 at 09:45; Stop 11/10/18 at 17:12; Status DC Acetaminophen (Tylenol) 500 mg PRN Q6HRS PRN PO HEADACHE / TEMP; Start 11/07/18 at 09:45 Hydralazine HCl (Apresoline Inj) 10 mg PRN Q4HRS PRN IVP ELEVATED BP, SEE COMMENTS Last administered on 11/09/18at 18:40; Start 11/07/18 at 09:45; Stop 11/12/18 at 11:55; Status DC Ondansetron HCl (Zofran) 4 mg PRN Q6HRS PRN IV NAUSEA/VOMITING; Start 11/07/18 at 09:45; Stop 11/13/18 at 09:50; Status DC Vitamin D (Vitamin D3) 1,000 unit BID PO Last administered on 11/14/18 08:52; Start 11/07/18 at 10:00 Non-Formulary Medication (Melatonin ) 1 tab QHS PO ; Start 11/07/18 at 21:00; Status UNV Amino Acids/ Glycerin/ Electrolytes 1,000 ml @ 80 mls/hr [id number] IV ; Start 11/07/18 at 14:00; Stop 11/07/18 at 14:00; Status DC Losartan Potassium (Cozaar) 100 mg DAILY PO Last administered on 11/14/18at 08:52; Start 11/08/18 at 09:00 Fentanyl Citrate (Fentanyl 2ml Vial) 25 mcg PRN Q5MIN PRN IV MILD PAIN 1-3; Start 11/09/18 at 07:00; Stop 11/10/18 at 06:59; Status DC Fentanyl Citrate (Fentanyl 2ml Vial) 50 mcg PRN Q5MIN PRN IV MODERATE TO SEVERE PAIN; Start 11/09/18 at 07:00; Stop 11/10/18 at 06:59; Status DC Morphine Sulfate (Morphine Sulfate) 1 mg PRN Q10MIN PRN IV SEVERE PAIN 7-10; Start 11/09/18 at 07:00; Stop 11/10/18 at 06:59; Status DC Ringer's Solution 1,000 ml @ 30 mls/hr Q24H IV Last administered on 11/09/18at 14:30; Start 11/09/18 at 07:00; Stop 11/09/18 at 18:59; Status DC Lidocaine HCl (Xylocaine-Mpf 1% 2ml Vial) 2 ml PRN 1X PRN ID IV START; Start 11/09/18 at 07:00; Stop 11/10/18 at 06:59; Status DC Hydromorphone HCl (Dilaudid) 0.5 mg PRN Q10MIN PRN IV SEV PAIN, Second choice; Start 11/09/18 at 07:00; Stop 11/10/18 at 06:59; Status DC Prochlorperazine Edisylate (Compazine) 5 mg PACU PRN PRN IV NAUSEA, MRX1; Start 11/09/18 at 07:00; Stop 11/10/18 at 06:59; Status DC Vancomycin HCl 1 gm/Sodium Chloride 250 ml @ 250 mls/hr 1X ONCE IV Last administered on 11/09/18at 06:07; Start 11/09/18 at 06:00; Stop 11/09/18 at 06:59; Status DC Heparin Sodium (Porcine) 5000 unit/Ringer's Solution 505 ml @ 505 mls/hr 1X ONCE IRR ; Start 11/09/18 at 06:00; Stop 11/09/18 at 06:59; Status DC Aspirin (Children'S Aspirin) 81 mg DAILYWBKFT PO Last administered on 11/14/18at 08:52; Start 11/08/18 at 14:00 Fentanyl Citrate (Fentanyl 2ml Vial) 25 mcg PRN Q5MIN PRN IV MILD PAIN 1-3; Start 11/09/18 at 11:30; Stop 11/10/18 at 11:29; Status Cancel Fentanyl Citrate (Fentanyl 2ml Vial) 50 mcg PRN Q5MIN PRN IV MODERATE TO SEVERE PAIN; Start 11/09/18 at 11:30; Stop 11/09/18 at 11:30; Status DC Morphine Sulfate (Morphine Sulfate) 1 mg PRN Q10MIN PRN IV SEVERE PAIN 7-10; Start 11/09/18 at 11:30; Stop 11/10/18 at 10:05; Status DC Ringer's Solution 1,000 ml @ 30 mls/hr Q24H IV ; Start 11/09/18 at 11:19; Stop 11/09/18 at 23:18; Status DC Hydromorphone HCl (Dilaudid) 0.5 mg PRN Q10MIN PRN IV SEV PAIN, Second choice; Start 11/09/18 at 11:30; Stop 11/10/18 at 11:29; Status DC Prochlorperazine Edisylate (Compazine) 5 mg PACU PRN PRN IV NAUSEA, MRX1; Start 11/09/18 at 11:30; Stop 11/10/18 at 11:29; Status DC Benzocaine (Hurricaine One) 1 spray STK-MED ONCE .ROUTE ; Start 11/09/18 at 12:33; Stop 11/09/18 at 12:34; Status DC Lidocaine HCl (Xylocaine 2% Topical 30gm Tube) 30 ian STK-MED ONCE TP ; Start 11/09/18 at 12:34; Stop 11/09/18 at 12:35; Status DC Lidocaine HCl (Viscous Lidocaine) 15 ml STK-MED ONCE .ROUTE ; Start 11/09/18 at 12:34; Stop 11/09/18 at 12:35; Status DC Benzocaine (Hurricaine One) 2 spray 1X ONCE MM Last administered on 11/09/18at 14:30; Start 11/09/18 at 13:45; Stop 11/09/18 at 13:46; Status DC Lidocaine HCl (Xylocaine 2% Topical 30gm Tube) 1 ian 1X ONCE TP Last administered on 11/09/18at 14:30; Start 11/09/18 at 13:45; Stop 11/09/18 at 13:46; Status DC Lidocaine HCl (Viscous Lidocaine) 15 ml 1X ONCE SWSW Last administered on 11/09/18at 14:30; Start 11/09/18 at 13:45; Stop 11/09/18 at 13:46; Status DC Magnesium Hydroxide (Milk Of Magnesia) 2,400 mg 1X ONCE PO Last administered on 11/11/18at 07:48; Start 11/11/18 at 09:00; Stop 11/11/18 at 09:01; Status DC Haloperidol Lactate (Haldol Inj) 1.25 mg PRN Q6HRS PRN IVP AGITATION Last administered on 11/13/18at 02:23; Start 11/10/18 at 17:15 Propofol 20 ml @ As Directed STK-MED ONCE IV ; Start 11/09/18 at 14:29; Stop 11/10/18 at 19:36; Status DC Diphenhydramine HCl (Benadryl) 50 mg PRN QHS PRN PO INSOMNIA; Start 11/10/18 at 23:15 Heparin Sodium (Porcine) 5000 unit/Sodium Chloride 505 ml @ 505 mls/hr 1X ONCE IRR Last administered on 11/12/18at 12:22; Start 11/12/18 at 06:00; Stop 11/12/18 at 06:59; Status DC Cefazolin Sodium 1 gm/Sodium Chloride 500 ml @ 500 mls/hr 1X ONCE IRR Last administered on 11/12/18at 12:21; Start 11/12/18 at 06:00; Stop 11/12/18 at 06:59; Status DC Ondansetron HCl (Zofran) 4 mg PRN Q6HRS PRN IV NAUSEA/VOMITING; Start 11/12/18 at 06:45; Stop 11/13/18 at 06:44; Status DC Fentanyl Citrate (Fentanyl 2ml Vial) 25 mcg PRN Q5MIN PRN IV MILD PAIN 1-3 Last administered on 11/12/18at 13:44; Start 11/12/18 at 06:45; Stop 11/13/18 at 06:44; Status DC Fentanyl Citrate (Fentanyl 2ml Vial) 50 mcg PRN Q5MIN PRN IV MODERATE TO SEVERE PAIN; Start 11/12/18 at 06:45; Stop 11/13/18 at 06:44; Status DC Ringer's Solution 1,000 ml @ 30 mls/hr Q24H IV Last administered on 11/12/18at 11:20; Start 11/12/18 at 06:45; Stop 11/12/18 at 06:58; Status DC Lidocaine HCl (Xylocaine-Mpf 1% 2ml Vial) 2 ml 1X PRN PRN ID IV START Last administered on 11/12/18at 11:00; Start 11/12/18 at 06:45; Stop 11/13/18 at 06:44; Status DC Prochlorperazine Edisylate (Compazine) 5 mg PACU PRN PRN IV NAUSEA, MRX1; Start 11/12/18 at 06:45; Stop 11/13/18 at 06:44; Status DC Cellulose (Surgicel Fibrillar 1x2) 1 each STK-MED ONCE .ROUTE Last administered on 11/12/18at 13:20; Start 11/12/18 at 06:35; Stop 11/12/18 at 07:36; Status DC Lidocaine HCl (Xylocaine 1% Pf 30ml Vial) 30 ml STK-MED ONCE .ROUTE Last administered on 11/12/18at 12:19; Start 11/12/18 at 06:35; Stop 11/12/18 at 07:36; Status DC Protamine Sulfate (Protamine) 50 mg STK-MED ONCE IV ; Start 11/12/18 at 06:35; Stop 11/12/18 at 07:36; Status DC Midazolam HCl (Versed) 2 mg STK-MED ONCE .ROUTE ; Start 11/12/18 at 10:32; Stop 11/12/18 at 10:33; Status DC Heparin Sodium (Porcine) (Heparin Sodium) 10,000 unit STK-MED ONCE .ROUTE ; Start 11/12/18 at 10:49; Stop 11/12/18 at 10:50; Status DC Bupivacaine HCl (Sensorcaine Mpf 0.25%) 30 ml STK-MED ONCE .ROUTE ; Start 11/12/18 at 10:51; Stop 11/12/18 at 10:52; Status DC Cefazolin Sodium/ Dextrose 50 ml @ 100 mls/hr 1X ONCE IV Last administered on 11/12/18at 11:37; Start 11/12/18 at 11:30; Stop 11/12/18 at 11:59; Status DC Sodium Chloride (Normal Saline Flush) 3 ml QSHIFT PRN IV AFTER MEDS AND BLOOD DRAWS; Start 11/12/18 at 11:45 Sodium Chloride 1,000 ml @ 100 mls/hr Q10H IV Last administered on 11/12/18at 23:53; Start 11/12/18 at 11:39; Stop 11/13/18 at 11:31; Status DC Acetaminophen/ Hydrocodone Bitart (Lortab 5/325) 1 tab PRN Q4HRS PRN PO MILD PAIN 1-3 Last administered on 11/12/18at 17:20; Start 11/12/18 at 11:45 Acetaminophen (Tylenol) 650 mg Q8HRS PO Last administered on 11/14/18at 08:53; Start 11/12/18 at 22:00 Ondansetron HCl (Zofran) 4 mg PRN Q6HRS PRN IV NAUESA, 1ST CHOICE; Start 11/12/18 at 11:45 Prochlorperazine Edisylate (Compazine) 5 mg PRN Q6HRS PRN IV N/V, 2nd Choice, MR X1; Start 11/12/18 at 11:45 Hydralazine HCl (Apresoline Inj) 10 mg PRN Q4HRS PRN IVP ELEVATED BP, 1ST CHOICE Last administered on 11/14/18at 02:45; Start 11/12/18 at 11:45 Labetalol HCl (Normodyne Iv Push) 10 mg PRN Q2HR PRN IVP HYPERTENSION 2ND CHOICE Last administered on 11/12/18at 13:41; Start 11/12/18 at 11:45 Nicardipine HCl (Cardene) 25 mg STK-MED ONCE IV ; Start 11/12/18 at 12:03; Stop 11/12/18 at 12:04; Status DC Fentanyl Citrate (Fentanyl 2ml Vial) 100 mcg STK-MED ONCE .ROUTE ; Start 11/12/18 at 12:04; Stop 11/12/18 at 12:05; Status DC Propofol 20 ml @ As Directed STK-MED ONCE IV ; Start 11/12/18 at 12:43; Stop 11/12/18 at 12:44; Status DC Labetalol HCl (Normodyne Iv Push) 10 mg PRN Q10MIN PRN IVP HYPERTENSION Last administered on 11/12/18at 14:00; Start 11/12/18 at 14:00; Stop 11/12/18 at 23:00; Status DC Olanzapine (ZyPREXA IM) 10 mg 1X ONCE IM ; Start 11/13/18 at 03:30; Stop 11/13/18 at 03:32; Status DC Active Scripts Active Reported Melatonin 3 Mg Tablet 1 Tab PO QHS Losartan Potassium 100 Mg Tablet 100 Mg PO DAILY Crestor (Rosuvastatin Calcium) 5 Mg Tablet 1 Tab PO QODAY Miralax (Polyethylene Glycol 3350) 17 Gm Powd.pack 1 Packet PO DAILY PRN Pantoprazole Sodium (Pantoprazole Sodium) 40 Mg Tablet.dr 40 Mg PO DAILYAC Anusol-Hc (Hydrocortisone Acetate) 25 Mg Supp.rect 1 Supp RC DAILY PRN Gabapentin (Gabapentin) 100 Mg Capsule 100 Mg PO TID Docusate Sodium 100 Mg Capsule 1 Cap PO DAILY PRN Vitamin D (Cholecalciferol (Vitamin D3)) 1,000 Unit Capsule 1 Cap PO BID Vitals/I & O Vital Sign - Last 24 Hours 11/13/18 11/13/18 11/13/18 11/13/18 15:30 19:00 20:06 23:00 Temp 99.6 99.3 99.6 99.3 Pulse 110 96 92 Resp 16 24 B/P (MAP) 164/82 (109) 154/67 (96) 156/64 (94) O2 Delivery Room Air Room Air Room Air 11/14/18 11/14/18 11/14/18 11/14/18 02:45 03:00 07:15 07:33 Temp 98.4 98.3 98.4 98.3 Pulse 85 81 94 Resp 22 22 B/P (MAP) 175/74 175/74 (107) 168/60 (96) Pulse Ox 98 O2 Delivery Room Air Room Air Room Air 11/14/18 11/14/18 08:52 10:47 Temp 98.4 98.4 Pulse 84 103 Resp 20 B/P (MAP) 168/60 126/54 (78) Pulse Ox 98 O2 Delivery Room Air Intake and Output 11/13/18 11/13/18 11/14/18 14:59 22:59 06:59 Intake Total 700 ml 500 ml Balance 700 ml 500 ml DWIGHT SAENZ MD Nov 14, 2018 13:07
--- NOTE | 2018-11-14 14:06 | NUR ---
Gabapentin changed to BID due to this being what patient does at home. Order was incorrect when home meds were entered.
--- NOTE | 2018-11-14 14:30 | PDOC ---
[facility] [facility] PROGRESS NOTE Chief Complaint Chief Complaint Severe greater than 75% stenosis of the left internal carotid artery Postop day 2 left carotid endarterectomy Mitral valve disease Recent gastrointestinal bleed Psychosis Metabolic encephalopathy Dementia features LABILE BP History of Present Illness History of Present Illness 11/14/18 Patient seen and examined Pt appears more alert, less lethargic, more talkative DW pt's family at length regarding the pt's care and possible PT/OT Reviewed pt's chart RICKY RN regarding pt's care Vitals/I&O Vitals/I&O: Vital Signs Date Time Temp Pulse Resp B/P (MAP) Pulse Ox O2 Delivery O2 Flow Rate FiO2 11/14/18 10:47 98.4 103 20 126/54 (78) 98 Room Air 98.4 I & O 11/13/18 11/13/18 11/14/18 14:59 22:59 06:59 Intake Total 700 ml 500 ml Balance 700 ml 500 ml Physical Exam Physical Exam: Neck has clean dry intact dressing General: Alert, Cooperative, No acute distress Heart: Regular rate, Normal S1, Normal S2, Other (2/6 systolic murmur.) Lungs: Clear, Other (diminished on the bases, ) Abdomen: Normal bowel sounds, Soft Extremities: No clubbing, No cyanosis, No edema, No tenderness/swelling Skin: No rashes, No breakdown, No significant lesion Labs Labs: Laboratory Tests Test 11/14/18 04:30 White Blood Count 7.0 x10^3/uL (4.0-11.0) Red Blood Count 3.30 x10^6/uL (4.30-5.70) Hemoglobin 10.1 g/dL (13.0-17.5) Hematocrit 29.5 % (39.0-53.0) Mean Corpuscular Volume 89 fL (79-100) Mean Corpuscular Hemoglobin 31 pg (25-35) Mean Corpuscular Hemoglobin Concent 34 g/dL (31-37) Red Cell Distribution Width 15.6 % (11.5-14.5) Platelet Count 125 x10^3/uL (140-400) Neutrophils (%) (Auto) 75 % (31-73) Lymphocytes (%) (Auto) 13 % (24-48) Monocytes (%) (Auto) 7 % (0-9) Eosinophils (%) (Auto) 4 % (0-3) Basophils (%) (Auto) 1 % (0-3) Neutrophils # (Auto) 5.3 x10^3/uL (1.8-7.7) Lymphocytes # (Auto) 0.9 x10^3/uL (1.0-4.8) Monocytes # (Auto) 0.5 x10^3/uL (0.0-1.1) Eosinophils # (Auto) 0.3 x10^3/uL (0.0-0.7) Basophils # (Auto) 0.0 x10^3/uL (0.0-0.2) Sodium Level 141 mmol/L (136-145) Potassium Level 3.9 mmol/L (3.5-5.1) Chloride Level 105 mmol/L (98-107) Carbon Dioxide Level 23 mmol/L (21-32) Anion Gap 13 (6-14) Blood Urea Nitrogen 21 mg/dL (8-26) Creatinine 1.4 mg/dL (0.7-1.3) Estimated GFR (Cockcroft-Gault) 49.4 Glucose Level 102 mg/dL (70-99) Calcium Level 8.9 mg/dL (8.5-10.1) Review of Systems Review of Systems: No c/o headache No c/o N/V/D Assessment and Plan Assessmemt and Plan Problems Medical Problems: (1) Acute CVA (cerebrovascular accident) Status: Acute (2) Acute encephalopathy Status: Acute (3) Carotid artery stenosis Status: Chronic (4) Gastrointestinal bleed Status: Acute (5) Hypertension Status: Chronic (6) Mitral valve insufficiency Status: Acute Assessment Severe greater than 75% stenosis of the left internal carotid artery Postop day 2 left carotid endarterectomy Mitral valve disease Recent gastrointestinal bleed Psychosis Metabolic encephalopathy Dementia features LABILE BP Plan Wound care Serial enzymes Serial ekgs Cardiac monitoring PT/OT Awaiting further cardio input Labs Comment Review of Relevant I have reviewed the following items hamzah (where applicable) has been applied. ROBERT GUTIERREZ III DO Nov 14, 2018 14:30
[2018-11-14 15:06] VITALS: BP 130/52
[2018-11-14 19:00] VITALS: BP 182/75
--- NOTE | 2018-11-14 22:39 | NUR ---
2144 - Pt reported 4/10 Chest pain, described as cramping with no radiation or any other symptoms, Pt was previously laying on right side and states that he has this type of pain from time to time, VS checked: Temp 98.4 deg F, HR 102, BP 148/66, RR 20 SpO2 96% on RA. Charge nurse notified, placed Pt supine, put Pt on 2L NC, ordered bedside 12 Lead ECG showing SR w/ BBB and 1 PAC which is no change from previous strips. Reassessed at 2199 Pt reports 2/10 pain and no other symptoms, VS checked: HR 98 BP 142/63 RR 18 SpO2 99% on 2L NC. Reassessed at 2214 Pt reports Chest pain has subsided, will continue to monitor closely.
[2018-11-14 22:59] VITALS: BP 142/63
[2018-11-15 03:00] VITALS: BP 141/65
[2018-11-15] MEDS: ACETAMINOPHEN 325 MG TABLET. PO SCH ×3 (06:14→22:00)
[2018-11-15 06:29] LABS: BASO % 1 % (0-3); EOS # 0.4 x10^3/uL (0.0-0.7); EOS % 7 % (0-3); HEMATOCRIT 28.1 % (39.0-53.0); HEMOGLOBIN 9.6 g/dL (13.0-17.5); LYMPH # 0.8 x10^3/uL (1.0-4.8); LYMPH % 15 % (24-48); MEAN CORPUSCULAR HEMOGLOBIN 30 pg (25-35); MEAN CORPUSCULAR HGB CONC 34 g/dL (31-37); MEAN CORPUSCULAR VOLUME 89 fL (79-100); MONO # 0.5 x10^3/uL (0.0-1.1); MONO % 9 % (0-9); NEUT # 3.7 x10^3/uL (1.8-7.7); NEUT % 68 % (31-73); PLATELET COUNT 121 x10^3/uL (140-400); RED BLOOD COUNT 3.15 x10^6/uL (4.30-5.70); RED CELL DISTRIBUTION WIDTH 15.8 % (11.5-14.5); WHITE BLOOD COUNT 5.5 x10^3/uL (4.0-11.0)
[2018-11-15 06:41] LABS: CALCIUM 8.7 mg/dL (8.5-10.1); CREATININE 1.3 mg/dL (0.7-1.3); GFR 53.8; POTASSIUM 3.9 mmol/L (3.5-5.1)
[2018-11-15 07:00] VITALS: BP 167/70
--- NOTE | 2018-11-15 07:01 | NUR ---
Pt had good night with no outbursts. Pt awoke at 0200 and had to be reoriented but otherwise alert and oriented for rest of shift, this AM following commands, pleasant disposition and aware of physical limitations.
[2018-11-15] MEDS: ASPIRIN CHEWABLE 81 MG TABLET. PO SCH (08:17)
[2018-11-15] MEDS: GABAPENTIN 100 MG CAPSULE. PO SCH ×2 (08:17→20:14)
[2018-11-15] MEDS: PANTOPRAZOLE 40 MG TABLET.DR. PO SCH (08:17)
[2018-11-15] MEDS: CHOLECALCIFEROL (VITAMIN D3) 1,000 UNIT TABLET PO SCH ×2 (08:17→20:15)
[2018-11-15] MEDS: QUEtiapine 25 MG TABLET. PO SCH ×2 (08:18→20:15)
[2018-11-15] MEDS: LOSARTAN POTASSIUM 50 MG TABLET. PO SCH (08:18)
[2018-11-15 11:00] VITALS: BP 133/45
--- NOTE | 2018-11-15 11:24 | NUR ---
SS following up with discharge planning. SS met with pt and pt's spouse and discussed discharge planning. Pt is now off 1:1. Pt's spouse requested to send referral to [facility] and [facility] as a second choice. SS phoned and faxed clinical to [facility], ; fax [phone], and [facility], ; fax [phone]. SS will await acceptance decision and will proceed accordingly with discharge planning.
[2018-11-15] MEDS ORDERED: DIPH25CA58 PO (12:41)
[2018-11-15] MEDS ORDERED: ASPI-630 PO (12:41)
--- NOTE | 2018-11-15 12:56 | PDOC ---
[facility] PROGRESS NOTE Chief Complaint Chief Complaint Severe greater than 75% stenosis of the left internal carotid artery Postop day 3 left carotid endarterectomy Mitral valve disease Recent gastrointestinal bleed Psychosis Metabolic encephalopathy Dementia features LABILE BP History of Present Illness History of Present Illness 11/15/18 Patient seen and examined Pt was walking, talkative, and alert DW pt's family at length regarding the pt's care and possible PT/OT DW pt's family regarding needing to wait 24hr before d/c after stopping 1 on 1 care Probable d/c to SNU in morning DW RN regarding pt's care Reviewed pt's chart Vitals/I&O Vitals/I&O: Vital Signs Date Time Temp Pulse Resp B/P (MAP) Pulse Ox O2 Delivery O2 Flow Rate FiO2 11/15/18 11:00 98.3 76 16 133/45 (74) 97 Room Air 2.0 98.3 I & O 11/14/18 11/14/18 11/15/18 14:59 22:59 06:59 Intake Total 440 ml 340 ml 0 ml Output Total 500 ml Balance 440 ml 340 ml -500 ml Physical Exam Physical Exam: Neck has clean dry intact dressing General: Alert, Cooperative, No acute distress Heart: Regular rate, Normal S1, Normal S2, Other (2/6 systolic murmur.) Lungs: Clear, Other (diminished on the bases, ) Abdomen: Normal bowel sounds, Soft Extremities: No clubbing, No cyanosis, No edema, No tenderness/swelling Skin: No rashes, No breakdown, No significant lesion Labs Labs: Laboratory Tests Test 11/15/18 05:20 White Blood Count 5.5 x10^3/uL (4.0-11.0) Red Blood Count 3.15 x10^6/uL (4.30-5.70) Hemoglobin 9.6 g/dL (13.0-17.5) Hematocrit 28.1 % (39.0-53.0) Mean Corpuscular Volume 89 fL (79-100) Mean Corpuscular Hemoglobin 30 pg (25-35) Mean Corpuscular Hemoglobin Concent 34 g/dL (31-37) Red Cell Distribution Width 15.8 % (11.5-14.5) Platelet Count 121 x10^3/uL (140-400) Neutrophils (%) (Auto) 68 % (31-73) Lymphocytes (%) (Auto) 15 % (24-48) Monocytes (%) (Auto) 9 % (0-9) Eosinophils (%) (Auto) 7 % (0-3) Basophils (%) (Auto) 1 % (0-3) Neutrophils # (Auto) 3.7 x10^3/uL (1.8-7.7) Lymphocytes # (Auto) 0.8 x10^3/uL (1.0-4.8) Monocytes # (Auto) 0.5 x10^3/uL (0.0-1.1) Eosinophils # (Auto) 0.4 x10^3/uL (0.0-0.7) Basophils # (Auto) 0.0 x10^3/uL (0.0-0.2) Sodium Level 142 mmol/L (136-145) Potassium Level 3.9 mmol/L (3.5-5.1) Chloride Level 107 mmol/L (98-107) Carbon Dioxide Level 26 mmol/L (21-32) Anion Gap 9 (6-14) Blood Urea Nitrogen 19 mg/dL (8-26) Creatinine 1.3 mg/dL (0.7-1.3) Estimated GFR (Cockcroft-Gault) 53.8 Glucose Level 108 mg/dL (70-99) Calcium Level 8.7 mg/dL (8.5-10.1) Review of Systems Review of Systems: No c/o headache No c/o CP Assessment and Plan Assessmemt and Plan Problems Medical Problems: (1) Acute CVA (cerebrovascular accident) Status: Acute (2) Acute encephalopathy Status: Acute (3) Carotid artery stenosis Status: Chronic (4) Gastrointestinal bleed Status: Acute (5) Hypertension Status: Chronic (6) Mitral valve insufficiency Status: Acute Assessment Severe greater than 75% stenosis of the left internal carotid artery Postop day 3 left carotid endarterectomy Mitral valve disease Recent gastrointestinal bleed Psychosis Metabolic encephalopathy Dementia features LABILE BP Plan Wound care Serial enzymes Serial ekgs Cardiac monitoring PT/OT Awaiting further cardio input Labs Stopped the pt's 1 on 1 therapy, so will d/c to SNU in morning Comment Review of Relevant I have reviewed the following items hamzah (where applicable) has been applied. Medications: Current Medications Medications (Trade) Dose Ordered Sig/Jimbo Route PRN Reason Start Time Stop Time Status Last Admin Dose Admin Gabapentin (Neurontin) 100 mg BID PO 11/14/18 21:00 11/15/18 08:17 ROBERT GUTIERREZ III DO Nov 15, 2018 12:56
--- NOTE | 2018-11-15 13:27 | PDOC ---
PROGRESS NOTES Assessment Assessment Psychosis, controlled Metabolic encephalopathy. Confusion. Left ICA stenosis, > 75%, s/p endarterectomy. GI bleeding x 2, 1 month within 6 months. Valvular insufficiency. Ventriculomegaly. Cognitive impairment. No evidence of acute CVA this time. RECOMMENDATIONS/PLAN: Continue ASA 81 mg daily, plan to increase if OK with VS. Continue Seroquel 12.5 mg bid. Treat medical diseases. Discussed in detail with his and daughter at bedside on 11/15/18. Brain MRI on was negative for acute CVA. Past Medical History Cardiovascular: HTN, Valve insufficiency Pulmonary: No pertinent hx CENTRAL NERVOUS SYSTEM: CVA GI: Other (GI bleed) Past Surgical History No pertinent history Allergies Coded Allergies: lisinopril (Verified Allergy, Severe, 11/06/18) Angioedema Penicillins (Verified Allergy, Intermediate, Rash, 11/06/18) atorvastatin (Verified Allergy, Intermediate, 11/06/18) Muscle pain rosuvastatin (Verified Allergy, Intermediate, 11/06/18) Muscle pain - tolerates three times weekly dosing MEDICATIONS: Refer to [facility] FAMILY HISTORY: Non contributory. SOCIAL HISTORY: Lives with his at home. Denies current smoking, drinking, and illicit drug use. REVIEW OF SYSTEMS: Constitutional: No malnutrition, weight loss, cachexia. Head: No traumatic brain or head injury. Skin: No edema, or rash. Ear: No infection. Eyes: No vision loss or color blindness. Nose: No bleeding or purulent discharges. Hearing: Hearing decrease. Neck: No injury. Cardiac: Valvular disease. HTN, HLD. Pulmonary: No COPD. GI: GI bleeding. Urinary/genital: UTI. Endocrinologic: No cousin face, craniofacial dysmorphism, polydactyly. Skeletomuscular: No muscular atrophy, deformity. Neurological: see HP. Psychiatric: Denies drug use/abuse. Otherwise, not [id number] review of systems. PHYSICAL EXAMINATION: General appearance is in subacute distress. HEENT: Normocephalic and nontraumatic. Eyes, nose, ears, and throat are unremarkable. Neck is supple. No lymphadenopathy. No crepitus. Cardiovascular: S1, S2, regular rate and rhythm. Pulmonary: Clear to auscultation bilaterally. Abdomen: Bowel sounds are positive. Extremities: No rash, lesions, or edema. No restriction of range of motion NEUROLOGICAL EXAMINATION: Awake. Sitting in chair. Not fully oriented to time, but knew place and people. PERRL. EOMI. CN: no focal findings. Muscle tone: within normal. Muscle strength: 5 DTR: 2 Plantar reflex: Flexor response bilaterally Gait: Not examined. Sensory exam: no abnormal findings. No cerebellar signs elicited. F-T-N test fine. Objective Objective Vital Signs Date Time Temp Pulse Resp B/P (MAP) Pulse Ox O2 Delivery O2 Flow Rate FiO2 11/15/18 11:00 98.3 76 16 133/45 (74) 97 Room Air 2.0 98.3 Intake and Output 11/15/18 06:59 Intake Total 780 ml Output Total 500 ml Balance 280 ml Intake Oral 780 ml Output Urine Total 500 ml # Voids 4 # Bowel Movements 1 Vitals Signs Vitals VS - Last 72 Hours, by Label Date Time Temp Pulse Resp B/P (MAP) Pulse Ox O2 Delivery O2 Flow Rate FiO2 11/15/18 11:00 98.3 76 16 133/45 (74) 97 Room Air 2.0 98.3 11/15/18 08:18 75 167/70 11/15/18 08:00 Room Air 2.0 11/15/18 07:00 98.1 75 16 167/70 (102) 98 Room Air 98.1 11/15/18 03:00 98.6 94 16 141/65 (90) 96 Room Air 98.6 11/14/18 22:59 98.4 100 16 142/63 (89) 99 Nasal Cannula 2.0 98.4 11/14/18 20:22 80 182/75 11/14/18 20:00 Room Air 11/14/18 19:00 80 16 182/75 (110) 97 Room Air 11/14/18 15:06 98.2 99 18 130/52 (78) 98 Room Air 98.2 11/14/18 10:47 98.4 103 20 126/54 (78) 98 Room Air 98.4 11/14/18 08:52 84 168/60 11/14/18 07:33 98.3 94 22 168/60 (96) 98 Room Air 98.3 11/14/18 07:15 Room Air Laboratory Laboratory Laboratory Tests Test 11/15/18 05:20 White Blood Count 5.5 x10^3/uL (4.0-11.0) Red Blood Count 3.15 x10^6/uL (4.30-5.70) Hemoglobin 9.6 g/dL (13.0-17.5) Hematocrit 28.1 % (39.0-53.0) Mean Corpuscular Volume 89 fL (79-100) Mean Corpuscular Hemoglobin 30 pg (25-35) Mean Corpuscular Hemoglobin Concent 34 g/dL (31-37) Red Cell Distribution Width 15.8 % (11.5-14.5) Platelet Count 121 x10^3/uL (140-400) Neutrophils (%) (Auto) 68 % (31-73) Lymphocytes (%) (Auto) 15 % (24-48) Monocytes (%) (Auto) 9 % (0-9) Eosinophils (%) (Auto) 7 % (0-3) Basophils (%) (Auto) 1 % (0-3) Neutrophils # (Auto) 3.7 x10^3/uL (1.8-7.7) Lymphocytes # (Auto) 0.8 x10^3/uL (1.0-4.8) Monocytes # (Auto) 0.5 x10^3/uL (0.0-1.1) Eosinophils # (Auto) 0.4 x10^3/uL (0.0-0.7) Basophils # (Auto) 0.0 x10^3/uL (0.0-0.2) Sodium Level 142 mmol/L (136-145) Potassium Level 3.9 mmol/L (3.5-5.1) Chloride Level 107 mmol/L (98-107) Carbon Dioxide Level 26 mmol/L (21-32) Anion Gap 9 (6-14) Blood Urea Nitrogen 19 mg/dL (8-26) Creatinine 1.3 mg/dL (0.7-1.3) Estimated GFR (Cockcroft-Gault) 53.8 Glucose Level 108 mg/dL (70-99) Calcium Level 8.7 mg/dL (8.5-10.1) Medication Medications Current Medications Gabapentin (Neurontin) 100 mg BID PO Last administered on 11/15/18at 08:17; Start 11/14/18 at 21:00 Metoprolol Tartrate (Lopressor) 25 mg BID PO ; Start 11/15/18 at 13:00 Comment Review of Relevant I have reviewed the following items hamzah (where applicable) has been applied. BECKY DESAI MD Nov 15, 2018 13:27
[2018-11-15] MEDS: METOPROLOL TART IMMED RELEASE 25 MG TABLET. PO SCH ×2 (13:33→20:15)
[2018-11-15 15:00] VITALS: BP 142/43
[2018-11-15 19:26] VITALS: BP 174/74
--- NOTE | 2018-11-15 22:34 | NUR ---
Patient is agitated, combative and restless. Wants to leave the hospital. Patient's is staying the night to help reorient him. Will continue to monitor.
[2018-11-16 05:17] LABS: BASO % 1 % (0-3); EOS # 0.2 x10^3/uL (0.0-0.7); EOS % 3 % (0-3); HEMATOCRIT 28.4 % (39.0-53.0); HEMOGLOBIN 9.4 g/dL (13.0-17.5); LYMPH # 0.6 x10^3/uL (1.0-4.8); LYMPH % 6 % (24-48); MEAN CORPUSCULAR HEMOGLOBIN 30 pg (25-35); MEAN CORPUSCULAR HGB CONC 33 g/dL (31-37); MEAN CORPUSCULAR VOLUME 90 fL (79-100); MONO # 0.4 x10^3/uL (0.0-1.1); MONO % 4 % (0-9); NEUT % 87 % (31-73); PLATELET COUNT 130 x10^3/uL (140-400); RED BLOOD COUNT 3.16 x10^6/uL (4.30-5.70); RED CELL DISTRIBUTION WIDTH 15.4 % (11.5-14.5); WHITE BLOOD COUNT 9.3 x10^3/uL (4.0-11.0)
[2018-11-16 05:41] LABS: CALCIUM 8.5 mg/dL (8.5-10.1); CREATININE 1.3 mg/dL (0.7-1.3); GFR 53.8; POTASSIUM 3.9 mmol/L (3.5-5.1)
[2018-11-16] MEDS: ACETAMINOPHEN 325 MG TABLET. PO SCH ×2 (05:59→13:52)
[2018-11-16 07:00] VITALS: BP 158/67
[2018-11-16] MEDS: ASPIRIN CHEWABLE 81 MG TABLET. PO SCH (08:49)
[2018-11-16] MEDS: GABAPENTIN 100 MG CAPSULE. PO SCH (08:50)
[2018-11-16] MEDS: LOSARTAN POTASSIUM 50 MG TABLET. PO SCH (08:50)
[2018-11-16] MEDS: QUEtiapine 25 MG TABLET. PO SCH (08:50)
[2018-11-16] MEDS: METOPROLOL TART IMMED RELEASE 25 MG TABLET. PO SCH (08:51)
[2018-11-16] MEDS: CHOLECALCIFEROL (VITAMIN D3) 1,000 UNIT TABLET PO SCH (08:51)
[2018-11-16] MEDS: PANTOPRAZOLE 40 MG TABLET.DR. PO SCH (08:51)
--- NOTE | 2018-11-16 11:54 | SNU/HH DC ---
DISCHARGE ORDERS DISCHARGE INFORMATION: FINAL DIAGNOSIS Problems Medical Problems: (1) Acute CVA (cerebrovascular accident) Status: Acute (2) Acute encephalopathy Status: Acute (3) Carotid artery stenosis Status: Chronic (4) Gastrointestinal bleed Status: Acute (5) Hypertension Status: Chronic (6) Hyponatremia Status: Acute (7) Metabolic encephalopathy Status: Acute (8) Mitral valve insufficiency Status: Acute (9) Psychosis Status: Chronic CONDITION ON DISCHARGE: Stable CODE STATUS: Code Status: Full USP: SNF STAY <30 DAYS: Yes HOSPICE: HOSPICE: No HOSPICE EVAL & TREAT: No LTAC: ADMIT TO LTAC: No POST DISCHARGE ORDERS: DIET AFTER DISCHARGE: Cardiac TREATMENT/EQUIPMENT ORDERS: Physical Therapy For: Evalulation/Treatment Occupational Therapy For: Evaluation/Treatment Speech Language Pathology For: Evaluation/Treatment DISCHARGE MEDICATIONS: Home Meds Reported Medications Melatonin (MELATONIN) 3 Mg Tablet, 1 TAB PO QHS for insomnia, #30 TAB 2 Refills 11/06/18 Losartan Potassium (LOSARTAN POTASSIUM) 100 Mg Tablet, 100 MG PO DAILY for HYPERTENSION, TAB 11/06/18 Rosuvastatin Calcium (CRESTOR) 5 Mg Tablet, 1 TAB PO QODAY for cholesterol, #30 TAB 5 Refills 11/06/18 Polyethylene Glycol 3350 (MIRALAX) 17 Gm Powd.pack, 1 PACKET PO DAILY PRN for CONSTIPATION, #30 PACKET 3 Refills 11/06/18 Pantoprazole Sodium (PANTOPRAZOLE SODIUM ) 40 Mg Tablet.dr, 40 MG PO DAILYAC for GERD, TAB 11/06/18 Hydrocortisone Acetate (ANUSOL-HC) 25 Mg Supp.rect, 1 SUPP RC DAILY PRN for ITCHING, #14 SUPP 11/06/18 Gabapentin (GABAPENTIN ) 100 Mg Capsule, 100 MG PO BID for NEUROGENIC PAIN, CAP 11/06/18 Docusate Sodium (DOCUSATE SODIUM) 100 Mg Capsule, 1 CAP PO DAILY PRN for CONSTIPATION, #30 CAP 11/06/18 Cholecalciferol (Vitamin D3) (VITAMIN D) 1,000 Unit Capsule, 1 CAP PO BID for pt has AMS, #30 CAP 3 Refills 11/06/18 ROBERT GUTIERREZ III DO Nov 16, 2018 11:54
--- NOTE | 2018-11-16 12:38 | PDOC ---
[facility] [facility] PROGRESS NOTE Chief Complaint Chief Complaint Severe greater than 75% stenosis of the left internal carotid artery Postop day 4 left carotid endarterectomy Mitral valve disease Recent gastrointestinal bleed Psychosis Metabolic encephalopathy Dementia features LABILE BP History of Present Illness History of Present Illness 11/16/18 Patient seen and examined Pt was talking and remembers being agitated last night DW pt's family at length regarding the pt's care DW pt's who prefers d/c to [facility] RICKY RN regarding pt's care Reviewed pt's chart Vitals/I&O Vitals/I&O: Vital Signs Date Time Temp Pulse Resp B/P (MAP) Pulse Ox O2 Delivery O2 Flow Rate FiO2 11/16/18 08:51 73 158/67 11/16/18 08:00 Room Air 2.0 11/16/18 07:00 98.8 16 97 98.8 I & O 11/15/18 11/15/18 11/16/18 15:00 23:00 07:00 Intake Total 180 ml Balance 180 ml Physical Exam Physical Exam: Neck has clean dry intact dressing General: Alert, Cooperative, No acute distress Heart: Regular rate, Normal S1, Normal S2, Other (2/6 systolic murmur.) Lungs: Clear, Other (diminished on the bases, ) Abdomen: Normal bowel sounds, Soft Extremities: No clubbing, No cyanosis, No edema, No tenderness/swelling Skin: No rashes, No breakdown, No significant lesion Labs Labs: Laboratory Tests Test 11/16/18 04:45 White Blood Count 9.3 x10^3/uL (4.0-11.0) Red Blood Count 3.16 x10^6/uL (4.30-5.70) Hemoglobin 9.4 g/dL (13.0-17.5) Hematocrit 28.4 % (39.0-53.0) Mean Corpuscular Volume 90 fL (79-100) Mean Corpuscular Hemoglobin 30 pg (25-35) Mean Corpuscular Hemoglobin Concent 33 g/dL (31-37) Red Cell Distribution Width 15.4 % (11.5-14.5) Platelet Count 130 x10^3/uL (140-400) Neutrophils (%) (Auto) 87 % (31-73) Lymphocytes (%) (Auto) 6 % (24-48) Monocytes (%) (Auto) 4 % (0-9) Eosinophils (%) (Auto) 3 % (0-3) Basophils (%) (Auto) 1 % (0-3) Neutrophils # (Auto) 8.0 x10^3/uL (1.8-7.7) Lymphocytes # (Auto) 0.6 x10^3/uL (1.0-4.8) Monocytes # (Auto) 0.4 x10^3/uL (0.0-1.1) Eosinophils # (Auto) 0.2 x10^3/uL (0.0-0.7) Basophils # (Auto) 0.0 x10^3/uL (0.0-0.2) Sodium Level 136 mmol/L (136-145) Potassium Level 3.9 mmol/L (3.5-5.1) Chloride Level 103 mmol/L (98-107) Carbon Dioxide Level 24 mmol/L (21-32) Anion Gap 9 (6-14) Blood Urea Nitrogen 21 mg/dL (8-26) Creatinine 1.3 mg/dL (0.7-1.3) Estimated GFR (Cockcroft-Gault) 53.8 Glucose Level 102 mg/dL (70-99) Calcium Level 8.5 mg/dL (8.5-10.1) Review of Systems Review of Systems: No c/o headache No c/o CP Assessment and Plan Assessmemt and Plan Problems Medical Problems: (1) Acute CVA (cerebrovascular accident) Status: Acute (2) Acute encephalopathy Status: Acute (3) Carotid artery stenosis Status: Chronic (4) Gastrointestinal bleed Status: Acute (5) Hypertension Status: Chronic (6) Hyponatremia Status: Acute (7) Metabolic encephalopathy Status: Acute (8) Mitral valve insufficiency Status: Acute (9) Psychosis Status: Chronic Assessment Severe greater than 75% stenosis of the left internal carotid artery Postop day 4 left carotid endarterectomy Mitral valve disease Recent gastrointestinal bleed Psychosis Metabolic encephalopathy Dementia features LABILE BP Plan D/c to [facility] Comment Review of Relevant I have reviewed the following items hamzah (where applicable) has been applied. Medications: Current Medications Medications (Trade) Dose Ordered Sig/Jimbo Route PRN Reason Start Time Stop Time Status Last Admin Dose Admin Metoprolol Tartrate (Lopressor) 25 mg BID PO 7/29/19 13:00 11/16/18 08:51 ROBERT GUTIERREZ III DO Nov 16, 2018 12:38
--- NOTE | 2018-11-16 12:40 | NUR ---
SS following up with discharge planning. Discharge orders received for [facility], ; fax [phone]. SS phoned and faxed discharge orders to [facility]. Pt will discharge today and go to [facility] at 1545 via [facility] transportation, [id number]. Pt, pt's RN, and pt's spouse notified.
[2018-11-16] MEDS ORDERED: ALPR0.5T6 PO (14:14)
--- NOTE | 2018-11-16 14:30 | SNU/HH DC ---
DISCHARGE ORDERS DISCHARGE INFORMATION: FINAL DIAGNOSIS Problems Medical Problems: (1) Acute CVA (cerebrovascular accident) Status: Acute (2) Acute encephalopathy Status: Acute (3) Carotid artery stenosis Status: Chronic (4) Gastrointestinal bleed Status: Acute (5) Hypertension Status: Chronic (6) Hyponatremia Status: Acute (7) Metabolic encephalopathy Status: Acute (8) Mitral valve insufficiency Status: Acute (9) Psychosis Status: Chronic CONDITION ON DISCHARGE: Stable CODE STATUS: Code Status: Full HALFWAY: SNF STAY <30 DAYS: Yes HOSPICE: HOSPICE: No HOSPICE EVAL & TREAT: No LTAC: ADMIT TO LTAC: No POST DISCHARGE ORDERS: DIET AFTER DISCHARGE: Cardiac CHECKS AFTER DISCHARGE: CHECKS AFTER DISCHARGE: Check blood press - daily, Check your Temp as needed TREATMENT/EQUIPMENT ORDERS: Physical Therapy For: Evalulation/Treatment Occupational Therapy For: Evaluation/Treatment Speech Language Pathology For: Evaluation/Treatment DISCHARGE MEDICATIONS: Home Meds Reported Medications Alprazolam (ALPRAZOLAM) 0.5 Mg Tablet, 0.5 MG PO PRN Q6HRS PRN for ANXIETY / AGITATION, TAB 0 Refills 11/16/18 Melatonin (MELATONIN) 3 Mg Tablet, 1 TAB PO QHS for insomnia, #30 TAB 2 Refills 11/06/18 Losartan Potassium (LOSARTAN POTASSIUM) 100 Mg Tablet, 100 MG PO DAILY for HYPERTENSION, TAB 11/06/18 Rosuvastatin Calcium (CRESTOR) 5 Mg Tablet, 1 TAB PO QODAY for cholesterol, #30 TAB 5 Refills 11/06/18 Polyethylene Glycol 3350 (MIRALAX) 17 Gm Powd.pack, 1 PACKET PO DAILY PRN for CONSTIPATION, #30 PACKET 3 Refills 11/06/18 Pantoprazole Sodium (PANTOPRAZOLE SODIUM ) 40 Mg Tablet.dr, 40 MG PO DAILYAC for GERD, TAB 11/06/18 Hydrocortisone Acetate (ANUSOL-HC) 25 Mg Supp.rect, 1 SUPP RC DAILY PRN for ITCHING, #14 SUPP 11/06/18 Gabapentin (GABAPENTIN ) 100 Mg Capsule, 100 MG PO BID for NEUROGENIC PAIN, CAP 11/06/18 Docusate Sodium (DOCUSATE SODIUM) 100 Mg Capsule, 1 CAP PO DAILY PRN for CONSTIPATION, #30 CAP 11/06/18 Cholecalciferol (Vitamin D3) (VITAMIN D) 1,000 Unit Capsule, 1 CAP PO BID for pt has AMS, #30 CAP 3 Refills 11/06/18 ROBERT GUTIERREZ III DO Nov 16, 2018 14:30
[2018-11-16] MEDS ORDERED: QUET25TA5 PO (14:42)
[2018-11-16] MEDS ORDERED: ACET500T68 PO (14:42)
[2018-11-16] MEDS ORDERED: ASPI81TA50 PO (14:42)
[2018-11-16] MEDS ORDERED: METO25TA4 PO (14:42)
--- NOTE | 2018-11-16 14:53 | SNU/HH DC ---
DISCHARGE ORDERS DISCHARGE INFORMATION: FINAL DIAGNOSIS Problems Medical Problems: (1) Acute CVA (cerebrovascular accident) Status: Acute (2) Acute encephalopathy Status: Acute (3) Carotid artery stenosis Status: Chronic (4) Gastrointestinal bleed Status: Acute (5) Hypertension Status: Chronic (6) Hyponatremia Status: Acute (7) Metabolic encephalopathy Status: Acute (8) Mitral valve insufficiency Status: Acute (9) Psychosis Status: Chronic CONDITION ON DISCHARGE: Stable CODE STATUS: Code Status: Full USP: SNF STAY <30 DAYS: Yes HOSPICE: HOSPICE: No HOSPICE EVAL & TREAT: No LTAC: ADMIT TO LTAC: No POST DISCHARGE ORDERS: DIET AFTER DISCHARGE: Cardiac CHECKS AFTER DISCHARGE: CHECKS AFTER DISCHARGE: Check blood press - daily, Check your Temp as needed TREATMENT/EQUIPMENT ORDERS: Physical Therapy For: Evalulation/Treatment Occupational Therapy For: Evaluation/Treatment Speech Language Pathology For: Evaluation/Treatment DISCHARGE MEDICATIONS: Home Meds Active Scripts Aspirin (ASPIRIN) 81 Mg Tab.chew, 81 MG PO DAILYWBKFT for hh for 30 Days, #30 TAB.CHEW Prov:CASTLE,NIAL K III DO 11/15/18 Diphenhydramine Hcl (BENADRYL) 25 Mg Capsule, 50 MG PO PRN QHS PRN for INSOMNIA, #30 CAP Prov:CASTLE,NIAL K III DO 11/15/18 Reported Medications Metoprolol Tartrate (METOPROLOL TARTRATE) 25 Mg Tablet, 1 TAB PO BID for heart rate, #180 TAB 1 Refill 11/16/18 Aspirin (ASPIR-LOW) 81 Mg Tablet.dr, 1 TAB PO DAILY for heart, #30 TAB 3 Refills 11/16/18 Quetiapine Fumarate (SEROQUEL) 25 Mg Tablet, 12.5 MG PO BID for mood stabilizer, TAB 11/16/18 Acetaminophen (ACETAMINOPHEN) 500 Mg Tablet, 625 MG PO Q8HRS for mild pain, TAB 11/16/18 Alprazolam (ALPRAZOLAM) 0.5 Mg Tablet, 0.5 MG PO PRN Q6HRS PRN for ANXIETY / AGITATION, TAB 0 Refills 11/16/18 Losartan Potassium (LOSARTAN POTASSIUM) 100 Mg Tablet, 100 MG PO DAILY for HYPERTENSION, TAB 11/06/18 Rosuvastatin Calcium (CRESTOR) 5 Mg Tablet, 1 TAB PO QODAY for cholesterol, #30 TAB 5 Refills 11/06/18 Polyethylene Glycol 3350 (MIRALAX) 17 Gm Powd.pack, 1 PACKET PO DAILY PRN for CONSTIPATION, #30 PACKET 3 Refills 11/06/18 Pantoprazole Sodium (PANTOPRAZOLE SODIUM ) 40 Mg Tablet.dr, 40 MG PO DAILYAC for GERD, TAB 11/06/18 Hydrocortisone Acetate (ANUSOL-HC) 25 Mg Supp.rect, 1 SUPP RC DAILY PRN for ITC MARIA E, #14 SUPP 11/06/18 Gabapentin (GABAPENTIN ) 100 Mg Capsule, 100 MG PO BID for NEUROGENIC PAIN, CAP 11/06/18 Docusate Sodium (DOCUSATE SODIUM) 100 Mg Capsule, 1 CAP PO DAILY PRN for CONSTIPATION, #30 CAP 11/06/18 Cholecalciferol (Vitamin D3) (VITAMIN D) 1,000 Unit Capsule, 1 CAP PO BID for pt has AMS, #30 CAP 3 Refills 11/06/18 Discontinued Reported Medications Melatonin (MELATONIN) 3 Mg Tablet, 1 TAB PO QHS for insomnia, #30 TAB 2 Refills 11/06/18 ROBERT GUTIERREZ III DO Nov 16, 2018 14:53
[2018-11-16 15:14] VITALS: BP 144/45
--- NOTE | 2018-11-16 16:20 | NUR ---
Discharge Note: SARAH HUGGINS [address] [place] [address] Discharge instructions and discharge home medications reviewed with Patient and a copy given. All questions have been answered and understanding verbalized. The following instructions and handouts were given: Discontinued IV lines Patient discharged to SNU with family via wheelchair
--- NOTE | 2018-11-16 18:59 | PDOC ---
PROGRESS NOTES Assessment Assessment Psychosis, controlled Metabolic encephalopathy. Confusion. Left ICA stenosis, > 75%, s/p endarterectomy. GI bleeding x 2, 1 month within 6 months. Valvular insufficiency. Ventriculomegaly. Cognitive impairment. No evidence of acute CVA this time. RECOMMENDATIONS/PLAN: Continue ASA 81 mg daily, plan to increase if OK with VS. Continue Seroquel 12.5 mg bid. Treat medical diseases. Dementia tests can be obtained as out-patient base. Discussed in detail with his at bedside on 11/16/18. Brain MRI on was negative for acute CVA. Past Medical History Cardiovascular: HTN, Valve insufficiency Pulmonary: No pertinent hx CENTRAL NERVOUS SYSTEM: CVA GI: Other (GI bleed) Past Surgical History No pertinent history Allergies Coded Allergies: lisinopril (Verified Allergy, Severe, 11/06/18) Angioedema Penicillins (Verified Allergy, Intermediate, Rash, 11/06/18) atorvastatin (Verified Allergy, Intermediate, 11/06/18) Muscle pain rosuvastatin (Verified Allergy, Intermediate, 11/06/18) Muscle pain - tolerates three times weekly dosing MEDICATIONS: Refer to [facility] FAMILY HISTORY: Non contributory. SOCIAL HISTORY: Lives with his at home. Denies current smoking, drinking, and illicit drug use. REVIEW OF SYSTEMS: Constitutional: No malnutrition, weight loss, cachexia. Head: No traumatic brain or head injury. Skin: No edema, or rash. Ear: No infection. Eyes: No vision loss or color blindness. Nose: No bleeding or purulent discharges. Hearing: Hearing decrease. Neck: No injury. Cardiac: Valvular disease. HTN, HLD. Pulmonary: No COPD. GI: GI bleeding. Urinary/genital: UTI. Endocrinologic: No cousin face, craniofacial dysmorphism, polydactyly. Skeletomuscular: No muscular atrophy, deformity. Neurological: see HP. Psychiatric: Denies drug use/abuse. Otherwise, not [id number] review of systems. PHYSICAL EXAMINATION: General appearance is in no acute distress. HEENT: Normocephalic and nontraumatic. Eyes, nose, ears, and throat are unremarkable. Neck is supple. No lymphadenopathy. No crepitus. Cardiovascular: S1, S2, regular rate and rhythm. Pulmonary: Clear to auscultation bilaterally. Abdomen: Bowel sounds are positive. Extremities: No rash, lesions, or edema. No restriction of range of motion NEUROLOGICAL EXAMINATION: Awake. Not fully oriented to time, but knew place and people. PERRL. EOMI. CN: no focal findings. Muscle tone: within normal. Muscle strength: 5- DTR: 2 Plantar reflex: Flexor response bilaterally Gait: At his baseline normal. Sensory exam: no abnormal findings. No cerebellar signs elicited. F-T-N test fine. Objective Objective Vital Signs Date Time Temp Pulse Resp B/P (MAP) Pulse Ox O2 Delivery O2 Flow Rate FiO2 11/16/18 15:14 98.8 69 16 144/45 (78) 97 Room Air 98.8 11/16/18 08:00 2.0 Intake and Output 11/16/18 07:00 Intake Total 180 ml Balance 180 ml Intake Oral 180 ml # Voids 3 Vitals Signs Vitals VS - Last 72 Hours, by Label Date Time Temp Pulse Resp B/P (MAP) Pulse Ox O2 Delivery O2 Flow Rate FiO2 11/16/18 15:14 98.8 69 16 144/45 (78) 97 Room Air 98.8 11/16/18 08:51 73 158/67 11/16/18 08:50 73 158/67 11/16/18 08:00 Room Air 2.0 11/16/18 07:00 98.8 73 16 158/67 (97) 97 Room Air 98.8 11/15/18 22:36 62 16 Room Air 11/15/18 20:15 74 174/74 11/15/18 20:00 Room Air 2.0 11/15/18 19:26 98.7 74 16 174/74 (107) 96 Room Air 98.7 11/15/18 15:00 98.4 58 16 142/43 (76) 94 Room Air 2.0 98.4 11/15/18 13:33 76 133/45 11/15/18 11:00 98.3 76 16 133/45 (74) 97 Room Air 2.0 98.3 11/15/18 08:18 75 167/70 11/15/18 08:00 Room Air 2.0 11/15/18 07:00 98.1 75 16 167/70 (102) 98 Room Air 98.1 Laboratory Laboratory Laboratory Tests Test 11/16/18 04:45 White Blood Count 9.3 x10^3/uL (4.0-11.0) Red Blood Count 3.16 x10^6/uL (4.30-5.70) Hemoglobin 9.4 g/dL (13.0-17.5) Hematocrit 28.4 % (39.0-53.0) Mean Corpuscular Volume 90 fL (79-100) Mean Corpuscular Hemoglobin 30 pg (25-35) Mean Corpuscular Hemoglobin Concent 33 g/dL (31-37) Red Cell Distribution Width 15.4 % (11.5-14.5) Platelet Count 130 x10^3/uL (140-400) Neutrophils (%) (Auto) 87 % (31-73) Lymphocytes (%) (Auto) 6 % (24-48) Monocytes (%) (Auto) 4 % (0-9) Eosinophils (%) (Auto) 3 % (0-3) Basophils (%) (Auto) 1 % (0-3) Neutrophils # (Auto) 8.0 x10^3/uL (1.8-7.7) Lymphocytes # (Auto) 0.6 x10^3/uL (1.0-4.8) Monocytes # (Auto) 0.4 x10^3/uL (0.0-1.1) Eosinophils # (Auto) 0.2 x10^3/uL (0.0-0.7) Basophils # (Auto) 0.0 x10^3/uL (0.0-0.2) Sodium Level 136 mmol/L (136-145) Potassium Level 3.9 mmol/L (3.5-5.1) Chloride Level 103 mmol/L (98-107) Carbon Dioxide Level 24 mmol/L (21-32) Anion Gap 9 (6-14) Blood Urea Nitrogen 21 mg/dL (8-26) Creatinine 1.3 mg/dL (0.7-1.3) Estimated GFR (Cockcroft-Gault) 53.8 Glucose Level 102 mg/dL (70-99) Calcium Level 8.5 mg/dL (8.5-10.1) Comment Review of Relevant I have reviewed the following items hamzah (where applicable) has been applied. BECKY DESAI MD Nov 16, 2018 18:59
--- NOTE | 2018-11-17 11:53 | DS ---
DATE OF DISCHARGE: 11/16/2018 ADMISSION DIAGNOSES: Carotid stenosis and elevated troponin. DISCHARGE DIAGNOSIS: Postop carotid endarterectomy. HOSPITAL COURSE: The patient is a pleasant 73-year-old male who presented with carotid stenosis and an elevated troponin. He went to surgery, underwent a left carotid endarterectomy. Postoperatively, he had a lot of metabolic encephalopathy. Yesterday, we saw him, he is doing pretty well, we decided to go ahead and get him over to shelter. DISPOSITION: Skilled. ACTIVITY: As tolerated. DIET: Low sodium. MEDICATIONS: Please see MRAD. TOTAL TIME: 34 minutes. NIAL Adam GUTIERREZ DO DR: AMIE/gordon JOB#: [id number] / [id number]
== END 2018-11-16 16:10 | DRG 37 ==
LOC: 1 WEST ICU 11-06 00:53 → 6 SOUTH 11-06 10:39 → 2 NORTH 11-12 15:16
PROVIDERS: ADMIT Internal Medicine; ATTEND Internal Medicine
PROC: B24BZZ4 Ultrasonography of Heart with Aorta, Transesophageal (ICD-10-PCS; 2018-11-09)
PROC: 03CL0ZZ Extirpation of Matter from Left Internal Carotid Artery, Open Approach (ICD-10-PCS; 2018-11-12)
PROC: 03CN0ZZ Extirpation of Matter from Left External Carotid Artery, Open Approach (ICD-10-PCS; 2018-11-12)
PROC: 03CJ0ZZ Extirpation of Matter from Left Common Carotid Artery, Open Approach (ICD-10-PCS; principal; 2018-11-12 11:00)
DX: I65.22 Occlusion and stenosis of left carotid artery (principal); G93.41 Metabolic encephalopathy; E87.1 Hypo-osmolality and hyponatremia; I25.10 Atherosclerotic heart disease of native coronary artery without angina pectoris; E78.5 Hyperlipidemia, unspecified; I08.0 Rheumatic disorders of both mitral and aortic valves; F03.90 Unspecified dementia, unspecified severity, without behavioral disturbance, psychotic disturbance, mood disturbance, and anxiety; G93.89 Other specified disorders of brain; G43.909 Migraine, unspecified, not intractable, without status migrainosus; I50.9 Heart failure, unspecified; I11.0 Hypertensive heart disease with heart failure; Z88.0 Allergy status to penicillin; Z88.8 Allergy status to other drugs, medicaments and biological substances; Z86.73 Personal history of transient ischemic attack (TIA), and cerebral infarction without residual deficits; Z95.1 Presence of aortocoronary bypass graft; Z82.49 Family history of ischemic heart disease and other diseases of the circulatory system; Z79.82 Long term (current) use of aspirin; Z95.2 Presence of prosthetic heart valve
CPT/HCPCS: 36415; 70551; 80048; 80053; 80061; 81001; 85025; 85610; 85651; 87641; 93306; 93312; 93320; 93325; 95816; J0360; J0690; J0696; J1630; J1644; J2060; J2250; J2704; J3010; J3370; J3490; J7030; J7040; J7050; J7120; 92610; 97110; 97116; 97530; 97535